=== PATIENT | male | born 1950 | race Caucasian/White ===

== ENCOUNTER → 2020-05-24 | Outpatient (CLI) | payer BC, SELFPAY ==
[2020-05-24 17:03] LABS: Absolute Lymphocyte Count 2.06 X10^3/uL (0.83-4.51); Basophil# 0.05 X10^3/uL; Basophil% 0.4 % (0-1); Eosinophil# 0.03 X10^3/uL; Eosinophils% 0.2 % (0-5); Hematocrit 43.6 % (40-54); Hemoglobin 14.6 g/dL (13.0-16.5); Lymphocyte # 2.06 X10^3/ul (4.0); Mean Corp Hgb Conc 33.5 g/dL (32-36); Mean Corpuscular Hgb 32.2 pg (27.0-32.0); Mean Corpuscular Volume 96.2 fL (80-94); Mean Platelet Vol. 9.8 fl (6.2-12.0); Monocyte# 0.72 X10^3/uL; Monocyte% 5.6 % (0-10); NRBC Flagged by Analyzer 0 % (0-5); Neutrophil # 9.95 X10^3/uL (2.7-7.7); Neutrophil % 77.2 % (47-70); Platelet Count 249 K/mm3 (150-450); RBC Distribution Width CV 12.4 % (11.6-14.6); RBC Distribution Width SD 43.9 fl (35.1-43.9); Red Blood Count 4.53 M/mm3 (4.6-6.2); White Blood Count 12.9 K/mm3 (4.4-11.0)
[2020-05-24 17:33] LABS: ALB/GLOB Ratio 0.7 RATIO (0.9-2.4); AST(SGOT) 5 U/L (15-37); Alanine Aminotransfer ALT/SGPT 17 U/L (16-61); Alkaline Phosphatase 114 U/L (45-117); Anion Gap 6 (5-15); BUN 22 mg/dL (7-18); BUN/Creat Ratio 21.6 RATIO (10-20); Calcium,Total 9.2 mg/dL (8.5-10.1); Chloride 104 mmol/L (98-107); Creatinine, Serum 1.02 mg/dL (0.70-1.30); EST Glomerular Filtration Rate 77 mL/min (>60); Est Glom Filt Rate - Afr Amer 93 mL/min (>60); Globulin 4.3 g/dL (2.2-4.2); Glucose 80 mg/dL (74-106); PSA,Total - Annual Screen 0.52 ng/mL (0.00-4.00); Potassium 3.6 mmol/L (3.5-5.1); Protein, Total 7.3 g/dL (6.4-8.2); Sodium Level 139 mmol/L (136-145); Thyroid Stim Hormone (TSH) 0.98 uIU/mL (0.358-3.74)
[2020-05-25 10:10] LABS: Hepatitis C Antibody Non-Reactive (Nonreactive); Vitamin D,25 Hydroxy 39.9 ng/mL
== END | disposition home or self-care (01) ==
LOC: POLAB3 14:49
PROVIDERS: Visit Provider Family Medicine Geriatric Medicine
DX: E55.9 Vitamin D deficiency, unspecified (principal); R53.83 Other fatigue; Z12.5 Encounter for screening for malignant neoplasm of prostate; Z13.89 Encounter for screening for other disorder
CPT/HCPCS: 36415; 80053; 82306; 84153; 84443; 85025; 86803; G0103

== ENCOUNTER → 2020-06-01 13:54 | Outpatient (CLI) | payer BC, SELFPAY ==
--- NOTE | 2020-06-01 13:57 | CT_ITS ---
ACR Level 3 findings have been noted. An addendum which confirms receipt of the report will follow. HISTORY: LUNG SCREENING, QUIT 3 WKS AGO, 50+ YR SMOKER X LESS THAN 1 PPD TECHNIQUE: Helically acquired images of the chest were obtained without IV contrast. Number of images including paperwork: [id number]. A radiation dose optimization technique was used for this scan, exam performed with let us lung cancer screening technique. CTDI 2.55 mGy. Total DLP 90.92 mGy*cm. COMPARISON: None FINDINGS: VASCULATURE: Vascular tortuosity. HEART/PERICARDIUM: Prominence of the left ventricle. Coronary calcification. MEDIASTINUM: Unremarkable. ADENOPATHY: No pathologic appearing adenopathy. THYROID: Unremarkable visualized portions. LUNG PARENCHYMA: No consolidation or mass. Moderate emphysema. 2 mm subpleural nodule in the right upper lobe on axial image 86. Bronchial filling defects with some micronodular/tree-in-bud opacities in the left lower lobe, evaluation limited due to motion artifact. PLEURAL SPACES: Unremarkable. UPPER ABDOMEN: Unremarkable. OSSEOUS AND SOFT TISSUE STRUCTURES: No acute skeletal findings. DEVICES: None. CT/Low Dose CT Lung Screening IMPRESSION: 1. No suspicious lung nodule detected. Lung-RADS 2S. Continued annual screening with low-dose chest CT recommended in 12 months. 2. Low density bronchial filling defects with some tree-in-bud/micronodular opacities in the left lower lobe concerning for infection. Individualized dose optimization techniques were used for this CT. at 2241 Reported and signed by: Evelyn Buenrostro MD Electronically Signed: Evelyn Buenrostro MD at 22:41 EDT Tel , Service support ,
== END ==
PROVIDERS: PCP Family Medicine Geriatric Medicine; Referring Provider Family Medicine Geriatric Medicine; Visit Provider Family Medicine Geriatric Medicine
DX: F17.210 Nicotine dependence, cigarettes, uncomplicated (principal)
CPT/HCPCS: G0297

== ENCOUNTER 2023-11-15 18:17 | Inpatient (IN) | payer MEDICARE, BC, SELFPAY ==
[2023-11-15 17:56] VITALS: BMI 27.7
--- NOTE | 2023-11-15 18:24 | HP.PCM.HOS_ITS ---
HPI - General General Date of Admission: 11/15/23 Date of Service: 11/15/23 Chief Complaint: Chest pain suspicion of acute coronary syndrome HPI Narrative REID DOMINGO, is a 73 M who presents from [facility] ED with concerns regarding chest pain with gradually rising troponin, elevated D-dimer levels and suspected pulmonary embolism. He presented to the ED today with concerns regarding chest pain and back pain for the last few hours and associated altered mental status. He was accompanied by his girlfriend who notes that his sensorium has been worsening over the last 1 to 2 weeks, increased sleepiness during the day and insomnia during the night. She is also concerned that his dementia is developing dementia and that is worsening. Been discussed with the ED physician, there were concerns regarding pulmonary embolism as the D-dimer was 2000 and age-related cutoff 720, CT scan done there showed no large pulm embolism in the main pulmonary arteries nondiagnostic evaluation of the smaller pulmonary arteries. His troponin was rising from 6 to 12-[address] head normal, chest x-ray normal. On lab evaluation his venous bicarbonate was 26 potassium 4.3 lactate 1.9, hemoglobin 17.2 WBC 13.6. At present is not concerned regarding any chest pain but is drowsy and confused PFSH Medical History COPD (chronic obstructive pulmonary disease) Smoker Medical History unable to obtain unable to obtain Home Medications NK 11/15/23 [History Last Taken Unknown] Allergy/AdvReac Type Severity Reaction Status Date / Time No Known Allergies Allergy Verified 11/15/23 18:03 Social History Smoking Status: Current every day smoker tobacco type: cigarettes ROS Review of Systems ROS Unobtainable: due to mental status and other Constitutional Constitutional: Reports anorexia and change in weight; Denies chills, fatigue, fever(s), malaise, night sweats, weakness or other Vital Signs Vital Signs Vital Signs: Weight Weight: 188 lb Body Mass Index (BMI) 27.7 Physical Exam Const Orientation / Consciousness: confused, disoriented and lethargic HEENT normocephalic Eyes PERRL Neck no lymphadenopathy Resp normal respiratory effort and no retractions Resp Narrative: Oxygen 88% on room air Cardio regular rate, regular rhythm and no JVD GI normal to inspection, nondistended, normoactive bowel sounds Extremity normal to inspection and full ROM Psych affect normal Results Medical Records Data Attestation: I reviewed the patient's medical records Lab / Micro Data Lab results narrative: Based on his labs from outpatient he has leukocytosis, hemoglobin is 15, platelet count 184, urine analysis was normal, 11/15/23 18:55 11/15/23 18:55 Assessment & Plan Assessment/Plan (1) Altered behavior: (2) NSTEMI (non-ST elevated myocardial infarction): PLAN: Plan 73-year-old male with history of smoking 3 packs of cigarettes per day, no prior history not on any medical therapy presents from [facility] ED with concerns regarding altered mentation and chest pain since today. His preliminary evaluation at the ED showed rising troponin levels, leukocytosis, elevated D-dimer levels but no other concerning findings. There are no features of COPD exacerbation at this time though he is desaturating on room air. Per the girlfriend, he is having signs of progressive dementia over the last few weeks. 1. Altered mentation: His CT head was normal no concerns regarding acute stroke, no focal neurological deficit. Given his leukocytosis concerned that this could be sepsis though urinalysis is normal, CT scan not suggestive of pneumonia. -Blood cultures -IV ceftriaxone -Urine analysis, repeat CBC BMP -COVID, nasal swab 2. Acute chest pain, rising troponin levels: Suspected NSTEMI -Cardiology opinion regarding the rising troponin levels: It was recommended to start him on heparin, aspirin and atorvastatin for now -Possible cath on Friday -Echocardiogram on Friday 3. Possible COPD: -Oxygen 2 L to maintain saturation 88 to 92% -Respiratory therapy consult -Bronchopulmonary hygiene 4. DVT prophylaxis: Will be started on therapeutic anticoagulation
--- NOTE | 2023-11-15 18:41 | ECHOD_ITS ---
Reason For Study: CHEST PAIN Procedure This was a 2D Doppler, Color Flow transthoracic echocardiogram. The study was technically difficult. Poor patient compliance. Exam performed portable in patient room. Left Ventricle Normal LV size. Apical false tendon noted. Left ventricular systolic function is normal. The estimated ejection fraction is 60 %. No evidence for diastolic dysfunction. No regional wall motion abnormalities noted. Right Ventricle Normal right ventricle. Normal systolic function. Atria Normal left atrium. Normal right atrium. Mitral Valve The mitral valve is structurally normal. No prolapse or stenosis seen. Tricuspid Valve Normal tricuspid valve. Trivial tricuspid valve insufficiency. Unable to estimate RV systolic pressure due to insufficient tricuspid regurgitant envelope. Aortic Valve Trisinus/trileaflet aortic valve. Pulmonic Valve The pulmonic valve is not well visualized. Great Vessels Normal aortic root. Pericardium/Pleural No pericardial effusion. MMode/2D Measurements & Calculations LVIDd: 3.7 cm IVSd: 0.95 cm LVOT diam: 2.2 cm LVIDs: 2.4 cm LVPWd: 0.87 cm LVOT area: 3.9 cm2 RVDd: 2.7 cm FS: 35.4 % Ao root diam: 3.6 cm LVAd ap4: 17.4 cm2 LVAd ap2: 20.2 cm2 LVLd ap4: 7.1 cm LVLd ap2: 7.5 cm EDV(MOD-sp4): 35.4 ml EDV(MOD-sp2): 44.9 ml EDV(sp4-el): 36.4 ml EDV(sp2-el): 46.0 ml LVAs ap4: 9.9 cm2 LVAs ap2: 11.2 cm2 LVLs ap4: 6.0 cm LVLs ap2: 6.0 cm ESV(MOD-sp4): 14.2 ml ESV(MOD-sp2): 17.7 ml ESV(sp4-el): 13.8 ml ESV(sp2-el): 17.8 ml EF(MOD-sp4): 60.0 % EF(MOD-sp2): 60.7 % EF(sp4-el): 62.1 % SV(MOD-sp4): 21.2 ml SV(MOD-sp2): 27.2 ml SV(sp4-el): 22.6 ml LA dimension(2D): 2.5 cm TAPSE: 1.3 cm RA A4 area: 10.8 cm2 Time Measurements MV dec time: 0.25 sec Doppler Measurements & Calculations MV E max faizan: 41.1 cm/sec Lat Peak E' Faizan: 7.2 cm/sec Med Peak E' Faizan: 6.9 cm/sec MV A max faizan: 49.3 cm/sec E/E' lat: 5.7 E/E' med: 5.9 MV E/A: 0.83 MV dec slope: 165.1 cm/sec2 Ao V2 max: 85.7 cm/sec LV V1 max: 65.9 cm/sec Ao max P.0 mmHg LV V1 max P.7 mmHg Ao V2 mean: 65.5 cm/sec Ao mean P.9 mmHg Ao V2 VTI: 14.6 cm SUNIL(V,D): 3.0 cm2 PA V2 max: 66.8 cm/sec ECHO/Echo Complete Interpretation Summary The estimated ejection fraction is 60 %. No evidence for diastolic dysfunction. Structually normal valves. There is no comparison study available. Ordering Physician: Barrie Oreilly Referring Physician: Thomas Fleming Chi Performed By: Tash Donato RDCS
--- NOTE | 2023-11-15 18:41 | EKG12_ITS ---
Test Reason : TACHY Blood Pressure : / mmHG Vent. Rate : 074 BPM Atrial Rate : 074 BPM P-R Int : 142 ms QRS Dur : 076 ms QT Int : 392 ms P-R-T Axes : 062 072 057 degrees QTc Int : 435 ms Sinus rhythm with Premature atrial complexes Abnormal ECG When compared with ECG of 16-NOV-2023 22:18, MANUAL COMPARISON REQUIRED, DATA IS UNCONFIRMED Confirmed by MIGUEL ROBISON, AUBRIE ([id number]), editor trade journal FLORENTINO PAGE ([id number]) on 11/19/2023 1:30:29 PM Referred By: Confirmed By:AUBRIE RIVERA MD
[2023-11-15 18:56] VITALS: BP 108/46; PULSE 102; RESP 18; TEMP 36.5; O2SAT 97
[2023-11-15 19:07] LABS: Absolute Lymphocyte Count 1.23 X10^3/uL (0.83-4.51); Absolute Neutrophil Count 13.7 X10^3/uL (2.0-7.7); Basophil# 0.04 X10^3/uL; Basophil% 0.3 % (0-1); Hematocrit 45.3 % (40-54); Hemoglobin 14.9 g/dL (13.0-16.5); Lymphocyte # 1.23 X10^3/ul (0.83-4.51); Lymphocyte % 7.8 % (19-41); Mean Corp Hgb Conc 32.9 g/dL (32-36); Mean Corpuscular Volume 94.2 fL (80-94); Mean Platelet Vol. 9.7 fl (6.2-12.0); Monocyte# 0.62 X10^3/uL; Monocyte% 3.9 % (0-10); NRBC Flagged by Analyzer 0 % (0-5); Neutrophil # 13.74 X10^3/uL (2.7-7.7); Neutrophil % 87.4 % (47-70); Platelet Count 151 K/mm3 (150-450); RBC Distribution Width CV 13.4 % (11.6-14.6); RBC Distribution Width SD 46.8 fl (35.1-43.9); Red Blood Count 4.81 M/mm3 (4.6-6.2); White Blood Count 15.7 K/mm3 (4.4-11.0)
[2023-11-15 19:48] LABS: ALB/GLOB Ratio 0.9 RATIO (0.9-2.4); AST(SGOT) 14 U/L (15-37); Alanine Aminotransfer ALT/SGPT 10 U/L (16-61); Albumin, Serum 3.1 g/dL (3.2-5.0); Alkaline Phosphatase 90 U/L (45-117); Anion Gap 5 (5-15); BUN 16 mg/dL (7-18); BUN/Creat Ratio 13.9 RATIO (10-20); Calcium,Total 8.6 mg/dL (8.5-10.1); Chloride 104 mmol/L (98-107); Creatinine, Serum 1.15 mg/dL (0.70-1.30); EST Glomerular Filtration Rate 66 mL/min (>60); Est Glom Filt Rate - Afr Amer 80 mL/min (>60); Estimated Creatinine Clearance 62.85 ml/min; Globulin 3.3 g/dL (2.2-4.2); Glucose 120 mg/dL (74-106); Magnesium 2.1 mg/dL (1.6-2.6); Potassium 4.8 mmol/L (3.5-5.1); Protein, Total 6.4 g/dL (6.4-8.2); Sodium Level 135 mmol/L (136-145); Troponin-I HS 123 pg/mL (3.0-78.0)
[2023-11-15 19:56] VITALS: O2SAT 97
[2023-11-15 20:11] LABS: Partial Thromboplast Time 39.1 Seconds (24.1-36.2)
[2023-11-15 20:30] LABS: Procalcitonin 0.46 ng/mL (0.00-0.09)
--- NOTE | 2023-11-15 20:36 | EKG12_ITS ---
Test Reason : Blood Pressure : / mmHG Vent. Rate : 080 BPM Atrial Rate : 080 BPM P-R Int : 150 ms QRS Dur : 080 ms QT Int : 366 ms P-R-T Axes : 078 075 046 degrees QTc Int : 422 ms Normal sinus rhythm Early repolarization Normal ECG No previous ECGs available Confirmed by MIGUEL ROBISON, AUBRIE ([id number]), movie editor FLORENTINO PAGE ([id number]) on 11/19/2023 1:38:34 PM Referred By: Confirmed By:AUBRIE RIVERA MD
[2023-11-15] MEDS: HEPARIN/D5w 25,000 UNITS 25,000 UNITS/250 ML IV.SOLN. 12 UNITS CONT INF (21:12)
[2023-11-15] MEDS: Heparin Injection (Vial) 5,000 UNIT/ML VIAL 6000 UNIT IV (21:13)
[2023-11-15] MEDS: Atorvastatin Calcium 40 MG Tablet PO (21:13)
[2023-11-15] MEDS: Aspirin 81 MG TAB.CHEW 324 MG PO (21:13)
[2023-11-15] MEDS: Haloperidol Lactate 5 MG/ML Vial 1 MG IV (21:14)
[2023-11-15 21:43] LABS: Troponin-I HS 131 pg/mL (3.0-78.0)
--- NOTE | 2023-11-15 23:00 | PCM.HOSP.N ---
Hospitalist Note Patient since presentation from OSH with agitation, unclear etiology. Family denies EtOH abuse. Resp panel pending, negative COVID. Outside imaging including CT imaging head/chest per hospitalist sign out unremarkable. Patient does have mild WBC elevation 15.7, labs aside mild trop elevation otherwise no marked. Haldol started given concern for self accidental injury while evaluating. Will attempt to obtain NH level. Family does endorse history of dementia and had noted concerns that is has been worsening.
[2023-11-15 23:17] LABS: Bacteria 0 SEEN /hpf (None Seen); Mucous, Urine 0 SEEN /hpf (<or=2+); Red Blood Cells-Urine 0 SEEN /hpf (0-5); Squamous Epithelial Cells - UA 0 SEEN /hpf (0-5); White Blood Cells 0 SEEN /hpf (0-5)
[2023-11-15 23:18] LABS: Color, Urine Yellow (Yellow); Glucose, Dipstick Normal (Normal); Ketone-Dipstick Negative (Negative); Leukocyte Esterase-Dipstick Negative /ul (Negative); Nitrite-Dipstick Negative (Negative); Occult Blood-Urine 10 /ul (Negative); Protein-Dipstick 15 mg/dl (Negative); Urine Bilirubin Dipstick Negative (Negative); Urine Clarity Clear (Clear); Urine Urobilinogen Normal (Normal)
[2023-11-15] MEDS: Haloperidol Lactate 5 MG/ML Vial IV (23:23)
[2023-11-15 23:53] LABS: Amphetamine Urine VISTA NEGATIVE (<1000 ng/mL); Barbiturate Urine VISTA NEGATIVE (< 200 ng/mL); Benzodiazepine Urine VISTA NEGATIVE (< 200 ng/mL); Cocaine Urine VISTA NEGATIVE (< 300 ng/mL); Ecstacy Urine VISTA NEGATIVE (< 500 ng/mL); Methadone Urine VISTA NEGATIVE (< 300 ng/mL); PCP Urine VISTA NEGATIVE (< 25 ng/mL); THC Urine VISTA NEGATIVE (< 50 ng/mL); Vista UDS pH Range 8
[2023-11-16] MEDS: QUEtiapine 25 MG Tablet PO (02:10)
[2023-11-16 02:15] LABS: BNP,B-Type NATRIURETIC PEPTIDE 277.4 pg/mL (0-100)
[2023-11-16 02:21] LABS: Troponin-I HS 96 pg/mL (3.0-78.0)
[2023-11-16 02:22] LABS: Partial Thromboplast Time > 200.0 Seconds (24.1-36.2)
[2023-11-16 02:31] LABS: Cholesterol 118 mg/dL (200); High Density Lipoprotein 55 mg/dL; Triglycerides 60 mg/dL; Very Low Density Lipoprotein 12 mg/dL (5-40)
[2023-11-16] MEDS: Haloperidol Lactate 5 MG/ML Vial 1 MG IV ×2 (03:13→12:24)
[2023-11-16 04:44] VITALS: BP 118/70; PULSE 76; RESP 18; TEMP 37.2; O2SAT 96
[2023-11-16 08:10] VITALS: O2SAT 96
[2023-11-16 09:55] LABS: Partial Thromboplast Time 66.7 Seconds (24.1-36.2)
[2023-11-16 12:18] VITALS: BP 124/76; PULSE 77; RESP 18; TEMP 36.3; O2SAT 96
--- NOTE | 2023-11-16 14:23 | PN.HOSP_ITS ---
Subjective Subjective No issues overnight, appears to be remaining at the baseline as described Objective Data Objective Data Vital Signs: Vital Signs Temp Pulse Resp BP Pulse Ox O2 Del Method O2 Flow Rate 97.4 F L 77 18 124/76 H 96 Room Air 2 11/16/23 12:18 11/16/23 12:18 11/16/23 12:18 11/16/23 12:18 11/16/23 12:18 11/16/23 12:18 11/16/23 09:34 Oxygen Flow Rate (L/min) 2 Oxygen Delivery Method Room Air Weight: 188 lb Body Mass Index (BMI) 27.7 Intake & Output: Intake and Output for Last 24 Hours 11/15/23 11/16/23 11/17/23 03:59 03:59 03:59 Intake Total 65 / 65 0 / 0 Output Total 200 / 200 700 / 700 Balance -135 / -135 -700 / -700 Lab / Micro Data 11/15/23 18:55 11/15/23 18:55 Labs: Laboratory Results - last 24 hr 11/15/23 18:55: WBC 15.7 H, RBC 4.81, Hgb 14.9, Hct 45.3, MCV 94.2 H, MCH 31.0, MCHC 32.9, RDW Std Deviation 46.8 H, RDW Coeff of Katerina 13.4, Plt Count 151, MPV 9.7, Immature Gran % (Auto) 0.600, Neut % (Auto) 87.4 H, Lymph % (Auto) 7.8 L, [place] % (Auto) 3.9, Eos % (Auto) 0.0, Baso % (Auto) 0.3, Absolute Neuts (auto) 13.7 H, Absolute Lymphs (auto) 1.23, Nucleated RBC % 0, APTT 39.1 H, Sodium 135 L, Potassium 4.8, Chloride 104, Carbon Dioxide 26.0, Anion Gap 5, BUN 16, Creatinine 1.15, Estim Creat Clear Calc 62.85, Est GFR (MDRD) Af Amer 80, Est GFR (MDRD) Non-Af 66, BUN/Creatinine Ratio 13.9, Glucose 120 H, Calcium 8.6, Magnesium 2.1, Total Bilirubin 0.90, AST 14 L, ALT 10 L, Alkaline Phosphatase 90, Troponin I High Sens 123 H*, Total Protein 6.4, Albumin 3.1 L, Globulin 3.3, Albumin/Globulin Ratio 0.9, Procalcitonin 0.46 H 11/15/23 20:59: Troponin I High Sens 131 H* 11/15/23 23:05: Urine Color Yellow, Urine Clarity Clear, Urine pH 8.0, Ur Specific [place] 1.010, Urine Protein 15 H, Urine Glucose (UA) Normal, Urine Ketones Negative, Urine Occult Blood 10 H, Urine Nitrite Negative, Urine Bilirubin Negative, Urine Urobilinogen Normal, Ur Leukocyte Esterase Negative, Urine RBC 0 SEEN, Urine WBC 0 SEEN, Ur Squamous Epith Cells 0 SEEN, Urine Bacte yadi 0 SEEN, Urine Mucus 0 SEEN, Urine Opiates Screen POSITIVE H, Urine Methadone Screen NEGATIVE, Ur Barbiturates Screen NEGATIVE, Ur Phencyclidine Scrn NEGATIVE, Ur Amphetamines Screen NEGATIVE, MDMA (Ecstasy) Screen NEGATIVE, U Benzodiazepines Scrn NEGATIVE, Urine Cocaine Screen NEGATIVE, U Cannabinoids Screen NEGATIVE, Ur Drug Screen Comment 11/16/23 01:45: APTT > 200.0 H*, Ammonia 13.0, Troponin I High Sens 96 H, B- Natriuretic Peptide 277.4 H, Triglycerides 60, Cholesterol 118, LDL Cholesterol 51, VLDL Cholesterol 12, HDL Cholesterol 55 11/16/23 08:49: APTT 66.7 H Micro: Microbiology 11/15/23 20:40 Mucosa - Nasopharyngeal Coronavirus COVID-19 PCR - Final 11/15/23 20:40 Mucosa - Nasopharyngeal Respiratory Panel (PCR) - Final Physical Exam Narrative General: Drowsy and disoriented, restless and was combative overnight HEENT: Atraumatic, PERRLA, EOMI, Normocephalic Oral: Moist Mucosa Neck: Supple, No JVD Lungs: Diminished, Normal air movement, No rhonchi, No wheeze, No rales Cardiovascular: Regular rate, Regular Rhythm, Normal S1, Normal S2, No murmurs Abdomen: Soft, Non Tender, Non-Distended, No Hepato-splenomegaly Extremities: No edema, Capillary Refill Less than 3 Seconds Skin: No rashes, No breakdown Musculoskeletal: No Tenderness to Palpation of Joints or Extremities Neurological: Does not follow commands, does move all extremities Psych/Mental Status: Flat Assessment & Plan Assessment/Plan (1) Altered behavior: (2) NSTEMI (non-ST elevated myocardial infarction): PLAN: Plan 1. Altered mental status in the setting of chronic dementia ? Currently still unclear as to the etiology of his worsening mental status ? There is no obvious infectious etiology respiratory panels were obtained at the outside hospital reportedly negative ? Chest x-ray is unremarkable ? UA here is normal ? Overnight physician started him on Haldol to help control behaviors of possible 2. Chest pain possible non-STEMI ? Unclear if he is having a non-STEMI or not as troponins are borderline ? Cardiology was consulted and they recommended a heparin drip with possible cat h and echo on Friday DVT: Heparin drip Charges/Coding Visit Charges Inpatient E&M: 77706 Subs Hosp L2
[2023-11-16 16:04] LABS: Partial Thromboplast Time 60.3 Seconds (24.1-36.2)
--- NOTE | 2023-11-16 16:25 | CON.PCM.CA_ITS ---
Assessment & Plan Assessment/Plan (1) Altered behavior: (2) NSTEMI (non-ST elevated myocardial infarction): PLAN: Plan 73-year-old patient Seen and evaluated at bedside along with the nursing staff And significant other at bedside. 73-year-old patient who was admitted through the ER transfer from [place] ED with concern regarding symptoms of chest pain and increasing troponin level. And elevated D-dimer level On review of the record there is concern that patient had history of dementia which was worsening. Evaluation by CT chest showed no evidence of pulm embolism. EKG showed normal sinus with early repolarization. No significant ST?T abnormalities noted. Patient has a history of smoking based on the record he smokes 3 packs/day. Cardiac care plan recommendations; Patient was not responsive he was very confused and has been on sedation with Haldol. The maximal troponin level where 96 with a B-natriuretic peptide of 277. The EKG showed normal sinus with signs of early repolarization. Urine drug screen was negative. From cardiac standpoint not a candidate for invasive evaluation at this point would recommend echocardiogram will review the echo as well will check a series of cardiac markers in the morning. Discontinue heparin restarted on prophylactic Lovenox and SCDs for DVT Will defer to the medical team for evaluation of altered mental status. Reagan Greenfield MD,[facility] HPI Consult Data Date of Consult: 11/16/23 HPI Narrative Reason for Consultation: Elevated troponins HPI Narrative: REID DOMINGO, is a 73 M who presents [facility] Medical History COPD (chronic obstructive pulmonary disease) Smoker Medical History unable to obtain Home Medications multivitamin (One Daily Essential tablet) 1 tab PO DAILY vitamin 11/15/23 [History Last Taken Unknown] Allergy/AdvReac Type Severity Reaction Status Date / Time No Known Allergies Allergy Verified 11/15/23 18:03 Social History Smoking Status: Current every day smoker tobacco type: cigarettes Physical Exam Cardio Cardio Narrative: Seen and evaluated at bedside along with the nursing staff Significant other at bedside Patient agitated Not responsive with altered mental status. Patient had no focal neurological deficit on neurological exam however he was not responsive with altered mental status. shelter monitor showed normal sinus rhythm Cardiac exam S1-S2 regular Chest exam clear to auscultation bilateral. Risk Stratification Risk Stratification Applicable: No Objective Data Vital Signs: Vital Signs Temp Pulse Resp BP Pulse Ox O2 Del Method O2 Flow Rate 97.4 F L 77 18 124/76 H 96 Room Air 2 11/16/23 12:18 11/16/23 12:18 11/16/23 12:18 11/16/23 12:18 11/16/23 12:18 11/16/23 14:24 11/16/23 09:34 Oxygen Flow Rate (L/min) 2 Oxygen Delivery Method Room Air Weight: 188 lb Body Mass Index (BMI) 27.7 Intake & Output: Intake and Output for Last 24 Hours 11/14/23 11/15/23 11/16/23 23:59 23:59 23:59 Intake Total 154.25 / 154.25 Output Total 1650 / 1650 Balance -1495.75 / -1495.75 Lab / Micro Data 11/15/23 18:55 11/15/23 18:55 Labs: Laboratory Results - last 24 hr 11/15/23 18:55: WBC 15.7 H, RBC 4.81, Hgb 14.9, Hct 45.3, MCV 94.2 H, MCH 31.0, MCHC 32.9, RDW Std Deviation 46.8 H, RDW Coeff of Katerina 13.4, Plt Count 151, MPV 9.7, Immature Gran % (Auto) 0.600, Neut % (Auto) 87.4 H, Lymph % (Auto) 7.8 L, [place] % (Auto) 3.9, Eos % (Auto) 0.0, Baso % (Auto) 0.3, Absolute Neuts (auto) 13.7 H, Absolute Lymphs (auto) 1.23, Nucleated RBC % 0, APTT 39.1 H, Sodium 135 L, Potassium 4.8, Chloride 104, Carbon Dioxide 26.0, Anion Gap 5, BUN 16, Creatinine 1.15, Estim Creat Clear Calc 62.85, Est GFR (MDRD) Af Amer 80, Est GFR (MDRD) Non-Af 66, BUN/Creatinine Ratio 13.9, Glucose 120 H, Calcium 8.6, Magnesium 2.1, Total Bilirubin 0.90, AST 14 L, ALT 10 L, Alkaline Phosphatase 90, Troponin I High Sens 123 H*, Total Protein 6.4, Albumin 3.1 L, Globulin 3.3, Albumin/Globulin Ratio 0.9, Procalcitonin 0.46 H 11/15/23 20:59: Troponin I High Sens 131 H* 11/15/23 23:05: Urine Color Yellow, Urine Clarity Clear, Urine pH 8.0, Ur Specific [place] 1.010, Urine Protein 15 H, Urine Glucose (UA) Normal, Urine Ketones Negative, Urine Occult Blood 10 H, Urine Nitrite Negative, Urine Bilirubin Negative, Urine Urobilinogen Normal, Ur Leukocyte Esterase Negative, Urine RBC 0 SEEN, Urine WBC 0 SEEN, Ur Squamous Epith Cells 0 SEEN, Urine Bacteria 0 SEEN, Urine Mucus 0 SEEN, Urine Opiates Screen POSITIVE H, Urine Methadone Screen NEGATIVE, Ur Barbiturates Screen NEGATIVE, Ur Phencyclidine Scrn NEGATIVE, Ur Amphetamines Screen NEGATIVE, MDMA (Ecstasy) Screen NEGATIVE, U Benzodiazepines Scrn NEGATIVE, Urine Cocaine Screen NEGATIVE, U Cannabinoids Screen NEGATIVE, Ur Drug Screen Comment 11/16/23 01:45: APTT > 200.0 H*, Ammonia 13.0, Troponin I High Sens 96 H, B- Natriuretic Peptide 277.4 H, Triglycerides 60, Cholesterol 118, LDL Cholesterol 51, VLDL Cholesterol 12, HDL Cholesterol 55 11/16/23 08:49: APTT 66.7 H 11/16/23 14:45: APTT 60.3 H Micro: Microbiology 11/15/23 20:40 Mucosa - Nasopharyngeal Coronavirus COVID-19 PCR - Final 11/15/23 20:40 Mucosa - Nasopharyngeal Respiratory Panel (PCR) - Final Cardiology Labs/Tests 11/15/23 18:55: WBC 15.7 H, RBC 4.81, Hgb 14.9, Hct 45.3, MCV 94.2 H, MCH 31.0, MCHC 32.9, Plt Count 151, MPV 9.7, Immature Gran % (Auto) 0.600, Neut % (Auto) 87.4 H, Lymph % (Auto) 7.8 L, [place] % (Auto) 3.9, Eos % (Auto) 0.0, Baso % (Auto) 0.3, Absolute Neuts (auto) 13.7 H, Nucleated RBC % 0, APTT 39.1 H, Sodium 135 L, Potassium 4.8, Chloride 104, Carbon Dioxide 26.0, Anion Gap 5, BUN 16, Creatinine 1.15, Est GFR (MDRD) Af Amer 80, Est GFR (MDRD) Non-Af 66, BUN/Creatinine Ratio 13.9, Glucose 120 H, Calcium 8.6, Magnesium 2.1, Total Bilirubin 0.90 11/15/23 23:05: Urine Color Yellow, Urine Clarity Clear, Urine pH 8.0, Ur Speci fic [place] 1.010, Urine Protein 15 H, Urine Glucose (UA) Normal, Urine Ketones Negative, Urine Occult Blood 10 H, Urine Nitrite Negative, Urine Bilirubin Negative, Urine Urobilinogen Normal, Ur Leukocyte Esterase Negative, Urine RBC 0 SEEN, Urine WBC 0 SEEN 11/16/23 01:45: APTT > 200.0 H*, B-Natriuretic Peptide 277.4 H, Triglycerides 60, Cholesterol 118, LDL Cholesterol 51, VLDL Cholesterol 12, HDL Cholesterol 55 11/16/23 08:49: APTT 66.7 H 11/16/23 14:45: APTT 60.3 H Rhythm: EKG: ECHO: Stress Test: Cardiac Cath: PCI: CT Surgery: Holter monitor: EPS: PPM: CXR: Chest CT Scan:
[2023-11-16 18:55] VITALS: BP 130/83; PULSE 86; RESP 18; TEMP 36.5; O2SAT 94
[2023-11-16 22:00] VITALS: BP 147/90; PULSE 100; RESP 16; TEMP 35.6; O2SAT 98
[2023-11-16] MEDS: Enoxaparin 40 MG/0.4 ML Syringe SC (22:09)
--- NOTE | 2023-11-16 22:11 | EKG12_ITS ---
Test Reason : TACHY Blood Pressure : / mmHG Vent. Rate : 102 BPM Atrial Rate : 102 BPM P-R Int : 136 ms QRS Dur : 076 ms QT Int : 352 ms P-R-T Axes : 067 078 056 degrees QTc Int : 458 ms Sinus tachycardia with Premature supraventricular complexes Abnormal ECG When compared with ECG of 16-NOV-2023 22:16, MANUAL COMPARISON REQUIRED, DATA IS UNCONFIRMED Confirmed by MIGUEL ROBISON, AUBRIE ([id number]), proposal editor FLORENTINO PAGE ([id number]) on 11/19/2023 1:30:46 PM Referred By: DR MONTEJO Confirmed By:AUBRIE RIVERA MD
--- NOTE | 2023-11-16 22:16 | EKG12_ITS ---
Test Reason : TACHY Blood Pressure : / mmHG Vent. Rate : 104 BPM Atrial Rate : 104 BPM P-R Int : 166 ms QRS Dur : 082 ms QT Int : 342 ms P-R-T Axes : 073 076 056 degrees QTc Int : 449 ms Sinus tachycardia with Premature atrial complexes Abnormal ECG When compared with ECG of 15-NOV-2023 20:36, MANUAL COMPARISON REQUIRED, DATA IS UNCONFIRMED Confirmed by MIGUEL ROBISON, AUBRIE ([id number]), digital editor FLORENTINO PAGE ([id number]) on 11/19/2023 1:38:49 PM Referred By: DR MONTEJO Confirmed By:AUBRIE RIVERA MD
[2023-11-17] VITALS (11 sets, daily range): BP systolic 104–126; BP diastolic 66–94; PULSE 76–155; RESP 16–18; TEMP 36.1–37.2; O2SAT 90–96
[2023-11-17 00:09] LABS: Partial Thromboplast Time 49.1 Seconds (24.1-36.2)
[2023-11-17] MEDS: HEPARIN/D5w 25,000 UNITS 25,000 UNITS/250 ML IV.SOLN. 7 UNITS CONT INF (01:59)
--- NOTE | 2023-11-17 06:31 | PCM.HOSP.N ---
Hospitalist Note Patient with still intermittent tachycardia, will suddenly jump up to 170-180s, unable to catch on EKG. Will add metoprolol but will defer alteration to Cardiology discretion.
[2023-11-17] MEDS: Metoprolol Tartrate 5 MG/5 ML Vial IV ×2 (06:47→11:04)
[2023-11-17] MEDS: Budesonide Respules 0.5 MG/2 ML AMPUL.NEB. INHALATION (07:25)
[2023-11-17 08:03] LABS: Absolute Lymphocyte Count 1.79 X10^3/uL (0.83-4.51); Absolute Neutrophil Count 7.4 X10^3/uL (2.0-7.7); Basophil# 0.04 X10^3/uL; Basophil% 0.4 % (0-1); Eosinophil# 0.08 X10^3/uL; Eosinophils% 0.8 % (0-5); Hematocrit 48.6 % (40-54); Hemoglobin 16.5 g/dL (13.0-16.5); Lymphocyte # 1.79 X10^3/ul (0.83-4.51); Lymphocyte % 18.4 % (19-41); Mean Corpuscular Hgb 31.1 pg (27.0-32.0); Mean Corpuscular Volume 91.7 fL (80-94); Monocyte# 0.37 X10^3/uL; Monocyte% 3.8 % (0-10); NRBC Flagged by Analyzer 0 % (0-5); Neutrophil # 7.38 X10^3/uL (2.7-7.7); Neutrophil % 76.1 % (47-70); Platelet Count 186 K/mm3 (150-450); RBC Distribution Width CV 13.1 % (11.6-14.6); RBC Distribution Width SD 44.6 fl (35.1-43.9); White Blood Count 9.7 K/mm3 (4.4-11.0)
[2023-11-17 08:25] LABS: Partial Thromboplast Time 54.2 Seconds (24.1-36.2)
[2023-11-17 08:26] LABS: Anion Gap 10 (5-15); BUN 19 mg/dL (7-18); BUN/Creat Ratio 17.4 RATIO (10-20); Calcium,Total 8.8 mg/dL (8.5-10.1); Chloride 105 mmol/L (98-107); Creatinine, Serum 1.09 mg/dL (0.70-1.30); EST Glomerular Filtration Rate 71 mL/min (>60); Est Glom Filt Rate - Afr Amer 85 mL/min (>60); Estimated Creatinine Clearance 66.31 ml/min; Glucose 103 mg/dL (74-106); Potassium 4.1 mmol/L (3.5-5.1); Sodium Level 136 mmol/L (136-145); Troponin-I HS 18 pg/mL (3.0-78.0)
--- NOTE | 2023-11-17 10:43 | PCM.PN.HOSP ---
Subjective Subjective Has tachycardia overnight as well as behavioral issues. Not a candidate for invasive cardiac evaluation, echo is pending Objective Data Objective Data Vital Signs: Vital Signs Temp Pulse Resp BP Pulse Ox O2 Del Method O2 Flow Rate 99 F 76 18 118/70 96 Nasal Cannula 2 11/17/23 07:52 11/17/23 07:52 11/17/23 07:52 11/17/23 07:52 11/17/23 07:52 11/17/23 07:52 11/17/23 07:52 Oxygen Flow Rate (L/min) 2 Oxygen Delivery Method Nasal Cannula Weight: 188 lb Body Mass Index (BMI) 27.7 Intake & Output: Intake and Output for Last 24 Hours 11/16/23 11/17/23 11/18/23 03:59 03:59 03:59 Intake Total 65 / 65 89.25 / 89.25 Output Total 200 / 200 2100 / 2100 200 / 200 Balance -135 / -135 -2010.75 / -2010.75 -200 / -200 Lab / Micro Data 11/17/23 07:51 11/17/23 07:51 Labs: Laboratory Results - last 24 hr 11/16/23 14:45: APTT 60.3 H 11/16/23 23:43: APTT 49.1 H 11/17/23 07:51: WBC 9.7, RBC 5.30, Hgb 16.5, Hct 48.6, MCV 91.7, MCH 31.1, MCHC 34.0, RDW Std Deviation 44.6 H, RDW Coeff of Katerina 13.1, Plt Count 186, MPV 10.0, Immature Gran % (Auto) 0.500, Neut % (Auto) 76.1 H, Lymph % (Auto) 18.4 L, [place] % (Auto) 3.8, Eos % (Auto) 0.8, Baso % (Auto) 0.4, Absolute Neuts (auto) 7.4, Absolute Lymphs (auto) 1.79, Nucleated RBC % 0, APTT 54.2 H, Sodium 136, Potassium 4.1, Chloride 105, Carbon Dioxide 21.0, Anion Gap 10, BUN 19 H, Creatinine 1.09, Estim Creat Clear Calc 66.31, Est GFR (MDRD) Af Amer 85, Est GFR (MDRD) Non-Af 71, BUN/Creatinine Ratio 17.4, Glucose 103, Calcium 8.8, Troponin I High Sens 18 Micro: Microbiology 11/15/23 20:40 Mucosa - Nasopharyngeal Coronavirus COVID-19 PCR - Final 11/15/23 20:40 Mucosa - Nasopharyngeal Respiratory Panel (PCR) - Final Physical Exam Narrative General: Confused and restless HEENT: Atraumatic, PERRLA, EOMI, Normocephalic Oral: Moist Mucosa Neck: Supple, No JVD Lungs: Diminished, Normal air movement, No rhonchi, No wheeze, No rales Cardiovascular: Tachycardic, Regular Rhythm, Normal S1, Normal S2, No murmurs Abdomen: Soft, Non Tender, Non-Distended, No Hepato-splenomegaly Extremities: No edema, Capillary Refill Less than 3 Seconds Skin: No rashes, No breakdown Musculoskeletal: No Tenderness to Palpation of Joints or Extremities Neurological: Does not follow commands, does move all extremities Psych/Mental Status: Flat Assessment & Plan Assessment/Plan (1) Altered behavior: (2) NSTEMI (non-ST elevated myocardial infarction): PLAN: Plan 1. Altered mental status in the setting of chronic dementia ? Currently still unclear as to the etiology of his worsening mental status ? There is no obvious infectious etiology respiratory panels were obtained at the outside hospital reportedly negative ? Chest x-ray is unremarkable ? UA here is normal ? Leukocytosis resolved on its own without any antibiotics ? Overnight physician started him on Haldol to help control behaviors of possible 2. Chest pain possible non-STEMI ? Unclear if he is having a non-STEMI or not as troponins are borderline on admission and currently normal today ? Continue with echo, not a candidate for invasive studies ? Given elevated heart rates, will place on IV metoprolol as he is n.p.o. for speech therapy evaluation DVT: Heparin drip Charges/Coding Visit Charges Inpatient E&M: 20375 Subs Hosp L2
[2023-11-17] MEDS: 0.9% Saline Lock 10 ML Syringe IV ×2 (11:04→18:59)
--- NOTE | 2023-11-17 12:16 | PN.CARD_ITS ---
<Statement entered by Reagan Greenfield MD - 11/17/23 13:37> Pt seen & evaluated w/NILSON. I personally interviewed & exam the pt. I was involved in all aspects of pt's orders, interpretation of results & treatment Subjective Subjective Pt having episodes of SVT. Objective Data Vital Signs: Vital Signs Temp Pulse Resp BP Pulse Ox O2 Del Method O2 Flow Rate 97.6 F L 96 18 126/94 H 96 Room Air 2 11/17/23 10:00 11/17/23 11:04 11/17/23 10:00 11/17/23 11:04 11/17/23 10:00 11/17/23 10:00 11/17/23 07:52 Oxygen Flow Rate (L/min) 2 Oxygen Delivery Method Room Air Weight: 188 lb Body Mass Index (BMI) 27.7 Intake & Output: Intake and Output for Last 24 Hours 11/15/23 11/16/23 11/17/23 23:59 23:59 23:59 Intake Total 154.25 / 154.25 Output Total 1999 / 2300 500 / 500 Balance -1845.75 / -2145.75 -500 / -500 Lab / Micro Data 11/17/23 07:51 11/17/23 07:51 Labs: Laboratory Results - last 24 hr 11/16/23 14:45: APTT 60.3 H 11/16/23 23:43: APTT 49.1 H 11/17/23 07:51: WBC 9.7, RBC 5.30, Hgb 16.5, Hct 48.6, MCV 91.7, MCH 31.1, MCHC 34.0, RDW Std Deviation 44.6 H, RDW Coeff of Katerina 13.1, Plt Count 186, MPV 10.0, Immature Gran % (Auto) 0.500, Neut % (Auto) 76.1 H, Lymph % (Auto) 18.4 L, [place] % (Auto) 3.8, Eos % (Auto) 0.8, Baso % (Auto) 0.4, Absolute Neuts (auto) 7.4, Absolute Lymphs (auto) 1.79, Nucleated RBC % 0, APTT 54.2 H, Sodium 136, Pota ssium 4.1, Chloride 105, Carbon Dioxide 21.0, Anion Gap 10, BUN 19 H, Creatinine 1.09, Estim Creat Clear Calc 66.31, Est GFR (MDRD) Af Amer 85, Est GFR (MDRD) Non-Af 71, BUN/Creatinine Ratio 17.4, Glucose 103, Calcium 8.8, Troponin I High Sens 18 Cardiology Labs/Tests 11/16/23 14:45: APTT 60.3 H 11/16/23 23:43: APTT 49.1 H 11/17/23 07:51: WBC 9.7, RBC 5.30, Hgb 16.5, Hct 48.6, MCV 91.7, MCH 31.1, MCHC 34.0, Plt Count 186, MPV 10.0, Immature Gran % (Auto) 0.500, Neut % (Auto) 76.1 H, Lymph % (Auto) 18.4 L, [place] % (Auto) 3.8, Eos % (Auto) 0.8, Baso % (Auto) 0.4, Absolute Neuts (auto) 7.4, Nucleated RBC % 0, APTT 54.2 H, Sodium 136, Potassium 4.1, Chloride 105, Carbon Dioxide 21.0, Anion Gap 10, BUN 19 H, Creatinine 1.09, Est GFR (MDRD) Af Amer 85, Est GFR (MDRD) Non-Af 71, BUN/Creatinine Ratio 17.4, Glucose 103, Calcium 8.8 Radiography Diagnostic Testing: Radiology Impression Echocardiogram 11/15/23 18:41 Interpretation Summary The estimated ejection fraction is 60 %. No evidence for diastolic dysfunction. Structually normal valves. There is no comparison study available. Ordering Physician: Barrie Oreilly Referring Physician: Thomas Fleming Chi Performed By: Tash Donato, DELONTE Physical Exam Narrative General: Confused and restless HEENT: Atraumatic, PERRLA, EOMI, Normocephalic Oral: Moist Mucosa Neck: Supple, No JVD Lungs: Diminished, Normal air movement, No rhonchi, No wheeze, No rales Cardiovascular: Tachycardic, Regular Rhythm, Normal S1, Normal S2, No murmurs Abdomen: Soft, Non Tender, Non-Distended, No Hepato-splenomegaly Extremities: No edema, Capillary Refill Less than 3 Seconds Skin: No rashes, No breakdown Musculoskeletal: No Tenderness to Palpation of Joints or Extremities Neurological: Does not follow commands, does move all extremities Psych/Mental Status: Flat Assessment & Plan Assessment/Plan (1) NSTEMI (non-ST elevated myocardial infarction): (2) SVT (supraventricular tachycardia): PLAN: Plan * Pt is having runs of SVT, Will start him on oral metoprolol. With his NSTEMI that is a type II would like aggressive medical management. Will continue with is ASA and atorvastatin. 73-year-old patient Seen and evaluated at bedside along with the nursing staff And significant other at bedside. 73-year-old patient who was admitted through the ER transfer from [place] ED with concern regarding symptoms of chest pain and increasing troponin level. And elevated D-dimer level On review of the record there is concern that patient had history of dementia which was worsening. Evaluation by CT chest showed no evidence of pulm embolism. EKG showed normal sinus with early repolarization. No significant ST?T abnormalities noted. Patient has a history of smoking based on the record he smokes 3 packs/day. Cardiac care plan recommendations; Patient was not responsive he was very confused and has been on sedation with Haldol. The maximal troponin level where 96 with a B-natriuretic peptide of 277. The EKG showed normal sinus with signs of early repolarization. Urine drug screen was negative. From cardiac standpoint not a candidate for invasive evaluation at this point would recommend echocardiogram will review the echo as well will check a series of cardiac markers in the morning. Discontinue heparin restarted on prophylactic Lovenox and SCDs for DVT Will defer to the medical team for evaluation of altered mental status. Reagan Greenfield MD,FACC,[facility]
[2023-11-17] MEDS: Enoxaparin 40 MG/0.4 ML Syringe SC (13:55)
--- NOTE | 2023-11-17 15:43 | CASEMGMT ---
Discharge Planning A list of?SNF providers including quality and resource use data and consistent with the patient's preferred geographic region, medical needs, and insurance network was created in CarePort Guide.? This list was provided to the SW. Jackelyn Sorto Discharge Planning Asst.
--- NOTE | 2023-11-17 15:45 | CASEMGMT ---
RN RAMONITA Assessment Face to Face with patient for initial transition planning/care coordination assessment. Pt is A&Ox1 at this time and is unable to answer this RN CM questions appropriately for assessment. Pt SO and daughter at bedside and agreeable to answering this RN RAMONITA questions. JUDY SHIPMAN introduced self and role at [facility]. Care providers, pharmacy, and demographics verified. Admitting dx: AMS PCP: Pt recently switched from Dr. Fleming to Dr. Regalado per the pt SO Specialists: Pt daughter states that the pt will be seeing a Neurologist soon in regards to dementia Preferred Pharmacy: [facility] Insurance: MCR A only, [place] Prescription Benefit: Yes LNOK: Jessica Ward (Daughter), Sydnie Liriano (Sister) Living Arrangements: Pt lives with his SO (Karen) in a single story home with a flat entrance. ADLs/IADLs: Pt SO assists the pt Transportation: Pt SO, pt sister DME: BP Cuff. Thermometer. GB for shower. Denies all other DME uses. HHC/SNF: Denies history Smoking History: Pt Daughter states the pt smokes 4 packs of cigarettes per day Plan: 6-click is 12. Pt may benefit from going to a SNF after DC from [facility]. Pt SO and and daughter are agreeable to viewing a local list of in-network SNF. SUPPORT DIRECTOR CM updated. CM/SW to follow for safe DC from [facility]. Sendy Kebede RN, CM
[2023-11-17] MEDS: Haloperidol Lactate 5 MG/ML Vial 1 MG IV (18:59)
--- NOTE | 2023-11-17 19:56 | CPS ---
pt would not leave aero mask on-tried to blow by aero tx pt kept pushing mask away-pt recieved about 2 min of aero tx
[2023-11-17] MEDS: Metoprolol Tartrate 25 MG Tablet PO (20:32)
[2023-11-17] MEDS: Atorvastatin Calcium 40 MG Tablet PO (20:32)
[2023-11-18] VITALS (7 sets, daily range): BP systolic 105–132; BP diastolic 65–90; PULSE 63–91; RESP 16–18; TEMP 36.2–36.3; O2SAT 90–96
[2023-11-18 05:48] LABS: Absolute Neutrophil Count 7.7 X10^3/uL (2.0-7.7); Basophil# 0.04 X10^3/uL; Basophil% 0.4 % (0-1); Eosinophil# 0.08 X10^3/uL; Eosinophils% 0.8 % (0-5); Hematocrit 48.2 % (40-54); Hemoglobin 16.4 g/dL (13.0-16.5); Lymphocyte % 17.9 % (19-41); Mean Corpuscular Hgb 31.2 pg (27.0-32.0); Mean Corpuscular Volume 91.6 fL (80-94); Monocyte# 0.39 X10^3/uL; Monocyte% 3.9 % (0-10); NRBC Flagged by Analyzer 0 % (0-5); Neutrophil # 7.69 X10^3/uL (2.7-7.7); Neutrophil % 76.7 % (47-70); Platelet Count 208 K/mm3 (150-450); RBC Distribution Width CV 13.1 % (11.6-14.6); RBC Distribution Width SD 43.7 fl (35.1-43.9); Red Blood Count 5.26 M/mm3 (4.6-6.2)
[2023-11-18 06:21] LABS: Anion Gap 9 (5-15); BUN 25 mg/dL (7-18); BUN/Creat Ratio 22.7 RATIO (10-20); Calcium,Total 9.1 mg/dL (8.5-10.1); Chloride 107 mmol/L (98-107); EST Glomerular Filtration Rate 70 mL/min (>60); Est Glom Filt Rate - Afr Amer 85 mL/min (>60); Estimated Creatinine Clearance 65.71 ml/min; Glucose 105 mg/dL (74-106); Sodium Level 137 mmol/L (136-145)
[2023-11-18] MEDS: Budesonide Respules 0.5 MG/2 ML AMPUL.NEB. INHALATION (08:09)
[2023-11-18] MEDS: Enoxaparin 40 MG/0.4 ML Syringe SC (08:57)
--- NOTE | 2023-11-18 09:34 | CASEMGMT ---
XU received a voice mail from patient's significant other Karen. XU called Karen back. Karen said she was told to talk with XU about spending the night with patient. XU explained XU is not able to give this type of permission, but XU will pass this along to the admission discharge rn. Karen also asked about sending patient to a jail. Patient does not have Healthcare Power of Epic Professional papers. Patient has a daughter Jessica. Karen said she and Jessica work together on decisions for patient. XU explained XU will place a list of retirement facilities in patient's room. XU asked that they pick 4-5 facilities and SW will take care of contacting facilities. Karen said she will be in later today. XU left SNF list printed by Jackelyn in patient's room. Riana VALDES
--- NOTE | 2023-11-18 14:49 | CASEMGMT ---
XU met with patient's significant other Karen per her request. Karen had the list of nursing homes in front of her. Karen said she and patient's daughter Jackelyn were thinking some place in [place] would be close for both of them. XU let Karen know about [facility]. She was in agreement with this. Karen said SW can call patient's daughter to confirm. XU called Jackelyn and confirmed [facility] would be okay. XU asked Jackelyn d/c estate planning director to send a referral to [facility]. Plan: SNF pending accepting facility. Riana Jeffers FREEZER WORKER LUCIO
--- NOTE | 2023-11-18 14:52 | CHAPLAIN ---
Type of Pastoral Visit _x__ Initial Visit ___ Follow-up Visit ___ On-call Visit ___ General Patient Visit ___ Spiritual Assessment ___ Family Conference ___ Bereavement ___ Rapid Response ___ Code Blue ___ Other (describe below) Pastoral Care Referral From ___ Patient _x__ Family ___ Nurse ___ Physician ___ Display Maker ___ Head Field Hockey Coach ___ Other (describe below) Sacrament/Intervention ___ Active listening ___ Anointing ___ Adventist ___ Bereavement ___ Communion ___ Julissa exploration ___ ___ Life review _x__ Prayer ___ Reconciliation ___ Sacrament of Sick _x__ Supportive presence ___ Wedding ___ Other (describe below) Pastoral Comments patient is quietly resting in bed; unknown if patient will be able to speak but he does give soft and one word answers if given a direct question; pt keeps his eyes closed and appears to be unkempt and unable to fully process questions; offer of prayer is given a sure; pt does not engage in conversation or resist the visit; offer of future support given as needed
--- NOTE | 2023-11-18 15:31 | CASEMGMT ---
Addendum entered by Jackelyn Sorto 11/18/23 15:49: [facility] declined referral. Jackelyn Sorto, Discharge Planning Asst. Original Note: Discharge Planning Referral sent to [facility] via [facility]Port. Jackelyn Sorto, Discharge Planning Asst.
--- NOTE | 2023-11-18 16:22 | PN.HOSP_ITS ---
Subjective Subjective More tired today than he was yesterday he still woke up and when awake tried to be interactive Objective Data Objective Data Vital Signs: Vital Signs Temp Pulse Resp BP Pulse Ox O2 Del Method O2 Flow Rate 97.4 F L 77 18 111/65 96 Room Air 2 11/18/23 15:09 11/18/23 15:09 11/18/23 15:09 11/18/23 15:09 11/18/23 15:09 11/18/23 15:09 11/17/23 16:30 Oxygen Flow Rate (L/min) 2 Oxygen Delivery Method Room Air Weight: 188 lb Body Mass Index (BMI) 27.7 Intake & Output: Intake and Output for Last 24 Hours 11/17/23 11/18/23 11/19/23 03:59 03:59 03:59 Intake Total 89.25 / 89.25 440.27 / 440.27 Output Total 2100 / 2100 950 / 950 Balance -2010.75 / -2010.75 -509.73 / -509.73 Lab / Micro Data 11/18/23 05:39 11/18/23 05:39 Labs: Laboratory Results - last 24 hr 11/18/23 05:39: WBC 10.0, RBC 5.26, Hgb 16.4, Hct 48.2, MCV 91.6, MCH 31.2, MCHC 34.0, RDW Std Deviation 43.7, RDW Coeff of Katerina 13.1, Plt Count 208, MPV 10.0, Immature Gran % (Auto) 0.300, Neut % (Auto) 76.7 H, Lymph % (Auto) 17.9 L, [place] % (Auto) 3.9, Eos % (Auto) 0.8, Baso % (Auto) 0.4, Absolute Neuts (auto) 7.7, Absolute Lymphs (auto) 1.80, Nucleated RBC % 0, Sodium 137, Potassium 4.0, Chloride 107, Carbon Dioxide 21.0, Anion Gap 9, BUN 25 H, Creatinine 1.10, Estim Creat Clear Calc 65.71, Est GFR (MDRD) Af Amer 85, Est GFR (MDRD) Non-Af 70, BUN/Creatinine Ratio 22.7 H, Glucose 105, Calcium 9.1 Micro: Microbiology 11/15/23 20:59 Blood Culture (Wb) - Anticubital Left Blood Culture - Preliminary No growth in 48 hours. 11/15/23 20:40 Mucosa - Nasopharyngeal Coronavirus COVID-19 PCR - Final 11/15/23 20:40 Mucosa - Nasopharyngeal Respiratory Panel (PCR) - Final Physical Exam Narrative General: Confused and restless HEENT: Atraumatic, PERRLA, EOMI, Normocephalic Oral: Moist Mucosa Neck: Supple, No JVD Lungs: Diminished, Normal air movement, No rhonchi, No wheeze, No rales Cardiovascular: Regular rate, Regular Rhythm, Normal S1, Normal S2, No murmurs Abdomen: Soft, Non Tender, Non-Distended, No Hepato-splenomegaly Extremities: No edema, Capillary Refill Less than 3 Seconds Skin: No rashes, No breakdown Musculoskeletal: No Tenderness to Palpation of Joints or Extremities Neurological: Does not follow commands, does move all extremities Psych/Mental Status: Flat Assessment & Plan Assessment/Plan (1) Altered behavior: (2) NSTEMI (non-ST elevated myocardial infarction): PLAN: Plan 1. Altered mental status in the setting of chronic dementia ? Currently still unclear as to the etiology of his worsening mental status ? There is no obvious infectious etiology respiratory panels were obtained at the outside hospital reportedly negative ? Chest x-ray is unremarkable ? UA here is normal ? Leukocytosis resolved on its own without any antibiotics ? Given his sedation may transition Haldol to risperidone 2. Chest pain possible non-STEMI ? Unclear if he is having a non-STEMI or not as troponins are borderline on admission and currently normal today ? Echo with an EF of 60 and no diastolic dysfunction, not a candidate for invasive studies ? Was transition to oral metoprolol however he is inconsistent in taking it he has IV metoprolol as needed available DVT: Lovenox Charges/Coding Visit Charges Inpatient E&M: 71485 Subs Hosp L2
[2023-11-18 17:06] LABS: Thyroid Stim Hormone (TSH) 2.43 uIU/mL (0.358-3.74)
[2023-11-18 17:17] LABS: Syphilis Antibodies Non-reactive; Vitamin B12 347 pg/mL (211-911)
[2023-11-18] MEDS: Atorvastatin Calcium 40 MG Tablet PO (19:46)
[2023-11-18] MEDS: Metoprolol Tartrate 25 MG Tablet PO (19:46)
[2023-11-18] MEDS: Haloperidol Lactate 5 MG/ML Vial 1 MG IV (19:50)
[2023-11-18] MEDS: 0.9% Saline Lock 10 ML Syringe IV (19:51)
[2023-11-19 03:09] VITALS: BP 110/77; PULSE 55; RESP 14; TEMP 36.6; O2SAT 94
[2023-11-19 07:36] LABS: Absolute Lymphocyte Count 1.86 X10^3/uL (0.83-4.51); Absolute Neutrophil Count 7.1 X10^3/uL (2.0-7.7); Basophil# 0.06 X10^3/uL; Basophil% 0.6 % (0-1); Eosinophil# 0.19 X10^3/uL; Hematocrit 49.9 % (40-54); Hemoglobin 16.9 g/dL (13.0-16.5); Lymphocyte # 1.86 X10^3/ul (0.83-4.51); Lymphocyte % 19.1 % (19-41); Mean Corp Hgb Conc 33.9 g/dL (32-36); Mean Corpuscular Hgb 31.1 pg (27.0-32.0); Mean Corpuscular Volume 91.9 fL (80-94); Monocyte# 0.46 X10^3/uL; Monocyte% 4.7 % (0-10); NRBC Flagged by Analyzer 0 % (0-5); Neutrophil # 7.11 X10^3/uL (2.7-7.7); Neutrophil % 73.2 % (47-70); Platelet Count 220 K/mm3 (150-450); RBC Distribution Width CV 13.1 % (11.6-14.6); RBC Distribution Width SD 44.3 fl (35.1-43.9); Red Blood Count 5.43 M/mm3 (4.6-6.2); White Blood Count 9.7 K/mm3 (4.4-11.0)
[2023-11-19 07:50] VITALS: PULSE 88; RESP 16; O2SAT 91
[2023-11-19] MEDS: Budesonide Respules 0.5 MG/2 ML AMPUL.NEB. INHALATION ×2 (07:50→19:44)
[2023-11-19 08:42] LABS: ALB/GLOB Ratio 0.8 RATIO (0.9-2.4); AST(SGOT) 15 U/L (15-37); Alanine Aminotransfer ALT/SGPT 12 U/L (16-61); Albumin, Serum 3.2 g/dL (3.2-5.0); Alkaline Phosphatase 92 U/L (45-117); Anion Gap 9 (5-15); BUN 24 mg/dL (7-18); BUN/Creat Ratio 22.6 RATIO (10-20); Calcium,Total 9.1 mg/dL (8.5-10.1); Chloride 108 mmol/L (98-107); Creatinine, Serum 1.06 mg/dL (0.70-1.30); EST Glomerular Filtration Rate 73 mL/min (>60); Est Glom Filt Rate - Afr Amer 88 mL/min (>60); Estimated Creatinine Clearance 68.19 ml/min; Glucose 101 mg/dL (74-106); Potassium 3.9 mmol/L (3.5-5.1); Protein, Total 7.2 g/dL (6.4-8.2); Sodium Level 138 mmol/L (136-145)
[2023-11-19 09:05] VITALS: BP 135/91; PULSE 87; RESP 18; TEMP 36.6; O2SAT 94
[2023-11-19 10:19] VITALS: BP 135/91; PULSE 87
[2023-11-19] MEDS: Metoprolol Tartrate 25 MG Tablet PO (10:19)
[2023-11-19] MEDS: Aspirin E.C. 81 MG Tablet PO (10:19)
[2023-11-19] MEDS: Enoxaparin 40 MG/0.4 ML Syringe SC (10:19)
--- NOTE | 2023-11-19 12:08 | PCM.PN.HOSP ---
Subjective Subjective Appears to be at baseline, TSH, B12, syphilis were all normal and nonreactive Objective Data Objective Data Vital Signs: Vital Signs Temp Pulse Resp BP Pulse Ox O2 Del Method O2 Flow Rate 97.8 F 87 18 135/91 H 94 Room Air 2 11/19/23 09:05 11/19/23 10:19 11/19/23 09:05 11/19/23 10:19 11/19/23 09:05 11/19/23 09:05 11/17/23 16:30 Oxygen Flow Rate (L/min) 2 Oxygen Delivery Method Room Air Weight: 188 lb Body Mass Index (BMI) 27.7 Intake & Output: Intake and Output for Last 24 Hours 11/18/23 11/19/23 11/20/23 03:59 03:59 03:59 Intake Total 440.27 / 440.27 320 / 320 240 / 240 Output Total 950 / 950 Balance -509.73 / -509.73 320 / 320 240 / 240 Lab / Micro Data 11/19/23 06:44 11/19/23 06:44 Labs: Laboratory Results - last 24 hr 11/18/23 05:39: Vitamin B12 347, TSH 2.43, Syphilis Total Ab Non-reactive 11/19/23 06:44: WBC 9.7, RBC 5.43, Hgb 16.9 H, Hct 49.9, MCV 91.9, MCH 31.1, MCHC 33.9, RDW Std Deviation 44.3 H, RDW Coeff of Katerina 13.1, Plt Count 220, MPV 10.0, Immature Gran % (Auto) 0.400, Neut % (Auto) 73.2 H, Lymph % (Auto) 19.1, [place] % (Auto) 4.7, Eos % (Auto) 2.0, Baso % (Auto) 0.6, Absolute Neuts (auto) 7.1, Absolute Lymphs (auto) 1.86, Nucleated RBC % 0, Sodium 138, Potassium 3.9, Chloride 108 H, Carbon Dioxide 21.0, Anion Gap 9, BUN 24 H, Creatinine 1.06, Estim Creat Clear Calc 68.19, Est GFR (MDRD) Af Amer 88, Est GFR (MDRD) Non-Af 73, BUN/Creatinine Ratio 22.6 H, Glucose 101, Calcium 9.1, Total Bilirubin 1.10 H, AST 15, ALT 12 L, Alkaline Phosphatase 92, Total Protein 7.2, Albumin 3.2, Globulin 4.0, Albumin/Globulin Ratio 0.8 L Micro: Microbiology 11/15/23 20:59 Blood Culture (Wb) - Anticubital Left Blood Culture - Preliminary No growth in 48 hours. 11/15/23 20:40 Mucosa - Nasopharyngeal Coronavirus COVID-19 PCR - Final 11/15/23 20:40 Mucosa - Nasopharyngeal Respiratory Panel (PCR) - Final Physical Exam Narrative General: Confused HEENT: Atraumatic, PERRLA, EOMI, Normocephalic Oral: Moist Mucosa Neck: Supple, No JVD Lungs: Diminished, Normal air movement, No rhonchi, No wheeze, No rales Cardiovascular: Regular rate, Regular Rhythm, Normal S1, Normal S2, No murmurs Abdomen: Soft, Non Tender, Non-Distended, No Hepato-splenomegaly Extremities: No edema, Capillary Refill Less than 3 Seconds Skin: No rashes, No breakdown Musculoskeletal: No Tenderness to Palpation of Joints or Extremities Neurological: Does not follow commands, does move all extremities Psych/Mental Status: Flat Assessment & Plan Assessment/Plan (1) Altered behavior: (2) NSTEMI (non-ST elevated myocardial infarction): PLAN: Plan 1. Altered mental status in the setting of chronic dementia ? Currently still unclear as to the etiology of his worsening mental status ? There is no obvious infectious etiology respiratory panels were obtained at the outside hospital reportedly negative ? Chest x-ray is unremarkable ? UA here is normal ? Leukocytosis resolved on its own without any antibiotics ? Will transition to risperidone with first dose now to help with any behaviors but also hopefully preventing any sedation ? TSH, B12 were normal and syphilis was nonreactive ? PT/OT as well as case management for disposition planning 2. Chest pain ? Chest pain is resolved and his troponin returned back to normal very quickly unlikely to have been a non-STEMI ? Echo with an EF of 60 and no diastolic dysfunction, not a candidate for invasive studies ? Appreciate cardiology's assistance, continue with p.o. metoprolol DVT: Lovenox Charges/Coding Visit Charges Inpatient E&M: 68086 Subs Hosp L2
--- NOTE | 2023-11-19 12:19 | CASEMGMT ---
XU spoke with patient's significant other Karen. SW let her know [facility] is not able to take patient. XU suggested facilities that have a Dementia Unit. XU went through the list and let Karen know which ones a Dementia unit. Karen was open to [place], [facility], [facility], and [facility] for Rehab. Karen did ask that SW start with [facility] and [facility] first. When XU spoke with patient's daughter Jessica she did tell XU she is open to wherever and is okay with Karen assisting with picking facilities. XU sent referrals to [facility] and [facility]. Await responses. Riana Jeffers MANAGER OF PURCHASING POT OPERATOR
[2023-11-19] MEDS: RisperiDONE 0.5 MG Tablet PO (13:37)
[2023-11-19 15:05] VITALS: BP 111/82; PULSE 86; RESP 18; TEMP 36.5; O2SAT 93
--- NOTE | 2023-11-19 15:34 | CASEMGMT ---
[facility] has declined patient. [facility] asked if they could come and do an onsite tomorrow. SW told them that would be fine and to reach out to the patient's significant other to coordinate the visit. Riana Jeffers SPRING COVERER LUCIO
[2023-11-19 19:45] VITALS: PULSE 92; RESP 18
--- NOTE | 2023-11-20 03:30 | NURSING ---
this nurse assumed care for this patient at 0330. patient denies needs at this time
--- NOTE | 2023-11-20 03:30 | NURSING ---
this nurse assumed care for this patient at 0330. Vitals and assessment were done by this nurse. Pt was incontinent of urine and was changed
[2023-11-20 03:58] VITALS: BP 153/65; PULSE 89; RESP 16; TEMP 36.6; O2SAT 93
[2023-11-20 07:28] VITALS: PULSE 89; RESP 20
[2023-11-20] MEDS: Budesonide Respules 0.5 MG/2 ML AMPUL.NEB. INHALATION ×2 (07:28→20:13)
[2023-11-20 09:00] VITALS: BP 133/71; PULSE 85; RESP 18; TEMP 36.4; O2SAT 92
[2023-11-20] MEDS: Enoxaparin 40 MG/0.4 ML Syringe SC (10:29)
--- NOTE | 2023-11-20 12:41 | CASEMGMT ---
[facility] asked when patient received Haldol last. SW let them know it was 3-26. Riana Jeffers SCALE EXPERT LUCIO
--- NOTE | 2023-11-20 12:52 | CASEMGMT ---
[facility] accepted patient. SW called patient's significant other and daughter notifying them of this information. Both were in agreement with [facility]. Plan: [facility] when medically ready. Riana VALDES
[2023-11-20 15:00] VITALS: BP 131/81; PULSE 82; RESP 18; TEMP 36.8; O2SAT 93
--- NOTE | 2023-11-20 16:19 | PCM.PN.HOSP ---
Subjective Subjective Remained confused, he is able to tolerate his p.o. medications periodically. Objective Data Objective Data Vital Signs: Vital Signs Temp Pulse Resp BP Pulse Ox O2 Del Method O2 Flow Rate 98.2 F 82 18 131/81 H 93 Room Air 2 11/20/23 15:00 11/20/23 15:00 11/20/23 15:00 11/20/23 15:00 11/20/23 15:00 11/20/23 15:00 11/17/23 16:30 Oxygen Flow Rate (L/min) 2 Oxygen Delivery Method Room Air Weight: 188 lb Body Mass Index (BMI) 27.7 Intake & Output: Intake and Output for Last 24 Hours 11/19/23 11/20/23 11/21/23 03:59 03:59 03:59 Intake Total 320 / 320 300 / 300 Balance 320 / 320 300 / 300 Lab / Micro Data 11/19/23 06:44 11/19/23 06:44 Micro: Microbiology 11/15/23 20:59 Blood Culture (Wb) - Anticubital Left Blood Culture - Preliminary No growth in 48 hours. 11/15/23 20:40 Mucosa - Nasopharyngeal Coronavirus COVID-19 PCR - Final 11/15/23 20:40 Mucosa - Nasopharyngeal Respiratory Panel (PCR) - Final Physical Exam Narrative General: Confused HEENT: Atraumatic, PERRLA, EOMI, Normocephalic Oral: Moist Mucosa Neck: Supple, No JVD Lungs: Diminished, Normal air movement, No rhonchi, No wheeze, No rales Cardiovascular: Regular rate, Regular Rhythm, Normal S1, Normal S2, No murmurs Abdomen: Soft, Non Tender, Non-Distended, No Hepato-splenomegaly Extremities: No edema, Capillary Refill Less than 3 Seconds Skin: No rashes, No breakdown Musculoskeletal: No Tenderness to Palpation of Joints or Extremities Neurological: Does not follow commands, does move all extremities Psych/Mental Status: Flat Assessment & Plan Assessment/Plan (1) Altered behavior: (2) NSTEMI (non-ST elevated myocardial infarction): PLAN: Plan 1. Altered mental status in the setting of chronic dementia ? Currently still unclear as to the etiology of his worsening mental status ? There is no obvious infectious etiology respiratory panels were obtained at the outside hospital reportedly negative ? Chest x-ray is unremarkable ? UA here is normal ? Leukocytosis resolved on its own without any antibiotics, blood cultures are negative ? Continue with risperidone ? TSH, B12 were normal and syphilis was nonreactive ? PT/OT as well as case management for disposition planning ? Attempted to get a hold of his daughter however the number we have does not connect ?Will likely need to proceed with an MRI tomorrow of his brain if that is completely normal that I am not sure as to what further workup can be done 2. Chest pain ? Chest pain is resolved and his troponin returned back to normal very quickly unlikely to have been a non-STEMI ? Echo with an EF of 60 and no diastolic dysfunction, not a candidate for invasive studies ? Appreciate cardiology's assistance, continue with p.o. metoprolol 3. Dysphagia ? He was made strict n.p.o. by speech as he had a significant choking episode ? Continue with further intervention DVT: Lovenox Charges/Coding Visit Charges Inpatient E&M: 36032 Subs Hosp L2
[2023-11-20 20:13] VITALS: PULSE 106; RESP 20
[2023-11-20 21:57] VITALS: BP 143/88; PULSE 93; RESP 18; TEMP 37.3; O2SAT 93
[2023-11-21 03:42] VITALS: BP 144/83; PULSE 107; RESP 18; TEMP 37.1; O2SAT 94
[2023-11-21 06:30] LABS: Absolute Lymphocyte Count 1.28 X10^3/uL (0.83-4.51); Absolute Neutrophil Count 10.1 X10^3/uL (2.0-7.7); Basophil# 0.06 X10^3/uL; Basophil% 0.5 % (0-1); Eosinophil# 0.04 X10^3/uL; Eosinophils% 0.3 % (0-5); Hematocrit 50.6 % (40-54); Hemoglobin 16.9 g/dL (13.0-16.5); Lymphocyte # 1.28 X10^3/ul (0.83-4.51); Lymphocyte % 10.6 % (19-41); Mean Corp Hgb Conc 33.4 g/dL (32-36); Mean Corpuscular Volume 92.8 fL (80-94); Mean Platelet Vol. 9.7 fl (6.2-12.0); Monocyte# 0.49 X10^3/uL; Monocyte% 4.1 % (0-10); NRBC Flagged by Analyzer 0 % (0-5); Neutrophil # 10.09 X10^3/uL (2.7-7.7); Platelet Count 228 K/mm3 (150-450); RBC Distribution Width CV 13.2 % (11.6-14.6); RBC Distribution Width SD 45.1 fl (35.1-43.9); Red Blood Count 5.45 M/mm3 (4.6-6.2)
[2023-11-21 07:01] LABS: Anion Gap 7 (5-15); BUN 28 mg/dL (7-18); BUN/Creat Ratio 26.2 RATIO (10-20); Calcium,Total 9.3 mg/dL (8.5-10.1); Chloride 110 mmol/L (98-107); Creatinine, Serum 1.07 mg/dL (0.70-1.30); EST Glomerular Filtration Rate 72 mL/min (>60); Est Glom Filt Rate - Afr Amer 87 mL/min (>60); Estimated Creatinine Clearance 67.55 ml/min; Glucose 123 mg/dL (74-106); Potassium 4.2 mmol/L (3.5-5.1); Sodium Level 139 mmol/L (136-145)
--- NOTE | 2023-11-21 08:05 | MRI_ITS ---
STUDY: MRI BRAIN WITH AND WITHOUT CONTRAST REASON FOR EXAM: Male, 73 years old. Acute delirium with dementia TECHNIQUE: Standardized multiplanar fat and water weighted pulse sequences were obtained. IV 15cc clariscan was administered for the contrast portion of the examination. COMPARISON: Head CT dated November 15, 2023 FINDINGS: There is mild cerebral atrophy with widening of the extra-axial spaces and ventricular dilatation. There are multiple white matter hyperintensities, distributed throughout the deep white matter tracts of the cerebral hemispheres, consistent with moderate chronic white matter ischemic changes. Normal T2* images of the brain without demonstrated susceptibility artifact. There is no demonstrated hemosiderin stain. There is no evidence for recent intracranial ischemia or other cause of cytotoxic edema on diffusion weighted imaging (DWI). Asymmetric mild to moderate parenchymal loss with gliosis in the right frontal and parietal lobes is consistent with sequela from previous infarction. No hydrocephalus or midline shift is present. There are no visualized abnormal enhancing lesions of the brain parenchyma. There is no abnormal thickening or enhancement meninges or dura or skull. Normal bilateral basal ganglia. Normal thalami. There is no extra-axial fluid accumulation. Normal flow voids within the major intracranial circulation suggesting patency by spin echo criteria. Normal venous enhancement. There is no enhancing intra-axial or extra-axial abnormality. Normal sella turcica, pituitary gland, infundibular stalk, optic chiasm and hypothalamus. Normal tectal plate and pineal gland. Normal midbrain, anaya and medulla. Normal cerebellum. Normal basal cisterns. Normal bilateral temporal bones. Normal bilateral internal auditory canals. No demonstrated orbital abnormality, within the constraints of a routine brain study. Normal visualized paranasal sinuses. Normal calvarium and skull base. Normal visualized soft tissue structures. Normal visualized upper cervical spine. MRI/Brain W/WO Contrast IMPRESSION: 1. Involutional changes of the brain, as described above. 2. Asymmetric mild to moderate parenchymal loss with gliosis in the right frontal and parietal lobes is consistent with sequela from previous infarction. 3. There are no visualized abnormal enhancing lesions of the brain parenchyma. There is no abnormal thickening or enhancement meninges or dura or skull. Electronically Signed: Tanner Mccain MD at 12:30 EDT ,
[2023-11-21 08:38] VITALS: BP 132/88; PULSE 80; RESP 16; TEMP 36.6; O2SAT 92
[2023-11-21 08:48] VITALS: PULSE 80
[2023-11-21] MEDS: Metoprolol Tartrate 25 MG Tablet PO (08:48)
[2023-11-21] MEDS: Aspirin E.C. 81 MG Tablet PO (08:48)
[2023-11-21] MEDS: RisperiDONE 0.5 MG Tablet PO (08:48)
[2023-11-21] MEDS: Enoxaparin 40 MG/0.4 ML Syringe SC (11:30)
--- NOTE | 2023-11-21 11:53 | CASEMGMT ---
XU was informed patient's brother Jean Valdivia called in and would like to get information on patient. XU was also told that the individual stating she is patient's daughter is adopted. XU called Jessica the individual listed as patient's daughter. Jessica confirmed that she is not patient's biological daughter. Patient and her mom were good friends. Patient did not have any kids so he took her in as his daughter. XU explained that patient's brother and sister are the legal decision makers for patient. Jessica verbalized understanding. Jessica said she and patient's siblings are on good terms. SW thanked Jessica for the information. XU called patient's brother Jean. Introduced self and role at [facility]. Jean confirmed that he and Sydnie are patient's blood siblings. There is another sibling in [facility] [place] that is not involved. XU explained discharge plan and Jean was in agreement with this plan. Jaen is also okay with patient's significant other and Jessica getting information. XU called patient's sister and left her a voice mail requesting a return call. XU spoke with patient's significant other Karen in patient's room per her request. Karen was upset and asked what was going on. XU explained that since Jessica is not legally patient's daughter patient's decision makers are his siblings. XU told Karen MCNAIR spoke with Jean and he is fine with discharge plan and he is fine with Jessica and Karen getting information. Karen thanked XU for talking with her. Plan: d/c to [facility] under skilled level of care. Riana VALDES
--- NOTE | 2023-11-21 13:26 | NURSING ---
female at bedside staets she is is like a daughter to him. states she has pt Jessica on the phone via speaker. both updated. Jessica pt sister reqeusting that pt be shaved and bathed well so he doesn't look like a mountain man.
[2023-11-21 14:01] VITALS: BP 106/85; PULSE 72; RESP 18; TEMP 35.8; O2SAT 92
--- NOTE | 2023-11-21 16:31 | CASEMGMT ---
XU spoke with Jessica and patient's sister Sydnie (she was on the phone). They asked about doing Healthcare Power of Supervisor [place] [employer] papers with patient. XU explained that patient has to be alert and oriented completely before these documents can be done. XU went over discharge plan with Sydnie and at first she wanted him some place in [place] where she and their brother live, then she said she was fine with him going to [facility]. XU did tell her if they are unhappy with his care at [facility] they can request he be moved to another facility. XU asked about Karen being able to visit. Sydnie said she absolutely does not want Karen to visit. Patient's brother is okay with Karen visiting, but patient's sister is not. The decision has to be the majority of the decision makers. XU called Jean back again and asked about Karen visiting and what his sister's thoughts about it are at this time. Jean said he has a hard time keeping Karen from visiting as he knows she is important to patient. XU called Sydnie and let her know that because Jean is okay with Karen visiting XU cannot keep her from visiting. Sydnie said she will call him and she understands SW has to do what is legal. XU then was informed patient's brother Jean called in and said he is not okay with Karen visiting or getting information. XU spoke with Karen and let her know this information. Riana VALDES
[2023-11-21] MEDS: NYSTATIN 500,000 UNIT/5 ML UDC 500000 UNIT PO (17:50)
--- NOTE | 2023-11-21 18:00 | PN.HOSP_ITS ---
Subjective Subjective Still confused and etiology remains elusive. Remains a strict n.p.o. Objective Data Objective Data Vital Signs: Vital Signs Temp Pulse Resp BP Pulse Ox O2 Del Method O2 Flow Rate 96.4 F L 72 18 106/85 H 92 Room Air 2 11/21/23 14:01 11/21/23 14:01 11/21/23 14:01 11/21/23 14:01 11/21/23 14:01 11/21/23 15:30 11/17/23 16:30 Oxygen Flow Rate (L/min) 2 Oxygen Delivery Method Room Air Weight: 188 lb Body Mass Index (BMI) 27.7 Intake & Output: Intake and Output for Last 24 Hours 11/20/23 11/21/23 11/22/23 03:59 03:59 03:59 Intake Total 300 / 300 Output Total 500 / 500 150 / 150 Balance 300 / 300 -500 / -500 -150 / -150 Lab / Micro Data 11/21/23 06:20 11/21/23 06:20 Labs: Laboratory Results - last 24 hr 11/21/23 06:20: WBC 12.0 H, RBC 5.45, Hgb 16.9 H, Hct 50.6, MCV 92.8, MCH 31.0, MCHC 33.4, RDW Std Deviation 45.1 H, RDW Coeff of Katerina 13.2, Plt Count 228, MPV 9.7, Immature Gran % (Auto) 0.500, Neut % (Auto) 84.0 H, Lymph % (Auto) 10.6 L, Whitley % (Auto) 4.1, Eos % (Auto) 0.3, Baso % (Auto) 0.5, Absolute Neuts (auto) 10.1 H, Absolute Lymphs (auto) 1.28, Nucleated RBC % 0, Sodium 139, Potassium 4.2, Chloride 110 H, Carbon Dioxide 22.0, Anion Gap 7, BUN 28 H, Creatinine 1.07, Estim Creat Clear Calc 67.55, Est GFR (MDRD) Af Amer 87, Est GFR (MDRD) Non-Af 72, BUN/Creatinine Ratio 26.2 H, Glucose 123 H, Calcium 9.3 Micro: Microbiology 11/15/23 20:59 Blood Culture (Wb) - Anticubital Left Blood Culture - Final No growth in 5 days. 11/15/23 20:40 Mucosa - Nasopharyngeal Coronavirus COVID-19 PCR - Final 11/15/23 20:40 Mucosa - Nasopharyngeal Respiratory Panel (PCR) - Final Radiography Diagnostic Testing: Radiology Impression Brain MRI 11/21/23 08:05 IMPRESSION: 1. Involutional changes of the brain, as described above. 2. Asymmetric mild to moderate parenchymal loss with gliosis in the right frontal and parietal lobes is consistent with sequela from previous infarction. 3. There are no visualized abnormal enhancing lesions of the brain parenchyma. There is no abnormal thickening or enhancement meninges or dura or skull. Electronically Signed: Tanner Mccain MD at 12:30 EDT , Physical Exam Narrative General: Confused HEENT: Atraumatic, PERRLA, EOMI, Normocephalic Oral: Moist Mucosa, thrush Neck: Supple, No JVD Lungs: Diminished, Normal air movement, No rhonchi, No wheeze, No rales Cardiovascular: Regular rate, Regular Rhythm, Normal S1, Normal S2, No murmurs Abdomen: Soft, Non Tender, Non-Distended, No Hepato-splenomegaly Extremities: No edema, Capillary Refill Less than 3 Seconds Skin: No rashes, No breakdown Musculoskeletal: No Tenderness to Palpation of Joints or Extremities Neurological: Does not follow commands, does move all extremities Psych/Mental Status: Flat Assessment & Plan Assessment/Plan (1) Altered behavior: (2) NSTEMI (non-ST elevated myocardial infarction): PLAN: Plan 1. Altered mental status in the setting of chronic dementia ? Currently still unclear as to the etiology of his worsening mental status ? There is no obvious infectious etiology respiratory panels were obtained at the outside hospital reportedly negative ? Chest x-ray is unremarkable ? UA here is normal ? Blood cultures have been negative and his white count had been normal however today it did rise to 12,000, will repeat in the morning if continues to rise will start on empiric antibiotics and reculture ? Continue with risperidone ? TSH, B12 were normal and syphilis was nonreactive ? PT/OT as well as case management for disposition planning ? Apparently their family dynamics as the daughter we have listed is not biologically his so we will attempt to discuss the situation with his siblings who we now have phone number for ? MRI today with and without contrast was unremarkable, it does show signs of a previous stroke in his frontal and parietal lobes. ? Given normal MRI may need to consult neurology versus advance care planning discussions with family. 2. Chest pain ? Chest pain is resolved and his troponin returned back to normal very quickly unlikely to have been a non-STEMI ? Echo with an EF of 60 and no diastolic dysfunction, not a candidate for invasive studies ? Appreciate cardiology's assistance, continue with p.o. metoprolol 3. Dysphagia ? He was made strict n.p.o. by speech as he had a significant choking episode ? Continue with further intervention ? Will discussed with the family prior to proceeding with feeding tube either NG versus PEG tube DVT: Krystle Charges/Coding Visit Charges Inpatient E&M: 50542 Subs Hosp L2
[2023-11-21 19:10] VITALS: PULSE 90; RESP 18
[2023-11-21] MEDS: Budesonide Respules 0.5 MG/2 ML AMPUL.NEB. INHALATION (19:10)
[2023-11-21 21:47] VITALS: BP 125/72; PULSE 89; RESP 18; TEMP 36.8; O2SAT 92
[2023-11-22] VITALS (7 sets, daily range): BP systolic 111–132; BP diastolic 80–86; PULSE 73–94; RESP 16–19; TEMP 36.3–36.7; O2SAT 92–94
[2023-11-22] MEDS: Budesonide Respules 0.5 MG/2 ML AMPUL.NEB. INHALATION (07:30)
[2023-11-22] MEDS: RisperiDONE 0.5 MG Tablet PO (08:33)
[2023-11-22] MEDS: NYSTATIN 500,000 UNIT/5 ML UDC 500000 UNIT PO ×4 (08:33→22:23)
[2023-11-22] MEDS: Metoprolol Tartrate 25 MG Tablet PO (08:33)
[2023-11-22] MEDS: Aspirin E.C. 81 MG Tablet PO (08:33)
[2023-11-22] MEDS: Enoxaparin 40 MG/0.4 ML Syringe SC (08:52)
[2023-11-22 10:33] LABS: Absolute Lymphocyte Count 1.43 X10^3/uL (0.83-4.51); Absolute Neutrophil Count 6.3 X10^3/uL (2.0-7.7); Basophil# 0.03 X10^3/uL; Basophil% 0.4 % (0-1); Eosinophil# 0.07 X10^3/uL; Eosinophils% 0.8 % (0-5); Hematocrit 51.8 % (40-54); Hemoglobin 17.6 g/dL (13.0-16.5); Lymphocyte # 1.43 X10^3/ul (0.83-4.51); Lymphocyte % 17.3 % (19-41); Mean Corpuscular Hgb 31.8 pg (27.0-32.0); Mean Corpuscular Volume 93.7 fL (80-94); Mean Platelet Vol. 9.5 fl (6.2-12.0); Monocyte# 0.35 X10^3/uL; Monocyte% 4.2 % (0-10); NRBC Flagged by Analyzer 0 % (0-5); Neutrophil # 6.33 X10^3/uL (2.7-7.7); Neutrophil % 76.8 % (47-70); Platelet Count 250 K/mm3 (150-450); RBC Distribution Width CV 13.3 % (11.6-14.6); RBC Distribution Width SD 46.4 fl (35.1-43.9); Red Blood Count 5.53 M/mm3 (4.6-6.2); White Blood Count 8.3 K/mm3 (4.4-11.0)
--- NOTE | 2023-11-22 15:32 | PN.HOSP_ITS ---
Subjective Subjective Awake but not really responsive today which is more of a decline from yesterday Objective Data Objective Data Vital Signs: Vital Signs Temp Pulse Resp BP Pulse Ox O2 Del Method O2 Flow Rate 98.1 F 85 16 119/80 94 Room Air 2 11/22/23 14:30 11/22/23 14:30 11/22/23 14:30 11/22/23 14:30 11/22/23 14:30 11/22/23 14:30 11/17/23 16:30 Oxygen Flow Rate (L/min) 2 Oxygen Delivery Method Room Air Weight: 188 lb Body Mass Index (BMI) 27.7 Intake & Output: Intake and Output for Last 24 Hours 11/21/23 11/22/23 11/23/23 03:59 03:59 03:59 Intake Total 0 / 0 Output Total 500 / 500 1000 / 1000 50 / 50 Balance -500 / -500 -1000 / -1000 -50 / -50 Lab / Micro Data 11/22/23 10:23 11/21/23 06:20 Labs: Laboratory Results - last 24 hr 11/22/23 10:23: WBC 8.3, RBC 5.53, Hgb 17.6 H, Hct 51.8, MCV 93.7, MCH 31.8, MCHC 34.0, RDW Std Deviation 46.4 H, RDW Coeff of Katerina 13.3, Plt Count 250, MPV 9.5, Immature Gran % (Auto) 0.500, Neut % (Auto) 76.8 H, Lymph % (Auto) 17.3 L, Jackson % (Auto) 4.2, Eos % (Auto) 0.8, Baso % (Auto) 0.4, Absolute Neuts (auto) 6.3, Absolute Lymphs (auto) 1.43, Nucleated RBC % 0 Micro: Microbiology 11/15/23 20:59 Blood Culture (Wb) - Anticubital Left Blood Culture - Final No growth in 5 days. 11/15/23 20:40 Mucosa - Nasopharyngeal Coronavirus COVID-19 PCR - Final 11/15/23 20:40 Mucosa - Nasopharyngeal Respiratory Panel (PCR) - Final Physical Exam Narrative General: Confused HEENT: Atraumatic, PERRLA, EOMI, Normocephalic Oral: Moist Mucosa, thrush Neck: Supple, No JVD Lungs: Diminished, Normal air movement, No rhonchi, No wheeze, No rales Cardiovascular: Regular rate, Regular Rhythm, Normal S1, Normal S2, No murmurs Abdomen: Soft, Non Tender, Non-Distended, No Hepato-splenomegaly Extremities: No edema, Capillary Refill Less than 3 Seconds Skin: No rashes, No breakdown Musculoskeletal: No Tenderness to Palpation of Joints or Extremities Neurological: Does not follow commands, does move all extremities Psych/Mental Status: Flat Assessment & Plan Assessment/Plan (1) Altered behavior: (2) NSTEMI (non-ST elevated myocardial infarction): PLAN: Plan 1. Altered mental status in the setting of chronic dementia now with worsening dysphagia ? Currently still unclear as to the etiology of his worsening mental status ? There is no obvious infectious etiology respiratory panels were obtained at the outside hospital reportedly negative ? Will repeat chest x-ray today given issues with risks of aspiration ? UA here is normal ? Repeat CBC this morning showed a decrease in his white count however given his lung sounds we will proceed with Unasyn ? Continue with risperidone ? TSH, B12 were normal and syphilis was nonreactive ? PT/OT as well as case management for disposition planning ? Apparently their family dynamics as the daughter we have listed is not biologically his so we will attempt to discuss the situation with his siblings who we now have phone number for ? MRI demonstrated gliosis on his right frontal and parietal lobes consistent with a previous stroke ? Extensive conversation with his sister and will attempt to feed him again tomorrow to see if part of his dysfunction is due to pain and and issues from thrush now that he has been treated for 48 hours if there is no improvement then we will proceed with an NG tube for tube feeds though I did discuss with her that given his confusion if he pulls this out or has difficulty and allowing us to place it then we will need to place a PICC line for TPN. Given the risks with his confusion I do not think that a PEG tube is an option at this time 2. Chest pain ? Chest pain is resolved and his troponin returned back to normal very quickly unlikely to have been a non-STEMI ? Echo with an EF of 60 and no diastolic dysfunction, not a candidate for invasive studies ? Appreciate cardiology's assistance, continue with p.o. metoprolol DVT: Lovenox Charges/Coding Visit Charges Inpatient E&M: 64869 Subs Hosp L2
--- NOTE | 2023-11-22 15:53 | RAD_ITS ---
INDICATION: Possible aspiration EXAMINATION/TECHNIQUE: X-RAY - XR Chest 1 View COMPARISON: November 15, 2023 FINDINGS: LINES/DEVICES: None. LUNGS: No consolidation, edema or effusion. No pneumothorax. MEDIASTINUM AND CARDIOVASCULAR STRUCTURES: Cardiac silhouette not enlarged. Central airways and mediastinal contour are unremarkable. BONES AND SOFT TISSUES: Degenerative vertebral changes. RAD/Chest 1 View (Portable) IMPRESSION: No radiographic evidence of acute cardiopulmonary disease. Electronically Signed: Chacorta Nina DO at 16:58 EDT ,
[2023-11-22] MEDS: Ampicillin/Sulbactam 3 GM in 0.9% Normal Saline (100mL MB+) 100 ML IV ×2 (16:24→22:19)
[2023-11-22] MEDS: 0.9% Saline Lock 10 ML Syringe IV (16:25)
[2023-11-23] VITALS (8 sets, daily range): BP systolic 114–146; BP diastolic 68–99; PULSE 73–100; RESP 14–18; TEMP 36.5–36.7; O2SAT 90–95
[2023-11-23] MEDS: Ampicillin/Sulbactam 3 GM in 0.9% Normal Saline (100mL MB+) 100 ML IV ×3 (06:25→21:05)
[2023-11-23 06:26] LABS: Absolute Lymphocyte Count 1.85 X10^3/uL (0.83-4.51); Absolute Neutrophil Count 5.6 X10^3/uL (2.0-7.7); Basophil# 0.07 X10^3/uL; Basophil% 0.9 % (0-1); Eosinophils% 1.2 % (0-5); Hematocrit 52.1 % (40-54); Hemoglobin 17.1 g/dL (13.0-16.5); Lymphocyte # 1.85 X10^3/ul (0.83-4.51); Lymphocyte % 23.1 % (19-41); Mean Corp Hgb Conc 32.8 g/dL (32-36); Mean Corpuscular Hgb 30.8 pg (27.0-32.0); Mean Corpuscular Volume 93.7 fL (80-94); Mean Platelet Vol. 9.8 fl (6.2-12.0); Monocyte# 0.39 X10^3/uL; Monocyte% 4.9 % (0-10); NRBC Flagged by Analyzer 0 % (0-5); Neutrophil # 5.57 X10^3/uL (2.7-7.7); Neutrophil % 69.4 % (47-70); Platelet Count 272 K/mm3 (150-450); RBC Distribution Width CV 13.2 % (11.6-14.6); Red Blood Count 5.56 M/mm3 (4.6-6.2)
[2023-11-23] MEDS: Menthol/Lanolin/Calamine/Znox 113 GM Tube 1 APPLIC TOPICAL ×3 (06:28→21:06)
[2023-11-23 06:53] LABS: Anion Gap 8 (5-15); BUN 36 mg/dL (7-18); BUN/Creat Ratio 32.7 RATIO (10-20); Calcium,Total 9.5 mg/dL (8.5-10.1); Chloride 114 mmol/L (98-107); EST Glomerular Filtration Rate 70 mL/min (>60); Est Glom Filt Rate - Afr Amer 85 mL/min (>60); Estimated Creatinine Clearance 65.71 ml/min; Glucose 111 mg/dL (74-106); Potassium 3.8 mmol/L (3.5-5.1); Sodium Level 145 mmol/L (136-145)
[2023-11-23] MEDS: Budesonide Respules 0.5 MG/2 ML AMPUL.NEB. INHALATION ×2 (07:45→21:24)
[2023-11-23] MEDS: Enoxaparin 40 MG/0.4 ML Syringe SC (09:42)
[2023-11-23] MEDS: NYSTATIN 500,000 UNIT/5 ML UDC 500000 UNIT PO ×4 (09:43→21:06)
[2023-11-23] MEDS: Aspirin E.C. 81 MG Tablet PO (12:29)
[2023-11-23] MEDS: Metoprolol Tartrate 25 MG Tablet PO ×2 (12:29→21:05)
--- NOTE | 2023-11-23 12:43 | PN.HOSP_ITS ---
Subjective Subjective More alert today than he was yesterday, still confused and disoriented. Speech was able to pass him for pur?es though he does not do well with thin liquids Objective Data Objective Data Vital Signs: Vital Signs Temp Pulse Resp BP Pulse Ox O2 Del Method O2 Flow Rate 98.0 F 91 16 133/75 H 93 Room Air 2 11/23/23 09:45 11/23/23 12:29 11/23/23 09:45 11/23/23 12:29 11/23/23 09:45 11/23/23 09:45 11/17/23 16:30 Oxygen Flow Rate (L/min) 2 Oxygen Delivery Method Room Air Weight: 188 lb Body Mass Index (BMI) 27.7 Intake & Output: Intake and Output for Last 24 Hours 11/22/23 11/23/23 11/24/23 03:59 03:59 03:59 Intake Total 0 / 0 224 / 224 112 / 112 Output Total 1000 / 1000 350 / 350 Balance -1000 / -1000 -126 / -126 112 / 112 Lab / Micro Data 11/23/23 06:04 11/23/23 06:04 Labs: Laboratory Results - last 24 hr 11/23/23 06:04: WBC 8.0, RBC 5.56, Hgb 17.1 H, Hct 52.1, MCV 93.7, MCH 30.8, MCHC 32.8, RDW Std Deviation 46.0 H, RDW Coeff of Katerina 13.2, Plt Count 272, MPV 9.8, Immature Gran % (Auto) 0.500, Neut % (Auto) 69.4, Lymph % (Auto) 23.1, Harnett % (Auto) 4.9, Eos % (Auto) 1.2, Baso % (Auto) 0.9, Absolute Neuts (auto) 5.6, Absolute Lymphs (auto) 1.85, Nucleated RBC % 0, Sodium 145, Potassium 3.8, Chloride 114 H, Carbon Dioxide 23.0, Anion Gap 8, BUN 36 H, Creatinine 1.10, Estim Creat Clear Calc 65.71, Est GFR (MDRD) Af Amer 85, Est GFR (MDRD) Non-Af 70, BUN/Creatinine Ratio 32.7 H, Glucose 111 H, Calcium 9.5 Micro: Microbiology 11/15/23 20:59 Blood Culture (Wb) - Anticubital Left Blood Culture - Final No growth in 5 days. 11/15/23 20:40 Mucosa - Nasopharyngeal Coronavirus COVID-19 PCR - Final 11/15/23 20:40 Mucosa - Nasopharyngeal Respiratory Panel (PCR) - Final Radiography Diagnostic Testing: Radiology Impression Chest X-Ray 11/22/23 15:53 IMPRESSION: No radiographic evidence of acute cardiopulmonary disease. Electronically Signed: Chacorta Nina DO at 16:58 EDT Reading Location ID and State: [facility] / [place] Tel [phone], Service support , Physical Exam Narrative General: Confused HEENT: Atraumatic, PERRLA, EOMI, Normocephalic Oral: Moist Mucosa, thrush Neck: Supple, No JVD Lungs: Diminished, Normal air movement, No rhonchi, No wheeze, No rales Cardiovascular: Regular rate, Regular Rhythm, Normal S1, Normal S2, No murmurs Abdomen: Soft, Non Tender, Non-Distended, No Hepato-splenomegaly Extremities: No edema, Capillary Refill Less than 3 Seconds Skin: No rashes, No breakdown Musculoskeletal: No Tenderness to Palpation of Joints or Extremities Neurological: Does not follow commands, does move all extremities Psych/Mental Status: Flat Assessment & Plan Assessment/Plan (1) Altered behavior: (2) NSTEMI (non-ST elevated myocardial infarction): PLAN: Plan 1. Altered mental status in the setting of chronic dementia now with worsening dysphagia and possible aspiration pneumonia ? Currently still unclear as to the etiology of his worsening mental status ? There is no obvious infectious etiology respiratory panels were obtained at the outside hospital reportedly negative ? Will repeat chest x-ray today given issues with risks of aspiration ? UA here is normal ? Repeat CBC this morning showed a decrease in his white count however given his lung sounds we will proceed with Unasyn ? Continue with risperidone ? TSH, B12 were normal and syphilis was nonreactive ? PT/OT as well as case management for disposition planning ? Apparently their family dynamics as the daughter we have listed is not biologically his so we will attempt to discuss the situation with his siblings who we now have phone number for ? MRI demonstrated gliosis on his right frontal and parietal lobes consistent with a previous stroke ? Given the improvement with the nystatin and the Unasyn on his mental status and the fact that he is now able to take pur?es again, will hold off on feeding tube placement and transfer. Will update the sister as to his changes 2. Chest pain ? Chest pain is resolved and his troponin returned back to normal very quickly unlikely to have been a non-STEMI ? Echo with an EF of 60 and no diastolic dysfunction, not a candidate for invasive studies ? Appreciate cardiology's assistance, continue with p.o. metoprolol DVT: Leslyx Charges/Coding Visit Charges Inpatient E&M: 70464 Subs Hosp L2
[2023-11-23] MEDS: Dextrose 5%/0.9% NaCl 1,000 ML 75 ML IV (18:22)
[2023-11-23] MEDS: RisperiDONE 0.5 MG Tablet PO (21:06)
[2023-11-23] MEDS: Atorvastatin Calcium 40 MG Tablet PO (21:06)
[2023-11-24] VITALS (8 sets, daily range): BP systolic 126–143; BP diastolic 70–96; PULSE 71–80; RESP 16–18; TEMP 36.4–36.8; O2SAT 92–95
[2023-11-24] MEDS: Ampicillin/Sulbactam 3 GM in 0.9% Normal Saline (100mL MB+) 100 ML IV ×3 (05:45→21:18)
[2023-11-24 07:09] LABS: Absolute Lymphocyte Count 2.23 X10^3/uL (0.83-4.51); Basophil# 0.06 X10^3/uL; Basophil% 0.8 % (0-1); Eosinophil# 0.13 X10^3/uL; Eosinophils% 1.7 % (0-5); Hematocrit 53.9 % (40-54); Hemoglobin 17.1 g/dL (13.0-16.5); Lymphocyte # 2.23 X10^3/ul (0.83-4.51); Lymphocyte % 28.6 % (19-41); Mean Corp Hgb Conc 31.7 g/dL (32-36); Mean Corpuscular Hgb 30.8 pg (27.0-32.0); Mean Corpuscular Volume 96.9 fL (80-94); Mean Platelet Vol. 9.8 fl (6.2-12.0); Monocyte# 0.34 X10^3/uL; Monocyte% 4.4 % (0-10); NRBC Flagged by Analyzer 0 % (0-5); Neutrophil # 4.99 X10^3/uL (2.7-7.7); Neutrophil % 63.7 % (47-70); Platelet Count 263 K/mm3 (150-450); RBC Distribution Width CV 13.2 % (11.6-14.6); RBC Distribution Width SD 47.6 fl (35.1-43.9); Red Blood Count 5.56 M/mm3 (4.6-6.2); White Blood Count 7.8 K/mm3 (4.4-11.0)
[2023-11-24 07:40] LABS: Anion Gap 3 (5-15); BUN 32 mg/dL (7-18); BUN/Creat Ratio 24.2 RATIO (10-20); Calcium,Total 9.9 mg/dL (8.5-10.1); Chloride 119 mmol/L (98-107); Creatinine, Serum 1.32 mg/dL (0.70-1.30); EST Glomerular Filtration Rate 57 mL/min (>60); Est Glom Filt Rate - Afr Amer 68 mL/min (>60); Estimated Creatinine Clearance 54.76 ml/min; Glucose 118 mg/dL (74-106); Potassium 4.8 mmol/L (3.5-5.1); Sodium Level 150 mmol/L (136-145)
[2023-11-24] MEDS: Budesonide Respules 0.5 MG/2 ML AMPUL.NEB. INHALATION ×2 (07:41→19:44)
[2023-11-24] MEDS: Menthol/Lanolin/Calamine/Znox 113 GM Tube 1 APPLIC TOPICAL ×2 (08:35→21:19)
[2023-11-24] MEDS: NYSTATIN 500,000 UNIT/5 ML UDC 500000 UNIT PO ×3 (08:36→21:19)
[2023-11-24] MEDS: Aspirin E.C. 81 MG Tablet PO (08:36)
[2023-11-24] MEDS: Enoxaparin 40 MG/0.4 ML Syringe SC (08:36)
[2023-11-24] MEDS: RisperiDONE 0.5 MG Tablet PO (08:38)
[2023-11-24] MEDS: Metoprolol Tartrate 25 MG Tablet PO (08:44)
--- NOTE | 2023-11-24 10:24 | ST.MBS ---
Modified Barium Swallow Patient Information Study Date: 11/24/23 Study Time: 09:30 Direct Billable Minutes: 150 Total Minutes procedure & reportin Diagnosis: I21.4 - Non-ST elevation (NSTEMI) myocardial infarction Referring Physician: Ken Colorado Reason for Referral: Objectively assess swallow function, assess risk for aspiration, and determine recommendations for least restrictive diet textures and compensatory strategies to improve safety of swallow. Medical History: Ad Valdivia is a 73yo M who presents from [place] ED on 11/15/23 w/ concerns regarding chest pain with gradually rising troponin, elevated D-dimer levels, suspected pulmonary embolism and altered mental status. Pt. admitted to PCU for management of chest pain ? possible non-stemi and altered mental status. Limited PMHx in [facility] EMR, however dx of COPD and dementia. Speech therapy consulted d/t swallowing concerns from nursing. Pt. has been NPO w/ significant s/sx of aspiration of PO intake. Unable to complete instrumental swallow study d/t poor alertness and cooperation. Current Diet Ordered: NPO Dentition: Edentulous (Pt. has upper/lower dentures, however did not have them for the study.) Mental Status: Impaired Respiratory Status: Oxygenating on Room Air Penetration-Aspiration Scale Penetration-Aspiration Scale: OBJECTIVE ASSESSMENT OF SWALLOW FUNCTION (QUANTITATIVE ? PER TRIAL): PENETRATION / ASPIRATION SCALE (CARBAJAL): 1 = does not enter airway 2 = enters airway/above vocal folds/ejected 3 = enters airway/above vocal folds/not ejected 4 = enters airway/contacts vocal folds/ejected 5 = enters airway/contacts vocal folds/not ejected 6 = enters airway/below vocal folds/ejected 7 = enters airway/below vocal folds/not ejected despite effort 8 = enters airway/below vocal folds/no effort VIDEOFLOROSCOPIC SCALE SCORE (CARBAJAL): Grade I = aspiration of material that has penetrated into the laryngeal vestibule, intact cough reflex Grade II = aspiration < 10 % of the bolus, intact cough reflex Grade III = aspiration of < 10 % of the bolus, reduced cough reflex or aspiration of > 10 % of the bolus, intact cough reflex Grade IV = aspiration of > 10 % of the bolus, reduced cough reflex Penetration-Aspiration Scale Score Thin Liquid via teaspoon: Result: 4= enters airway/contacts vocal folds/ejected Comment: post prandial penetration of pharyngeal residues. cannot rule out aspiration. Thin Liquid via small single sip: cup: Result: 4= enters airway/contacts vocal folds/ejected Comment: post prandial penetration and aspiration (PAS=7) of pharyngeal residues. Bernie Thick Liquid via small single sip: cup: Result: 5= enters airways/contacts vocal folds/not ejected Comment: cannot rule out aspiration. Pudding: Result: 1= does not enter airway Comment: limited pharyngeal clearance of pudding trial, silent aspiration of liquid wash (PAS=8). Oral Phase Labial Seal: Interlabial escape, no progression to anterior lip Tongue Control During Bolus Hold: Posterior escape of greater than half of bolus Bolus Transport/Lingual Motion: Minimal to no tongue motion Oral Residue: Majority of bolus remaining Pharyngeal Phase Initiation of Pharyngeal Swallow: No visible initiation at any location (w/ pudding trial) Soft Palate Elevation: No bolus between soft palate and pharyngeal wall Laryngeal Elevation: Partial superior movement thyroid cart/partial apprx aryt-epig petiole Anterior Hyoid Excursion: Partial anterior movement Epiglottic Movement: Complete inversion Laryngeal Vestibule Closure at Height of Swallow: Incomplete; narrow column of air/contrast in laryngeal vestibule Pharyngeal Stripping Wave: Present - diminished Pharyngoesophageal Segment Opening: Minimal distension and minimal duration; marked obstruction of flow Tongue Base Retraction: No visible posterior motion of tongue base Pharyngeal Residue: Majority of contrast within or on pharyngeal structures Diagnosis/Impression Diagnosis: severe oropharyngeal dysphagia, R13.12 Impression: Pt. presents w/ severe oropharyngeal dysphagia. - premature spillage to the vallecula and pyriforms of >1/2 of the bolus observed w/ thin via tsp., thin via cup and NTL. Penetration observed before the swallow d/t poor bolus control and suboptimal bolus location upon swallow onset. - penetration to the vocal cords observed during the swallow d/t poor laryngeal elevation and decreased anterior hyoid excursion. - significant pharyngeal residues in the vallecula and pyriforms - worsening w/ thicker viscosities. 1x pt. was able to follow command for additional dry swallow which minimally decreased the residue. Post prandial aspiration of pharyngeal residues observed during the study. - no swallow initiation w/ pudding trial, lingual pumping observed. D/t severe-profound cognitive impairment, pt. unable to follow commands for volitional swallow as the pudding via tsp trial was sitting on the back of the tongue base, vallecula and even resting on the upper portion of posterior pharyngeal wall. Noted decreased sensation as pt. was talking during this trial. Liquid wash did not decrease the residue, silent aspiration of liquid wash observed. Pt. required suction to remove the barium pudding trial by RT following study. Recommendations Diet: NPO Comment: Recommending alternative means of primary nutrition and hydration. Would strong discourage initiation of PO diet without repeat MBSS given significant of oropharyngeal deficits identified during the study. Recommend Repeat Modified Barium Swallow: TBD Need for Skilled Speech Therapy Services: Yes Recommended Referrals: GI Consult and Dietitian Consult Education Completed: 1. Described result of evaluation., 4. Family/caregivers understand evaluation & agree w/ goals & tx plan. and 8. Family/caregivers require further education on strategies & risks. Status Active ST Patient: Active Contact Information [facility] Speech Therapy:: Romelia Najera M.A. CCC-FOOD SAFETY OFFICER Speech-Language Pathologist [facility] [address] [place] [address] [phone]
[2023-11-24] MEDS: Dextrose 5%-Water (1000mL Bag) 1,000 ML 100 ML IV ×2 (10:37→21:17)
--- NOTE | 2023-11-24 12:05 | PN_ITS ---
Subjective Subjective Patient seen and examined. He was lying in bed. Patient is confused and is unable to do review of systems as he just gives random answers to questions. He is hemodynamically stable. He did have the swallow study today which he failed. Objective Data Objective Data Vital Signs: Vital Signs Temp Pulse Resp BP Pulse Ox O2 Del Method O2 Flow Rate 98.2 F 71 16 128/86 H 95 Room Air 2 11/24/23 09:00 11/24/23 09:00 11/24/23 09:00 11/24/23 09:00 11/24/23 09:00 11/24/23 09:00 11/23/23 21:05 Oxygen Flow Rate (L/min) 2 Oxygen Delivery Method Room Air Weight: 188 lb Body Mass Index (BMI) 27.7 Intake & Output: Intake and Output for Last 24 Hours 11/22/23 11/23/23 11/24/23 23:59 23:59 23:59 Intake Total 224 / 224 761 / 761 1112.0 / 1112.0 Output Total 50 / 350 1200 / 1200 200 / 200 Balance 174 / -126 -439 / -439 912.0 / 912.0 Lab / Micro Data 11/24/23 06:50 11/24/23 06:50 Labs: Laboratory Results - last 24 hr 11/24/23 06:50: WBC 7.8, RBC 5.56, Hgb 17.1 H, Hct 53.9, MCV 96.9 H, MCH 30.8, MCHC 31.7 L, RDW Std Deviation 47.6 H, RDW Coeff of Katerina 13.2, Plt Count 263, MPV 9.8, Immature Gran % (Auto) 0.800, Neut % (Auto) 63.7, Lymph % (Auto) 28.6, [place] % (Auto) 4.4, Eos % (Auto) 1.7, Baso % (Auto) 0.8, Absolute Neuts (auto) 5.0, Absolute Lymphs (auto) 2.23, Nucleated RBC % 0, Sodium 150 H, Potassium 4.8, Chloride 119 H, Carbon Dioxide 28.0, Anion Gap 3 L, BUN 32 H, Creatinine 1.32 H, Estim Creat Clear Calc 54.76, Est GFR (MDRD) Af Amer 68, Est GFR (MDRD) Non-Af 57 L, BUN/Creatinine Ratio 24.2 H, Glucose 118 H, Calcium 9.9 Micro: Microbiology 11/15/23 20:59 Blood Culture (Wb) - Anticubital Left Blood Culture - Final No growth in 5 days. 11/15/23 20:40 Mucosa - Nasopharyngeal Coronavirus COVID-19 PCR - Final 11/15/23 20:40 Mucosa - Nasopharyngeal Respiratory Panel (PCR) - Final Physical Exam Const alert and no apparent distress Orientation / Consciousness: confused HEENT normocephalic, head/scalp atraumatic, moist oral mucous membranes and oropharynx normal Eyes PERRL and EOMs intact bilaterally Neck no lymphadenopathy and supple Lymph Lymphatic: no lymphadenopathy noted and no lymphedema noted Resp normal respiratory effort, normal air movement and clear to auscultation bilaterally Cardio regular rate, regular rhythm, S1 normal heart sound, S2 normal heart sound and no murmurs GI normal to inspection, nondistended, normoactive bowel sounds, soft to palpation, non-tender and non-distended Extremity normal capillary refill, no clubbing, cyanosis or edema and no calf tenderness General Extremity: no tenderness to palpation of joints or extremities Skin General Skin Exam: no breakdown Neuro CN's II-XII intact bilaterally and no focal motor deficits Neuro Narrative: moves all extremities Motor Exam: general weakness Psych Psych Narrative: confused Assessment & Plan Assessment/Plan (1) Altered behavior: (2) Encephalopathy: PLAN: Plan #Acute encephalopathy * Patient still remains confused. He apparently has underlying dementia. He now has worsening confusion and is also dysphagia. * Workup for encephalopathy has been negative. TSH and B12 were within normal limits and syphilis test was nonreactive. MRI of the brain showed evidence of old stroke but shows no acute intracranial pathology. Urinalysis also showed no evidence of UTI. * Will consult neurology to get their input about patient's persistent encephalopathy. * Was started on IV Unasyn empirically because WBC had trended upwards. * #Dysphagia * Patient has remained encephalopathic and has had difficulty swallowing. * he had a swallow test today which showed evidence of aspiration * Speech therapy recommended and alternate means of nutrition. Will consult general surgery about a PEG tube insertion. * Will speak to family about PEG tube insertion. * #Chest pain: resolved. Cardiology on board. Appreciate rec's. 2D echo showed EF of 60% with no diastolic dysfunction. On metoprolol DVT prophylaxis: lovenox Charges/Coding Visit Charges Inpatient E&M: 41518 Subs Hosp L2
--- NOTE | 2023-11-24 18:29 | CON.PCM.GI_ITS ---
HPI Consult Data Date of Consult: 11/24/23 HPI Narrative Reason for Consultation: Dysphagia and aspiration pneumonia along with failed swallowing study HPI Narrative: REID DOMINGO, is a 73 M who presented from [place] ED with concerns regarding chest pain with gradually rising troponin, elevated D-dimer levels and suspected pulmonary embolism. He presented to the ED today with concerns regarding chest pain and back pain for the last few hours and associated altered mental status. He was accompanied by his girlfriend who notes that his sensorium has been worsening over the last 1 to 2 weeks, increased sleepiness during the day and insomnia during the night. She is also concerned that his dementia is developing dementia and that is worsening. Been discussed with the ED physician, there were concerns regarding pulmonary embolism as the D-dimer was 2000 and age-related cutoff 720, CT scan done there showed no large pulm embolism in the main pulmonary arteries nondiagnostic evaluation of the smaller pulmonary arteries. His troponin was rising from 6 to 12-[address] head normal, chest x-ray normal. On lab evaluation his venous bicarbonate was 26 potassium 4.3 lactate 1.9, hemoglobin 17.2 WBC 13.6. He was seen by cardiology, neurology and pulmonary retirement plan specialist. He resumed was diagnosed with non-ST segment elevation [place] but his echo was normal so that diagnosis was in question. I was called to see him due to a failed swallow study today for PEG tube placement. PFSH Medical History COPD (chronic obstructive pulmonary disease) Smoker Medical History unable to obtain Home Medications multivitamin (One Daily Essential tablet) 1 tab PO DAILY vitamin 11/15/23 [History Last Taken Unknown] Allergy/AdvReac Type Severity Reaction Status Date / Time No Known Allergies Allergy Verified 11/15/23 18:03 Social History Smoking Status: Current every day smoker tobacco type: cigarettes ROS Review of Systems ROS Unobtainable: due to mental status and other Constitutional Constitutional: Reports anorexia and change in weight; Denies chills, fatigue, fever(s), malaise, night sweats, weakness or other Physical Exam Const alert and no apparent distress Orientation / Consciousness: confused, disoriented and lethargic HEENT normocephalic, head/scalp atraumatic, moist oral mucous membranes and oropharynx normal Eyes PERRL and EOMs intact bilaterally Neck no lymphadenopathy and supple Lymph Lymphatic: no lymphadenopathy noted and no lymphedema noted Resp normal respiratory effort, normal air movement, no retractions and clear to auscultation bilaterally Resp Narrative: Oxygen 88% on room air Cardio regular rate, regular rhythm, S1 normal heart sound, S2 normal heart sound, no murmurs and no JVD GI normal to inspection, nondistended, normoactive bowel sounds, soft to palpation, non-tender and non-distended Extremity normal to inspection, full ROM, normal capillary refill, no clubbing, cyanosis or edema and no calf tenderness General Extremity: no tenderness to palpation of joints or extremities Skin General Skin Exam: no breakdown Neuro CN's II-XII intact bilaterally and no focal motor deficits Neuro Narrative: moves all extremities Motor Exam: general weakness Psych affect normal Psych Narrative: confused Lab / Micro Data 11/25/23 05:44 11/25/23 05:44 Labs: Laboratory Results - last 24 hr 11/25/23 05:44: WBC 8.3, RBC 5.14, Hgb 16.0, Hct 48.8, MCV 94.9 H, MCH 31.1, MCHC 32.8, RDW Std Deviation 46.2 H, RDW Coeff of Katerina 13.0, Plt Count 259, MPV 9.6, Immature Gran % (Auto) 0.600, Neut % (Auto) 60.8, Lymph % (Auto) 31.8, [place] % (Auto) 3.9, Eos % (Auto) 2.3, Baso % (Auto) 0.6, Absolute Neuts (auto) 5.0, Absolute Lymphs (auto) 2.63, Nucleated RBC % 0, Sodium 145, Potassium 3.3 L, Chloride 112 H, Carbon Dioxide 29.0, Anion Gap 4 L, BUN 24 H, Creatinine 1.13, Estim Creat Clear Calc 63.96, Est GFR (MDRD) Af Amer 82, Est GFR (MDRD) Non-Af 68, BUN/Creatinine Ratio 21.2 H, Glucose 123 H, Calcium 9.0 Assessment & Plan Assessment/Plan (1) Altered behavior: (2) NSTEMI (non-ST elevated myocardial infarction): PLAN: Plan 1. Altered mental status in the setting of chronic dementia now with worsening dysphagia and possible aspiration pneumonia ? Currently still unclear as to the etiology of his worsening mental status ? There is no obvious infectious etiology respiratory panels were obtained at the outside hospital reportedly negative 2. Chest pain ? Chest pain is resolved and his troponin returned back to normal very quickly unlikely to have been a non-STEMI ? Echo with an EF of 60 and no diastolic dysfunction ? Appreciate cardiology's assistance, continue with p.o. metoprolol 3. Failed swallow study -Patient will undergo PEG tube placement. Patient patient brother were explained alternatives, risk and benefits including outstanding bleeding, infection, sepsis, perforation, need for return to . Have an ASA of 3. Charges/Coding Visit Charges Inpatient E&M: 21798 Init Hosp L3
[2023-11-24] MEDS: Albuterol 2.5 MG/3 ML VIAL.NEB. INHALATION (19:44)
[2023-11-25] VITALS (15 sets, daily range): BP systolic 120–162; BP diastolic 68–97; PULSE 60–82; RESP 16–20; TEMP 36.3–37.3; O2SAT 93–97
[2023-11-25 05:57] LABS: Absolute Lymphocyte Count 2.63 X10^3/uL (0.83-4.51); Basophil# 0.05 X10^3/uL; Basophil% 0.6 % (0-1); Eosinophil# 0.19 X10^3/uL; Eosinophils% 2.3 % (0-5); Hematocrit 48.8 % (40-54); Lymphocyte # 2.63 X10^3/ul (0.83-4.51); Lymphocyte % 31.8 % (19-41); Mean Corp Hgb Conc 32.8 g/dL (32-36); Mean Corpuscular Hgb 31.1 pg (27.0-32.0); Mean Corpuscular Volume 94.9 fL (80-94); Mean Platelet Vol. 9.6 fl (6.2-12.0); Monocyte# 0.32 X10^3/uL; Monocyte% 3.9 % (0-10); NRBC Flagged by Analyzer 0 % (0-5); Neutrophil # 5.02 X10^3/uL (2.7-7.7); Neutrophil % 60.8 % (47-70); Platelet Count 259 K/mm3 (150-450); RBC Distribution Width SD 46.2 fl (35.1-43.9); Red Blood Count 5.14 M/mm3 (4.6-6.2); White Blood Count 8.3 K/mm3 (4.4-11.0)
[2023-11-25 06:15] LABS: Anion Gap 4 (5-15); BUN 24 mg/dL (7-18); BUN/Creat Ratio 21.2 RATIO (10-20); Chloride 112 mmol/L (98-107); Creatinine, Serum 1.13 mg/dL (0.70-1.30); EST Glomerular Filtration Rate 68 mL/min (>60); Est Glom Filt Rate - Afr Amer 82 mL/min (>60); Estimated Creatinine Clearance 63.96 ml/min; Glucose 123 mg/dL (74-106); Potassium 3.3 mmol/L (3.5-5.1); Sodium Level 145 mmol/L (136-145)
[2023-11-25] MEDS: Ampicillin/Sulbactam 3 GM in 0.9% Normal Saline (100mL MB+) 100 ML IV ×3 (06:21→22:34)
[2023-11-25] MEDS: Budesonide Respules 0.5 MG/2 ML AMPUL.NEB. INHALATION ×2 (07:50→21:05)
[2023-11-25] MEDS: Menthol/Lanolin/Calamine/Znox 113 GM Tube 1 APPLIC TOPICAL ×2 (08:43→22:33)
[2023-11-25] MEDS: Potassium Chloride 10mEq/100mL 10 MEQ/100 ML IV.SOLN. 100 MEQ IV BOLUS ×3 (10:16→13:03)
[2023-11-25] MEDS: 0.9% Normal Saline (1000mL) 1,000 ML 50 ML IV (10:25)
--- NOTE | 2023-11-25 11:10 | CASEMGMT ---
Karen Tavera([phone]) left a message on XU Mayers's phone, asking about pt. Karen's mother also called, message left inquiring why Karen cannot come to visit when pt has lived with Karen for 7 years. Karen then called into the nurse's station also to inquire if she can come to visit, told the assistant community director she can come visit. XU called pt's sister Sydnie Liriano to inquire about Karen visiting. Sydnie states no, she cannot come visit. Sydnie explains that Karen has prevented pt from seeing she and pt's brother Jean. (XU did get clarification, they do have one other brother however he is in a mcfp and cannot really participate at this time in decisions for pt. Pt has no biological children or officially adopted children. He helped raise Jessica but she is not adopted.) Sydnie states pt has been living w/pt for 3.5 years, and she is certain of this time frame as pt lived w/Sydnie prior to this. She states Karen has not been caring for pt and has not been taking him to the doctor. Jean was to take pt to the doctor and Karen canceled the appointment. Sydnie states that Karen has pt's ID and wallet and won't give it back. She states Karen has called she and her family names as well. She states also since Karen has stopped visiting pt has been much less agitated. Sydnie states does not want Karen visiting at [facility] either. XU explained will call Karen and explain to her that pt's decision makers are not agreeing to her visiting. XU called Karen back. XU explained that at present pt's brother and sister are the decision makers at this time and they are not agreeable to Karen visiting. Karen states that she doesn't understand, there have never been issues before. She also said that Jean texted her mother and said if pt is asking for her she can come visit. XU explained pt is confused and it is not his decision at present. XU explained should pt become fully alert and oriented and his own decisionmaker, and says he wants her to visit, then she can visit. At this time however pt is not alert and oriented and cannot make his own decisions. XU updated RN, and dry pan charger of this information. JASON Xie
--- NOTE | 2023-11-25 11:51 | PCM.PROGNOTE ---
Subjective Subjective Patient seen and examined. He had no other complaints today. He was alert and more communicative. Patient failed a swallow test yesterday. Will likely need a PEG tube to start nutrition via tube feeding Objective Data Objective Data Vital Signs: Vital Signs Temp Pulse Resp BP Pulse Ox O2 Del Method O2 Flow Rate 98.2 F 65 18 135/90 H 94 Room Air 2 11/25/23 08:46 11/25/23 10:37 11/25/23 08:46 11/25/23 08:46 11/25/23 08:46 11/25/23 08:49 11/23/23 21:05 Oxygen Flow Rate (L/min) 2 Oxygen Delivery Method Room Air Weight: 188 lb Body Mass Index (BMI) 27.7 Intake & Output: Intake and Output for Last 24 Hours 11/23/23 11/24/23 11/25/23 23:59 23:59 23:59 Intake Total 761 / 761 2336.0 / 2336.0 1212 / 1212 Output Total 1200 / 1200 750 / 750 200 / 200 Balance -439 / -439 1586.0 / 1586.0 1012 / 1012 Lab / Micro Data 11/25/23 05:44 11/25/23 05:44 Labs: Laboratory Results - last 24 hr 11/25/23 05:44: WBC 8.3, RBC 5.14, Hgb 16.0, Hct 48.8, MCV 94.9 H, MCH 31.1, MCHC 32.8, RDW Std Deviation 46.2 H, RDW Coeff of Katerina 13.0, Plt Count 259, MPV 9.6, Immature Gran % (Auto) 0.600, Neut % (Auto) 60.8, Lymph % (Auto) 31.8, [place] % (Auto) 3.9, Eos % (Auto) 2.3, Baso % (Auto) 0.6, Absolute Neuts (auto) 5.0, Absolute Lymphs (auto) 2.63, Nucleated RBC % 0, Sodium 145, Potassium 3.3 L, Chloride 112 H, Carbon Dioxide 29.0, Anion Gap 4 L, BUN 24 H, Creatinine 1.13, Estim Creat Clear Calc 63.96, Est GFR (MDRD) Af Amer 82, Est GFR (MDRD) Non-Af 68, BUN/Creatinine Ratio 21.2 H, Glucose 123 H, Calcium 9.0 Micro: Microbiology 11/15/23 20:59 Blood Culture (Wb) - Anticubital Left Blood Culture - Final No growth in 5 days. 11/15/23 20:40 Mucosa - Nasopharyngeal Coronavirus COVID-19 PCR - Final 11/15/23 20:40 Mucosa - Nasopharyngeal Respiratory Panel (PCR) - Final Physical Exam Const alert and no apparent distress Orientation / Consciousness: confused, disoriented and lethargic HEENT normocephalic, head/scalp atraumatic, moist oral mucous membranes and oropharynx normal Eyes PERRL and EOMs intact bilaterally Neck no lymphadenopathy and supple Lymph Lymphatic: no lymphadenopathy noted and no lymphedema noted Resp normal respiratory effort, normal air movement, no retractions and clear to auscultation bilaterally Resp Narrative: Oxygen 88% on room air Cardio regular rate, regular rhythm, S1 normal heart sound, S2 normal heart sound, no murmurs and no JVD GI normal to inspection, nondistended, normoactive bowel sounds, soft to palpation, non-tender and non-distended Extremity normal to inspection, full ROM, normal capillary refill, no clubbing, cyanosis or edema and no calf tenderness General Extremity: no tenderness to palpation of joints or extremities Skin General Skin Exam: no breakdown Neuro CN's II-XII intact bilaterally and no focal motor deficits Neuro Narrative: moves all extremities Motor Exam: general weakness Psych affect normal Psych Narrative: confused Assessment & Plan Assessment/Plan (1) Altered behavior: (2) Encephalopathy: PLAN: Plan #Acute encephalopathy Patient still remains confused. He apparently has underlying dementia. He now has worsening confusion and is also dysphagia. Workup for encephalopathy has been negative. TSH and B12 were within normal limits and syphilis test was nonreactive. MRI of the brain showed evidence of old stroke but shows no acute intracranial pathology. Urinalysis also showed no evidence of UTI. neurology consulted to get their input about patient's persistent encephalopathy. Was started on IV Unasyn empirically because WBC had trended upwards. #Dysphagia Patient has remained encephalopathic and has had difficulty swallowing. he had a swallow test today which showed evidence of aspiration Speech therapy recommended and alternate means of nutrition. Spoke to patient's brother Jean Valdivia about PEG tube insertion and he is in agreement with this. Gastroenterology consulted for PEG tube insertion. #Chest pain: resolved. Cardiology on board. Appreciate rec's. 2D echo showed EF of 60% with no diastolic dysfunction. On metoprolol DVT prophylaxis: lovenox Disposition: Will benefit from placement. Charges/Coding Visit Charges Inpatient E&M: 01070 Subs Hosp L2
--- NOTE | 2023-11-25 13:01 | CASEMGMT ---
Social Work SW spoke w/pt's sister, pt does not have LW/POA. Should pt become alert and oriented, family would like the documents completed. JASON Xie
--- NOTE | 2023-11-25 13:11 | CASEMGMT ---
Social Work Karen Tavera's sister, Martha Tavera, called inquiring why Karen cannot visit. XU explained to Martha that SW cannot discuss this w/her, however she can speak to her sister as SW spoke w/her earlier. Martha states that there is not a restraining order, and she is going to call the [employer] about it. She states she does not understand how pt's siblings who have not been around for four years can be making these decisions for pt. XU explained to Martha that when there is not a POA in place, if decisions need made and a pt cannot make the decisions, then the pt's next available blood relatives make decisions for the pt. SW offered support to Martha in the difficult situation but that this is the situation at present. JASON Xie
--- NOTE | 2023-11-25 14:07 | CON.PCM.NE_ITS ---
Assessment and Plan: Neuro Assessment/Plan REID DOMINGO Jr. is a 73 M with a past medical history of smoking, being evaluated by Teleneurology for encephalopathy. Initially presented with altered sensorium and chest pain found to have NSTEMI. Toxic metabolic work up negative,no source of infection however concern for aspiration pneumonia,also c/o dysphagia ,new onset?. On exam appears somnolent,doesn't follow commands, language unable to check,appears to have left upper extremity weakness, move both legs spontaneously, also c/o waxing and waning mentation (able to answer nurse appropriately earlier during the day) concerning for hospital acquired delirium. 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 Overall picture is concerning for delirium in the setting of low cognitive reserve, worsening for baseline dementia, low concern for seizures. Unclear reason for dysphagia.Awaiting official swallow evaluation. Plan: Routine EEG Repeat MRI brain in 4-6 weeks Neuropsyc assessment to be done as an outpatient f/o in cognitive clinic in 4 -6 weeks Please complete stroke works if not done that include CT angio , ECHO ,HBA1C , LDL Start aspirin 81 mg and stain if LDL greater than 70. Unclear reason for dysphagia.Awaiting official swallow evaluation. Transfer to [facility] for the following reasons: none I personally attended this patient and spent a total time of 50 minutes evaluating this patient including clinical assessment, review of chart, medical history imaging, and determining appropriate treatment and workup. [place]iddle [place] [facility] [place] HPI Consult Data Date of Consult: 11/25/23 HPI Narrative HPI Narrative: REID DOMINGO, is a 73 M who presents with encephalopathy. He is been in hospital for long time.Initially presented with altered sensorium and chest pain,found to have NSTEMI ,resolved. Continue to be altered .Also with difficulty swallowing food. Infectious work up has been negative so far however there is concern for aspiration peumonia . Toxic metabolic work up normal.MRI brain with old right fronto parietal stroke and global volume loss. PFSH Medical History COPD (chronic obstructive pulmonary disease) Smoker Medical History unable to obtain Home Medications multivitamin (One Daily Essential tablet) 1 tab PO DAILY vitamin 11/15/23 [History Last Taken Unknown] Allergy/AdvReac Type Severity Reaction Status Date / Time No Known Allergies Allergy Verified 11/15/23 18:03 Social History Smoking Status: Current every day smoker tobacco type: cigarettes Vital Signs Vital Signs Vital Signs: 11/24/23 15:00 11/24/23 15:43 11/24/23 19:45 Temperature 98.3 F Temperature Source Oral Pulse Rate 78 80 Pulse Strength Respiratory Rate 18 18 Respiratory Effort Normal Non-Labored Respiratory Depth Normal Respiratory Pattern Normal Blood Pressure 134/81 H Blood Pressure Mean 98 Blood Pressure Source Monitor Blood Pressure Position Semi-Fowlers Blood Pressure Location Right Arm Pulse Ox 92 Oxygen Delivery Method Room Air Room Air 11/24/23 19:45 11/24/23 21:10 11/24/23 21:21 Temperature 97.6 F L Temperature Source Temporal Pulse Rate 72 Pulse Strength Normal (2+) Respiratory Rate 16 Respiratory Effort Respiratory Depth Respiratory Pattern Blood Pressure 126/70 H Blood Pressure Mean 88 Blood Pressure Source Monitor Blood Pressure Position Left Lateral Blood Pressure Location Right Arm Pulse Ox 93 93 Oxygen Delivery Method Room Air Room Air 11/24/23 21:00 11/25/23 03:15 11/25/23 03:00 Temperature 98 F Temperature Source Oral Pulse Rate 60 Pulse Strength Respiratory Rate 16 Respiratory Effort Normal Non-Labored Normal Non-Labored Respiratory Depth Normal Normal Respiratory Pattern Normal Normal Blood Pressure 120/68 Blood Pressure Mean 85 Blood Pressure Source Monitor Blood Pressure Position Semi-Fowlers Blood Pressure Location Right Arm Pulse Ox 94 Oxygen Delivery Method Room Air Room Air Room Air 11/25/23 08:46 11/25/23 08:49 11/25/23 07:50 Temperature 98.2 F Temperature Source Oral Pulse Rate 65 79 Pulse Strength Respiratory Rate 18 20 H Respiratory Effort Normal Respiratory Depth Respiratory Pattern Normal Blood Pressure 135/90 H Blood Pressure Mean 105 Blood Pressure Source Monitor Blood Pressure Position Semi-Fowlers Blood Pressure Location Left Arm Pulse Ox 94 Oxygen Delivery Method Room Air Room Air 11/25/23 07:50 11/25/23 10:37 Temperature Temperature Source Pulse Rate 65 Pulse Strength Respiratory Rate Respiratory Effort Respiratory Depth Respiratory Pattern Blood Pressure Blood Pressure Mean Blood Pressure Source Blood Pressure Position Blood Pressure Location Pulse Ox 94 Oxygen Delivery Method Room Air Weight Weight: 85.275 kg Body Mass Index (BMI) 27.7 EEG Results Procedure Details EEG Procedure Details: REID Taylor CHAYO Holguin is a 73 year old M with a past medical history of , who presents for evaluation of Electroencephalogram on DATE at TIME Physical Exam Neuro Neuro Narrative: -? General: Laying comfortably in bed; in no acute distress. -? HENT: Normal oropharynx and mucosa. Normal external appearance of ears and nose. Exophthalmos. -? Neck: Supple, no pain or tenderness -? CV:? No peripheral edema. -? Pulmonary:? Normal respiratory effort. -? Ext: No cyanosis, edema, or deformity -? Skin: No rash. Normal palpation of skin.? -? Musculoskeletal: full range of motion; no joint tenderness. Normal digits and nails by inspection. No clubbing. -? NEURO: -? Mental Status: The patient was somnolent,did not followed commands however was able to answer questions to the nurse earlier in the day -? Language:unable to access. -? Cranial Nerves: PERRL mm/brisk. EOMI, visual boyd full, no facial asymmetry, facial sensation intact, hearing intact, tongue midline, no evidence of atrophy or fibrillations. As performed by the nurse -? Motor: normal bulk, tone, left upper extremity weakness,appears to moving both legs symmetrically and spontaneously, however not on command l -? Tone: is normal and bulk is normal -? Sensation- Intact to light touch bilaterally -? Coordination: unable to access -? Gait- unable to be performed Lab / Micro Data 11/25/23 05:44 11/25/23 05:44 Labs: Laboratory Results - last 24 hr 11/25/23 05:44: WBC 8.3, RBC 5.14, Hgb 16.0, Hct 48.8, MCV 94.9 H, MCH 31.1, MCHC 32.8, RDW Std Deviation 46.2 H, RDW Coeff of Katerina 13.0, Plt Count 259, MPV 9.6, Immature Gran % (Auto) 0.600, Neut % (Auto) 60.8, Lymph % (Auto) 31.8, [place] % (Auto) 3.9, Eos % (Auto) 2.3, Baso % (Auto) 0.6, Absolute Neuts (auto) 5.0, Absolute Lymphs (auto) 2.63, Nucleated RBC % 0, Sodium 145, Potassium 3.3 L, Chloride 112 H, Carbon Dioxide 29.0, Anion Gap 4 L, BUN 24 H, Creatinine 1.13, Estim Creat Clear Calc 63.96, Est GFR (MDRD) Af Amer 82, Est GFR (MDRD) Non-Af 68, BUN/Creatinine Ratio 21.2 H, Glucose 123 H, Calcium 9.0 Active Medications Active Medications Active Medications: Current Medications Generic Name Dose Route Start Last Admin Trade Name Freq PRN Reason Stop Dose Admin Acetaminophen 650 mg 11/15/23 19:56 Acetaminophen 325 Mg Tablet PO Q4H PRN PRN Fever, pain 1-06/03 Albuterol Sulfate 2.5 mg 11/15/23 19:56 11/24/23 19:44 Albuterol 2.5 Mg/3 Ml Vial.Neb. INHALATION 2.5 mg Q2H PRN PRN Administration Dyspnea, wheezing Aspirin 81 mg 11/16/23 08:00 11/25/23 07:27 Aspirin E.C. 81 Mg Tablet PO Not Given BREAKFAST [facility] Atorvastatin Calcium 40 mg 11/15/23 22:00 11/24/23 21:20 Atorvastatin Calcium 40 Mg Tablet PO Not Given QHS KATHRIN Budesonide 0.5 mg 11/15/23 20:00 11/25/23 07:50 Budesonide Respules 0.5 Mg/2 Ml Ampul.Neb. INHALATION 0.5 mg BID.RT KATHRIN Administration Calamine/Phenol 1 applic 11/22/23 23:55 11/25/23 08:43 Menthol/Lanolin/Calamine/Znox 113 Gm Tube TOPICAL 1 applic BID KATHRIN Administration Protocol Enoxaparin Sodium 40 mg 11/17/23 14:00 11/25/23 11:37 Enoxaparin 40 Mg/0.4 Ml Syringe SC Not Given DAILY [facility] Heparin Sodium (Porcine) 0 unit 11/16/23 23:50 Heparin Injection (Vial) 5,000 Unit/Ml Vial IV UD PRN dose adjustment Protocol Hydralazine HCl 10 mg 11/15/23 19:56 Hydralazine 20 Mg/Ml Vial IV Q4H PRN PRN SBP > 160 Protocol Sodium Chloride 250 mls @ 15 mls/hr 11/15/23 18:04 IV .[id number] PRN Additional IVPB Infusion Sodium Chloride 250 mls @ 15 mls/hr 11/15/23 18:04 IV .[id number] PRN Saline Flush Ampicillin Sodium/Sulbactam 112 mls @ 150 mls/hr 11/22/23 16:00 11/25/23 07:30 Sodium 3 gm/ Sodium Chloride IV Infused Q8 KATHRIN Infusion Sodium Chloride 1,000 mls @ 50 mls/hr 11/25/23 10:25 11/25/23 10:25 IV 50 mls/hr .Q20H KATHRIN Administration Metoprolol Tartrate 25 mg 11/17/23 06:30 11/25/23 10:37 Metoprolol Tartrate 25 Mg Tablet PO Not Given BID [facility] Protocol Metoprolol Tartrate 5 mg 11/17/23 12:29 Metoprolol Tartrate 5 Mg/5 Ml Vial IV Q4H PRN PRN HR greater than 100 Protocol Nicotine 21 mg 11/15/23 20:45 11/25/23 12:02 Nicotine 21 Mg Patch TD 21 mg DAILY KATHRIN Administration Nitroglycerin 0.4 mg 11/15/23 18:41 Nitroglycerin (Inpatient Use) 0.4 Mg Tab.Subl SL Q5M PRN CHEST PAIN Nystatin 500,000 unit 11/21/23 18:00 11/25/23 13:04 Nystatin 500,000 Unit/5 Ml Udc PO Not Given 4X/DAY KATHRIN Risperidone 0.5 mg 11/19/23 13:00 11/25/23 07:27 Risperidone 0.5 Mg Tablet PO Not Given BID KATHRIN Protocol Sodium Chloride 10 - 40 ml 11/15/23 18:04 11/22/23 16:25 0.9% Saline Lock 10 Ml Syringe IV 10 ml UD PRN Administration SALINE FLUSH
[2023-11-25] MEDS: Dextrose 5%-Lactated Ringers 1,000 ML 75 ML IV (16:24)
--- NOTE | 2023-11-25 19:05 | OP.EGD_ITS ---
Patient Name: Ad Valdivia Procedure Date: 11/25/2023 6:23 PM Date of : 1950 Age: 73 Procedure: Upper GI endoscopy Indications: Dysphagia, Failure to respond to medical treatment Providers: Alec Grigsby DO Medicines: Monitored Anesthesia Care Patient Profile: This is a 73 year old male. Refer to note in patient chart for documentation of history and physical. Patient has symptoms of dysphagia with both liquids and solids. Complications: No immediate complications. Procedure: Pre-Anesthesia Assessment: - Prior to the procedure, a History and Physical was performed, and patient medications and allergies were reviewed. The risks and benefits of the procedure and the sedation options and risks were discussed with the patient. All questions were answered and informed consent was obtained. Patient identification and proposed procedure were verified by the physician in the pre-procedure area. Mental Status Examination: alert and oriented. Airway Examination: normal oropharyngeal airway and neck mobility. Respiratory Examination: clear to auscultation. CV Examination: normal. Prophylactic Antibiotics: The patient does not require prophylactic antibiotics. Prior Anticoagulants: The patient has taken no anticoagulant or antiplatelet agents. After reviewing the risks and benefits, the patient was deemed in satisfactory condition to undergo the procedure. The anesthesia plan was to use monitored anesthesia care (MAC). Immediately prior to administration of medications, the patient was re-assessed for adequacy to receive sedatives. The heart rate, respiratory rate, oxygen saturations, blood pressure, adequacy of pulmonary ventilation, and response to care were monitored throughout the procedure. The physical status of the patient was re-assessed after the procedure. After obtaining informed consent, the endoscope was passed under direct vision. Throughout the procedure, the patient's blood pressure, pulse, and oxygen saturations were monitored continuously. The gastroscope was introduced through the mouth, and advanced to the second part of duodenum. The upper GI endoscopy was accomplished without difficulty. The patient tolerated the procedure well. Scope In: 6:42:55 PM Scope Out: 6:58:20 PM Total Procedure Duration Time 0 hours 15 minutes 25 seconds Findings: No endoscopic abnormality was evident in the esophagus to explain the patient's complaint of dysphagia. No gross lesions were noted in the stomach. The patient was placed in the supine position for PEG placement. The stomach was insufflated to appose gastric and abdominal umanzor. A site was located in the cardia with transillumination for placement. The abdominal wall was marked and prepped in a sterile manner. The area was anesthetized with 1 mL of 0.5% lidocaine. The trocar needle was introduced through the abdominal wall and into the stomach under direct endoscopic view. A snare was introduced through the endoscope and opened in the gastric lumen. The guide wire was passed through the trocar and into the open snare. The snare was closed around the guide wire. The endoscope and snare were removed, pulling the wire out through the mouth. A skin incision was made at the site of needle insertion. The endoscopically removable 20 Fr Bard gastrostomy tube was lubricated. The G-tube was tied to the guide wire and pulled through the mouth and into the stomach. The trocar needle was removed, and the gastrostomy tube was pulled out from the stomach through the skin. The external bumper was attached to the gastrostomy tube, and the tube was cut to remove the guide wire. The final position of the gastrostomy tube was confirmed by relook endoscopy, and skin marking noted to be 4 cm at the external bumper. The final tension and compression of the abdominal wall by the PEG tube and external bumper were checked and revealed that the bumper was moderately tight and mildly deforming the skin. The feeding tube was capped, and the tube site cleaned and dressed. The duodenal bulb was normal. Impression: - No endoscopic esophageal abnormality to explain patient's dysphagia. - No gross lesions in the stomach. - Normal duodenal bulb. - An endoscopically removable PEG placement was successfully completed. - No specimens collected. Recommendation: - Return patient to [facility] for ongoing care. - Resume previous diet. - Continue present medications. Procedure Code(s): --- Professional --- 71963, Esophagogastroduodenoscopy, flexible, transoral; with directed placement of percutaneous gastrostomy tube CPT copyright 2021 [employer]. All rights reserved. The codes documented in this report are preliminary and upon process control programmer review may be revised to meet current compliance requirements. Alec Grigsby DO 11/25/2023 7:04:46 PM This report has been signed electronically. Number of Addenda: 0 Note Initiated On: 11/25/2023 6:23 PM
--- NOTE | 2023-11-25 19:05 | OP.CCLET_ITS ---
11/25/2023 Terrell Regalado [address] [place] [address] Re : Upper GI endoscopy procedure for Ad Valdivia Dear Dr. Regalado This procedure was performed on Saturday, November 25, 2023. My impressions and recommendations are as follows: Impressions : - No endoscopic esophageal abnormality to explain patient's dysphagia. - No gross lesions in the stomach. - Normal duodenal bulb. - An endoscopically removable PEG placement was successfully completed. - No specimens collected. Recommendations : - Return patient to [facility] for ongoing care. - Resume previous diet. - Continue present medications. My findings are described in the full procedure note, which is enclosed. If I can be of further assistance, please feel free to contact me at . Sincerely, Alec Grigsby, 11/25/2023 7:04:46 PM This report has been signed electronically.
[2023-11-25] MEDS: RisperiDONE 0.5 MG Tablet PO (22:28)
[2023-11-25] MEDS: Atorvastatin Calcium 40 MG Tablet PO (22:28)
[2023-11-25] MEDS: Metoprolol Tartrate 25 MG Tablet PO (22:28)
[2023-11-25] MEDS: 0.9% Saline Lock 10 ML Syringe IV (22:33)
[2023-11-26 03:54] VITALS: BP 134/91; PULSE 67; RESP 18; TEMP 36.6; O2SAT 93
[2023-11-26] MEDS: Dextrose 5%-Lactated Ringers 1,000 ML 75 ML IV ×2 (04:44→18:46)
[2023-11-26] MEDS: Ampicillin/Sulbactam 3 GM in 0.9% Normal Saline (100mL MB+) 100 ML IV (05:03)
[2023-11-26 05:43] LABS: Absolute Neutrophil Count 13.9 X10^3/uL (2.0-7.7); Basophil# 0.07 X10^3/uL; Basophil% 0.4 % (0-1); Eosinophil# 0.06 X10^3/uL; Eosinophils% 0.4 % (0-5); Hematocrit 49.3 % (40-54); Hemoglobin 16.6 g/dL (13.0-16.5); Mean Corp Hgb Conc 33.7 g/dL (32-36); Mean Corpuscular Hgb 30.9 pg (27.0-32.0); Mean Corpuscular Volume 91.8 fL (80-94); Mean Platelet Vol. 9.9 fl (6.2-12.0); Monocyte# 0.37 X10^3/uL; Monocyte% 2.3 % (0-10); NRBC Flagged by Analyzer 0 % (0-5); Neutrophil # 13.94 X10^3/uL (2.7-7.7); Neutrophil % 85.3 % (47-70); Platelet Count 229 K/mm3 (150-450); RBC Distribution Width CV 12.7 % (11.6-14.6); Red Blood Count 5.37 M/mm3 (4.6-6.2); White Blood Count 16.3 K/mm3 (4.4-11.0)
[2023-11-26 06:23] LABS: Anion Gap 5 (5-15); BUN 16 mg/dL (7-18); BUN/Creat Ratio 17.8 RATIO (10-20); Calcium,Total 8.7 mg/dL (8.5-10.1); Chloride 112 mmol/L (98-107); EST Glomerular Filtration Rate 88 mL/min (>60); Est Glom Filt Rate - Afr Amer 106 mL/min (>60); Estimated Creatinine Clearance 80.31 ml/min; Glucose 116 mg/dL (74-106); Potassium 3.7 mmol/L (3.5-5.1); Sodium Level 142 mmol/L (136-145)
[2023-11-26 10:00] VITALS: BP 118/90; PULSE 67; RESP 16; TEMP 36.2; O2SAT 94
[2023-11-26 10:08] VITALS: PULSE 72
[2023-11-26] MEDS: Menthol/Lanolin/Calamine/Znox 113 GM Tube 1 APPLIC TOPICAL ×2 (10:08→20:54)
[2023-11-26] MEDS: Aspirin E.C. 81 MG Tablet PO (10:08)
[2023-11-26] MEDS: Metoprolol Tartrate 25 MG Tablet PO ×2 (10:08→20:53)
[2023-11-26] MEDS: Enoxaparin 40 MG/0.4 ML Syringe SC (10:09)
[2023-11-26] MEDS: NYSTATIN 500,000 UNIT/5 ML UDC 500000 UNIT PO ×4 (10:10→20:50)
[2023-11-26] MEDS: RisperiDONE 0.5 MG Tablet PO ×2 (10:10→20:52)
--- NOTE | 2023-11-26 10:36 | PN_ITS ---
Subjective Subjective Patient seen and examined. He remains confused. Unable to do review of systems. He had a PEG tube inserted yesterday. neurology also reviewed patient yesterday. He has otherwise remained hemodynamically stable. Objective Data Objective Data Vital Signs: Vital Signs Temp Pulse Resp BP Pulse Ox O2 Del Method O2 Flow Rate 97.2 F L 72 16 118/90 H 94 Room Air 2 11/26/23 10:00 11/26/23 10:08 11/26/23 10:00 11/26/23 10:00 11/26/23 10:00 11/26/23 10:00 11/23/23 21:05 Oxygen Flow Rate (L/min) 2 Oxygen Delivery Method Room Air Weight: 188 lb Body Mass Index (BMI) 27.7 Intake & Output: Intake and Output for Last 24 Hours 11/24/23 11/25/23 11/26/23 23:59 23:59 23:59 Intake Total 2336.0 / 2336.0 2064.75 / 2064.75 522.00 / 522.00 Output Total 750 / 750 900 / 900 325 / 325 Balance 1586.0 / 1586.0 1164.75 / 1164.75 197.00 / 197.00 Lab / Micro Data 11/26/23 05:30 11/26/23 05:30 Labs: Laboratory Results - last 24 hr 11/26/23 05:30: WBC 16.3 H, RBC 5.37, Hgb 16.6 H, Hct 49.3, MCV 91.8, MCH 30.9, MCHC 33.7, RDW Std Deviation 43.0, RDW Coeff of Katerina 12.7, Plt Count 229, MPV 9.9, Immature Gran % (Auto) 0.600, Neut % (Auto) 85.3 H, Lymph % (Auto) 11.0 L, [place] % (Auto) 2.3, Eos % (Auto) 0.4, Baso % (Auto) 0.4, Absolute Neuts (auto) 13.9 H, Absolute Lymphs (auto) 1.80, Nucleated RBC % 0, Sodium 142, Potassium 3.7, Chloride 112 H, Carbon Dioxide 25.0, Anion Gap 5, BUN 16, Creatinine 0.90, Estim Creat Clear Calc 80.31, Est GFR (MDRD) Af Amer 106, Est GFR (MDRD) Non-Af 88, BUN/Creatinine Ratio 17.8, Glucose 116 H, Calcium 8.7 Micro: Microbiology 11/15/23 20:59 Blood Culture (Wb) - Anticubital Left Blood Culture - Final No growth in 5 days. 11/15/23 20:40 Mucosa - Nasopharyngeal Coronavirus COVID-19 PCR - Final 11/15/23 20:40 Mucosa - Nasopharyngeal Respiratory Panel (PCR) - Final Physical Exam Const alert and no apparent distress Orientation / Consciousness: confused and disoriented HEENT normocephalic, head/scalp atraumatic, moist oral mucous membranes and oropharynx normal Eyes PERRL and EOMs intact bilaterally Neck no lymphadenopathy and supple Lymph Lymphatic: no lymphadenopathy noted and no lymphedema noted Resp normal respiratory effort, normal air movement, no retractions and clear to auscultation bilaterally Resp Narrative: Oxygen 88% on room air Cardio regular rate, regular rhythm, S1 normal heart sound, S2 normal heart sound, no murmurs and no JVD GI normal to inspection, nondistended, normoactive bowel sounds, soft to palpation, non-tender and non-distended GI Narrative: PEG tube in place, with inact dressing over PEG tube insertion site. Extremity normal to inspection, full ROM, normal capillary refill, no clubbing, cyanosis or edema and no calf tenderness General Extremity: no tenderness to palpation of joints or extremities Skin General Skin Exam: no breakdown Neuro CN's II-XII intact bilaterally and no focal motor deficits Neuro Narrative: moves all extremities Motor Exam: general weakness Psych Psych Narrative: confused Assessment & Plan Assessment/Plan (1) Altered behavior: (2) Encephalopathy: PLAN: Plan #Acute encephalopathy * Patient still remains confused. He apparently has underlying dementia. He now has worsening confusion and is also dysphagia. * Workup for encephalopathy has been negative. TSH and B12 were within normal limits and syphilis test was nonreactive. MRI of the brain showed evidence of old stroke but shows no acute intracranial pathology. Urinalysis also showed no evidence of UTI. * neurology reviewed him and felt his clinical presentation was concerning for delirium in the setting of low cognitive reserve worsening for baseline dementia with low concern for seizures. * will dc IV unasyn as there is no evidence of any infection * . * #Dysphagia * Patient has remained encephalopathic and has had difficulty swallowing. * he had a swallow test today which showed evidence of aspiration * Speech therapy recommended and alternate means of nutrition. * Spoke to patient's brother Jean Valdivia about PEG tube insertion and he is in agreement with this. Gastroenterology consulted for PEG tube insertion. * PICC line inserted yesterday. Nutrition consulted to commence tube feeds. * #Chest pain: resolved. Cardiology on board. Appreciate rec's. 2D echo showed EF of 60% with no diastolic dysfunction. On metoprolol DVT prophylaxis: lovenox Disposition: awaiting placement. Charges/Coding Visit Charges Inpatient E&M: 51010 Subs Hosp L2
--- NOTE | 2023-11-26 11:34 | NEURO.PNOTE ---
Assessment and Plan: Neuro Assessment/Plan REID DOMINGO Jr. is a 73 M with a past medical history of smoking, being evaluated by Teleneurology for encephalopathy. Initially presented with altered sensorium and chest pain found to have NSTEMI. Toxic metabolic work up negative,no source of infection however concern for aspiration pneumonia,also c/o dysphagia ,new onset?. On exam appears somnolent,doesn't follow commands, language unable to check,appears to have left upper extremity weakness, move both legs spontaneously, also c/o waxing and waning mentation (able to answer nurse appropriately earlier during the day) concerning for hospital acquired delirium. 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 Overall picture is concerning for delirium in the setting of low cognitive reserve, worsening for baseline dementia, low concern for seizures. Plan: awaiting routine EEG Repeat MRI brain in 4-6 weeks Neuropsyc assessment to be done as an outpatient f/p in neurology clinic in 4 weeks Please complete stroke works if not done that include CT angio , ECHO ,HBA1C , LDL Start aspirin 81 mg and stain if LDL greater than 70. I personally attended this patient and spent a total time of 30 minutes evaluating this patient including clinical assessment, review of chart, medical history imaging, and determining appropriate treatment and workup. Re Riddle MD [facility] Teleneurology Department Subject: Neurology Subjective REID DOMINGO Jr. is a 73 year old M, who we are seeing in consultation today for advice on the management of encephalopathy and related patient care. EEG Results Procedure Details EEG Procedure Details: pending Objective Data Objective Data Vital Signs: Vital Signs Temp Pulse Resp BP Pulse Ox O2 Del Method O2 Flow Rate 97.2 F L 72 16 118/90 H 94 Room Air 2 11/26/23 10:00 11/26/23 10:08 11/26/23 10:00 11/26/23 10:11/26/23 10:11/26/23 10:11/23/23 21:05 Oxygen Flow Rate (L/min) 2 Oxygen Delivery Method Room Air Weight: 85.275 kg Body Mass Index (BMI) 27.7 Intake & Output: Intake and Output for Last 24 Hours 11/24/23 11/25/23 11/26/23 23:59 23:59 23:59 Intake Total 2336.0 / 2336.0 2064.75 / 2064.75 522.00 / 522.00 Output Total 750 / 750 900 / 900 325 / 325 Balance 1586.0 / 1586.0 1164.75 / 1164.75 197.00 / 197.00 Lab / Micro Data 11/26/23 05:30 11/26/23 05:30 Labs: Laboratory Results - last 24 hr 11/26/23 05:30: WBC 16.3 H, RBC 5.37, Hgb 16.6 H, Hct 49.3, MCV 91.8, MCH 30.9, MCHC 33.7, RDW Std Deviation 43.0, RDW Coeff of Katerina 12.7, Plt Count 229, MPV 9.9, Immature Gran % (Auto) 0.600, Neut % (Auto) 85.3 H, Lymph % (Auto) 11.0 L, Holmes % (Auto) 2.3, Eos % (Auto) 0.4, Baso % (Auto) 0.4, Absolute Neuts (auto) 13.9 H, Absolute Lymphs (auto) 1.80, Nucleated RBC % 0, Sodium 142, Potassium 3.7, Chloride 112 H, Carbon Dioxide 25.0, Anion Gap 5, BUN 16, Creatinine 0.90, Estim Creat Clear Calc 80.31, Est GFR (MDRD) Af Amer 106, Est GFR (MDRD) Non-Af 88, BUN/Creatinine Ratio 17.8, Glucose 116 H, Calcium 8.7 Micro: Microbiology 11/15/23 20:59 Blood Culture (Wb) - Anticubital Left Blood Culture - Final No growth in 5 days. 11/15/23 20:40 Mucosa - Nasopharyngeal Coronavirus COVID-19 PCR - Final 11/15/23 20:40 Mucosa - Nasopharyngeal Respiratory Panel (PCR) - Final Physical Exam Neuro Neuro Narrative: -? General: Laying comfortably in bed; in no acute distress. -? HENT: Normal oropharynx and mucosa. Normal external appearance of ears and nose. Exophthalmos. -? Neck: Supple, no pain or tenderness -? CV:? No peripheral edema. -? Pulmonary:? Normal respiratory effort. -? Ext: No cyanosis, edema, or deformity -? Skin: No rash. Normal palpation of skin.? -? Musculoskeletal: full range of motion; no joint tenderness. Normal digits and nails by inspection. No clubbing. -? NEURO: -? Mental Status: Somnolent,unable to follow commands.. -? Language: didn't say a single word -? Cranial Nerves: PERRL 3mm/brisk. EOMI, visual byod full, no facial asymmetry, facial sensation intact, hearing intact, tongue midline, no evidence of atrophy or fibrillations. As performed by the nurse. -? Motor: normal bulk, tone, left upper extremity weakness R L R L -? Tone: is normal and bulk is normal -? Sensation- Intact to light touch bilaterally -? Coordination:unable to be perform -? Gait- deferred
[2023-11-26] MEDS: Jevity 1.5 1,000 ML 20 ML GT (13:52)
[2023-11-26 16:00] VITALS: BP 130/88; PULSE 70; RESP 16; TEMP 36.7; O2SAT 94
--- NOTE | 2023-11-26 17:00 | EX.PCM.PN.GI ---
Subjective Subjective Patient underwent EGD with PEG tube placement yesterday. He has been tolerating tube feedings today without any problems. There is no dark stools and his hemoglobin seems to be normal. Objective Data Objective Data Vital Signs: Vital Signs Temp Pulse Resp BP Pulse Ox O2 Del Method O2 Flow Rate 97.2 F L 72 16 118/90 H 94 Room Air 2 11/26/23 10:00 11/26/23 10:08 11/26/23 10:00 11/26/23 10:00 11/26/23 10:00 11/26/23 10:00 11/23/23 21:05 Oxygen Flow Rate (L/min) 2 Oxygen Delivery Method Room Air Weight: 188 lb Body Mass Index (BMI) 27.7 Intake & Output: Intake and Output for Last 24 Hours 11/24/23 11/25/23 11/26/23 23:59 23:59 23:59 Intake Total 2336.0 / 2336.0 2064.75 / 2064.75 522.00 / 522.00 Output Total 750 / 750 900 / 900 475 / 475 Balance 1586.0 / 1586.0 1164.75 / 1164.75 47.00 / 47.00 Lab / Micro Data 11/26/23 05:30 11/26/23 05:30 Labs: Laboratory Results - last 24 hr 11/26/23 05:30: WBC 16.3 H, RBC 5.37, Hgb 16.6 H, Hct 49.3, MCV 91.8, MCH 30.9, MCHC 33.7, RDW Std Deviation 43.0, RDW Coeff of Katerina 12.7, Plt Count 229, MPV 9.9, Immature Gran % (Auto) 0.600, Neut % (Auto) 85.3 H, Lymph % (Auto) 11.0 L, Ellsworth % (Auto) 2.3, Eos % (Auto) 0.4, Baso % (Auto) 0.4, Absolute Neuts (auto) 13.9 H, Absolute Lymphs (auto) 1.80, Nucleated RBC % 0, Sodium 142, Potassium 3.7, Chloride 112 H, Carbon Dioxide 25.0, Anion Gap 5, BUN 16, Creatinine 0.90, Estim Creat Clear Calc 80.31, Est GFR (MDRD) Af Amer 106, Est GFR (MDRD) Non-Af 88, BUN/Creatinine Ratio 17.8, Glucose 116 H, Calcium 8.7 Micro: Microbiology 11/15/23 20:59 Blood Culture (Wb) - Anticubital Left Blood Culture - Final No growth in 5 days. 11/15/23 20:40 Mucosa - Nasopharyngeal Coronavirus COVID-19 PCR - Final 11/15/23 20:40 Mucosa - Nasopharyngeal Respiratory Panel (PCR) - Final Physical Exam Const alert and no apparent distress Orientation / Consciousness: confused and disoriented HEENT normocephalic, head/scalp atraumatic, moist oral mucous membranes and oropharynx normal Eyes PERRL and EOMs intact bilaterally Neck no lymphadenopathy and supple Lymph Lymphatic: no lymphadenopathy noted and no lymphedema noted Resp normal respiratory effort, normal air movement, no retractions and clear to auscultation bilaterally Resp Narrative: Oxygen 88% on room air Cardio regular rate, regular rhythm, S1 normal heart sound, S2 normal heart sound, no murmurs and no JVD GI normal to inspection, nondistended, normoactive bowel sounds, soft to palpation, non-tender and non-distended GI Narrative: PEG tube in place, with inact dressing over PEG tube insertion site. Extremity normal to inspection, full ROM, normal capillary refill, no clubbing, cyanosis or edema and no calf tenderness General Extremity: no tenderness to palpation of joints or extremities Skin General Skin Exam: no breakdown Neuro CN's II-XII intact bilaterally and no focal motor deficits Neuro Narrative: moves all extremities Motor Exam: general weakness Psych Psych Narrative: confused Assessment & Plan Assessment/Plan (1) Altered behavior: (2) NSTEMI (non-ST elevated myocardial infarction): PLAN: Plan 1. Altered mental status in the setting of chronic dementia now with worsening dysphagia and possible aspiration pneumonia ? Currently still unclear as to the etiology of his worsening mental status ? There is no obvious infectious etiology respiratory panels were obtained at the outside hospital reportedly negative ? Will repeat chest x-ray today given issues with risks of aspiration ? UA here is normal ? Repeat CBC this morning showed a decrease in his white count however given his lung sounds we will proceed with Unasyn ? Continue with risperidone ? TSH, B12 were normal and syphilis was nonreactive ? PT/OT as well as case management for disposition planning ? Apparently their family dynamics as the daughter we have listed is not biologically his so we will attempt to discuss the situation with his siblings who we now have phone number for ? MRI demonstrated gliosis on his right frontal and parietal lobes consistent with a previous stroke ? Patient is doing well with PEG tube without any problems. Recommend to titrate up to goal as per nutrition. 2. Chest pain ? Chest pain is resolved and his troponin returned back to normal very quickly unlikely to have been a non-STEMI ? Echo with an EF of 60 and no diastolic dysfunction, not a candidate for invasive studies ? Appreciate cardiology's assistance, continue with p.o. metoprolol DVT: Lovenox Charges/Coding Visit Charges Inpatient E&M: 45526 Subs Hosp L3
[2023-11-26 20:00] VITALS: BP 137/77; PULSE 75; RESP 18; TEMP 36.1; O2SAT 94; BMI 27.8
--- NOTE | 2023-11-26 20:36 | CASEMGMT ---
Social Work Sent clinical updates via care port to [facility] including updated outpatient tube insertion and current pig tube feeding formula of Jevity 1.5. Plan: shelter facility, [facility]. -JASON Price, PLASTICATOR *This note was generated with [employer] dictation software. It may contain incorrect words, spelling, and punctuation that were not noted in review of the chart prior to signing*
[2023-11-26 20:53] VITALS: BP 137/77; PULSE 75
[2023-11-26] MEDS: Acetaminophen 325 MG Tablet 650 MG PO (20:53)
[2023-11-26] MEDS: Atorvastatin Calcium 40 MG Tablet PO (20:53)
[2023-11-26 23:54] VITALS: BMI 27.8
[2023-11-27 03:45] VITALS: PULSE 61; RESP 20; O2SAT 96
[2023-11-27 03:56] VITALS: BP 121/72; PULSE 61; RESP 20; TEMP 36.3; O2SAT 96
[2023-11-27] MEDS: Acetaminophen 325 MG Tablet 650 MG PO (04:08)
[2023-11-27 04:50] VITALS: BMI 25.1
[2023-11-27] MEDS: Dextrose 5%-Lactated Ringers 1,000 ML 75 ML IV (06:57)
[2023-11-27 08:09] LABS: Absolute Lymphocyte Count 1.92 X10^3/uL (0.83-4.51); Absolute Neutrophil Count 9.1 X10^3/uL (2.0-7.7); Basophil# 0.05 X10^3/uL; Basophil% 0.4 % (0-1); Eosinophil# 0.17 X10^3/uL; Eosinophils% 1.5 % (0-5); Hematocrit 44.1 % (40-54); Lymphocyte # 1.92 X10^3/ul (0.83-4.51); Lymphocyte % 16.4 % (19-41); Mean Corpuscular Hgb 31.4 pg (27.0-32.0); Mean Corpuscular Volume 92.3 fL (80-94); Mean Platelet Vol. 10.1 fl (6.2-12.0); Monocyte# 0.32 X10^3/uL; Monocyte% 2.7 % (0-10); NRBC Flagged by Analyzer 0 % (0-5); Neutrophil # 9.14 X10^3/uL (2.7-7.7); Neutrophil % 78.3 % (47-70); Platelet Count 193 K/mm3 (150-450); RBC Distribution Width CV 12.8 % (11.6-14.6); RBC Distribution Width SD 43.6 fl (35.1-43.9); Red Blood Count 4.78 M/mm3 (4.6-6.2); White Blood Count 11.7 K/mm3 (4.4-11.0)
[2023-11-27 08:32] LABS: Anion Gap 4 (5-15); BUN 16 mg/dL (7-18); BUN/Creat Ratio 17.3 RATIO (10-20); Calcium,Total 8.6 mg/dL (8.5-10.1); Chloride 109 mmol/L (98-107); Creatinine, Serum 0.92 mg/dL (0.70-1.30); EST Glomerular Filtration Rate 86 mL/min (>60); Est Glom Filt Rate - Afr Amer 103 mL/min (>60); Estimated Creatinine Clearance 72.58 ml/min; Glucose 141 mg/dL (74-106); Potassium 3.5 mmol/L (3.5-5.1); Sodium Level 140 mmol/L (136-145)
[2023-11-27 09:41] VITALS: BP 133/78; PULSE 75; RESP 18; TEMP 36.7; O2SAT 100
[2023-11-27 09:44] VITALS: BP 133/78; PULSE 75
[2023-11-27] MEDS: Aspirin E.C. 81 MG Tablet PO (09:44)
[2023-11-27] MEDS: Metoprolol Tartrate 25 MG Tablet PO (09:44)
[2023-11-27] MEDS: Enoxaparin 40 MG/0.4 ML Syringe SC (09:45)
[2023-11-27] MEDS: Menthol/Lanolin/Calamine/Znox 113 GM Tube 1 APPLIC TOPICAL (09:45)
[2023-11-27] MEDS: NYSTATIN 500,000 UNIT/5 ML UDC 500000 UNIT PO (09:46)
[2023-11-27] MEDS: RisperiDONE 0.5 MG Tablet PO (09:46)
--- NOTE | 2023-11-27 11:48 | TREXTCAR_ITS ---
Diet Diet Order/Speech Therapy: 11/26/23 00:01 Diet: Nothing Per Oral Is pt able to select menu?: No Routine Orders/Code Status Enema Type: Fleetz Enema Frequency: Daily PRN Suppository Type: Dulcolax 10mg Suppository Frequency: Daily PRN O2 Frequency: PRN Keep PO Greater than or Equal to (%): 90 Wound(s) LT ABD: Wound Type: Surgical Incision Therapies Weight Bearing: Weight bearing as tolerated Physical Therapy: Eval and Treat Occupational Therapy: Eval and Treat Speech Therapy: Eval and Treat Problem/Diagnosis (1) Altered behavior: Status: Acute Code(s): R46.89 - Other symptoms and signs involving appearance and behavior (2) NSTEMI (non-ST elevated myocardial infarction): Status: Acute Code(s): I21.4 - Non-ST elevation (NSTEMI) myocardial infarction Plan #Acute encephalopathy * Patient still remains confused. He apparently has underlying dementia. He now has worsening confusion and is also dysphagia. * Workup for encephalopathy has been negative. TSH and B12 were within normal limits and syphilis test was nonreactive. MRI of the brain showed evidence of old stroke but shows no acute intracranial pathology. Urinalysis also showed no evidence of UTI. * neurology reviewed him and felt his clinical presentation was concerning for delirium in the setting of low cognitive reserve worsening for baseline dementia with low concern for seizures. * will dc IV unasyn as there is no evidence of any infection * . * #Dysphagia * Patient has remained encephalopathic and has had difficulty swallowing. * he had a swallow test today which showed evidence of aspiration * Speech therapy recommended and alternate means of nutrition. * Spoke to patient's brother Jean Valdivia about PEG tube insertion and he is in agreement with this. Gastroenterology consulted for PEG tube insertion. * PICC line inserted yesterday. Nutrition consulted to commence tube feeds. * #Chest pain: resolved. Cardiology on board. Appreciate rec's. 2D echo showed EF of 60% with no diastolic dysfunction. On metoprolol DVT prophylaxis: lovenox Disposition: awaiting placement. Allergies/Procedures Done in Hospital Allergies No Known Allergies Allergy (Verified 11/15/23 18:03) Procedures: 2-D Echocardiogram Type of Care/Length of Stay Estimated LOS: Convalescent Care Less Than 30 days Type of Care Needed: Skilled Rehab Potential: Fair Prognosis: Fair Additional Orders/Day of Discharge Day of Discharge: 11/27/23 Dietary and Speech Recommendations Dietitian Recommendations/Changes: NPO per MANAGER PATHOLOGY; Via PEG- Jevity 1.5 at goal rate of 60mL/hour w/ 150mL H2O flush every 4 hours to provide 2160 calories, ~92 g protein, and 1994mL total fluid/day. Will start at 20mL/hour and increase by 15mL/hour every 6-8 hours as tolerated until goal rate is achieved. Discharge Plan Admission Admit Date/Time: 11/15/23 18:17 Primary Reason for Your Visit: acute encephalopathy, dementia, dysphagia Attending Provider: Evelin Chavarria Primary Care Provider: Terrell Regalado Consulting Providers: Reagan Greenfield; Ken Colorado; Bharath Fan; Ofelia Cash; Nelly Daniels; Jess Johnson; Diann Vasquez; Amrit Garnett; Candis Juan; Surinder Alfaro; Alden Carmona; Kylah Su; Antoine Lemon; Re Riddle; Lex Horn; Angel Mcdaniel; Delvis Mcnulty; Anna Johnson; Earnest Farley; Mariah Costello; Omar Armenta Instructions Additional Instructions / Restrictions: To be on Jevity Tube feeds at 60cc/hr via PEG tube Discharge Orders/Prescriptions Prescriptions: New atorvastatin 40 mg Tablet 40 mg feeding tube QHS Qty: 30 2RF aspirin 81 mg Tablet,Delayed Release (Dr/Ec) 81 mg feeding tube BREAKFAST Qty: 30 2RF metoprolol tartrate 25 mg Tablet 25 mg feeding tube BID Qty: 60 2RF Continued multivitamin [One Daily Essential] Tablet 1 tab PO DAILY Referrals / Follow Up: Thomas Fleming Chi, MD [Med Staff - Active Staff] - Within 2 Weeks Disposition Disposition (needs filled in before D/C Order can be placed): Shelter Facility
--- NOTE | 2023-11-27 11:50 | DS.PCM_ITS ---
Providers Date of Admission: 11/15/23 Date of Discharge: 11/27/23 Primary Care Physician: Dr. Terrell Regalado MD Consultations 11/15/23 18:41 Consult: Cardiology Stat Consulting Provider: Reagan Greenfield Reason for Consult: Chest Pain EMERGENT Consult: Yes MD Notified: Yes Date Notified: 11/15/23 Time Notified: 18:41 Method of Notification: Verbal Method of Consult:: Telemedicine 11/24/23 12:04 Consult: Tele-Neurology Routine Consulting Provider: [facility] Reason for Consult: acute encephalopathy EMERGENT Consult: No Notified: Yes Date Notified: 11/24/23 Time Notified: 12:41 Method of Notification: Answering Service Nursing Unit Staff Notify [facility] of Tele-Neurology Consult: Yes 11/24/23 17:10 Consult: Gastroenterology Routine Consulting Provider: Vannessa Nicholson Reason for Consult: PEG tube insertion due to dysphagia EMERGENT Consult: No Notified: Yes Date Notified: 11/24/23 Time Notified: 17:11 Method of Notification: Text Reason For Visit: ALTERED MENTAL STATUS Diagnosis Discharge Diagnosis (1) Altered behavior: Status: Acute Code(s): R46.89 - Other symptoms and signs involving appearance and behavior (2) NSTEMI (non-ST elevated myocardial infarction): Status: Acute Code(s): I21.4 - Non-ST elevation (NSTEMI) myocardial infarction Plan #Acute encephalopathy * Patient still remains confused. He apparently has underlying dementia. He now has worsening confusion and is also dysphagia. * Workup for encephalopathy has been negative. TSH and B12 were within normal limits and syphilis test was nonreactive. MRI of the brain showed evidence of old stroke but shows no acute intracranial pathology. Urinalysis also showed no evidence of UTI. * neurology reviewed him and felt his clinical presentation was concerning for delirium in the setting of low cognitive reserve worsening for baseline dementia with low concern for seizures. * will dc IV unasyn as there is no evidence of any infection * . * #Dysphagia * Patient has remained encephalopathic and has had difficulty swallowing. * he had a swallow test today which showed evidence of aspiration * Speech therapy recommended and alternate means of nutrition. * Spoke to patient's brother Jean Valdivia about PEG tube insertion and he is in agreement with this. Gastroenterology consulted for PEG tube insertion. * PICC line inserted yesterday. Nutrition consulted to commence tube feeds. * #Chest pain: resolved. Cardiology on board. Appreciate rec's. 2D echo showed EF of 60% with no diastolic dysfunction. On metoprolol DVT prophylaxis: lovenox Disposition: awaiting placement. Medications at Discharge Home Medications multivitamin (One Daily Essential tablet) 1 tab PO DAILY vitamin 11/15/23 aspirin 81 mg tablet,delayed release 81 mg feeding tube BREAKFAST #30 tabs 11/27/23 atorvastatin 40 mg tablet 40 mg feeding tube QHS #30 tabs 11/27/23
--- NOTE | 2023-11-27 11:50 | PCM.DC.SUM ---
Providers Date of Admission: 11/15/23 Date of Discharge: 11/27/23 Primary Care Physician: Dr. Terrell Regalado MD Consultations 11/15/23 18:41 Consult: Cardiology Stat Consulting Provider: Reagan Greenfield Reason for Consult: Chest Pain EMERGENT Consult: Yes Notified: Yes Date Notified: 11/15/23 Time Notified: 18:41 Method of Notification: Verbal Method of Consult:: Telemedicine 11/24/23 12:04 Consult: Tele-Neurology Routine Consulting Provider: [facility] Reason for Consult: acute encephalopathy EMERGENT Consult: No Notified: Yes Date Notified: 11/24/23 Time Notified: 12:41 Method of Notification: [facility] Service Nursing Unit Staff Notify [facility] of Tele-Neurology Consult: Yes 11/24/23 17:10 Consult: Gastroenterology Routine Consulting Provider: Vannessa Gastroenterroel Reason for Consult: PEG tube insertion due to dysphagia EMERGENT Consult: No Notified: Yes Date Notified: 11/24/23 Time Notified: 17:11 Method of Notification: Text Reason For Visit: ALTERED MENTAL STATUS Diagnosis Discharge Diagnosis (1) Altered behavior: Status: Acute Code(s): R46.89 - Other symptoms and signs involving appearance and behavior (2) NSTEMI (non-ST elevated myocardial infarction): Status: Acute Code(s): I21.4 - Non-ST elevation (NSTEMI) myocardial infarction Plan #Acute encephalopathy Patient still remains confused. He apparently has underlying dementia. He now has worsening confusion and is also dysphagia. Workup for encephalopathy has been negative. TSH and B12 were within normal limits and syphilis test was nonreactive. MRI of the brain showed evidence of old stroke but shows no acute intracranial pathology. Urinalysis also showed no evidence of UTI. neurology reviewed him and felt his clinical presentation was concerning for delirium in the setting of low cognitive reserve worsening for baseline dementia with low concern for seizures. will dc IV unasyn as there is no evidence of any infection . #Dysphagia Patient has remained encephalopathic and has had difficulty swallowing. he had a swallow test today which showed evidence of aspiration Speech therapy recommended and alternate means of nutrition. Spoke to patient's brother Jean Valdivia about PEG tube insertion and he is in agreement with this. Gastroenterology consulted for PEG tube insertion. PICC line inserted yesterday. Nutrition consulted to commence tube feeds. #Chest pain: resolved. Cardiology on board. Appreciate rec's. 2D echo showed EF of 60% with no diastolic dysfunction. On metoprolol DVT prophylaxis: lovenox Disposition: awaiting placement. Medications at Discharge Home Medications multivitamin (One Daily Essential tablet) 1 tab PO DAILY vitamin 11/15/23 aspirin 81 mg tablet,delayed release 81 mg feeding tube BREAKFAST #30 tabs 11/27/23 atorvastatin 40 mg tablet 40 mg feeding tube QHS #30 tabs 11/27/23 metoprolol tartrate 25 mg tablet 25 mg feeding tube BID #60 tabs 11/27/23 Hospital Course Operations None Procedures Peg tube placement Summary of Care Provided Minutes Spent on Discharge: 55 Hospital Course: Patient is a 73-year-old male with a past medical history as outlined was admitted through the ED on 10/26/2023 with a complaint of chest pain. He was transferred from an outside hospital ED where he had presented with a complaint of chest pain and back pain which have been going on for several hours. He was also noted to have altered mental status. His girlfriend said his sensorium had been worsening for about 1 to 2 weeks prior to admission with increased sleepiness during the day and insomnia at night. Patient had dementia and she was concerned that dementia was worsening. He had CT of the chest done in the outside hospital ED which was negative for any evidence of PE. His initial troponin was negative but subsequently trended upwards. Labs were otherwise largely unremarkable apart from lactic acid of 1.9 and WBC of 13.6. He was admitted and managed for acute metabolic encephalopathy with unclear etiology. His white cell count was slightly elevated as mentioned at 13.6. CT of the brain showed no acute intracranial pathology. He was started on IV ceftriaxone and urinalysis as well as blood cultures were obtained. Respiratory panel and COVID as well as flu test was negative. His troponins trended upwards and there was concern for non-STEMI. Cardiology was therefore consulted and he was placed on heparin, aspirin and atorvastatin. Urinalysis showed no evidence of UTI. White cell count trended downwards and antibiotics were discontinued as there was no clear source of infection. 2D echo which showed EF of 60% and no diastolic dysfunction. He was placed on metoprolol. Cardiology reviewed him and did not think that he required any cardiac catheter or any intervention. Patient was noted to have dysphagia and so speech therapy was consulted. He had swallow study which showed severe oropharyngeal dysphagia. The dysphagia did not improve despite speech therapy. Hospital course was again complicated by social dynamics as patient's family namely his brother and sister did not want his significant other or adopted daughter to be involved in his care as they did not think he had been cared for properly when he was with them. Decisions were subsequently made by his brother and his sister. Family decided to opt for PEG tube in light of severe oropharyngeal dysphagia. Gastroenterology was therefore consulted and patient had PEG tube inserted or 11/25/2023. Nutrition was subsequently consulted and he was started on tube feeds with Jevity. Patient was deemed to need skilled care and so was discharged to long term facility on 11/27/2023. He is to follow-up with his primary care doctor and to continue on tube feeds. Patient seen and examined prior to discharge. He had no active complaints and had an uneventful night. He still remained confused. Neurology had been consulted and reviewed patient and felt that his symptoms were likely due to the worsening dementia with associated hospital-acquired delirium. His ammonia level was not elevated and vitamin B12 as well as TSH were all normal. Labs and vitals reviewed. Home medication reviewed and reconciled. He was given a prescription for p.o. 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 Physical Exam Const alert, oriented x3, no apparent distress and average body habitus General Appearance: cooperative, comfortable and well kempt Orientation / Consciousness: confused, disoriented and lethargic HEENT normocephalic, head/scalp atraumatic, hearing grossly normal bilaterally, moist oral mucous membranes and oropharynx normal Eyes PERRL and EOMs intact bilaterally Neck no lymphadenopathy and supple Lymph Lymphatic: no lymphadenopathy noted and no lymphedema noted Resp normal respiratory effort, normal air movement, no retractions, no use of accessory muscles and clear to auscultation bilaterally Resp Narrative: Oxygen 88% on room air Cardio regular rate, regular rhythm, S1 normal heart sound, S2 normal heart sound, no murmurs and no JVD GI normal to inspection, nondistended, normoactive bowel sounds, soft to palpation, non-tender and non-distended GI Narrative: PEG tube in place, with inact dressing over PEG tube insertion site. On tube feeds Extremity normal to inspection, full ROM, normal capillary refill, no clubbing, cyanosis or edema and no calf tenderness General Extremity: no tenderness to palpation of joints or extremities Skin no rashes or lesions noted General Skin Exam: no breakdown Neuro CN's II-XII intact bilaterally and no focal motor deficits Neuro Narrative: moves all extremities Motor Exam: general weakness Psych affect normal Psych Narrative: confused Weight / BMI Weight Weight: 170 lb 3.15 oz Body Mass Index (BMI) 25.1 ABG / Lab / Microbiology Data 11/27/23 07:19 11/27/23 07:19 Laboratory: Laboratory Results - last 24 hr 11/27/23 07:19: WBC 11.7 H, RBC 4.78, Hgb 15.0, Hct 44.1, MCV 92.3, MCH 31.4, MCHC 34.0, RDW Std Deviation 43.6, RDW Coeff of Katerina 12.8, Plt Count 193, MPV 10.1, Immature Gran % (Auto) 0.700, Neut % (Auto) 78.3 H, Lymph % (Auto) 16.4 L, [place] % (Auto) 2.7, Eos % (Auto) 1.5, Baso % (Auto) 0.4, Absolute Neuts (auto) 9.1 H, Absolute Lymphs (auto) 1.92, Nucleated RBC % 0, Sodium 140, Potassium 3.5, Chloride 109 H, Carbon Dioxide 27.0, Anion Gap 4 L, BUN 16, Creatinine 0.92, Estim Creat Clear Calc 72.58, Est GFR (MDRD) Af Amer 103, Est GFR (MDRD) Non-Af 86, BUN/Creatinine Ratio 17.3, Glucose 141 H, Calcium 8.6 Microbiology: Microbiology 11/15/23 20:59 Blood Culture (Wb) - Anticubital Left Blood Culture - Final No growth in 5 days. 11/15/23 20:40 Mucosa - Nasopharyngeal Coronavirus COVID-19 PCR - Final 11/15/23 20:40 Mucosa - Nasopharyngeal Respiratory Panel (PCR) - Final D/C Instructions Discharge Diet: - (tube feeds) Discharge Activity: Return to Normal Activity Meaningful Use Info Meaningful Use Diagnoses (Choose all that apply): None applicable Discharge Plan Admission Admit Date/Time: 11/15/23 18:17 Primary Reason for Your Visit: acute encephalopathy, dementia, dysphagia Attending Provider: Evelin Chavarria Primary Care Provider: Terrell Regalado Consulting Providers: Reagan Greenfield; Ken Colorado; Bharath Fan; Ofelia Cash; Nelly Daniels; Jess Johnson; Diann Vasquez; Amrit Garnett; Candis Juan; Surinder Alfaro; Alden Carmona; Kylah Su; Antoine Lemon; Re Riddle; Lex Horn; Angel Mcdaniel; Delvis Mcnulty; Anna Johnson; Earnest Farley; Mariah Costello; Omar Armenta Instructions Additional Instructions / Restrictions: To be on Jevity Tube feeds at 60cc/hr via PEG tube Discharge Orders/Prescriptions Prescriptions: New atorvastatin 40 mg Tablet 40 mg feeding tube QHS Qty: 30 2RF aspirin 81 mg Tablet,Delayed Release (Dr/Ec) 81 mg feeding tube BREAKFAST Qty: 30 2RF metoprolol tartrate 25 mg Tablet 25 mg feeding tube BID Qty: 60 2RF Continued multivitamin [One Daily Essential] Tablet 1 tab PO DAILY Referrals / Follow Up: Thomas Fleming Chi, MD [Med Staff - Active Staff] - Within 2 Weeks Disposition Disposition (needs filled in before D/C Order can be placed): Shelter Facility Charges/Coding Visit Charges Inpatient E&M: 24942 Disch Hosp >30min
[2023-11-27] MEDS: Jevity 1.5 1,000 ML 60 ML GT (12:41)
[2023-11-27 14:36] VITALS: BP 131/78; PULSE 64; RESP 16; TEMP 36.5; O2SAT 93
--- NOTE | 2023-11-27 15:04 | NURSING ---
report called to skilled nursing
--- NOTE | 2023-11-28 09:36 | CASEMGMT ---
Social Work Pt's significant other Karen called to ask where pt is. SW explained is not able to give her this information, as she is not next of kin. Karen states that she can come visit, she consulted a pharmaceutical sales representative and was told that she can come visit. SW did let her know pt is no longer here. SW suggested to Karen to follow up w/pt's brother and sister in regard to where pt went for rehab. Karen states she is not going to call them, she is going to [facility]. She states she lives w/pt and pt will go back to live w/her. She states family hasn't seen her in years, only wants pt's money. SW attempted to educate Karen know that pt does not have POA, so the next of kin makes decisions for pt regardless of where pt lives and with whom. Karen continued to speak over SW throughout the conversation. SW explained pt does not have POA papers, therefore his siblings would be his decision makers. SW did apologize for the difficult situation and attempted to offer support to Karen. Karen continued to state she is going to [facility], and she is going to take care of it today. JASON Xie
== END 2023-11-27 15:12 | disposition skilled nursing facility (03) | DRG 884 ==
LOC: MS3 18:23 → PCU 19:21
PROVIDERS: Family Medicine; Internal Medicine Gastroenterology; Internal Medicine Interventional Cardiology; Admitting Provider Internal Medicine; PCP Family Medicine; Visit Provider Student in an Organized Health Care Education/Training Program
PROC: 0DJ08ZZ Inspection of Upper Intestinal Tract, Via Natural or Artificial Opening Endoscopic (ICD-10-PCS; CPT 43235; principal; 2023-11-25 18:30)
DX: F03.90 Unspecified dementia, unspecified severity, without behavioral disturbance, psychotic disturbance, mood disturbance, and anxiety (principal); G93.41 Metabolic encephalopathy; F05 Delirium due to known physiological condition; I47.10 Supraventricular tachycardia, unspecified; J44.9 Chronic obstructive pulmonary disease, unspecified; F17.210 Nicotine dependence, cigarettes, uncomplicated; R13.12 Dysphagia, oropharyngeal phase; Z79.82 Long term (current) use of aspirin; R07.9 Chest pain, unspecified; Z86.73 Personal history of transient ischemic attack (TIA), and cerebral infarction without residual deficits
CPT/HCPCS: 36415; 70553; 71045; 74230; 80048; 80053; 80061; 80307; 81001; 82140; 82607; 83735; 83880; 84145; 84443; 84484; 85025; 85730; 86780; 87040; 87633; 87635; 92526; 92610; 92611; 93005; 93306; 94640; 97110; 97162; 97166; 97530; 97535; 97802; 99252; 99406; A9575; J7030; J7040; J7120; A4216; G0463; J0295

== ENCOUNTER 2023-12-11 09:28 | Emergency (ER) | payer BC, SELFPAY ==
[2023-12-11 09:30] VITALS: BP 108/68; PULSE 66; PULSE 74; RESP 15; RESP 16; TEMP 36.8; O2SAT 100; O2SAT 98; BMI 25.2
[2023-12-11 10:29] VITALS: BP 106/64; PULSE 78; RESP 16; TEMP 36.4; O2SAT 99
--- NOTE | 2023-12-11 10:41 | EX.ED.DYSGE1 ---
HPI History of Present Illness Chief Complaint: Other, Pain/Inj Informant: patient, EMS and SNF Narrative Narrative: 73-year-old male presenting to the emergency room with PEG tube dislodgment. Patient reportedly underwent PEG tube placement on [address] Grigsby. Reportedly became dislodged this morning. Nicholson catheter was placed in its place. Patient currently denying any symptoms. It has been reported that he has a PEG tube due to a failed dysphagia screen and is still utilizing the tube. [facility] Medical History Altered behavior COPD (chronic obstructive pulmonary disease) Encephalopathy NSTEMI (non-ST elevated myocardial infarction) Smoker SVT (supraventricular tachycardia) Home Medications multivitamin (One Daily Essential tablet) 1 tab PO DAILY vitamin 11/15/23 [History Last Taken Unknown] aspirin 81 mg tablet,delayed release 81 mg feeding tube BREAKFAST #30 tabs 11/27/23 [Rx Last Taken Unknown] atorvastatin 40 mg tablet 40 mg feeding tube QHS #30 tabs 11/27/23 [Rx Last Taken Unknown] metoprolol tartrate 25 mg tablet 25 mg feeding tube BID #60 tabs 11/27/23 [Rx Last Taken Unknown] Allergy/AdvReac Type Severity Reaction Status Date / Time No Known Allergies Allergy Verified 12/11/23 09:33 Social History Smoking Status: Current every day smoker tobacco type: cigarettes ROS ROS ED Review of Systems ROS Unobtainable: due to mental status Constitutional Constitutional ED: Denies chills, fever(s) or weight loss Eyes Eyes: Denies change in vision or diplopia ENT ENT ED: Denies ear pain, rhinorrhea or sore throat Cardiovascular Cardiovascular: Denies chest pain, orthopnea, palpitations or racing heartbeat Respiratory/Chest Respiratory/Chest: Denies cough, dyspnea or orthopnea Gastrointestinal Gastrointestinal: Denies abdominal pain, diarrhea, nausea or vomiting Genitourinary Genitourinary ED: Denies dysuria, hematuria or urinary frequency Musculoskeletal Musculoskeletal: Denies arthralgias or myalgias Integumentary Denies abscess or rash Neurologic Neurologic: Denies headache(s) or weakness Psychiatric Psychiatric: Denies anxiety, depression, suicidal ideation or suicidal thoughts Endocrine Endocrinology: Denies polydipsia, polyphagia or polyuria Allergic/Immunologic Allergic/Immunologic ED: Denies mouth swelling, tongue swelling or urticaria EXAM Physical Exam Const Vital Signs: 12/11/23 09:30 12/11/23 09:30 12/11/23 09:34 Temperature 98.3 F 98.3 F Temperature Source Temporal Temporal Pulse Rate 74 66 Respiratory Rate 16 15 Respiratory Effort Normal Non-Labored Respiratory Pattern Normal Blood Pressure 108/68 108/68 Blood Pressure Mean 81 81 Pulse Ox 100 98 Oxygen Delivery Method Room Air Room Air Positive well nourished and well developed General Appearance ED: well developed HEENT Reports normocephalic, head/scalp atraumatic and moist mucous membranes Eyes PERRL and EOMs intact bilaterally Neck no lymphadenopathy, supple and no JVD Resp normal respiratory effort and clear to auscultation bilaterally Cardio regular rate, regular rhythm and no murmurs GI normal to inspection, nondistended, normoactive bowel sounds and non-tender GI Narrative: There is a Nicholson catheter entering a PEG tube stoma in the epigastrium. There is a mild amount of dried blood around it. The stoma is not swollen. Area does not appear erythematous or tender. Auscultation: normoactive bowel sounds Palpation: soft Back/Spine no CVA tenderness and normal ROM Extremity normal to inspection General Extremety ED: Negative for edema General Extremity: Negative for edema Neuro CN's II-XII intact bilaterally Sensorium / Orientation: alert Motor Exam: strength 5/5 throughout Skin no rashes or lesions noted and no wounds MDM MDM MDM Narrative Medical decision making narrative: I first spoke with Dr. Grigsby and made him aware that the PEG tube has become dislodged. He is comfortable with us trying to replace it. A 20 Czech PEG tube was obtained from endoscopy. The Nicholson catheter was removed. A 20 Czech PEG tube was placed through the stoma without any difficulty. Balloon inflated to 5 cc of air drain sponge applied and then a postop covering and Allen wrap applied. A KUB with Gastrografin was obtained. My independent interpretation of this is adequate placement of the PEG tube with no extravasation of the Gastrografin into the abdomen. History & Record Review Discussion w/independent historian: EMS personnel and Patient Additional record(s) reviewed:: Prior inpatient record Discharge Plan Triage Chief Complaint: Other, Pain/Inj ED Provider: Abdirahman Howell Dx/Rx/DC Orders Prescriptions: No Action multivitamin [One Daily Essential] Tablet 1 tab PO DAILY atorvastatin 40 mg Tablet 40 mg feeding tube QHS Qty: 30 2RF aspirin 81 mg Tablet,Delayed Release (Dr/Ec) 81 mg feeding tube BREAKFAST Qty: 30 2RF metoprolol tartrate 25 mg Tablet 25 mg feeding tube BID Qty: 60 2RF Primary Care Provider: Terrell Regalado Referrals: Terrell Regalado MD [Primary Care Provider] -
--- NOTE | 2023-12-11 10:45 | RAD_ITS ---
STUDY: X-RAY - ABDOMEN/PELVIS REASON FOR EXAM: Male, 73 years old. PEG Placement -- with gastrograffin TECHNIQUE: 60 cc of Gastrografin was injected into the PEG tube. The PEG tube is in the distal portion of the body of the stomach. COMPARISON: None. FINDINGS: The PEG tube is in the distal portion of the body of the stomach. RAD/Abdomen Single View IMPRESSION: The PEG tube is in the distal portion of the body of the stomach. Electronically Signed: Israel Erickson MD at 10:59 EDT ,
--- NOTE | 2023-12-11 11:19 | ED.RN ---
JOE CALLED, ETA 45 MIN (1200)
== END 2023-12-11 11:53 | disposition home or self-care (01) ==
PROVIDERS: Emergency Provider Emergency Medicine; PCP Family Medicine; Visit Provider Emergency Medicine
DX: K94.29 Other complications of gastrostomy (principal); J44.9 Chronic obstructive pulmonary disease, unspecified; F17.210 Nicotine dependence, cigarettes, uncomplicated; I25.2 Old myocardial infarction
CPT/HCPCS: 43762; 74018; 99282

== ENCOUNTER 2024-04-04 17:24 | Emergency (ER) | payer MEDICARE, MEDICAID, SELFPAY ==
[2024-04-04] VITALS (8 sets, daily range): BP systolic 108–160; BP diastolic 53–97; PULSE 57–92; RESP 13–20; TEMP 36.2–36.7; O2SAT 93–97; BMI 24.3
--- NOTE | 2024-04-04 17:34 | EX.ED.DYSGE1 ---
HPI History of Present Illness Chief Complaint: Other, Pain/Inj Detail of Chief Complaint: PEG tube accidentally pulled out Informant: EMS and SNF Onset/Context/Timing Onset: Hours Context: Sudden Onset Timing: Continuous Quality: 20 Barbadian MICHELLE tube excellently pulled out Location: Left upper quadrant Worsened by: Not applicable Relieved by: Not applicable Associated Symptoms Associated Symptoms: Unable to determine because of profound dementia Narrative Narrative: Patient is a 74-year-old male. He has significant dementia. He has no idea what his name is, age, month location etc. Patient was brought in by squad because his MICHELLE tube was excellently pulled out. The time this happened is unknown Prior similar symptoms: No Recent Illness/Hospitalization: No PFSH [facility] Medical History Encephalopathy SVT (supraventricular tachycardia) NSTEMI (non-ST elevated myocardial infarction) Altered behavior Smoker COPD (chronic obstructive pulmonary disease) Home Medications ?Medication ?Instructions ?Recorded ?Last Taken ?Type multivitamin (One Daily Essential 1 tab PO DAILY vitamin 11/15/23 Unknown History tablet) aspirin 81 mg tablet,delayed 81 mg feeding tube BREAKFAST #30 11/27/23 Unknown Rx release tabs atorvastatin 40 mg tablet 40 mg feeding tube QHS #30 tabs 11/27/23 Unknown Rx metoprolol tartrate 25 mg tablet 25 mg feeding tube BID #60 tabs 11/27/23 Unknown Rx Allergy/AdvReac Type Severity Reaction Status Date / Time No Known Allergies Allergy Verified 12/11/23 09:33 Social History Smoking Status: Current every day smoker tobacco type: cigarettes ROS ROS ED Review of Systems ROS Unobtainable: due to mental status EXAM Physical Exam Const Vital Signs: 04/04/24 17:25 04/04/24 17:37 04/04/24 18:18 Temperature 97.2 F L Temperature Source Temporal Pulse Rate 92 57 L Pulse Rate [1 (Initial Baseline)] Pulse Rate [2] Respiratory Rate 16 20 H Respiratory Rate [1 (Initial Baseline)] Respiratory Rate [2] Respiratory Effort Normal Non-Labored Blood Pressure 109/84 H 110/53 L Blood Pressure [1 (Initial Baseline)] Blood Pressure [2] Blood Pressure Mean 92 Pulse Ox 96 96 Oxygen Delivery Method Room Air Room Air Oxygen Delivery Method [1 (Initial Baseline)] Oxygen Delivery Method [2] 04/04/24 18:18 04/04/24 18:50 04/04/24 18:57 Temperature Temperature Source Pulse Rate Pulse Rate [1 (Initial Baseline)] 59 L Pulse Rate [2] 64 Respiratory Rate Respiratory Rate [1 (Initial Baseline)] 20 H Respiratory Rate [2] 13 Respiratory Effort Blood Pressure Blood Pressure [1 (Initial Baseline)] 110/53 L Blood Pressure [2] 124/74 H Blood Pressure Mean Pulse Ox Oxygen Delivery Method Room Air Room Air Oxygen Delivery Method [1 (Initial Baseline)] Room Air Oxygen Delivery Method [2] Room Air 04/04/24 19:00 Temperature Temperature Source Pulse Rate Pulse Rate [1 (Initial Baseline)] Pulse Rate [2] Respiratory Rate Respiratory Rate [1 (Initial Baseline)] Respiratory Rate [2] Respiratory Effort Blood Pressure Blood Pressure [1 (Initial Baseline)] Blood Pressure [2] Blood Pressure Mean Pulse Ox Oxygen Delivery Method Room Air Oxygen Delivery Method [1 (Initial Baseline)] Oxygen Delivery Method [2] Positive well nourished and well developed General Appearance ED: well developed and NAD HEENT Reports moist mucous membranes HEENT Narrative: Head is atraumatic, cephalic Eyes PERRL and EOMs intact bilaterally General Eye ED: Negative for pale conjunctiva or scleral icterus Neck no lymphadenopathy, supple and no JVD Resp normal respiratory effort and clear to auscultation bilaterally Cardio regular rate, regular rhythm, S1 normal heart sound, S2 normal heart sound and no murmurs Neuro No oriented x3 and CN's II-XII intact bilaterally Sensorium / Orientation: alert Psych Psych Narrative: Dementia. Patient agitated if he does not get his way Skin no rashes or lesions noted, no wounds and skin turgor normal MDM MDM MDM Narrative Medical decision making narrative: 20 Barbadian MICHELLE tube was placed by me. There was slight resistance with insertion. Will obtain gastric graph and KUB to confirm position. Radiography Chest X-Ray - ED: 1 View (KUB with with Gastrografin reveals extravasation into the soft tissue. There is not appear to be contrast in the abdomen. There is her contrast in the stomach. Will have nurse get urethral sounds to dilate him. Plan is to sedate while I do this to prevent any harm to the patient) and Read by ED Physician (KUB with Gastrografin obtained after second attempt after urethral sound dilatation. Tube is in proper position.) Treatment and Re-Evaluation :: Since patient resisted and does not understand when the MICHELLE tube was placed will sedate with ketamine 2 mg/kg. Will have nurse assist for me to perform dilatation with urethral sounds. Will attempt again to place the MICHELLE tube. We will again assess placement with instillation of Gastrografin. Comments:: Since patient is not able to perform consent. And concerned that the opening was closing consent was implied. Patient received 3 mg/kg of ketamine IM. This was administered by me. Using urethral sounds the fistula was dilated. First sound placed was 10 Barbadian. Dilated to 24 Barbadian. First attempt after dilating to 22 Barbadian was unsuccessful. There was more resistance than there should have been. The opening was redilated up to 24 Barbadian as previously noted. The tube was easily placed. The balloon was easily inflated. KUB with Gastrografin was performed which revealed the tube to be in proper position with no extravasation. Procedures Procedural Sedation 1 (Initial Baseline): Consent Signed: No (Patient is demented profoundly. Because of concern that the hole was closi) Any Problems With Anesthesia: No Sedation medication: Ketamine Dose: 212 (Milligrams, 3 mg/kg) Route: IM Total Moderate Sedation Units: 10 (Minutes) Maliampati Score: Class II ASA Classification: II Discharge Plan Triage Chief Complaint: Other, Pain/Inj ED Provider: Roberto Hargrove Dx/Rx/DC Orders Clinical Impression: Migration of percutaneous endoscopic gastrostomy (PEG) tube, S/P percutaneous endoscopic gastrostomy (PEG) tube placement, Dementia Instructions: ED Feeding Tube Replacement Prescriptions: No Action multivitamin [One Daily Essential] Tablet 1 tab PO DAILY atorvastatin 40 mg Tablet 40 mg feeding tube QHS Qty: 30 2RF aspirin 81 mg Tablet,Delayed Release (Dr/Ec) 81 mg feeding tube BREAKFAST Qty: 30 2RF metoprolol tartrate 25 mg Tablet 25 mg feeding tube BID Qty: 60 2RF Primary Care Provider: Terrell Regalado Referrals: Terrell Regalado MD [Primary Care Provider] - Print Language: Nepali Disposition Disposition: Home, Self Care
--- NOTE | 2024-04-04 17:55 | RAD_ITS ---
INDICATION: Inject Gastrografin to assess PEG tube placement COMPARISON: Abdominal radiographs 12/11/2023. FINDINGS: Single frontal views of the abdomen. Lower pelvis excluded from [id number]. Percutaneous gastrostomy tip overlies left upper quadrant after retrograde instillation of contrast within the gastric lumen, outlining gastric rugae. No obvious leak on this single image. No obvious free air. No definite suspicious calcifications. No mass appreciated. RAD/Abdomen Single View (Portable) IMPRESSION: Percutaneous gastrostomy tip overlies left upper quadrant after retrograde instillation of contrast within the gastric lumen, outlining gastric rugae. No obvious leak on this single image. Electronically Signed: Felipe Steward MD at 21:24 EDT ,
[2024-04-04] MEDS: Ketamine HCl 500 MG/5 ML Vial 212 MG IM (18:42)
--- NOTE | 2024-04-04 19:05 | RAD_ITS ---
IR Gastrostomy or Duodenostomy Tube Contrast Injection evaluation INDICATION: Verify G-tube position. COMPARISON: abdominal radiograph from earlier today TECHNIQUE: Water-soluble contrast was instilled via the indwelling G-tube and 1 post injection image was obtained. FINDINGS: The instilled contrast opacifies the stomach and to a lesser degree the duodenum, with the balloon tip of the catheter within the stomach. No obvious extraluminal contrast, however, evaluation is limited with only two images. RAD/Abdomen Single View (Portable) IMPRESSION: Satisfactory G-tube positioning with no sign of leakage. Electronically Signed: Robbie Johnston MD at 19:59 EDT ,
--- NOTE | 2024-04-04 19:11 | NURSING ---
pt still remains nonverbal but moaning and looking around at things now. able to follow min commands still. xray for placement completed.
--- NOTE | 2024-04-04 19:41 | NURSING ---
[facility] called. Notified of plan of care. Anika RN verbalized understanding. Transport planned for 2300 tonight. Girlfriend called and notified of plan of care and dc back to [facility].
--- NOTE | 2024-04-04 22:17 | NURSING ---
Pt got out bed. Inc. of urine. Pt cleaned and changed. Assisted to get back in bed. Pt cont to be restless, trying to get up. Attempt to reorient, this RN staying at pt bedside to keep safe.
[2024-04-05 01:00] VITALS: BP 120/56; PULSE 63; RESP 16; O2SAT 91
== END 2024-04-05 01:25 | disposition home or self-care (01) ==
PROVIDERS: Emergency Provider Emergency Medicine; PCP Family Medicine; Visit Provider Emergency Medicine
DX: K94.23 Gastrostomy malfunction (principal); F03.90 Unspecified dementia, unspecified severity, without behavioral disturbance, psychotic disturbance, mood disturbance, and anxiety; J44.9 Chronic obstructive pulmonary disease, unspecified; F17.210 Nicotine dependence, cigarettes, uncomplicated
CPT/HCPCS: 43762; 74018; 99285

== ENCOUNTER → 2024-06-28 | Outpatient (REF) | payer MEDICARE, BC, MEDICAID, SELFPAY ==
[2024-06-28 09:43] LABS: Absolute Lymphocyte Count 2.26 X10^3/uL (0.83-4.51); Absolute Neutrophil Count 2.4 X10^3/uL (2.0-7.7); Basophil# 0.04 X10^3/uL; Basophil% 0.8 % (0-1); Eosinophil# 0.12 X10^3/uL; Eosinophils% 2.4 % (0-5); Hematocrit 41.3 % (40-54); Hemoglobin 13.9 g/dL (13.0-16.5); Lymphocyte # 2.26 X10^3/ul (0.83-4.51); Lymphocyte % 44.8 % (19-41); Mean Corp Hgb Conc 33.7 g/dL (32-36); Mean Corpuscular Volume 92.2 fL (80-94); Mean Platelet Vol. 10.7 fl (6.2-12.0); Monocyte# 0.26 X10^3/uL; Monocyte% 5.1 % (0-10); NRBC Flagged by Analyzer 0 % (0-5); Neutrophil # 2.36 X10^3/uL (2.7-7.7); Neutrophil % 46.7 % (47-70); Platelet Count 127 K/mm3 (150-450); RBC Distribution Width CV 14.6 % (11.6-14.6); RBC Distribution Width SD 49.2 fl (35.1-43.9); Red Blood Count 4.48 M/mm3 (4.6-6.2); White Blood Count 5.1 K/mm3 (4.4-11.0)
[2024-06-28 10:14] LABS: Anion Gap 5 (5-15); BUN 17 mg/dL (7-18); BUN/Creat Ratio 18.8 RATIO (10-20); Calcium,Total 8.8 mg/dL (8.5-10.1); Chloride 107 mmol/L (98-107); EST Glomerular Filtration Rate 87 mL/min (>60); Est Glom Filt Rate - Afr Amer 106 mL/min (>60); Glucose 75 mg/dL (74-106); Potassium 3.9 mmol/L (3.5-5.1); Sodium Level 140 mmol/L (136-145)
== END ==
LOC: OLS.SW 05:45
PROVIDERS: PCP Family Medicine; Referring Provider Internal Medicine; Visit Provider Internal Medicine
DX: E78.5 Hyperlipidemia, unspecified (principal)
CPT/HCPCS: 36415; 80048; 85025

== ENCOUNTER → 2024-08-11 | Outpatient (REF) | payer MEDICARE, BC, MEDICAID, SELFPAY ==
[2024-08-03 09:32] LABS: Cholesterol 82 mg/dL (200); High Density Lipoprotein 43 mg/dL; Triglycerides 46 mg/dL; Very Low Density Lipoprotein 9 mg/dL (5-40)
== END ==
LOC: OLS.SW 09:01
PROVIDERS: PCP Family Medicine; Visit Provider Internal Medicine
DX: E78.5 Hyperlipidemia, unspecified (principal)
CPT/HCPCS: 36415; 80061

== ENCOUNTER → 2024-09-13 05:00 | Outpatient (REF) | payer MEDICARE, BC, MEDICAID, SELFPAY ==
[2024-09-13 10:58] LABS: Absolute Lymphocyte Count 1.81 X10^3/uL (0.83-4.51); Absolute Neutrophil Count 3.4 X10^3/uL (2.0-7.7); Basophil# 0.05 X10^3/uL; Basophil% 0.9 % (0-1); Eosinophil# 0.19 X10^3/uL; Eosinophils% 3.4 % (0-5); Hematocrit 41.3 % (40-54); Hemoglobin 13.9 g/dL (13.0-16.5); Lymphocyte # 1.81 X10^3/ul (0.83-4.51); Lymphocyte % 32.1 % (19-41); Mean Corp Hgb Conc 33.7 g/dL (32-36); Mean Corpuscular Hgb 32.3 pg (27.0-32.0); Mean Platelet Vol. 10.9 fl (6.2-12.0); Monocyte# 0.21 X10^3/uL; Monocyte% 3.7 % (0-10); NRBC Flagged by Analyzer 0 % (0-5); Neutrophil # 3.35 X10^3/uL (2.7-7.7); Neutrophil % 59.5 % (47-70); Platelet Count 123 K/mm3 (150-450); RBC Distribution Width CV 13.9 % (11.6-14.6); RBC Distribution Width SD 49.1 fl (35.1-43.9); White Blood Count 5.6 K/mm3 (4.4-11.0)
[2024-09-13 11:00] LABS: Anion Gap 4 (5-15); BUN 22 mg/dL (7-18); Calcium,Total 9.1 mg/dL (8.5-10.1); Chloride 105 mmol/L (98-107); Creatinine, Serum 1.05 mg/dL (0.70-1.30); EST Glomerular Filtration Rate 74 mL/min (>60); Est Glom Filt Rate - Afr Amer 89 mL/min (>60); Glucose 152 mg/dL (74-106); Potassium 4.3 mmol/L (3.5-5.1); Sodium Level 138 mmol/L (136-145)
== END ==
LOC: OLS.SW 05:00
PROVIDERS: PCP Family Medicine; Visit Provider Internal Medicine
DX: J44.9 Chronic obstructive pulmonary disease, unspecified (principal); I10 Essential (primary) hypertension; E78.5 Hyperlipidemia, unspecified
CPT/HCPCS: 36415; 80048; 85025

== ENCOUNTER → 2024-09-15 | Outpatient (REF) | payer MEDICARE, BC, MEDICAID, SELFPAY ==
[2024-09-15 08:24] LABS: Vitamin B12 599 pg/mL (211-911)
== END ==
LOC: OLS.SW 05:00
PROVIDERS: PCP Family Medicine; Visit Provider Internal Medicine
DX: F03.90 Unspecified dementia, unspecified severity, without behavioral disturbance, psychotic disturbance, mood disturbance, and anxiety (principal); I10 Essential (primary) hypertension; E78.5 Hyperlipidemia, unspecified
CPT/HCPCS: 36415; 82607; 82746; 83655

== ENCOUNTER → 2024-10-13 05:00 | Outpatient (REF) | payer MEDICARE, BC, MEDICAID, SELFPAY ==
[2024-10-13 07:52] LABS: Absolute Neutrophil Count 4.9 X10^3/uL (2.0-7.7); Basophil# 0.02 X10^3/uL; Basophil% 0.3 % (0-1); Eosinophil# 0.02 X10^3/uL; Eosinophils% 0.3 % (0-5); Hematocrit 41.2 % (40-54); Hemoglobin 14.1 g/dL (13.0-16.5); Lymphocyte % 10.4 % (19-41); Mean Corp Hgb Conc 34.2 g/dL (32-36); Mean Corpuscular Hgb 32.3 pg (27.0-32.0); Mean Corpuscular Volume 94.3 fL (80-94); Mean Platelet Vol. 10.1 fl (6.2-12.0); Monocyte# 0.18 X10^3/uL; Monocyte% 3.1 % (0-10); NRBC Flagged by Analyzer 0 % (0-5); Neutrophil % 85.2 % (47-70); POSITIVE DIFFERENTIAL YES; Platelet Count 123 K/mm3 (150-450); RBC Distribution Width CV 13.9 % (11.6-14.6); RBC Distribution Width SD 48.1 fl (35.1-43.9); Red Blood Count 4.37 M/mm3 (4.6-6.2); White Blood Count 5.8 K/mm3 (4.4-11.0)
[2024-10-13 08:25] LABS: Anion Gap 10 (5-15); BUN 19 mg/dL (7-18); Calcium,Total 8.7 mg/dL (8.5-10.1); Chloride 105 mmol/L (98-107); EST Glomerular Filtration Rate 78 mL/min (>60); Est Glom Filt Rate - Afr Amer 94 mL/min (>60); Glucose 104 mg/dL (74-106); Potassium 3.9 mmol/L (3.5-5.1); Sodium Level 135 mmol/L (136-145)
== END ==
LOC: OLS.SW 05:00
PROVIDERS: PCP Family Medicine; Visit Provider Internal Medicine
DX: R19.7 Diarrhea, unspecified (principal); R50.9 Fever, unspecified
CPT/HCPCS: 36415; 80048; 85025

== ENCOUNTER → 2025-03-03 | Outpatient (REF) | payer MEDICARE, BC, MEDICAID, SELFPAY ==
[2025-03-03 09:56] LABS: Cholesterol 87 mg/dL (<=200); Low Density Lipoprotein Calc. 34 mg/dL; Triglycerides 78 mg/dL; Very Low Density Lipoprotein 16 mg/dL (5-40); cholesterol:hdl ratio screen 2.32
== END ==
LOC: OLS.SW 05:00
PROVIDERS: PCP Family Medicine; Visit Provider Internal Medicine
DX: E78.5 Hyperlipidemia, unspecified (principal)
CPT/HCPCS: 36415; 80061

== ENCOUNTER → 2025-05-10 | Outpatient (REF) | payer MEDICARE, BC, MEDICAID, SELFPAY ==
[2025-05-10 08:13] LABS: Hematocrit 39.7 % (40-54); Hemoglobin 13.7 g/dL (13.0-16.5); Mean Corp Hgb Conc 34.5 g/dL (32-36); Mean Corpuscular Volume 91.9 fL (80-94); Mean Platelet Vol. 9.4 fl (6.2-12.0); Platelet Count 170 K/mm3 (150-450); RBC Distribution Width CV 14.0 % (11.6-14.6); RBC Distribution Width SD 47.6 fl (35.1-43.9); Red Blood Count 4.32 M/mm3 (4.6-6.2); White Blood Count 5.0 K/mm3 (4.4-11.0)
[2025-05-10 08:28] LABS: Anion Gap 10 (5-15); BUN 18 mg/dL (4-19); BUN/Creat Ratio 16.8 RATIO (10-20); Calcium,Total 8.5 mg/dL (7.6-11.0); Carbon Dioxide 23.8 mmol/L (21.0-32.0); Chloride 104 mmol/L (98-108); Glucose 96 mg/dL (70-99); Potassium 4.5 mmol/L (3.3-5.1)
== END ==
LOC: OLS.SW 04:00
PROVIDERS: PCP Family Medicine; Referring Provider Internal Medicine; Visit Provider Internal Medicine
DX: J44.9 Chronic obstructive pulmonary disease, unspecified (principal); F03.90 Unspecified dementia, unspecified severity, without behavioral disturbance, psychotic disturbance, mood disturbance, and anxiety; I10 Essential (primary) hypertension; E78.5 Hyperlipidemia, unspecified
CPT/HCPCS: 36415; 80048; 85027

== ENCOUNTER → 2025-05-12 | Outpatient (REF) | payer MEDICARE, BC, MEDICAID, SELFPAY | LOC: OLS.SW 04:00 | PROVIDERS: PCP Family Medicine; Referring Provider Internal Medicine; Visit Provider Internal Medicine | DX: G93.40 Encephalopathy, unspecified (principal); F03.90 Unspecified dementia, unspecified severity, without behavioral disturbance, psychotic disturbance, mood disturbance, and anxiety; Z79.899 Other long term (current) drug therapy | CPT/HCPCS: 36415; 84403 ==

== ENCOUNTER → 2025-07-19 04:00 | Outpatient (REF) | payer MEDICARE, BC, MEDICAID, SELFPAY ==
--- OUTSIDE RECORDS SUMMARY | 2025-07-19 04:15 | XMS RPT_ITS | CCD ---
Author Organization [facility] Care Team Providers Care Inlayer Silver Name Role Phone Rafa Regalado MD Primary Care Provider STU IYER Attending Unavailable RAFA REGALADO Primary Care Unavailable Dr. Thomas Fleming Chi Primary Care Provider Dr. Barrie Oreilly Admit Provider Unavailable Dr. Barrie Oreilly Attending Provider Unavailab Dr. Barrie Chan Other Provider Unavailable Dr. Wally Hook Attending Provider Dr. Wally Hook Referring Provider Dr. Ken Colorado Attending Provider Dr. Ken Colorado Other Provider Dr. Reagan Greenfield Attending Provider Dr. Reagan Greenfield Other Provider Dr. Rafa Regalado Primary Care Provider [phone] Dr. Evelin Chavarria Attending Provider Dr. Evelin Chavarria Other Provider MD Bharath Fan Other Provider Unavailable Dr. Ofelia Cash Other Provider MD Nelly Daniels Other Provider Unavailable Dr. Jess Johnson Other Provider Dr. Diann Vasquez Other Provider Dr. Amrit Garnett Other Provider Dr. Candis Juan Other Provider Dr. Surinder Alfaro Other Provider Dr. Alden Carmona Other Provider MD Kylah Su Other Provider Dr. Antoine Lemon Other Provider [phone] Re Riddle Other Provider Dr. Lex Horn Other Provider [phone] Angel Mcdaniel Other Provider Dr. Delvis Mcnulty Other Provider [phone] Anna Johnson Other Provider Dr. Earnest Farley Other Provider [phone] Mariah Costello Other Provider Unavailable MD Kathi Yousef Other Provider Unavailable Friend, Dr. Michael Attending Provider [phone] Dr. Evelin Chavarria Referring Provider Rafa Regalado MD Primary Care Provider Dr. Rafa Regalado MD Primary Care Provider Dr. Corine Li MD Attending Provider Unavaila [facility] Dr. Rafa Regalado MD Referring Provider Nghia GARCIA-CAdrienne Attending Provider [phone] Duncan MANAGEMENT REP.DATA INTEGRITY SPECIALIST, Edu Unavailable [phone] Sabine, Rafa Primary Care Unavailable Gudla OLS, Corine Attending Unavailable [place]brock, Rafa Primary Care Unavailable Gudla OLS, Corine Attending Unavailable Gudla OLS, Corine Attending Unavailable [place], Rafa Primary Care Unavailable [place], Rafa Primary Care Unavailable Gudla OLS, Corine Attending Unavailable [place], Rafa Primary Care Unavailable Gudla OLS, Corine Attending Unavailable [place], Rafa Primary Care Unavailable Gudla OLS, Corine Attending Unavailable Gudla OLS, Corine Attending Unavailable Gudla OLS, Corine Referring Unavailable [place], Rafa Primary Care Unavailable Gudla OLS, Corine Referring Unavailable Gudla OLS, Corine Attending Unavailable [place], Rafa Primary Care Unavailable Corine Moon Referring Unavailable Rafa Regalado Primary Care Unavailable Corine Moon Attending Unavailable Rafa Regalado Primary Care Unavailable Rafa Regalado Referring Unavailable Adrienne Agrawal Attending Unavailable Rafa Regalado Primary Care Unavailable Rafa Regalado Referring Unavailable Adrienne Agrawal Attending Unavailable Medications Current Medications Medication Drug Class(es) Dates Sig (Normalized) Sig (Original) [id number] 200 actuat albuterol 0.09 mg/actuat metered dose inhaler (20 sources) beta2-Adrenergic Agonist Start: 11-27-2021 End: 09-12-2023 take 2 puff(s) by inhalation every four hours as needed for wheezing albuterol HFA (PROVENTIL HFA, VENTOLIN HFA) 90 mcg/actuation inhaler Indications: COPD with chronic bronchitis (HCC) , Cough Inhale 2 Puffs as instructed every 4 hours as needed for wheezing/shortnes s of breath. 1 Each 3 09/12/2022 Active Comment on above: Inhale 2 Puffs as in structed every 4 hours as needed for wheezing/shortness of breath. ascorbic acid 100 mg oral tablet (20 sources) Vitamin C take 1 tablet by mouth once daily Ascorbic Acid (VITAMIN C) 100 mg tablet Take 100 mg by mouth once daily. Active Comment on above: Take 100 mg by mouth once daily. aspirin 81 mg delayed release oral tablet (4 sources) Platelet Aggregation Inhibitor, Nonsteroidal Anti-inflammatory Drug Start: 11-27-2023 Aspirin 81 mg Tablet,Delayed Release (Dr/Ec) Active 81 mg feeding tube WITH BREAKFAST November 27, 2023 12:00am Start: 11-27-2023 Aspirin Active 81 MG feeding tube WITH BREAKFAST November 27, 2023 12:00am Start: 09-28-2018 End: 09-07-2020 take 1 tablet by mouth once daily aspirin 81 mg chewable tablet Take 1 tablet by mouth once daily. 09/28/2018 09/07/2020 Discontinued atorvastatin 40 mg oral tablet (3 sources) HMG-CoA Reductase Inhibitor Start: 11-27-2023 Atorvastatin 40 mg Tablet Active 40 mg feeding tube AT BEDTIME November 27, 2023 12:00am Start: 11-27-2023 Atorvastatin A ctive 40 MG feeding tube AT BEDTIME November 27, 2023 12:00am benzonatate 100 mg oral capsule (17 sources) Non-narcotic Antitussive Start: 06-17-2022 take 1-2 capsules by mouth three times daily as needed benzonatate (TESSALON PERLES) 100 mg capsule Indications: Acute cough Take 1-2 capsules by mouth three times daily as needed. 30 capsule 06/17/2022 Active Comment on above: Take 1-2 capsules by mouth three times daily as needed. cholecalciferol, vitamin D3, (VITAMIN D3 ORAL) (20 sources) take 1-2 tablets by mouth once daily cholecalciferol, vitamin D3, (VITAMIN D3 ORAL) Take 1,000 Int'l Units by mouth once daily. 1-2 tablets daily Active take 1-2 tablets by mouth once d aily cholecalciferol, vitamin D3, (VITAMIN D3 ORAL) Take 1,000 Int'l Units by mouth once daily. 1-2 tablets daily 0 Active Comment on above: Take 1,000 Int'l Uni ts by mouth once daily. 1-2 tablets daily doxycycline hyclate 100 mg oral tablet (2 sources) Tetracycline-clas s Drug Start: 06-17-2022 End: 06-24-2022 take 1 tablet by mouth twice daily doxycycline (VIBRA-TABS) 100 mg tablet Indications: Acute cough Take 1 tablet by mouth twice daily for 7 days. 14 tablet 0 06/17/2022 06/24/2022 Active Start: 04-10-2022 End: 04-15-2022 take 1 tablet by mouth twice daily doxycycline monohydrate 100 mg tablet Take 1 tablet by mouth twice daily for 5 days. 10 tablet 0 04/10/2022 04/15/2022 Active Comment on above: Take 1 tablet by evelyn th twice daily for 5 days. Take 1 tablet by evelyn th twice daily for 7 days. fexofenadine hydrochloride 60 mg oral tablet (20 sources) Histamine-1 Receptor Antagonist Start: 2 take 1 tablet by mouth once daily fexofenadine (CARLY ALLERGY) 60 mg tablet Take 1 tablet by mouth once daily. 10 tablet 10/04/2021 Active Comment on above: Take 1 tablet by evelyn th once daily. fluticasone / salmeterol (4 sources) Corticosteroid, beta2-Adrenergic Agonist Start: 3 take 1 puff(s) by mouth twice daily fluticasone-salmeter ol (ADVAIR DISKUS) 100-50 mcg/dose inhaler Indications: Chronic obstructive pulmonary disease, unspecified COPD type (HCC) Inhale 1 Puff as instructed twice daily. Rinse mouth out after use with water. 60 Each 5 09/16/2022 Active Start: 09-16-2022 End: 10-16-2022 take 1 puff(s) by mouth twice daily fluticasone-salmeterol (ADVAIR DISKUS) 100-50 mcg/dose inhaler Indications: Chronic obstructive pulmonary disease, unspecified COPD type (HCC) Inhale 1 Puff as instructed twice daily. Rinse mouth out after use with water. 60 Each 5 09/16/2022 10/16/2022 Active Comment on above: Inhale 1 Puff as ins tructed twice daily. Rinse mouth out after use with water. 12 hr guaiFENesin 600 mg extended release oral tablet (4 sources) Start: 3 End: 3 take 2 tablets by mouth twice daily guaiFENesin (MUCINEX) 600 mg 12 hr tablet Indications: Chronic obstructive pulmonary disease, unspecified COPD type (HCC) Take 2 tablets by mouth twice daily. 120 tablet 5 09/16/2022 10/16/2022 Active Start: 06-27-2022 End: 07-11-2022 take 2 tablets by mouth twice daily guaiFENesin (MUCINEX) 600 mg 12 hr tablet Indications: Post-nasal drip Take 2 tablets by mouth twice daily for 14 days. 56 tablet 3 06/27/2022 07/11/2022 Active Comment on above: Take 2 tablets by mo ut twice daily for 14 days. Take 2 tablets by mo ut twice daily. Inhalational Spacing Device (1 source) Start: 11-27-2021 End: 11-27-2021 Inhalational Spacing Device Indications: COPD with chronic bronchitis (HCC) , Cough 1 Device one time only for 1 dose. 1 Each 0 11/27/2021 11/27/2021 Active Comment on above: 1 Device one time on ly for 1 dose. 3 ml insulin lispro 100 unt/ml pen injector (1 source) Insulin Analog Start: 04-04-2024 Insulin Lispro (Humalog Kwikpen Insulin) 100 unit/mL insulin pen Active 2 - 7 U SC TWICE A DAY April 04, 2024 12:00am metoprolol tartrate 25 mg oral tablet (3 sources) beta-Adrenergic Shiraz Start: 11-27-2023 Metoprolol Tartrate 25 mg Tablet Active 25 mg feeding tube TWICE A DAY 60 November 27, 2023 12:00am Multivitamin (One Daily Essential) tablet (3 sources) Start: 11-15-2023 Multivitamin (One Daily Essential) tablet Active 1 {tbl} PO DAILY November 15, 2023 12:00am Start: 11-15-2023 [facility] Multivitamin (One Daily Essential) tablet Active 1 TABLET PO DAILY November 15, 2023 12:00am 24 hr nicotine 0.583 mg/hr transdermal system (8 sources) Cholinergic Nicotinic Agonist Start: 09-16-2022 End: 10-16-2022 apply 1 dose transdermal route every twenty-four hours nicotine (NICODERM) 14 mg/24 hr Indications: Smoking Apply 1 Patch as directed every 24 hours. No smoking with patch. 30 Patch 3 09/16/2022 Active Start: 09-16-2022 Nicotine Polac rilex 2 mg lozenge Indications: Smoking Place 1 Lozenge between cheek and gum as needed. 108 Lozenge 3 09/16/2022 Active Comment on above: Apply 1 Patch as dir ected every 24 hours. No smoking with patch. Place 1 Lozenge betw een cheek and gum as needed. OMEGA 5-QQY-DGJ-FISH OIL ORAL (20 sources) take 1 capsule by mouth once daily OMEGA 3-XOU-TXU-FISH OIL ORAL Take 1 capsule by mouth once daily. Active take 1 capsule by mouth once angie ly OMEGA 7-YXS-TOP-FISH OIL ORAL Take 1 capsule by mouth once daily. 0 Active Comment on above: Take 1 capsule by mo [facility] once daily. predniSONE 20 mg oral tablet (4 sources) Start: 06-17-2022 End: 06-22-2022 take 2 tablets by mouth once daily predniSONE (DELTASONE) 20 mg tablet Indications: Acute cough Take 2 tablets by mouth once daily for 5 days. 10 tablet 0 06/17/2022 06/22/2022 Active Start: 12-24-2021 End: 01-05-2022 predniSONE (DELTASONE) 10 mg tablet Indications: COPD with chronic bronchitis (HCC) , Cough Take 4 tabs daily x 3 days, then 3 tabs x 3 days, 2 tabs x 3 days, then 1 tab x3 days with food. 30 tablet 0 12/24/2021 01/05/2022 Active Start: 11-27-2021 End: 12-09-2021 predniSONE (DELTASONE) 10 mg tablet Indications: COPD with chronic bronchitis (HCC) , Cough Take 4 tabs daily x 3 days, then 3 tabs x 3 days, 2 tabs x 3 days, then 1 tab x3 days with food. 30 tablet 0 11/27/2021 12/09/2021 Active Start: 09-07-2020 End: 11-27-2021 take 2 tablets by mouth once daily predniSONE (DELTASONE) 20 mg tablet Indications: Wheezing , Acute sinusitis, recurrence not specified, unspecified location Take 2 tablets by mouth once daily. 10 tablet 0 09/07/2020 11/27/2021 Discontinued Comment on above: Take 4 tabs daily x 3 days, then 3 tabs x 3 days, 2 tabs x 3 days, then 1 tab x3 days with food. Take 2 tablets by mo ut once daily. Take 2 tablets by mo uth once daily for 5 days. triamcinolone acetonide 0.25 mg/ml topical cream (20 sources) Corticosteroid Start: 09-28-19 triamcinolone (KENALOG) 0.025 % cream Indications: Psoriasis Apply 1 application to affected area twice daily. 80 g 2 09/28/2018 Active Comment on above: Apply 1 application to affected area twice daily. vitamin B complex-folic acid 2,000 mcg cap (20 sources) take 1 capsule by mouth once daily vitamin B complex-folic acid 2,000 mcg cap Take 1 capsule by mouth once daily. Active take 1 capsule by mouth once angie ly vitamin B complex-folic acid 2,000 mcg cap Take 1 capsule by mouth once daily. 0 Active Comment on above: Take 1 capsule by mo uth once daily. Completed/Discontinued Medications Medication Drug Class(es) Dates Sig (Normalized) Sig (Original) Budesonide / formoterol (16 sources) Corticosteroid, beta2-Adrenergic Agonist Start: 10-16-2021 End: 09-16-2022 take 2 puff(s) by inhalation twice daily budesonide-formoter ol (SYMBICORT) 80-4.5 mcg/actuation inhaler Inhale 2 Puffs as instructed twice daily. 1 Inhaler 2 10/16/2021 09/16/2022 Discontinued (Cost of medication) Start: 10-16-2021 take 2 puff(s) by in halation twice daily budesonide-formoterol (SYMBICORT) 80-4.5 mcg/actuation inhaler Inhale 2 Puffs as instructed twice daily. 1 Inhaler 2 10/16/2021 Active Comment on above: Inhale 2 Puffs as in structed twice daily. fluticasone propionate 0.05 mg/actuat metered dose nasal spray (4 sources) Corticosteroid Start: 2 End: 2 take 2 spray(s) by mouth once daily fluticasone (FLONASE) 50 mcg/actuation nasal spray Indications: Post-nasal drip Use 2 Sprays in each nostril once daily. Rinse mouth after use. 1 Each 5 06/27/2022 07/27/2022 Comment on above: Use 2 Sprays in each nostril once daily. Rinse mouth after use. Problems Active Problems Problem Classification Problem Date Documented Da te Episodic/Chronic Acute myocardial infarction (4 sources) Myocardial infarction; Translations: [Non-ST elevation (NSTEMI) myocardial infarction] 11-15-2023 Chronic Aortic; peripheral; and visceral artery aneurysms (20 sources) Abdominal aortic aneurysm without rupture; Translations: [Abdominal aortic aneurysm, without rupture] Onset: Chronic Attention-deficit, conduct, and disruptive behavior disorders (3 sources) Altered behavior; Translations: [Other symptoms and signs involving appearance and behavior] 11-15-2023 Episodic Attention-deficit, conduct, and disruptive behavior disorders (1 source) Other symptoms and signs involving appearance and behavior; Translations: [Unspecified disturbance of conduct] 11-27-2023 Episodic Cardiac dysrhythmias (4 sources) Supraventricular tachycardia; Translations: [Supraventricular tachycardia] 11-17-2023 Chronic Chronic obstructive pulmonary disease and bronchiectasis (9 sources) Emphysematous bronchitis; Translations: [Chronic obstructive pulmonary disease, unspecified] Onset: Chronic Complications of surgical procedures or medical care (3 sources) Malfunction of gastrostomy tube; Translations: [Gastrostomy malfunction] 12-11-2023 Episodic Delirium, dementia, and amnestic and other cognitive disorders (2 sources) Dementia; Translations: [Unspecified dementia without behavioral disturbance] Onset: 5 04-13-2024 Chronic Diabetes mellitus with complications (1 source) Type 2 diabetes mellitus with diabetic nephropathy; Translations: [Type 2 diabetes mellitus with diabetic nephropathy] Onset: 5 Chronic Disorders of lipid metabolism (2 sources) Hyperlipidemia, unspecified; Translations: [Hyperlipidemia, unspecified] Onset: 5 Chronic Diverticulosis and diverticulitis (1 source) Diverticulosis of intestine, part unspecified, without perforation or abscess without bleeding; Translations: [Diverticulosis of intestine, part unspecified, without perforation or abscess without bleeding] Onset: 5 Chronic Essential hypertension (2 sources) Essential (primary) hypertension; Translations: [Essential (primary) hypertension] Onset: 5 Chronic Other aftercare (1 source) Other assisted (current) drug therapy; Translations: [Other rat exterminator (current) drug therapy] Onset: 5 Episodic Other gastrointestinal disorders (2 sources) Patient encounter status; Translations: [Encounter for attention to gastrostomy] 12-11-2023 Chronic Other gastrointestinal disorders (1 source) History of placement of gastrostomy tube; Translations: [Gastrostomy status] 04-04-2024 Chronic Other inflammatory condition of skin (20 sources) Psoriasis; Translations: [Psoriasis, unspecified] Onset: 9 09-28-2018 Chronic Other lower respiratory disease (4 sources) Cough; Translations: [Cough] Episodic Other lower respiratory disease (5 sources) Chronic cough; Translations: [Chronic cough] Episodic Other lower respiratory disease (1 source) Chest pain on breathing; Translations: [Chest pain on breathing] Onset: 4 Episodic Other nervous system disorders (5 sources) Disorder of brain; Translations: [Encephalopathy, unspecified] 11-24-2023 Chronic Other nervous system disorders (2 sources) Encephalopathy, unspecified; Translations: [Encephalopathy, unspecified] Onset: 5 11-27-2023 Chronic Other screening for suspected conditions (not mental disorders or infectious disease) (1 source) Patient encounter status; Translations: [Encounter for screening for malignant neoplasm of colon] 01-21-2025 Episodic Other skin disorders (1 source) Onychogryposis; Translations: [Onychogryphosis] Episodic Other upper respiratory infections (1 source) Posterior rhinorrhea; Translations: [Postnasal drip] Episodic Pneumonia (except that caused by tuberculosis or sexually transmitted disease) (1 source) Bacterial pneumonia; Translations: [Unspecified bacterial pneumonia] 07-28-2020 Episodic Residual codes; unclassified (1 source) Disorientation, unspecified; Translations: [Confusion] Onset: 4 Episodic Substance-related disorders (6 sources) Tobacco user; Translations: [Nicotine dependence, unspecified, uncomplicated] Chronic Past or Other Problems Problem Classification Problem Date Documented Da te Episodic/Chronic Fever of unknown origin (1 source) Fever, unspecified; Translations: [Fever, unspecified] Onset: 10-22-2024 Episodic Other connective tissue disease (1 source) Muscle weakness (generalized); Translations: [Muscle weakness (generalized)] Onset: 09-24-2024 Episodic Other gastrointestinal disorders (1 source) Diarrhea, unspecified; Translations: [Diarrhea, unspecified] Onset: 10-22-2024 Episodic Other nervous system disorders (1 source) Unspecified lack of coordination; Translations: [Unspecified lack of coordination] Onset: 09-24-2024 Episodic Results Test Name Value Interpretation Reference Range Facility [id number] 05-12-2025 Testosterone [Mass/Vol] 346.00 ng/dL Normal 300-720 [facility] [place] Comment on above: Order Comment: 413.2 Performed By: #### L 509.3001 #### [facility] [place] [facility] [address] [place], [place], [id number] Basic Metabolic Profile (BMP )on 05-10-2025 BUN/CRE 16.8 RATIO Normal 10-20 [facility] [place] Comment on above: Order Comment: 413-1 Performed By: #### L 3100.6450, L506.0250, L503.0105 #### [facility] [place] [facility] [address] [place], [address] Calcium [Mass/Vol] 8.5 mg/dL Normal 7.6-11.0 [facility] Comment on above: Order Comment: 413-1 Performed By: #### L 3100.6450, L506.0250, L503.0105 #### [facility] [place] [facility] [address] [place], [address] Chloride [Moles/Vol] 104 mmol/L Normal 98-108 [facility] Comment on above: Order Comment: 413-1 Performed By: #### L 3100.6450, L506.0250, L503.0105 #### [facility] [place] [facility] [address] [place], [address] CO2 [Moles/Vol] 23.8 mmol/L Normal 21.0-32.0 [facility] [place] Comment on above: Order Comment: 413-1 Performed By: #### L 3100.6450, L506.0250, L503.0105 #### [facility] [place] [facility] [address] [place], [address] Creatinine [Mass/Vol] 1.07 mg/dL Normal 0.70-1.[address] [facility] Comment on above: Order Comment: 413-1 Performed By: #### L 3100.6450, L506.0250, L503.0105 #### [facility] [place] [facility] [address] [place], [address] GAP 10 Normal 5-15 [facility] [place] Comment on above: Order Comment: 413-1 Performed By: #### L 3100.6450, L506.0250, L503.0105 #### [facility] [place] [facility] [address] [place], [address] GFR/1.73 sq M.predicted among non-blacks MDRD (S/P/Bld) [Vol rate/Area] 73 mL/min/{1.73_m2} Normal >60 [facility] [place] Comment on above: Order Comment: 413-1 Result Comment: mL/m in/1.73m2 CKD-EPI Creatinine Equation (2020) Performed By: #### L 3100.6450, L506.0250, L503.0105 #### [facility] [place] [facility] [address] [place], [address] Glucose [Mass/Vol] 96 mg/dL Normal 70-99 [facility] Comment on above: Order Comment: 413-1 Performed By: #### L 3100.6450, L506.0250, L503.0105 #### [facility] [place] [facility] [address] [place], [address] Potassium [Moles/Vol] 4.5 mmol/L Normal 3.3-5.[address] [facility] Comment on above: Order Comment: 413-1 Performed By: #### L 3100.6450, L506.0250, L503.0105 #### [facility] [place] [facility] [address] [place], [address] Sodium [Moles/Vol] 138 mmol/L Normal 133-145 [facility] Comment on above: Order Comment: 413-1 Performed By: #### L 3100.6450, L506.0250, L503.0105 #### [facility] [place] [facility] [address] [place], [address] Urea nitrogen [Mass/Vol] 18 mg/dL Normal 4-19 [facility] [place] Comment on above: Order Comment: 413-1 Performed By: #### L 3100.6450, L506.0250, L503.0105 #### [facility] [place] [facility] [address] [place], [address] CBC-Complete Blood Cnt No Di ffon 05-10-2025 Erythrocyte distribution width (RBC) [Ratio] 14.0 % Normal 11.6-14.6 [facility] [place] Comment on above: Order Comment: 413-1 Performed By: #### L 3100.6450, L506.0250, L503.0105 #### [facility] [place] [facility] [address] [place], [address] Hematocrit (Bld) [Volume fraction] 39.7 % Low 40-54 [facility] [place] Comment on above: Order Comment: 413-1 Performed By: #### L 3100.6450, L506.0250, L503.0105 #### [facility] [place] [facility] [address] [place], [address] Hemoglobin (Bld) [Mass/Vol] 13.7 g/dL Normal 13.0-16.5 [facility] [place] Comment on above: Order Comment: 413-1 Performed By: #### L 3100.6450, L506.0250, L503.0105 #### [facility] [place] [facility] [address] [place], [address] MCH (RBC) [Entitic mass] 31.7 pg Normal 27.0-32.0 [facility] [place] Comment on above: Order Comment: 413-1 Performed By: #### L 3100.6450, L506.0250, L503.0105 #### [facility] [place] [facility] [address] [place], [address] MCHC (RBC) [Mass/Vol] 34.5 g/dL Normal 32-[address] [facility] Comment on above: Order Comment: 413-1 Performed By: #### L 3100.6450, L506.0250, L503.0105 #### [facility] [address] [place], [address] MCV (RBC) [Entitic vol] 91.9 fL Normal 80-94 [facility] Comment on above: Order Comment: 413-1 Performed By: #### L 3100.6450, L506.0250, L503.0105 #### [facility] [place] [facility] [address] [place], [address] Platelet mean volume (Bld) [Entitic vol] 9.4 fL Normal 6.2-12.0 [facility] [place] Comment on above: Order Comment: 413-1 Performed By: #### L 3100.6450, L506.0250, L503.0105 #### [facility] [place] [facility] [address] [place], [address] Platelets (Bld) [#/Vol] 170 10*3/uL Normal 150-450 [facility] [place] Comment on above: Order Comment: 413-1 Performed By: #### L 3100.6450, L506.0250, L503.0105 #### [facility] [address] [place], [address] RBC (Bld) [#/Vol] 4.32 10*6/uL Low 4.6-6.2 [facility] Comment on above: Order Comment: 413-1 Performed By: #### L 3100.6450, L506.0250, L503.0105 #### [facility] [address] [place], [address] RDW SD 47.6 fl High 35.1-43.9 [facility] Comment on above: Order Comment: 413-1 Performed By: #### L 3100.6450, L506.0250, L503.0105 #### [facility] [address] [place], [address] WBC (Bld) [#/Vol] 5.0 10*3/uL Normal 4.4-11.0 [facility] Comment on above: Order Comment: 413-1 Performed By: #### L 3100.6450, L506.0250, L503.0105 #### [facility] [address] [place], [address] Lipid Profileon 03-03-2025 CHOL:HDL 2.32 Normal [facility] Comment on above: Order Comment: 413-1 Performed By: #### L 3100.6450, L506.0250, L503.0105 #### [facility] [address] [place], [address] Cholesterol [Mass/Vol] 87 mg/dL Normal <=200 [facility] Comment on above: Order Comment: 413-1 Result Comment: Chol esterol level, Desirable <200 mg/dL Borderline high cholesterol 200-239 mg/dL High cholesterol >=240 mg/dL Recommendations of the NCEP Adult Treatment Panel for the following risk-cutoff thresholds for the [place] population. Performed By: #### L 3100.6450, L506.0250, L503.0105 #### [facility] [address] [place], [address] Cholesterol in HDL [Mass/Vol] 38 mg/dL Low [facility] Comment on above: Order Comment: 413- Result Comment: [place]loane onal Cholesterol Education Program (NCEP) guidelines: <40 mg/dL: Low HDL-cholesterol (major risk factor for CHD) >= 60 mg/dL: High HDL-cholesterol (negative risk factor for CHD) HDL-cholesterol is affected by a number of factors, e.g. smoking, exercise, hormones, sex and age. Performed By: #### L 3100.6450, L506.0250, L503.0105 #### [facility] [address] [place], [address] Cholesterol in LDL [Mass/Vol] 34 mg/dL Normal [facility] Comment on above: Order Comment: 4131 Result Comment: Bord uxcoca=222-606 mg/dL Higher Yntp=366 mg/dL or greater Performed By: #### L 3100.6450, L506.0250, L503.0105 #### [facility] [address] [place], [address] Cholesterol in VLDL [Mass/Vol] 16 mg/dL Normal 5-40 [facility] Comment on above: Order Comment: 413-1 Performed By: #### L 3100.6450, L506.0250, L503.0105 #### [facility] [address] [place], [address] Triglyceride [Mass/Vol] 78 mg/dL Normal [facility] Comment on above: Order Comment: 413-1 Result Comment: The drugs N-Acetylcysteine and Metamizole may falsely depress this assay. Normal range: <150 mg/dL Borderline High: 150-199 mg/dL High: 200-499 mg/dL Very High: >500 mg/dL Performed By: #### L 3100.6450, L506.0250, L503.0105 #### [facility] [address] [place], [address] Lipid Profileon 03-01-2025 CHOL Normal <=200 [facility] Comment on above: Order Comment: 413.1 Result Comment: CURTIS ENT REFUSED Performed By: #### L 500.4100 #### [facility] [address] [place], [address] CHOL:HDL Normal [facility] Comment on above: Order Comment: 413.1 Result Comment: CURTIS ENT REFUSED Performed By: #### L 500.4100 #### [facility] [address] [place], [address] CLDL Normal [facility] Comment on above: Order Comment: 413.1 Result Comment: CURTIS ENT REFUSED Performed By: #### L 500.4100 #### [facility] [address] [place], [address] HDL Normal [facility] Comment on above: Order Comment: 413.1 Result Comment: CURTIS ENT REFUSED Performed By: #### L 500.4100 #### [facility] [address] [place], [address] TRIG Normal [facility] Comment on above: Order Comment: 413.1 Result Comment: CURTIS ENT REFUSED Performed By: #### L 500.4100 #### [facility] [address] [place], [address] VLDL Normal 5-40 [facility] Comment on above: Order Comment: 413.1 Result Comment: CURTIS ENT REFUSED Performed By: #### L 500.4100 #### [facility] [address] [place], [place], [address] Gastroenterology Visit Repor ton 02-01-2025 Gastroenterology Visit Report [facility]astroenterology [address] [place] [address] OFFICE VISIT Date of Service: 02/01/25 MR#: [id number] Acct: [id number] Name: REID VALDIVIA Jr. Rep #: [id number] : 1950 Provider: ROGER campoverde Age/Sex: 74/M Location: [facility] Status: Signed Intake Vital Signs 04/04/24 17:25 Height 5 ft 9 in Intake Visit Reasons: CONSULT PRIOR TO SCHEDULING PEG TUBE REMOVAL Allergies No Known Allergies Allergy (Verified 02/01/25 13:34) Medications ???Medication ???Instructions ???Recorded ???Confirmed ???Type multivitamin (One Daily Essential 1 tab PO DAILY vitamin 11/15/23 0 02/01/25 History tablet) aspirin 81 mg tablet,delayed 81 mg feeding tube BREAKFAST #30 0 11/27/23 02/01/25 Rx release tabs atorvastatin 40 mg tablet 40 mg feeding tube QHS #30 tabs 02/01/25 Rx metoprolol tartrate 25 mg tablet 25 mg feeding tube BID #60 tabs 02/01/25 Rx insulin lispro 100 unit/mL 2 - 7 unit subcut BID 04/04/2406/18 History subcutaneous pen (Humalog KwikPen (U-100) Insulin) Have you fallen in the past year?: No Nurse's Note: Patient is here for a consult prior to getting PEG tube removed. PFSH Medical History Encephalopathy SVT (supraventricular tachycardia) NSTEMI (non-ST elevated myocardial infarction) Altered behavior Smoker COPD (chronic obstructive pulmonary disease) Social History Smoking Status: Light Smoker (<10/day) HPI HPI Details: REID VALDIVIA, is a 74 M who presents to the office today for FU. 11.24.23 Established with [facility] during hospitalization at [facility] regarding altered mental status in the setting of chronic dementia now with worsening dysphagia and possible aspiration pneumonia. Failed swallow study. Reported failure to thrive, refusal to eat. 11.25.23 EGD - No endoscopic esophageal abnormality to explain patient's dysphagia. - No gross lesions in the stomach. - Normal duodenal bulb. - An endoscopically removable PEG placement was successfully completed. - No specimens collected. 02.01.25 OV He presents with his guardian, his brother, for exam and evaluation to have PEG tube removed. History reviewed. Several documented episodes of accidental PEG dislodgement/removal. He has been taking all medicines and meals PO, has had measurable weight gain to the satisfaction of his brother. His brother is asking for the PEG to be removed at this time. Pt, with cognitively limited decision-making capabilities, is in agreement and wants the tube removed so that he can work on his dance moves." PEG stoma site with circumferential erythema and dried serous drainage, without foul odor, non-tender to palpation. PEG tube moves freely without obvious adhesions. He denies difficulty chewing and swallowing at this time. He denies cough, throat clearing, heartburn, reflux, nausea, emesis, abdominal pain, bloating, constipation, diarrhea, hematochezia, and melena. He states that he has daily complete BMs, but sometimes takes medicines to help him poop." ROS Const Constitutional: Positive for weight change; No chills, fatigue, fever(s) or decreased energy Eyes Eyes: No change in vision ENT ENT: No abnormal hearing or difficulty swallowing Resp Respiratory: No cough Cardio Cardiology: Positive for leg pain with exertion; No chest pain at rest or chest pain with exertion Gastro GI: No abdominal pain, belching, bloating, change in bowel habits, change in stool character, coffee ground emesis, constipation, cramping, diarrhea, heartburn, difficulty swallowing, feeling full early, excessive flatus, incontinent of stools, Vomiting blood/hematemesis, Blood in stool, loose stools, Black,tarry stools, nausea/dyspepsia, pain with swallowing, vomiting or other Musc Musculoskeletal: Positive for leg pain with exertion Skin Skin: No yellowing of the eye or itchy eyes Neuro Neurology: Positive for confusion and memory loss; No abnormal hearing Psych Psychiatric: Positive for confusion, Positive for difficulty concentrating, Positive for memory loss, Positive for Compulsive Behavior, Positive for inattentiveness and Positive for other (combative) Endo Endocrine: Positive for weight change; No cold intolerance, fatigue or heat intolerance Aller/Imm Allergy/Immunologic: No food intolerance or itchy eyes Emmanuel/Lymp Hematologic/Lymphatic: Positive for easy bruising; No easy bleeding Exam Const General: cooperative, healthy appearing, comfortable and no acute distress Nutritional Appearance: overweight Orientation: alert, oriented to person and oriented to place (knows he's at a doctor's office) Limitations: altered mental status and behavioral limitations HENMT He (more content not included)... Normal [facility] Absolute lymphocyte countOrd ered By: Corine Li on 10-13-2024 Lymphocytes Auto (Unsp spec) [#/Vol] 0.60 10*3/uL Low 0.83-4.51 [facility] Absolute neutrophil countOrd ered By: Corine Li on 10-13-2024 Neutrophils (Bld) [#/Vol] 4.9 10*3/uL 2.0-7.7 [facility] Automated lymphocyte count a s percentage of total leukocytesOrdered By: Corine Li on 10-13-2024 Lymphocytes/100 WBC Auto (Unsp spec) 10.4 % Low 19-41 [facility] Basic Metabolic Profile (BMP )on 10-13-2024 BUN/CRE 19.0 RATIO Normal 10-20 [facility] Comment on above: Order Comment: 413-1 Performed By: #### L 100.0100, L500.2500 #### [facility] [address] [place], [address] CA,Total 8.7 mg/dL Normal 8.5-10.1 [facility] Comment on above: Order Comment: 413-1 Performed By: #### L 100.0100, L500.2500 #### [facility] [address] [place], [address] Chloride [Moles/Vol] 105 mmol/L Normal 98-107 [facility] Comment on above: Order Comment: 413-1 Performed By: #### L 100.0100, L500.2500 #### [facility] [address] [place], [address] CO2 [Moles/Vol] 20.0 mmol/L Low 21.0-32.0 [facility] Comment on above: Order Comment: 413-1 Performed By: #### L 100.0100, L500.2500 #### [facility] [address] [place], [address] Creatinine [Mass/Vol] 1.00 mg/dL Normal 0.70-1.[address] [facility] Comment on above: Order Comment: 413-1 Result Comment: The validity of the calculated GFR GFRAA in patients over 70 years has not been determined. Clinical correlation is essential. Performed By: #### L 100.0100, L500.2500 #### [facility] [address] [place], [address] EST GFR - AA 94 mL/min Normal >60 [facility] Comment on above: Order Comment: 413-1 Result Comment: Afri can [place] GFR Calc Performed By: #### L 100.0100, L500.2500 #### [facility] [address] [place], [address] GAP 10 Normal 5-15 [facility] Comment on above: Order Comment: 413-1 Performed By: #### L 100.0100, L500.2500 #### [facility] [address] [place], [address] GFR/1.73 sq M.predicted among non-blacks MDRD (S/P/Bld) [Vol rate/Area] 78 mL/min/{1.73_m2} Normal >60 [facility] Comment on above: Order Comment: 413-1 Result Comment: Non- GFR Calc Performed By: #### L 100.0100, L500.2500 #### [facility] [address] [place], [address] Glucose [Mass/Vol] 104 mg/dL Normal 74-106 [facility] Comment on above: Order Comment: 413-1 Result Comment: Fast ing Glucose result from 100 to 125 mg/dL suggests IMPAIRED HOMEOSTASIS per A.D.A. criteria. Performed By: #### L 100.0100, L500.2500 #### [facility] [address] [place], [address] Potassium [Moles/Vol] 3.9 mmol/L Normal 3.5-5.[address] [facility] Comment on above: Order Comment: 413-1 Performed By: #### L 100.0100, L500.2500 #### [facility] [address] [place], [address] Sodium [Moles/Vol] 135 mmol/L Low 136-145 [facility] Comment on above: Order Comment: 413-1 Performed By: #### L 100.0100, L500.2500 #### [facility] [address] [place], [address] Urea nitrogen [Mass/Vol] 19 mg/dL High 7-18 [facility] Comment on above: Order Comment: 413-1 Performed By: #### L 100.0100, L500.2500 #### [facility] [address] [place], [address] Basophil percentageOrdered B y: Corine Li on 10-13-2024 Basophils/100 WBC (Bld) 0.3 % 0-1 [facility] Blood urea nitrogen (BUN)/cr eatinine ratioOrdered By: Corine Li on 10-13-2024 Urea nitrogen/Creatinine [Mass ratio] 19.0 mg/mg 10-20 [facility] CBC W/Diff, Automatedon 09-25 Absolute Lymph 0.60 X10 3/uL Low 0.83-4.51 [facility] Comment on above: Order Comment: 413-1 Performed By: #### L 100.0100, L500.2500 #### [facility] [address] [place], [address] Absolute Neut 4.9 X10 3/uL Normal 2.0-7.7 [facility] Comment on above: Order Comment: 413-1 Performed By: #### L 100.0100, L500.2500 #### [facility] [address] [place], [address] Basophils/100 WBC (Bld) 0.3 % Normal 0-1 [facility] Comment on above: Order Comment: 413-1 Performed By: #### L 100.0100, L500.2500 #### [facility] [address] [place], [address] Eosinophils/100 WBC (Bld) 0.3 % Normal 0-5 [facility] Comment on above: Order Comment: 413-1 Performed By: #### L 100.0100, L500.2500 #### [facility] [address] [place], [address] Erythrocyte distribution width (RBC) [Ratio] 13.9 % Normal 11.6-14.6 [facility] Comment on above: Order Comment: 413-1 Performed By: #### L 100.0100, L500.2500 #### [facility] [address] [place], [address] Hematocrit (Bld) [Volume fraction] 41.2 % Normal 40-54 [facility] Comment on above: Order Comment: 413-1 Performed By: #### L 100.0100, L500.2500 #### [facility] [address] [place], [address] Hemoglobin (Bld) [Mass/Vol] 14.1 g/dL Normal 13.0-16.5 [facility] Comment on above: Order Comment: 413-1 Performed By: #### L 100.0100, L500.2500 #### [facility] [address] [place], [address] IG% 0.700 Normal 0.0-0.9 [facility] Comment on above: Order Comment: 413-1 Result Comment: IG% - Immature Granulocytes (promyelocytes, myelocytes and metamyelocytes) > 1% indicates that a LEFT SHIFT is Present. Performed By: #### L 100.0100, L500.2500 #### [facility] [address] [place], [address] Lymphocytes/100 WBC (Bld) 10.4 % Low 19-41 [facility] Comment on above: Order Comment: 413-1 Performed By: #### L 100.0100, L500.2500 #### [facility] [address] [place], [address] MCH (RBC) [Entitic mass] 32.3 pg High 27.0-32.0 [facility] Comment on above: Order Comment: 413-1 Performed By: #### L 100.0100, L500.2500 #### [facility] [address] [place], [address] MCHC (RBC) [Mass/Vol] 34.2 g/dL Normal 32-[address] [facility] Comment on above: Order Comment: 413-1 Performed By: #### L 100.0100, L500.2500 #### [facility] [address] [place], [address] MCV (RBC) [Entitic vol] 94.3 fL High 80-94 [facility] Comment on above: Order Comment: 413-1 Performed By: #### L 100.0100, L500.2500 #### [facility] [address] [place], [address] Monocytes/100 WBC (Bld) 3.1 % Normal 0-10 [facility] Comment on above: Order Comment: 413-1 Performed By: #### L 100.0100, L500.2500 #### [facility] [address] [place], [address] Neutrophils/100 WBC (Bld) 85.2 % High 47-70 [facility] Comment on above: Order Comment: 413-1 Performed By: #### L 100.0100, L500.2500 #### [facility] [address] [place], [address] Nucleated RBC (Bld) [#/Vol] 0 10*3/uL Normal 0-5 [facility] Comment on above: Order Comment: 413-1 Performed By: #### L 100.0100, L500.2500 #### [facility] [address] [place], [address] Platelet mean volume (Bld) [Entitic vol] 10.1 fL Normal 6.2-12.0 [facility] Comment on above: Order Comment: 413-1 Performed By: #### L 100.0100, L500.2500 #### [facility] [address] [place], [address] Platelets (Bld) [#/Vol] 123 10*3/uL Low 150-450 [facility] Comment on above: Order Comment: 413-1 Performed By: #### L 100.0100, L500.2500 #### [facility] [address] [place], [address] RBC (Bld) [#/Vol] 4.37 10*6/uL Low 4.6-6.2 [facility] Comment on above: Order Comment: 413-1 Performed By: #### L 100.0100, L500.2500 #### [facility] [address] [place], [address] RDW SD 48.1 fl High 35.1-43.9 [facility] Comment on above: Order Comment: 413-1 Performed By: #### L 100.0100, L500.2500 #### [facility] [address] [place], [place], [address] WBC (Bld) [#/Vol] 5.8 10*3/uL Normal 4.4-11.0 [facility] Comment on above: Order Comment: 413-1 Performed By: #### L 100.0100, L500.2500 #### [facility] [address] [place], [place], [address] Carbon dioxide measurementOr dered By: Corine Li on 10-13-2024 CO2 [Moles/Vol] 20.0 mmol/L Low 21.0-32.0 [facility] Chloride measurementOrdered By: Corine Li on 10-13-2024 Chloride [Moles/Vol] 105 mmol/L 98-107 [facility] Eosinophil percentageOrdered By: Corine Li on 10-13-2024 Eosinophils/100 WBC (Bld) 0.3 % 0-5 [facility] Erythrocyte distribution wid th ratioOrdered By: Corine Li on 10-13-2024 Erythrocyte distribution width (RBC) [Ratio] 13.9 % 11.6-14.6 [facility] Erythrocyte distribution wid th standard deviationOrdered By: Corine Li on 10-13-2024 Erythrocyte distribution width (RBC) [Ratio] 48.1 fl High 35.1-43.9 [facility] Glomerular filtration rate ( GFR) estimationOrdered By: Corine Li on 10-13-2024 GFR/1.73 sq M.predicted among non-blacks MDRD (S/P/Bld) [Vol rate/Area] 78 mL/min/{1.73_m2} >60 [facility] Comment on above: Non- GFR Calc Glucose measurementOrdered B y: Corine Li on 10-13-2024 Glucose [Mass/Vol] 104 mg/dL 74-106 [facility] Comment on above: Fasting Glucose resu lt from 100 to 125 mg/dL suggests IMPAIRED HOMEOSTASIS per A.D.A. criteria. Hematocrit Auto (Bld) [Volum e fraction]Ordered By: Corine Li on 10-13-2024 Hematocrit (Bld) [Volume fraction] 41.2 % 40-54 [facility] Hemoglobin measurementOrdere d By: Corine Li on 10-13-2024 Hemoglobin (Bld) [Mass/Vol] 14.1 g/dL 13.0-16.5 [facility] Immature granulocytes/100 WB C Auto (Bld)Ordered By: Corine Li on 10-13-2024 Immature granulocytes/100 WBC (Bld) 0.700 % 0.0-0.9 [facility] Comment on above: IG% - Immature Granu locytes (promyelocytes, myelocytes and metamyelocytes) > 1% indicates that a LEFT SHIFT is Present. MCV (mean corpuscular volume ) determinationOrdered By: Corine Li on 10-13-2024 MCV (RBC) [Entitic vol] 94.3 fL High 80-94 [facility] Mean corpuscular hemoglobin (MCH) determinationOrdered By: Corine Li on 10-13-2024 MCH (RBC) [Entitic mass] 32.3 pg High 27.0-32.0 [facility] Mean corpuscular hemoglobin concentration (MCHC) determinationOrdered By: Corine Li on 10-13-2024 MCHC (RBC) [Mass/Vol] 34.2 g/dL 32-[address] [facility] [facility] Mean platelet volume determi nationOrdered By: Corine Li on 10-13-2024 Platelet mean volume (Bld) [Entitic vol] 10.1 fL 6.2-12.0 [facility] [place] Monocyte percentageOrdered B y: Corine Li on 10-13-2024 Monocytes/100 WBC (Bld) 3.1 % 0-10 [facility] Neutrophil percentageOrdered By: Corine Li on 10-13-2024 Neutrophils/100 WBC (Bld) 85.2 % High 47-70 [facility] [place] Nucleated red blood cell per centageOrdered By: Corine Li on 10-13-2024 Nucleated RBC/100 WBC (Bld) [Ratio] 0 % 0-5 [facility] [place] Platelet countOrdered By: Sulaiman Li on 10-13-2024 Platelets (Bld) [#/Vol] 123 10*3/uL Low 150-450 [facility] [place] Potassium measurementOrdered By: Corine Li on 10-13-2024 Potassium [Moles/Vol] 3.9 mmol/L 3.5-5.[address] [facility] RBC Auto (Bld) [#/Vol]Ordere d By: Corine Li on 10-13-2024 RBC (Bld) [#/Vol] 4.37 10*6/uL Low 4.6-6.2 [facility] Serum anion gap measurementO rdered By: Corine Li on 10-13-2024 Anion gap [Moles/Vol] 10 mmol/L 5-[address] [facility] Serum or plasma calcium paul urement (mass/volume)Ordered By: Corine Li on 10-13-2024 Calcium [Mass/Vol] 8.7 mg/dL 8.5-10.1 [facility] Serum or plasma creatinine m easurement (mass/volume)Ordered By: Corine Li on 10-13-2024 Creatinine [Mass/Vol] 1.00 mg/dL 0.70-1.[address] [facility] Comment on above: The validity of the calculated GFR & GFRAA in patients over 70 years has not been determined. Clinical correlation is essential. Serum or plasma urea nitroge n measurement (mass/volume)Ordered By: Corine Li on 10-13-2024 Urea nitrogen [Mass/Vol] 19 mg/dL High 7-18 [facility] [place] Sodium levelOrdered By: Charles Li on 10-13-2024 Sodium [Moles/Vol] 135 mmol/L Low 136-145 [facility] White blood cell (WBC) count Ordered By: Corine Li on 10-13-2024 WBC (Bld) [#/Vol] 5.8 10*3/uL 4.4-11.0 [facility] Lead, Blood Adult 16+yrson 0 09-16-2024 LEAD,BLD ADULT 1.0 ug/dL Normal 0.0-3.4 [facility] [place] Comment on above: Order Comment: Test( s) [id number], Blood (Adult) was developed and its performance characteristics determined by [employer]. It has not been cleared or approved by the Food and Drug Administration. Result Comment: Test ing performed by Inductively coupled plasma/Mass Spectrometry. Analysis by inductively coupled plasma/mass spectrometry (ICP/MS) Environmental Exposure: WHO Recommendation <5.0 Occupational Exposure: OSHA Lead Std 40.0 V[facility] 30.0 Detection Limit = 1.0 Performed at: [address] [id number] Machine Operator: David Waters PhD, Phone: [phone] Performed By: #### L 3100.6450, L506.0250, L503.0105 #### [facility] [place] Laboratory [address] [place], [address] Folates, (Folic Acid)on 08-26 FOLATES 27.20 ng/mL Normal 3.1-55.4 [facility] [place] Comment on above: Order Comment: 413-1 N Result Comment: Slig ht Hemolysis, Result may be falsely increased. Performed By: #### L 3100.6450, L506.0250, L503.0105 #### [facility] [place] Laboratory [address] [place], [address] Vitamin B12on 09-15-2024 Cobalamin (Vitamin B12) [Mass/Vol] 599 pg/mL Normal 211-911 [facility] [place] Comment on above: Order Comment: 413-1 Performed By: #### L 3100.6450, L506.0250, L503.0105 #### [facility] [place] Laboratory [address] [place], [address] Basic Metabolic Profile (BMP )on 09-13-2024 BUN/CRE 21.0 RATIO High 06-13 [facility] [place] Comment on above: Order Comment: 413-1 Performed By: #### L 3100.6450, L506.0250, L503.0105 #### [facility] [place] Laboratory [address] [place], [address] CA,Total 9.1 mg/dL Normal 8.5-10.1 [facility] [place] Comment on above: Order Comment: 413-1 Performed By: #### L 3100.6450, L506.0250, L503.0105 #### [facility] [place] Laboratory [address] [place], [address] Chloride [Moles/Vol] 105 mmol/L Normal 98-107 [facility] Comment on above: Order Comment: 413-1 Performed By: #### L 3100.6450, L506.0250, L503.0105 #### [facility] [place] Laboratory [address] [place], [address] CO2 [Moles/Vol] 28.0 mmol/L Normal 21.0-32.0 [facility] [place] Comment on above: Order Comment: 413-1 Performed By: #### L 3100.6450, L506.0250, L503.0105 #### [facility] [place] Laboratory [address] [place], [address] Creatinine [Mass/Vol] 1.05 mg/dL Normal 0.70-1.[address] [facility] Comment on above: Order Comment: 413-1 Result Comment: The validity of the calculated GFR GFRAA in patients over 70 years has not been determined. Clinical correlation is essential. Performed By: #### L 3100.6450, L506.0250, L503.0105 #### [facility] [place] Laboratory [address] [place], [address] EST GFR - AA 89 mL/min Normal >60 [facility] [place] Comment on above: Order Comment: 413-1 Result Comment: Afri can [place] GFR Calc Performed By: #### L 3100.6450, L506.0250, L503.0105 #### [facility] [place] Laboratory [address] [place], [address] GAP 4 Low 5-15 [facility] [place] Comment on above: Order Comment: 413-1 Performed By: #### L 3100.6450, L506.0250, L503.0105 #### [facility] [place] Laboratory [address] [place], [address] GFR/1.73 sq M.predicted among non-blacks MDRD (S/P/Bld) [Vol rate/Area] 74 mL/min/{1.73_m2} Normal >60 [facility] [place] Comment on above: Order Comment: 413- Result Comment: Non- GFR Calc Performed By: #### L 3100.6450, L506.0250, L503.0105 #### [facility] [place] Laboratory [address] [place], [address] Glucose [Mass/Vol] 152 mg/dL High 74-106 [facility] Comment on above: Order Comment: 413- Result Comment: Fast ing Glucose result greater than or equal to 126 mg/dL suggests DIABETES MELLITUS per A.D.A. criteria. Performed By: #### L 3100.6450, L506.0250, L503.0105 #### [facility] [place] Laboratory [address] [place], [address] Potassium [Moles/Vol] 4.3 mmol/L Normal 3.5-5.[address] [facility] Comment on above: Order Comment: 413-1 Performed By: #### L 3100.6450, L506.0250, L503.0105 #### [facility] [place] Laboratory [address] [place], [address] Sodium [Moles/Vol] 138 mmol/L Normal 136-145 [facility] Comment on above: Order Comment: 413-1 Performed By: #### L 3100.6450, L506.0250, L503.0105 #### [facility] [place] Laboratory [address] [place], [address] Urea nitrogen [Mass/Vol] 22 mg/dL High 7-18 [facility] [place] Comment on above: Order Comment: 413-1 Performed By: #### L 3100.6450, L506.0250, L503.0105 #### [facility] [place] Laboratory [address] [place], [address] CBC W/Diff, Automatedon 01-2 0-2025 Absolute Lymph 1.81 X10 3/uL Normal 0.83-4.51 [facility] [place] Comment on above: Order Comment: 413-1 Performed By: #### L 3100.6450, L506.0250, L503.0105 #### [facility] [place] Laboratory [address] [place], [address] Absolute Neut 3.4 X10 3/uL Normal 2.0-7.7 [facility] [place] Comment on above: Order Comment: 413-1 Performed By: #### L 3100.6450, L506.0250, L503.0105 #### [facility] [place] Laboratory [address] [place], [address] Basophils/100 WBC (Bld) 0.9 % Normal 0-1 [facility] Comment on above: Order Comment: 413-1 Performed By: #### L 3100.6450, L506.0250, L503.0105 #### [facility] [place] Laboratory [address] [place], [address] Eosinophils/100 WBC (Bld) 3.4 % Normal 0-5 [facility] [place] Comment on above: Order Comment: 413-1 Performed By: #### L 3100.6450, L506.0250, L503.0105 #### [facility] [place] Laboratory [address] [place], [address] Erythrocyte distribution width (RBC) [Ratio] 13.9 % Normal 11.6-14.6 [facility] [place] Comment on above: Order Comment: 413-1 Performed By: #### L 3100.6450, L506.0250, L503.0105 #### [facility] [place] Laboratory [address] [place], [address] Hematocrit (Bld) [Volume fraction] 41.3 % Normal 40-54 [facility] [place] Comment on above: Order Comment: 413-1 Performed By: #### L 3100.6450, L506.0250, L503.0105 #### [facility] [place] Laboratory [address] [place], [address] Hemoglobin (Bld) [Mass/Vol] 13.9 g/dL Normal 13.0-16.5 [facility] [place] Comment on above: Order Comment: 413-1 Performed By: #### L 3100.6450, L506.0250, L503.0105 #### [facility] [place] Laboratory [address] [place], [address] IG% 0.400 Normal 0.0-0.9 [facility] [place] Comment on above: Order Comment: 413-1 Result Comment: IG% - Immature Granulocytes (promyelocytes, myelocytes and metamyelocytes) > 1% indicates that a LEFT SHIFT is Present. Performed By: #### L 3100.6450, L506.0250, L503.0105 #### [facility] [place] Laboratory [address] [place], [address] Lymphocytes/100 WBC (Bld) 32.1 % Normal 19-41 [facility] [place] Comment on above: Order Comment: 413-1 Performed By: #### L 3100.6450, L506.0250, L503.0105 #### [facility] [place] Laboratory [address] [place], [address] MCH (RBC) [Entitic mass] 32.3 pg High 27.0-32.0 [facility] [place] Comment on above: Order Comment: 413-1 Performed By: #### L 3100.6450, L506.0250, L503.0105 #### [facility] [place] Laboratory [address] [place], [address] MCHC (RBC) [Mass/Vol] 33.7 g/dL Normal 32-[address] [facility] Comment on above: Order Comment: 413-1 Performed By: #### L 3100.6450, L506.0250, L503.0105 #### [facility] [place] Laboratory [address] [place], [address] MCV (RBC) [Entitic vol] 96.0 fL High 80-94 [facility] Comment on above: Order Comment: 413-1 Performed By: #### L 3100.6450, L506.0250, L503.0105 #### [facility] [place] Laboratory [address] [place], [address] Monocytes/100 WBC (Bld) 3.7 % Normal 0-10 [facility] Comment on above: Order Comment: 413-1 Performed By: #### L 3100.6450, L506.0250, L503.0105 #### [facility] [place] Laboratory [address] [place], [address] Neutrophils/100 WBC (Bld) 59.5 % Normal 47-70 [facility] [place] Comment on above: Order Comment: 413-1 Performed By: #### L 3100.6450, L506.0250, L503.0105 #### [facility] [place] Laboratory [address] [place], [address] Nucleated RBC (Bld) [#/Vol] 0 10*3/uL Normal 0-5 [facility] [place] Comment on above: Order Comment: 413-1 Performed By: #### L 3100.6450, L506.0250, L503.0105 #### [facility] [place] Laboratory [address] [place], [address] Platelet mean volume (Bld) [Entitic vol] 10.9 fL Normal 6.2-12.0 [facility] [place] Comment on above: Order Comment: 413-1 Performed By: #### L 3100.6450, L506.0250, L503.0105 #### [facility] [place] Laboratory [address] [place], [address] Platelets (Bld) [#/Vol] 123 10*3/uL Low 150-450 [facility] [place] Comment on above: Order Comment: 413-1 Performed By: #### L 3100.6450, L506.0250, L503.0105 #### [facility] [place] Laboratory [address] [place], [address] RBC (Bld) [#/Vol] 4.30 10*6/uL Low 4.6-6.2 [facility] Comment on above: Order Comment: 413-1 Performed By: #### L 3100.6450, L506.0250, L503.0105 #### [facility] [place] Laboratory [address] [place], [address] RDW SD 49.1 fl High 35.1-43.9 [facility] [place] Comment on above: Order Comment: 413-1 Performed By: #### L 3100.6450, L506.0250, L503.0105 #### [facility] [place] Laboratory [address] [place], [address] WBC (Bld) [#/Vol] 5.6 10*3/uL Normal 4.4-11.0 [facility] Comment on above: Order Comment: 413-1 Performed By: #### L 3100.6450, L506.0250, L503.0105 #### [facility] [place] Laboratory [address] [place], [address] Lipid Profileon 08-03-2024 Cholesterol [Mass/Vol] 82 mg/dL Normal 200 [facility] Comment on above: Order Comment: 413-1 Result Comment: <200 mg/dL Desirable 200-240 mg/dL Borderline >240 mg/dL High Risk Performed By: #### L 3100.6450, L506.0250, L503.0105 #### [facility] [place] Laboratory [address] [place], [address] Cholesterol in HDL [Mass/Vol] 43 mg/dL Normal [facility] [place] Comment on above: Order Comment: 413-1 Result Comment: The drugs N-Acetylcysteine and Metamizole may falsely depress this assay. Reference Range HDL <40 mg/dL Low HDL Cholesterol HDL >or= 60 mg/dL High HDL Cholesterol Performed By: #### L 3100.6450, L506.0250, L503.0105 #### [facility] [place] Laboratory [address] [place], [address] Cholesterol in LDL [Mass/Vol] 30 mg/dL Normal 0-130 [facility] [place] Comment on above: Order Comment: 413-1 Performed By: #### L 3100.6450, L506.0250, L503.0105 #### [facility] [place] Laboratory [address] [place], [address] Cholesterol in VLDL [Mass/Vol] 9 mg/dL Normal 5-40 [facility] [place] Comment on above: Order Comment: 413-1 Performed By: #### L 3100.6450, L506.0250, L503.0105 #### [facility] [place] Laboratory [address] [place], [address] Triglyceride [Mass/Vol] 46 mg/dL Normal [facility] Comment on above: Order Comment: 413-1 Result Comment: The drugs N-Acetylcysteine and Metamizole may falsely depress this assay. Serum Triglycerides Reference Interval Normal <150 mg/dL Borderline high 150 - 199 mg/dL High 200 - 499 mg/dL Very High > or = 500 mg/dL Performed By: #### L 3100.6450, L506.0250, L503.0105 #### [facility] [place] Laboratory [address] [place], [address] HDL Normal [facility] [place] Comment on above: Result Comment: ALRE OLIVIA ORDERED The drugs N-Acetylcysteine and Metamizole may falsely depress this assay. Performed By: #### L 3100.6450, L506.0250, L503.0105 #### [facility] [place] Laboratory [address] [place], [address] TRIG Normal [facility] [place] Comment on above: Result Comment: ALRE OLIVIA ORDERED The drugs N-Acetylcysteine and Metamizole may falsely depress this assay. Performed By: #### L 3100.6450, L506.0250, L503.0105 #### [facility] [place] Laboratory [address] [place], [address] CHOL Normal 200 [facility] [place] Comment on above: Result Comment: ALRE OLIVIA ORDERED Performed By: #### L 3100.6450, L506.0250, L503.0105 #### [facility] [place] Laboratory [address] [place], [address] LDL Normal 0-130 [facility] [place] Comment on above: Result Comment: ALRE OLIVIA ORDERED Performed By: #### L 3100.6450, L506.0250, L503.0105 #### [facility] [place] Laboratory [address] [place], [address] VLDL Normal 5-40 [facility] [place] Comment on above: Result Comment: ALRE OLIVIA ORDERED Performed By: #### L 3100.6450, L506.0250, L503.0105 #### [facility] [place] Laboratory [address] [place], [address] Lipid Profileon 08-02-2024 CHOL Normal 200 [facility] [place] Comment on above: Order Comment: 413.1 Result Comment: [facility] [employer] REFUSED LAB WORK, TRY AGAIN TOMORROW PER NURSE FELIPE @0640 Performed By: #### L 500.4100 #### [facility] [place] Laboratory [address] [place], [address] HDL Normal [facility] [place] Comment on above: Order Comment: 413.1 Result Comment: CURTIS [employer] REFUSED LAB WORK, TRY AGAIN TOMORROW PER NURSE FELIPE @0640 Performed By: #### L 500.4100 #### [facility] [place] Laboratory [address] [place], [address] LDL Normal 0-130 [facility] [place] Comment on above: Order Comment: 413.1 Result Comment: CURTIS E[employer] REFUSED LAB WORK, TRY AGAIN TOMORROW PER NURSE FELIPE @0640 Performed By: #### L 500.4100 #### [facility] [place] Laboratory [address] [place], [address] TRIG Normal [facility] [place] Comment on above: Order Comment: 413.1 Result Comment: CURTIS E[employer] REFUSED LAB WORK, TRY AGAIN TOMORROW PER NURSE FELIPE @0640 Performed By: #### L 500.4100 #### [facility] [place] Laboratory [address] [place], [address] VLDL Normal 5-40 [facility] [place] Comment on above: Order Comment: 413.1 Result Comment: CURTIS E[employer] REFUSED LAB WORK, TRY AGAIN TOMORROW PER NURSE FELIPE @0640 Performed By: #### L 500.4100 #### [facility] [place] Laboratory [address] [place], [address] Basic Metabolic Profile (BMP )on 06-28-2024 BUN/CRE 18.8 RATIO Normal 10-20 [facility] [place] Comment on above: Performed By: #### L 3100.6450, L506.0250, L503.0105 #### [facility] [place] Laboratory [address] [place], [address] CA,Total 8.8 mg/dL Normal 8.5-10.1 [facility] [place] Comment on above: Performed By: #### L 3100.6450, L506.0250, L503.0105 #### [facility] [place] Laboratory [address] [place], [address] Chloride [Moles/Vol] 107 mmol/L Normal 98-107 [facility] Comment on above: Performed By: #### L 3100.6450, L506.0250, L503.0105 #### [facility] [place] Laboratory [address] [place], [address] CO2 [Moles/Vol] 27.0 mmol/L Normal 21.0-32.0 [facility] [place] Comment on above: Performed By: #### L 3100.6450, L506.0250, L503.0105 #### [facility] [place] Laboratory [address] [place], [address] Creatinine [Mass/Vol] 0.90 mg/dL Normal 0.70-1.[address] [facility] Comment on above: Result Comment: The validity of the calculated GFR GFRAA in patients over 70 years has not been determined. Clinical correlation is essential. Performed By: #### L 3100.6450, L506.0250, L503.0105 #### [facility] [place] [facility] [address] [place], [address] EST GFR - AA 106 mL/min Normal >60 [facility] [place] Comment on above: Result Comment: Afri can [place] GFR Calc Performed By: #### L 3100.6450, L506.0250, L503.0105 #### [facility] [place] Laboratory [address] [place], [address] GAP 5 Normal 5-15 [facility] [place] Comment on above: Performed By: #### L 3100.6450, L506.0250, L503.0105 #### [facility] [place] Laboratory [address] [place], [address] GFR/1.73 sq M.predicted among non-blacks MDRD (S/P/Bld) [Vol rate/Area] 87 mL/min/{1.73_m2} Normal >60 [facility] [place] Comment on above: Result Comment: Non- GFR Calc Performed By: #### L 3100.6450, L506.0250, L503.0105 #### [facility] [place] [facility] [address] [place], [address] Glucose [Mass/Vol] 75 mg/dL Normal 74-106 [facility] Comment on above: Performed By: #### L 3100.6450, L506.0250, L503.0105 #### [facility] [place] [facility] [address] [place], [address] Potassium [Moles/Vol] 3.9 mmol/L Normal 3.5-5.[address] [facility] Comment on above: Performed By: #### L 3100.6450, L506.0250, L503.0105 #### [facility] [place] [facility] [address] [place], [address] Sodium [Moles/Vol] 140 mmol/L Normal 136-145 [facility] Comment on above: Performed By: #### L 3100.6450, L506.0250, L503.0105 #### [facility] [place] [facility] [address] [place], [address] Urea nitrogen [Mass/Vol] 17 mg/dL Normal 7-18 [facility] [place] Comment on above: Performed By: #### L 3100.6450, L506.0250, L503.0105 #### [facility] [place] [facility] [address] [place], [address] CBC W/Diff, Automatedon 11-0 4-2023 Absolute Lymph 2.26 X10 3/uL Normal 0.83-4.51 [facility] [place] Comment on above: Performed By: #### L 100.0100, L500.2500 #### [facility] [facility] [place] [facility] [address] [place], [address] Absolute Neut 2.4 X10 3/uL Normal 2.0-7.7 [facility] [place] Comment on above: Performed By: #### L 100.0100, L500.2500 #### [facility] [place] [facility] [address] [place], [address] Basophils/100 WBC (Bld) 0.8 % Normal 0-1 [facility] Comment on above: Performed By: #### L 100.0100, L500.2500 #### [facility] [place] [facility] [address] [place], [address] Eosinophils/100 WBC (Bld) 2.4 % Normal 0-5 [facility] [place] Comment on above: Performed By: #### L 100.0100, L500.2500 #### [facility] [place] [facility] [address] [place], [address] Erythrocyte distribution width (RBC) [Ratio] 14.6 % Normal 11.6-14.6 [facility] [place] Comment on above: Performed By: #### L 100.0100, L500.2500 #### [facility] [place] [facility] [address] [place], [address] Hematocrit (Bld) [Volume fraction] 41.3 % Normal 40-54 [facility] [place] Comment on above: Performed By: #### L 100.0100, L500.2500 #### [facility] [place] [facility] [address] [place], [address] Hemoglobin (Bld) [Mass/Vol] 13.9 g/dL Normal 13.0-16.5 [facility] [place] Comment on above: Performed By: #### L 100.0100, L500.2500 #### [facility] [place] [facility] [address] [place], [address] IG% 0.200 Normal 0.0-0.9 [facility] [place] Comment on above: Result Comment: IG% - Immature Granulocytes (promyelocytes, myelocytes and metamyelocytes) > 1% indicates that a LEFT SHIFT is Present. Performed By: #### L 100.0100, L500.2500 #### [facility] [place] [facility] [address] [place], [address] Lymphocytes/100 WBC (Bld) 44.8 % High 19-41 [facility] [place] Comment on above: Performed By: #### L 100.0100, L500.2500 #### [facility] [place] [facility] [address] [place], [address] MCH (RBC) [Entitic mass] 31.0 pg Normal 27.0-32.0 [facility] [place] Comment on above: Performed By: #### L 100.0100, L500.2500 #### [facility] [place] [facility] [address] [place], [address] MCHC (RBC) [Mass/Vol] 33.7 g/dL Normal 32-[address] [facility] Comment on above: Performed By: #### L 100.0100, L500.2500 #### [facility] [place] [facility] [address] [place], [address] MCV (RBC) [Entitic vol] 92.2 fL Normal 80-94 [facility] Comment on above: Performed By: #### L 100.0100, L500.2500 #### [facility] [place] [facility] [address] [place], [address] Monocytes/100 WBC (Bld) 5.1 % Normal 0-10 [facility] Comment on above: Performed By: #### L 100.0100, L500.2500 #### [facility] [place] [facility] [address] [place], [address] Neutrophils/100 WBC (Bld) 46.7 % Low 47-70 [facility] [place] Comment on above: Performed By: #### L 100.0100, L500.2500 #### [facility] [place] [facility] [address] [place], [address] Nucleated RBC (Bld) [#/Vol] 0 10*3/uL Normal 0-5 [facility] [place] Comment on above: Performed By: #### L 100.0100, L500.2500 #### [facility] [place] [facility] [address] [place], [address] Platelet mean volume (Bld) [Entitic vol] 10.7 fL Normal 6.2-12.0 [facility] [place] Comment on above: Performed By: #### L 100.0100, L500.2500 #### [facility] [place] [facility] [address] [place], [address] Platelets (Bld) [#/Vol] 127 10*3/uL Low 150-450 [facility] [place] Comment on above: Performed By: #### L 100.0100, L500.2500 #### [facility] [place] [facility] [address] [place], [address] RBC (Bld) [#/Vol] 4.48 10*6/uL Low 4.6-6.2 [facility] Comment on above: Performed By: #### L 100.0100, L500.2500 #### [facility] [place] [facility] [address] [place], [address] RDW SD 49.2 fl High 35.1-43.9 [facility] [place] Comment on above: Performed By: #### L 100.0100, L500.2500 #### [facility] [place] [facility] [address] [place], [address] WBC (Bld) [#/Vol] 5.1 10*3/uL Normal 4.4-11.0 [facility] Comment on above: Performed By: #### L 100.0100, L500.2500 #### [facility] [place] [facility] [address] [place], [address] [facility]20[facility]) [facility] REID VALDIVIA JR ([id number]) 1950 [facility] Date Time Provider Department 02/19/24 RAFA REGALADO [facility] During your visit today, we recorded the following information about you: Pantera Daniels, RN 02/19/2024 11:14 AM Signed seferino Jones, phoned to let pcp know, patient has been in [facility], [address], after having a stroke, for the last 2.5 mths. Reports patient is starting to walk now. Reports patient has dementia now also- forgets things sometimes. Reports patient has a feeding tube, and just started eating some regular food, as they want to wean him of the feeding tube. Karen has no idea when patient will be discharged. Rafa Regalado MD 02/19/2024 3:25 PM Signed Noted Rafa Regalado MD Allergies As of Date: 02/19/2024 (No Known Allergies) Date Reviewed: 11/15/2023 Reviewed by: Enma Yo RN - Fully Assessed Reason for Visit: Patient Update [1234] Prescriptions as of 02/19/2024 - nicotine (NICODERM) 14 mg/24 hr Apply 1 Patch as directed every 24 hours. No smoking with patch. - Nicotine Polacrilex [address] 1 Lozenge between cheek and gum as needed. - fluticasone-salmeterol (ADVAIR DISKUS) 100-50 mcg/dose inhaler Inhale 1 Puff as instructed twice daily. Rinse mouth out after use with water. - albuterol HFA (PROVENTIL HFA, VENTOLIN HFA) 90 mcg/actuation inhaler Inhale 2 Puffs as instructed every 4 hours as needed for wheezing/shortness of breath. - benzonatate (TESSALON PERLES) 100 mg capsule Take 1-2 capsules by mouth three times daily as needed. - fexofenadine (CARLY ALLERGY) 60 mg tablet Take 1 tablet by mouth once daily. - Ascorbic Acid (VITAMIN C) 100 mg tablet Take 100 mg by mouth once daily. - OMEGA 5-MJS-SLF-FISH OIL ORAL Take 1 capsule by mouth once daily. - cholecalciferol, vitamin D3, (VITAMIN D3 ORAL) Take 1,000 Int'l Units by mouth once daily. 1-2 tablets daily - vitamin B complex-folic acid 2,000 mcg cap Take 1 capsule by mouth once daily. - triamcinolone (KENALOG) 0.025 % cream Apply 1 application to affected area twice daily. Meds Comments as of 10/16/2021: Uses Flonase before bed. Mucinex OTC Problem List As Of Date 02/19/2024 Noted Resolved Psoriasis [L40.9] 09/28/2018 Abdominal aortic aneurysm (AAA) without rupture*09/28/2018 Encounter Status:Closed by RAFA REGALADO on 02/19/24 Normal [facility] Basophil percentageOrdered B y: Corine Li on 12-08-2023 Chloride [Moles/Vol] 103 mmol/L 98-107 [facility] Glucose [Mass/Vol] 115 mg/dL 74-106 [facility] Comment on above: Fasting Glucose resu lt from 100 to 125 mg/dL suggests IMPAIRED HOMEOSTASIS per A.D.A. criteria. Potassium [Moles/Vol] 4.1 mmol/L 3.5-5.[address] [facility] Sodium [Moles/Vol] 137 mmol/L 136-145 [facility] Laboratory - Chemistry and C hemistry - challengeOrdered By: Corine Li on 12-08-2023 CO2 [Moles/Vol] 29.0 mmol/L 21.0-32.0 [facility] [place] Urea nitrogen/Creatinine [Mass ratio] 24.9 mg/mg 10-20 [facility] [place] No Panel InformationOrdered By: Corine Li on 12-08-2023 Estimated GFR (MDRD) Amer 104 mL/min >60 [facility] [place] Comment on above: GFR Calc Estimated GFR (MDRD) Non-Af Amer 86 mL/min >60 [facility] [place] Comment on above: Non- GFR Calc Serum or plasma calcium paul urement (mass/volume)Ordered By: Corine Li on 12-08-2023 Calcium [Mass/Vol] 8.8 mg/dL 8.5-10.1 [facility] Serum or plasma creatinine m easurement (mass/volume)Ordered By: Corine Li on 12-08-2023 Creatinine [Mass/Vol] 0.92 mg/dL 0.70-1.[address] [facility] Comment on above: The validity of the calculated GFR & GFRAA in patients over 70 years has not been determined. Clinical correlation is essential. Serum or plasma urea nitroge n measurement (mass/volume)Ordered By: Corine Li on 12-08-2023 Urea nitrogen [Mass/Vol] 23 mg/dL 7-18 [facility] [place] Thin prep Papanicolaou smear with manual screeningOrdered By: Corine Li on 12-08-2023 Thin prep Papanicolaou smear with manual screening 5 5-15 [facility] [place] Whole blood hemoglobin A1c/t otal hemoglobin ratio (mass fraction)Ordered By: Corine Li on 12-08-2023 HbA1c (Bld) [Mass fraction] 5.6 % 3.8-5.6 [facility] [place] Comment on above: Normal < 5.7 % Predi abetic 5.7 - 6.4 % Diabetic >or= 6.5 % Please note range changes. Absolute lymphocyte countOrd ered By: Evelin Chavarria on 11-27-2023 Lymphocytes Auto (Unsp spec) [#/Vol] 1.92 10*3/uL 0.83-4.51 [facility] [place] Automated lymphocyte count a s percentage of total leukocytesOrdered By: Evelin Chavarria on 11-27-2023 Lymphocytes/100 WBC Auto (Unsp spec) 16.4 % 19-41 [facility] [place] Basophil percentageOrdered B y: Evelin Chavarria on 11-27-2023 Basophils/100 WBC (Bld) 0.4 % 0-1 [facility] Chloride [Moles/Vol] 109 mmol/L 98-107 [facility] Eosinophils/100 WBC (Bld) 1.5 % 0-5 [facility] [place] Glucose [Mass/Vol] 141 mg/dL 74-106 [facility] Comment on above: Fasting Glucose resu lt greater than or equal to 126 mg/dL suggests DIABETES MELLITUS per A.D.A. criteria. Hemoglobin (Bld) [Mass/Vol] 15.0 g/dL 13.0-16.5 [facility] [place] Monocytes/100 WBC (Bld) 2.7 % 0-10 [facility] Neutrophils (Bld) [#/Vol] 9.1 10*3/uL 2.0-7.7 [facility] [place] Neutrophils/100 WBC (Bld) 78.3 % 47-70 [facility] [place] Potassium [Moles/Vol] 3.5 mmol/L 3.5-5.[address] [facility] Sodium [Moles/Vol] 140 mmol/L 136-145 [facility] WBC (Bld) [#/Vol] 11.7 10*3/uL 4.4-11.0 [facility] Determination of erythrocyte mean corpuscular volume (MCV)Ordered By: Evelin Chavarria on 11-27-2023 MCV (RBC) [Entitic vol] 92.3 fL 80-94 [facility] Erythrocyte distribution wid th ratioOrdered By: Evelin Chavarria on 11-27-2023 Erythrocyte distribution width (RBC) [Ratio] 12.8 % 11.6-14.6 [facility] [place] Erythrocyte distribution wid th standard deviationOrdered By: Evelinalma Chavarria on 11-27-2023 Erythrocyte distribution width (RBC) [Entitic vol] 43.6 fL 35.1-43.9 [facility] [place] Hematocrit Auto (Bld) [Volum e fraction]Ordered By: Evelin Chavarria on 11-27-2023 Hematocrit (Bld) [Volume fraction] 44.1 % 40-54 [facility] [place] Immature granulocytes/100 WB C Auto (Bld)Ordered By: Evelinalma Chavarria on 11-27-2023 Immature granulocytes/100 WBC (Bld) 0.700 % 0.0-0.9 [facility] [place] Comment on above: IG% - Immature Granu locytes (promyelocytes, myelocytes and metamyelocytes) > 1% indicates that a LEFT SHIFT is Present. Laboratory - Chemistry and C hemistry - challengeOrdered By: Evelin Chavarria on 11-27-2023 CO2 [Moles/Vol] 27.0 mmol/L 21.0-32.0 [facility] [place] Urea nitrogen/Creatinine [Mass ratio] 17.3 mg/mg 10-20 [facility] [place] [facility] - Hematology and Cell countsOrdered By: Evelin Chavarria on 11-27-2023 MCH (RBC) [Entitic mass] 31.4 pg 27.0-32.0 [facility] [place] MCHC (RBC) [Mass/Vol] 34.0 g/dL 32-[address] [facility] Nucleated RBC/100 WBC (Bld) [Ratio] 0 % 0-5 [facility] [place] Platelet mean volume (Bld) [Entitic vol] 10.1 fL 6.2-12.0 [facility] [place] Platelets (Bld) [#/Vol] 193 10*3/uL 150-450 [facility] [place] No Panel InformationOrdered By: Evelin Chavarria on 11-27-2023 Estimated Creatinine Clearance Calc 72.58 ml/min [facility] [place] Estimated GFR (MDRD) Amer 103 mL/min >60 [facility] [place] Comment on above: GFR Calc Estimated GFR (MDRD) Non-Af Amer 86 mL/min >60 [facility] [place] Comment on above: Non- GFR Calc RBC Auto (Bld) [#/Vol]Ordere d By: Evelin Chavarria on 11-27-2023 RBC (Bld) [#/Vol] 4.78 10*6/uL 4.6-6.2 [facility] Serum or plasma calcium paul urement (mass/volume)Ordered By: Evelin Chavarria on 11-27-2023 Calcium [Mass/Vol] 8.6 mg/dL 8.5-10.1 [facility] Serum or plasma creatinine m easurement (mass/volume)Ordered By: Evelin Chavarria on 11-27-2023 Creatinine [Mass/Vol] 0.92 mg/dL 0.70-1.[address] [facility] Comment on above: The validity of the calculated GFR & GFRAA in patients over 70 years has not been determined. Clinical correlation is essential. Serum or plasma urea nitroge n measurement (mass/volume)Ordered By: Evelin Chavarria on 11-27-2023 Urea nitrogen [Mass/Vol] 16 mg/dL 7-18 [facility] [place] Thin prep Papanicolaou smear with manual screeningOrdered By: Evelin Chavarria on 11-27-2023 Thin prep Papanicolaou smear with manual screening 4 5-15 [facility] [place] Basophil percentageOrdered B y: Ken [place] on 11-19-2023 Bilirubin [Mass/Vol] 1.10 mg/dL 0.20-1.00 [facility] Comment on above: For patients on eltr ombopag therapy, use of Dimension [place] TBIL is not recommended. Protein [Mass/Vol] 7.2 g/dL 6.4-8.2 [facility] Laboratory - Chemistry and C hemistry - challengeOrdered By: Ken [place] on 11-19-2023 Albumin/Globulin [Mass ratio] 0.8 {ratio} 0.9-2.4 [facility] [place] ALP [Catalytic activity/Vol] 92 U/L 45-117 [facility] [place] ALT [Catalytic activity/Vol] 12 U/L 16-61 [facility] [place] Globulin (S) [Mass/Vol] 4.0 g/dL 2.2-4.2 [facility] Thin prep Papanicolaou smear with manual screeningOrdered By: Ken Colorado on 11-19-2023 Thin prep Papanicolaou smear with manual screening 3.2 g/dL 3.2-5.0 [facility] [place] Thin prep Papanicolaou smear with manual screening 15 U/L 15-37 [facility] [place] Laboratory - Chemistry and C hemistry - challengeOrdered By: Ken [place] on 11-18-2023 Cobalamin (Vitamin B12) [Mass/Vol] 347 pg/mL 211-911 [facility] [place] Serum Treponema species anti body detectionOrdered By: Ken [place] on 11-18-2023 Treponema sp Ab Ql (S) Non-Reactive [facility] [place] Serum or plasma thyroid stim ulating hormone (TSH) measurement (units/volume)Ordered By: Ken [place] on 11-18-2023 TSH Qn 2.43 uIU/mL 0.358-3.74 [facility] [place] Activated partial thrombopla stin time (aPTT) in platelet poor plasma by coagulation aOrdered By: Reagan Greenfield on 11-17-2023 aPTT Coag (PPP) [Time] 54.2 s 24.1-36.2 [facility] No Panel InformationOrdered By: Reagan Greenfield on 11-17-2023 Troponin I High Sensitivity 18 pg/mL 3.0-78.0 [facility] [place] Comment on above: Please Note: New Serina t Units and Gender Specific Reference Ranges. For more information see Policy Stat Procedure [place] High Sensitivity Troponin (TNIH) and attachments. Basophil percentageOrdered B y: Kristal White on 11-16-2023 Ammonia (P) [Moles/Vol] 13.0 umol/L 11-32 [facility] [place] Cholesterol [Mass/Vol] 118 mg/dL <200 [facility] Comment on above: <200 mg/dL Desirable 200-240 mg/dL Borderline >240 mg/dL High Risk Triglyceride [Mass/Vol] 60 mg/dL <199 [facility] Comment on above: The drugs N-Acetylcy steine and Metamizole may falsely depress this assay.Serum Triglycerides Reference Interval Normal <150 mg/dL Borderline high 150 - 199 mg/dL High 200 - 499 mg/dL Very High > or = 500 mg/dL Laboratory - Chemistry and C hemistry - challengeOrdered By: Kristal Hayward on 11-16-2023 Cholesterol in HDL [Mass/Vol] 55 mg/dL >40 [facility] [place] Comment on above: The drugs N-Acetylcy steine and Metamizole may falsely depress this assay. Reference Range HDL <40 mg/dL Low HDL Cholesterol HDL >or= 60 mg/dL High HDL Cholesterol Cholesterol in LDL [Mass/Vol] 51 mg/dL 0-130 [facility] [place] Laboratory - Chemistry and C hemistry - challengeOrdered By: Barrie Oreilly on 11-16-2023 Natriuretic peptide B (Bld) [Mass/Vol] 277.4 pg/mL 0-100 [facility] [place] No Panel InformationOrdered By: Kristal Hayward on 11-16-2023 VLDL Cholesterol 12 mg/dL 5-40 [facility] [place] ALLIED HEALTHon 11-15-2023 ALLIED [facility] HNO ID: [id number] Author: ENEDELIA LUDWIG Tech Service: Radiology Author Type: Technologist Type: Allied Health Filed: 11/15/2023 14:13 Note Text: Radiology Service Progress Note PATIENT NAME: Reid Valdivia DATE OF SERVICE: November 15, 2023 TIME: 2:12 PM PATIENT IDENTITY VERIFICATION COMPLETED USING TWO (2) IDENTIFIERS: Name and Date of confirmed by patient verbally. FALL SCREENING: Has the patient had 2 falls in the last year or 1 fall with injury or currently using an Ambulatory Assistive Device (Walker, Cane, Wheelchair, Crutches, etc.)? Emergency Room Patient: Screened in ED PATIENT GENDER DATA: Male PATIENT RELEVANT IMPLANT DATA REVIEWED: Yes PATIENT PRESENTS WITH AN IMPLANTABLE OR ATTACHED SIGN MAKER: No RADIOLOGY DEPARTMENT: CT; Exam(s) Completed: Brain PERIPHERAL IV DATA: Not applicable SIGNED BY: Sofi Rosas November 15, 2023 2:12 PM [facility] ALL[facility] HEALTH HNO ID: [id number] Author: ENEDELIA LUDWIG Tech Service: Radiology Author Type: Technologist Type: Allied Health Filed: 11/15/2023 12:13 Note Text: Radiology Service Progress Note DATE OF SERVICE: November 15, 2023 TIME: 12:12 PM PATIENT IDENTITY VERIFICATION COMPLETED USING TWO (2) STANDARD IDENTIFIERS: Name and Date of confirmed by patient verbally. FALL SCREENING: Has the patient had 2 falls in the last year or 1 fall with injury or currently using an Ambulatory Assistive Device (Walker, Cane, Wheelchair, Crutches, etc.)? Emergency Room Patient: Screened in ED PATIENT GENDER DATA: Male PATIENT RELEVANT IMPLANT DATA REVIEWED: Yes PATIENT PRESENTS WITH AN IMPLANTABLE OR ATTACHED SIGN MAKER: No ALLERGIES: Reviewed and unchanged CONTRAST ALLERGY: NO. EXAM: CT -CONTRAST INDUCED NEPHROPATHY RISK FACTORS: Patient age > 60 years CREATININE: Creatinine Date Value Ref Range Status 11/15/2023 1.06 0.73 - 1.22 mg/dL Final 10/02/2018 1.03 0.73 - 1.22 mg/dL Final Estimated Glomerular Filtration Rate Date Value Ref Range Status 11/15/2023 75 >=60 mL/min/1.73m? Final Comment: Estimated Glomerular Filtration Rate (eGFR) is calculated using the 2020 CKD-EPI creatinine equation. This equation utilizes serum creatinine, sex, and age as parameters. The creatinine assay has traceable calibration to isotope dilution-mass spectrometry. Refer to KDIGO guidelines for clinical interpretation. In patients with unstable renal function, e.g. those with acute kidney injury, the eGFR may not accurately reflect actual GFR. eGFR- Date Value Ref Range Status 10/02/2018 >60 Final P.O.C.T. RESULTS: POC done: Yes, See Lab Tab November 15, 2023 TREATMENT: N/A PERIPHERAL IV DATA: Inpatient - refer to LDA documentation RADIOLOGY DEPARTMENT: CT; Exam(s) Completed: CTA Chest SIGNATURE: Sofi Rosas PATIENT NAME: Reid Valdivia DATE: November 15, 2023 TIME: 12:12 PM [facility] Basophil percentageOrdered B y: Floraramyakael Denilson on 11-15-2023 Basophil percentage 0 SEEN /hpf 0-5 [facility] Bilirubin Test strip Ql (U)O rdered By: Stewartkael Denilson on 11-15-2023 Bilirubin Ql (U) Negative Negative [facility] [place] CBC W Auto Differential pane l (Bld)on 11-15-2023 Basophils (Bld) [#/Vol] 0.03 10*3/uL Normal <0.11 [facility] Comment on above: Order Comment: Speci men Type: BLOOD SPECIMEN Ordering Facility: [facility] Address: [address] [place] [address] Performed By: #### 5 7021-8 #### [facility] CLIA [id number] [address] [place] Basophils/100 WBC (Bld) 0.2 % Normal [place] Comment on above: Order Comment: Speci men Type: BLOOD SPECIMEN Ordering Facility: [facility] Address: [address] [place] [address] Performed By: #### 5 7021-8 #### [facility] CLIA [id number] [address] [place] [id number] [facility] [place] Differential cell count method Nom (Bld) Auto Normal [facility] Comment on above: Order Comment: Speci men Type: BLOOD SPECIMEN Ordering Facility: [facility] Address: [address] [place] [address] Performed By: #### 5 7021-8 #### [facility] CLIA [id number] [address] [place] [address] [place] Eosinophils (Bld) [#/Vol] 0.07 10*3/uL Normal <0.46 [facility] Comment on above: Order Comment: Speci men Type: BLOOD SPECIMEN Ordering Facility: [facility] Address: [address] [place] [address] Performed By: #### 5 7021-8 #### [facility] CLIA [id number] [address] [place] [id number] [place] Eosinophils/100 WBC (Bld) 0.5 % Normal [facility] [facility] Comment on above: Order Comment: Speci men Type: BLOOD SPECIMEN Ordering Facility: [facility] Address: [address] [place] [address] Performed By: #### 5 7021-8 #### [facility] CLIA [id number] [address] [place] [address] [place] Erythrocyte distribution width (RBC) [Ratio] 13.4 % Normal 11.5-15.0 [facility] Comment on above: Order Comment: Speci men Type: BLOOD SPECIMEN Ordering Facility: [facility] Address: [address] [place] [address] Performed By: #### 5 7021-8 #### [facility] CLIA [id number] [address] [place] [address] [place] Hematocrit (Bld) [Volume fraction] 48.0 % Normal 39.0-51.0 [facility] Comment on above: Order Comment: Speci men Type: BLOOD SPECIMEN Ordering Facility: [facility] Address: [address] [place] [address] Performed By: #### 5 7021-8 #### [facility] CLIA [id number] [address] [place] [address] [place] Hemoglobin (Bld) [Mass/Vol] 15.9 g/dL Normal 13.0-17.0 [facility] Comment on above: Order Comment: Speci men Type: BLOOD SPECIMEN Ordering Facility: [facility] Address: [address] [place] [address] Performed By: #### 5 7021-8 #### [facility] CLIA [id number] [address] [place] [id number] [facility] [place] Immature granulocytes (Bld) [#/Vol] 0.03 10*3/uL Normal <0.10 [facility] Comment on above: Order Comment: Speci men Type: BLOOD SPECIMEN Ordering Facility: [facility] Address: [address] [place] [address] Performed By: #### 5 7021-8 #### [facility] CLIA [id number] [address] [place] [address] [place] Immature granulocytes/100 WBC (Bld) 0.2 % Normal [facility] Comment on above: Order Comment: Speci men Type: BLOOD SPECIMEN Ordering Facility: [facility] Address: [address] [place] [address] Performed By: #### 5 7021-8 #### [facility] CLIA [id number] [address] [place] [address] [place] Lymphocytes (Bld) [#/Vol] 1.78 10*3/uL Normal 1.00-4.00 [facility] Comment on above: Order Comment: Speci men Type: BLOOD SPECIMEN Ordering Facility: [facility] Address: [address] [place] [address] Performed By: #### 5 7021-8 #### [facility] CLIA [id number] [address] Lymphocytes/100 WBC (Bld) 13.0 % Normal [facility] Comment on above: Order Comment: Speci men Type: BLOOD SPECIMEN Ordering Facility: [facility] Address: [address] [place] [address] Performed By: #### 5 7021-8 #### [facility] CLIA [id number] [address] [place] [address] [place] MCH (RBC) [Entitic mass] 31.9 pg Normal 26.0-34.0 [facility] Comment on above: Order Comment: Speci men Type: BLOOD SPECIMEN Ordering Facility: [facility] Address: [address] [place] [address] Performed By: #### 5 7021-8 #### [facility] CLIA [id number] [address] [place] [address] [place] MCHC (RBC) [Mass/Vol] 33.1 g/dL Normal 30.5-36.0 [facility] Comment on above: Order Comment: Speci men Type: BLOOD SPECIMEN Ordering Facility: [facility] Address: [address] [place] [address] Performed By: #### 5 7021-8 #### [facility] CLIA [id number] [address] [place] [address] [place] MCV (RBC) [Entitic vol] 96.4 fL Normal 80.0-100.0 [facility] [place] Comment on above: Order Comment: Speci men Type: BLOOD SPECIMEN Ordering Facility: [facility] Address: [address] [place] [address] Performed By: #### 5 7021-8 #### [facility] CLIA [id number] [address] [place] [address] [place] Monocytes (Bld) [#/Vol] 0.64 10*3/uL Normal <0.87 [facility] Comment on above: Order Comment: Speci men Type: BLOOD SPECIMEN Ordering Facility: [facility] Address: [address] [place] [address] Performed By: #### 5 7021-8 #### [facility] CLIA [id number] [address] [place] [address] [place] Monocytes/100 WBC (Bld) 4.7 % Normal [place] Comment on above: Order Comment: Speci men Type: BLOOD SPECIMEN Ordering Facility: [facility] Address: [address] [place] [address] Performed By: #### 5 7021-8 #### [facility] CLIA [id number] [address] [place] [address] [place] Neutrophils (Bld) [#/Vol] 11.10 10*3/uL High 1.45-7.50 [facility] Comment on above: Order Comment: Speci men Type: BLOOD SPECIMEN Ordering Facility: [facility] Address: [address] [place] [address] Performed By: #### 5 7021-8 #### [facility] CLIA [id number] [address] [place] [address] [place] Neutrophils/100 WBC (Bld) 81.4 % Normal [facility] Comment on above: Order Comment: Speci men Type: BLOOD SPECIMEN Ordering Facility: [facility] Address: [address] [place] [address] Performed By: #### 5 7021-8 #### [facility] CLIA [id number] [address] [place] [address] [place] Nucleated RBC (Bld) [#/Vol] Normal [facility] Comment on above: Order Comment: Speci men Type: BLOOD SPECIMEN Ordering Facility: [facility] Address: [address] [place] [address] Performed By: #### 5 7021-8 #### [facility] CLIA [id number] [address] [place] [address] [place] Nucleated RBC/100 WBC (Bld) [Ratio] Normal [facility] Comment on above: Order Comment: Speci men Type: BLOOD SPECIMEN Ordering Facility: [facility] Address: [address] [place] [address] Performed By: #### 5 7021-8 #### [facility] CLIA [id number] [address] [place] [address] [place] Platelet mean volume (Bld) [Entitic vol] 10.1 fL Normal 9.0-12.7 [facility] Comment on above: Order Comment: Speci men Type: BLOOD SPECIMEN Ordering Facility: [facility] Address: [address] [place] [address] Performed By: #### 5 7021-8 #### [facility] CLIA [id number] [address] [place] [address] [place] Platelets (Bld) [#/Vol] 184 10*3/uL Normal 150-400 [facility] Comment on above: Order Comment: Speci men Type: BLOOD SPECIMEN Ordering Facility: [facility] Address: [address] [place] [address] Performed By: #### 5 7021-8 #### [facility] CLIA [id number] [address] [place] [address] [place] RBC (Bld) [#/Vol] 4.98 10*6/uL Normal 4.20-6.00 [facility] Comment on above: Order Comment: Speci men Type: BLOOD SPECIMEN Ordering Facility: [facility] Address: [address] [place] [address] Performed By: #### 5 7021-8 #### [facility] CLIA [id number] [address] [place] [phone] [facility] WBC (Bld) [#/Vol] 13.65 10*3/uL High 3.70-11.00 [facility] Comment on above: Order Comment: Speci men Type: BLOOD SPECIMEN Ordering Facility: [facility] Address: [address] [place] [address] Performed By: #### 5 7021-8 #### [facility] CLIA [id number] [address] [place], [place] [id number] [facility] CT BRAIN WO IVCONon 11-15-[address] BRAIN WO IVCON * * *Final Report* * * DATE OF EXAM: Nov 15 2023 2:11PM [facility] 0504 - CT BRAIN WO IVCON / PROCEDURE REASON: Mental status change, unknown cause * * * * Physician Interpretation * * * * CT BRAIN WO IVCON Indication: Mental status change, unknown cause/ / Male/73 years TECHNIQUE: Routine CT of the brain without IV contrast. CT Dose-Length Product (DLP): 1589.00 mGy*cm CT Dose Reduction Employed: Automated exposure control(AEC) and iterative recon CT BRAIN: Acute ischemic change: None. Hemorrhage: No evidence of acute intracranial hemorrhage. Mass Effect / Mass Lesion: No significant mass effect. There is no evidence of an intracranial mass or extraaxial fluid collection. Chronic ischemic change: Periventricular hypodensity consistent with small vessel disease. Parenchyma: Sulci cisterns and ventricular system reveals some atrophic changes consistent with age-related changes Ventricles: Ventricular dilatation consistent with atrophic changes Other: The visualized calvarium, skull base, orbits and extracranial soft tissues are normal. Calcified atheromatous changes of the internal carotids. IMPRESSION: Exam limited by patient motion Age related atrophic changes No acute intracranial paper machine back tender: PSCSendy Transcribe Date/Time: Nov 15 2023 2:12P Dictated by : TAWNYA CORNELIUS MD This examination was interpreted and the report reviewed and electronically signed by: TAWNYA CORNELIUS MD on Nov 15 2023 2:27PM EST [id number] Normal [facility] CT CHEST W IVCON PEon 2023 CT CHEST W IVCON PE * * *Final Report* * * DATE OF EXAM: Nov 15 2023 12:11PM [facility] 0540 - CT CHEST W IVCON PE / PROCEDURE REASON: Pulmonary embolism (PE) suspected, high prob * * * * Physician Interpretation * * * * EXAMINATION: CHEST CT WITH CONTRAST (PULMONARY EMBOLISM PROTOCOL) CLINICAL HISTORY: Pulmonary embolism suspected high probability shortness of breath and confusion Technique: Spiral CT acquisition of the chest from the thoracic inlet to the upper abdomen following IV contrast. Axial 1 and 3 mm thick slices plus coronal and sagittal reformatted images. MQ: CTCP_5 Contrast: 100 mL Omnipaque [address] Radiation dose: Integrated Dose-length product (DLP) for this visit = 543.88 mGy*cm CT Dose Reduction Employed: Automated exposure control(AEC) and iterative recon Comparison: chest radiograph same day RESULT: Limitations: Limited due to streak artifact from the arms being down at the sides and respiratory motion artifact. Evaluation for thromboembolic disease: - Right heart chambers: No thromboembolic disease. - Main pulmonary arteries: No thromboembolic disease. - Lobar pulmonary arteries: Nondiagnostic. - Segmental pulmonary arteries: Nondiagnostic. - Subsegmental pulmonary arteries: Nondiagnostic. - Additional pulmonary artery findings: The main pulmonary artery is normal in caliber. Lines, tubes, and devices: None. Lung parenchyma and airways: No consolidation. Dependent atelectasis. Very limited evaluation of the lung boyd due to motion. Pleural space: No pleural effusion. No pneumothorax. Lower neck, lymph nodes, and mediastinum: The imaged thyroid gland is normal. No lymphadenopathy in the supraclavicular, axillary, mediastinal, or hilar regions. Heart, pericardium, and thoracic vessels: The thoracic aorta is normal in caliber. Heart size within normal limits. Bones and soft tissues: No acute osseous findings. Degenerative changes. Upper abdomen: No abnormality in the imaged upper abdomen. Pier Runner (topogram) images: No additional findings. IMPRESSION: No large pulmonary embolus in the main pulmonary arteries. Nondiagnostic evaluation of the smaller pulmonary arteries. [employer]: WILLY Transcribe Date/Time: Nov 15 2023 12:30P Dictated by : NICK ROY MD This examination was interpreted and the report reviewed and electronically signed by: NICK ROY MD on Nov 15 2023 12:36PM EST [id number] Normal [facility] Comp Metab 2000 Pnl SerPlon 11-15-2023 Potassium [Moles/Vol] 4.3 mmol/L Normal 3.5-5.0 [facility] Comment on above: Order Comment: Speci men Type: BLOOD SPECIMEN Ordering Facility: [facility] Address: [address] [place] [address] Performed By: #### 2 4323-8 #### [facility] CLIA [id number] [address] [place], [place] [address] [place] [address] Order Comment: Speci men Type: VENOUS BLOOD SPECIMEN Ordering Facility: [facility] Address: [address] [place] [address] Performed By: #### 2 4344-4 #### [facility] CLIA [id number] [address] [place] [address] [facility] Comprehensive metabolic 2000 panelon 11-15-2023 Albumin [Mass/Vol] 4.1 g/dL Normal 3.9-4.9 [facility] Comment on above: Order Comment: Speci men Type: BLOOD SPECIMEN Ordering Facility: [facility] Address: [address] [place] [address] Performed By: #### 2 4323-8 #### [facility] CLIA [id number] [address] [place] [phone] [facility] [place] ALP [Catalytic activity/Vol] 115 U/L High 38-113 [facility] Comment on above: Order Comment: Speci men Type: BLOOD SPECIMEN Ordering Facility: [facility] Address: [address] [place] [address] Performed By: #### 2 4323-8 #### [facility] CLIA [id number] [address] [place] [address] [place] ALT With P-5'-P [Catalytic activity/Vol] 7 U/L Low 10-54 [facility] Comment on above: Order Comment: Speci men Type: BLOOD SPECIMEN Ordering Facility: [facility] Address: [address] [place] [address] Performed By: #### 2 4323-8 #### [facility] CLIA [id number] [address] [place] [address] [place] Anion gap [Moles/Vol] 15 mmol/L Normal 9-18 [facility] Comment on above: Order Comment: Speci men Type: BLOOD SPECIMEN Ordering Facility: [facility] Address: [address] [place] [address] Performed By: #### 2 4323-8 #### [facility] CLIA [id number] [address] [place] [address] [place] AST With P-5'-P [Catalytic activity/Vol] 10 U/L Low 14-40 [facility] Comment on above: Order Comment: Speci men Type: BLOOD SPECIMEN Ordering Facility: [facility] Address: [address] [place] [address] Performed By: #### 2 4323-8 #### [facility] CLIA [id number] [address] [place] [address] [place] Bilirubin [Mass/Vol] 0.6 mg/dL Normal 0.2-1.3 [facility] Comment on above: Order Comment: Speci men Type: BLOOD SPECIMEN Ordering Facility: [facility] Address: [address] [place] [address] Performed By: #### 2 4323-8 #### [facility] CLIA [id number] [address] [place] [address] [place] Calcium [Mass/Vol] 9.2 mg/dL Normal 8.5-10.2 [facility] Comment on above: Order Comment: Speci men Type: BLOOD SPECIMEN Ordering Facility: [facility] Address: [address] [place] [address] Performed By: #### 2 4323-8 #### [facility] CLIA [id number] [address] [place] [address] [place] Chloride [Moles/Vol] 99 mmol/L Normal 97-105 [facility] Comment on above: Order Comment: Speci men Type: BLOOD SPECIMEN Ordering Facility: [facility] Address: [address] [place] [address] Performed By: #### 2 4323-8 #### [facility] CLIA [id number] [address] [place] [address] [place] CO2 [Moles/Vol] 22 mmol/L Normal 22-30 [facility] Comment on above: Order Comment: Speci men Type: BLOOD SPECIMEN Ordering Facility: [facility] Address: [address] [place] [address] Performed By: #### 2 4323-8 #### [facility] CLIA [id number] [address] [place] [address] [place] Creatinine [Mass/Vol] 1.06 mg/dL Normal 0.73-1.22 [facility] Comment on above: Order Comment: Speci men Type: BLOOD SPECIMEN Ordering Facility: [facility] Address: [address] [place] [address] Performed By: #### 2 4323-8 #### [facility] CLIA [id number] [address] [place] [address] [place] Creatinine and Glomerular filtration rate.predicted panel (S/P/Bld) 75 mL/min/1.73m??? Normal >=60 [facility] Comment on above: Order Comment: Speci men Type: BLOOD SPECIMEN Ordering Facility: [facility] Address: [address] [place] [address] Result Comment: Maryann mated Glomerular Filtration Rate (eGFR) is calculated using the 2020 CKD-EPI creatinine equation. This equation utilizes serum creatinine, sex, and age as parameters. The creatinine assay has traceable calibration to isotope dilution-mass spectrometry. Refer to KDIGO guidelines for clinical interpretation. In patients with unstable renal function, e.g. those with acute kidney injury, the eGFR may not accurately reflect actual GFR. Performed By: #### 2 4323-8 #### [facility] CLIA [id number] [address] [place] [address] [place] Glucose [Mass/Vol] 145 mg/dL High 74-99 [facility] Comment on above: Order Comment: Adrian sullivan Type: BLOOD SPECIMEN Ordering Facility: [facility] Address: [address] [place], [place] [id number] Result Comment: The [place] Diabetes Association (ADA) provides guidance for cutoff values for fasting glucose and random glucose. The ADA defines fasting as no caloric intake for at least 8 hours. Fasting plasma glucose results between 100 to 125 mg/dL indicate increased risk for diabetes (prediabetes). Fasting plasma glucose results greater than or equal to 126 mg/dL meet the criteria for diagnosis of diabetes. In the absence of unequivocal hyperglycemia, results should be confirmed by repeat testing. In a patient with classic symptoms of hyperglycemia or hyperglycemic crisis, random plasma glucose results greater than or equal to 200 mg/dL meet the criteria for diagnosis of diabetes. Reference: Standards of Medical Care in Diabetes 2016, [place] Diabetes Association. Diabetes Care. 2016.39(Suppl 1). Performed By: #### 2 4323-8 #### [facility] CLIA [id number] [address] [place] [address] [place] Protein [Mass/Vol] 7.2 g/dL Normal 6.3-8.0 [facility] Comment on above: Order Comment: Adrian sullivan Type: BLOOD SPECIMEN Ordering Facility: [facility] Address: [address] [place] [address] Performed By: #### 2 4323-8 #### [facility] CLIA [id number] [address] [place] [address] [place] Sodium [Moles/Vol] 136 mmol/L Normal 136-144 [facility] Comment on above: Order Comment: Speci men Type: BLOOD SPECIMEN Ordering Facility: [facility] Address: [address] [place] [address] Performed By: #### 2 4323-8 #### [facility] CLIA [id number] [address] [place] [phone] [facility] Urea nitrogen [Mass/Vol] 19 mg/dL Normal 9-24 [facility] Comment on above: Order Comment: Speci men Type: BLOOD SPECIMEN Ordering Facility: [facility] Address: [address] [place] [address] Performed By: #### 2 4323-8 #### [facility] CLIA [id number] [address] [place] [phone] [facility] [place] D dimer FEU PPP-mCncon 11-14 Fibrin D-dimer FEU (PPP) [Mass/Vol] 2000 ng/mL FEU High <500 [facility] Comment on above: Order Comment: Speci men Type: BLOOD SPECIMEN Ordering Facility: [facility] Address: [address] [place] [address] Performed By: #### 4 8065-7 #### [facility] CLIA [id number] [address] [place], [place] [id number] [facility] [place] ECG COMPLETEon 11-15-2023 ECG COMPLETE Ventricular Rate : 9 3 BPM Atrial Rate : 93 BPM P-R Interval : 146 ms QRS Duration : 78 ms Q-T Interval : 360 ms QTC Calculation(Bazett) : 447 ms Calculated P [place] : 68 degrees Calculated R [place] : 78 degrees Calculated T [place] : 61 degrees NORMAL SINUS RHYTHM ANTERIOR INFARCT (CITED ON OR BEFORE 15-Nov-2023) INFERIOR INJURY PATTERN REPEAT ECG SUGGESTED , CORRELATE WITH HISTORY, TROPONINS FOR INFERIOR STEMI WHEN COMPARED WITH ECG OF 15-Nov-2023 10:30, NO SIGNIFICANT CHANGE WAS FOUND Confirmed by MD DAVID, ELIZABETH ([id number]) on 11/16/2023 11:38:17 PM NAME : REID VALDIVIA PID : [id number] : 1950 Gender : Male Race : ORD : [id number] Procedure Date : Nov 15 2023 13:05:41 Edit Date : Nov 16 2023 23:38:19 Diagnosis: NORMAL SINUS RHYTHM ANTERIOR INFARCT (CITED ON OR BEFORE 15-Nov-2023) INFERIOR INJURY PATTERN REPEAT ECG SUGGESTED , CORRELATE WITH HISTORY, TROPONINS FOR INFERIOR STEMI WHEN COMPARED WITH ECG OF 15-Nov-2023 10:30, NO SIGNIFICANT CHANGE WAS FOUND Confirmed by MD HERNANDEZ VINAYAK ([id number]) on 11/16/2023 11:38:17 PM Test Reason : Chest Pain Location : 150 : [facility] Overread By : MD HERNANDEZ VINAYAK Edited By : MD HERNANDEZ VINAYAK Referred By : , Acquired by : JOSE MANUEL POST [facility] ED NOTEon 11-15-2023 ED NOTE HNO ID: [id number] Author: ENMA YO RN Service: Emergency Medicine Author Type: Registered Nurse Type: ED Notes Filed: 11/15/2023 16:55 Note Text: Report attempted no answer [facility] ED NOTE HNO ID: [id number] Author: ENMA YO RN Service: Emergency Medicine Author Type: Registered Nurse Type: ED Notes Filed: 11/15/2023 16:43 Note Text: Report attempted Normal [facility] ED NOTE HNO ID: [id number] Author: ISRAEL MENCHACA RN Service: Emergency Medicine Author Type: Registered Nurse Type: ED Notes Filed: 11/15/2023 16:04 Note Text: [facility] ETA: 45mins [facility] ED NOTE HNO ID: [id number] Author: ISRAEL MENCHACA RN Service: Emergency Medicine Author Type: Registered Nurse Type: ED Notes Filed: 11/15/2023 16:01 Note Text: Pt accepted to [facility] bed 312 Nurse to Nurse Report [phone] [facility] ED NOTE HNO ID: [id number] Author: UMU ROTH RN Service: Emergency Medicine Author Type: Registered Nurse Type: ED Notes Filed: 11/15/2023 14:38 Note Text: Call into [place] per family request for admit [facility] ED NOTE HNO ID: [id number] Author: ENMA YO RN Service: Emergency Medicine Author Type: Registered Nurse Type: ED Notes Filed: 11/15/2023 12:47 Note Text: Urinal used in bed [facility] ED NOTE HNO ID: [id number] Author: ENMA YO RN Service: Emergency Medicine Author Type: Registered Nurse Type: ED Notes Filed: 11/15/2023 12:23 Note Text: Pt still confused and needing to be redirected to stay in bed. [facility] ED NOTE HNO ID: [id number] Author: ENMA YO, JUDY Service: Emergency Medicine Author Type: Registered Nurse Type: ED Notes Filed: 11/15/2023 12:51 Note Text: Pt returned incontinent from ct. Pt cleaned up. Pants removed. Family memebr states he wont let her take pants off at home. States its been weeks for these pants on. Feet/socks flaky. Toe nail unkept. Toe nails 1-3 inch long. [facility] ED NOTE HNO ID: [id number] Author: ENMA YO RN Service: Emergency Medicine Author Type: Registered Nurse Type: ED Notes Filed: 11/15/2023 12:24 Note Text: Pt up to bathroom again with no production [facility] ED NOTE HNO ID: [id number] Author: ENMA YO RN Service: Emergency Medicine Author Type: Registered Nurse Type: ED Notes Filed: 11/15/2023 12:24 Note Text: Urinal used in bed [facility] ED NOTE HNO ID: [id number] Author: ENMA YO RN Service: Emergency Medicine Author Type: Registered Nurse Type: ED Notes Filed: 11/15/2023 10:55 Note Text: Back to bed. [facility] ED NOTE HNO ID: [id number] Author: ENMA YO RN Service: Emergency Medicine Author Type: Registered Nurse Type: ED Notes Filed: 11/15/2023 10:55 Note Text: Pt up to bsc with no production [facility] ED NOTE HNO ID: [id number] Author: ENMA YO RN Service: Emergency Medicine Author Type: Registered Nurse Type: ED Notes Filed: 11/15/2023 10:40 Note Text: Pt slightly less restless but attempting to crawl out of bed. States everywhere pain. Normal [facility] ED NOTE HNO ID: [id number] Author: ENMA YO RN Service: Emergency Medicine Author Type: Registered Nurse Type: ED Notes Filed: 11/15/2023 10:26 Note Text: Pt very restless. Problems taking EKG. Xr etc. Normal [facility] ED NOTE HNO ID: [id number] Author: ENMA YO RN Service: Emergency Medicine Author Type: Registered Nurse Type: ED Notes Filed: 11/15/2023 11:00 Note Text: Pt c/o CP and abd pain that started this am. Pt disheveled/dirty/self care deficit noted. Pt family also concerned as he is showing signs of progressive dementia which he has appt for. PWD. Normal [facility] ED PROV NOTEon 11-15-2023 ED PROV NOTE HNO ID: [id number] Author: STU IYER MD Service: Emergency Medicine Author Type: Physician Type: ED Provider Notes Filed: 11/15/2023 16:52 Note Text: ED Provider Note Patient Name: Reid Valdivia : 1950 SERVICE DATE: 11/15/23 History Patient presents with: Chest Pain Confusion Patient presents to the emergency department with chest pain. He was brought in by his girlfriend who notes that he developed chest pain this morning. She also notes increasing confusion but notes he has been having increased confusion over the last several weeks and has appoint with PCP next week. On arrival patient notes chest pain to be pleuritic and sharp. Is made worse with inspiration. He denies any fevers, chills, cough, diaphoresis, shortness of breath, abdominal pain, peripheral edema, nausea, vomiting, diarrhea, blood in stools. Patient notes the pain does radiate to his back. PAST MEDICAL HISTORY Diagnosis Date - Smoker - Snoring PAST SURGICAL HISTORY Procedure Laterality Date - COLONOSCOPY FLX DX W/COLLJ SPEC WHEN PFRMD 12/28/2018 Colonoscopy - HERNIA REPAIR W/MESH 1995 - NECK SURGERY HX 2000 herniated disc - ORTHOPEDICS SURGERY HX FAMILY HISTORY Problem Relation Age of Onset - Heart disease Mother - Hyperlipidemia Mother - Colon Cancer Father - Heart disease Sister - Heart disease Brother - Colon Cancer Maternal Uncle Social History Tobacco Use - Smoking status: Some Days Packs/day: 0.50 Years: 40.00 Additional pack years: 0.00 Total pack years: 20.00 Types: Cigarettes - Smokeless tobacco: Never - Tobacco comments: every now and then smoking Vaping Use - Vaping Use: Never used Substance and Sexual Activity - Alcohol use: No - Drug use: No - Sexual activity: Yes Partners: Female ALLERGIES No Known Allergies Review of Systems Constitutional: Negative for chills and fever. HENT: Negative for rhinorrhea and sore throat. Eyes: Negative for pain and redness. Respiratory: Negative for cough and shortness of breath. Cardiovascular: Positive for chest pain. Negative for leg swelling. Gastrointestinal: Negative for abdominal pain, nausea and vomiting. Genitourinary: Negative for dysuria and frequency. Musculoskeletal: Negative for back pain and neck pain. Skin: Negative for rash and wound. Neurological: Negative for syncope, weakness and numbness. Psychiatric/Behavioral: Positive for confusion. Physical Exam Vitals [11/15/23 1004] BP Pulse Temp Temp src Resp SpO2 Weight Height (!) 147/114 77 36.8 ?C (98.3 ?F) Temporal 16 (!) 94 % 89.8 kg (198 lb) -- Physical Exam Vitals and nursing note reviewed. Constitutional: Appearance: He is well-developed. HENT: Head: Normocephalic and atraumatic. Eyes: Extraocular Movements: Extraocular movements intact. Pupils: Pupils are equal, round, and reactive to light. Cardiovascular: Rate and Rhythm: Normal rate and regular rhythm. Heart sounds: Normal heart sounds. No murmur heard. Pulmonary: Effort: Pulmonary effort is normal. Breath sounds: Normal breath sounds. Chest: Chest wall: No tenderness. Abdominal: General: Bowel sounds are normal. Palpations: Abdomen is soft. There is no mass. Musculoskeletal: General: Normal range of motion. Cervical back: Normal range of motion and neck supple. Right lower leg: No tenderness. No edema. Left lower leg: No tenderness. No edema. Skin: General: Skin is warm and dry. Neurological: General: No focal deficit present. Mental Status: He is alert. He is disoriented. Psychiatric: Mood and Affect: Mood normal. Behavior: Behavior normal. Diagnostic Testing ED Labs Ordered and Reviewed COMP METABOLIC PANEL - Abnormal; Notable for the following components: Result Value Ref Range Alkaline Phosphatase 115 (*) 38 - 113 U/L AST 10 (*) 14 - 40 U/L ALT 7 (*) 10 - 54 U/L Glucose 145 (*) 74 - 99 mg/dL All other components within normal limits D-DIMER - Abnormal; Notable for the following components: D Dimer 2,000 (*) <500 ng/mL FEU All other components within normal limits Narrative: 500 ng/mL FEU is the D Dimer cutoff to exclude DVT (deep vein thrombosis) and PE (pulmonary embolism) in patients with a low pre test probability. Supplemental Comment: In patients over 50 years with a low pre test probability for DVT and/or PE, an age adjusted D dimer cutoff can be calculated as [age x 10] ng/mL FEU. For example, a patient of 88 years would have an age adjusted D dimer cutoff of 880 ng/mL FEU. For patients with a suspected DVT, a D dimer level below 500 ng/mL FEU has a negative predictive value of >98.9%, a sensitivity of >96.9% and a specificity of >35.7%. For patients with a suspected PE, a D dimer level below 500 ng/mL FEU has a negative predictive value of >98.5%, and a sensitivity of >96.5% and a specificity of >38.8%. Reference: Romie M, et al. LORE 2014 311:[id number] and Van (more content not included)... Normal [facility] EKGon 11-15-2023 Electrocardiogram Ventricular Rate : 9 5 BPM Atrial Rate : 95 BPM P-R Interval : 152 ms QRS Duration : 78 ms Q-T Interval : 348 ms QTC Calculation(Bazett) : 437 ms Calculated P [place] : 74 degrees Calculated R [place] : 70 degrees Calculated T [place] : 52 degrees NORMAL SINUS RHYTHM ANTERIOR INFARCT , AGE UNDETERMINED ABNORMAL ECG NO PREVIOUS ECGS AVAILABLE Confirmed by MD HERNANDEZ VINAYAK ([id number]) on 11/16/2023 11:37:18 PM NAME : REID VALDIVIA JR PID : [id number] : 1950 Gender : Male Race : ORD : Procedure Date : Nov 15 2023 10:30:43 Edit Date : Nov 16 2023 23:37:19 Diagnosis: NORMAL SINUS RHYTHM ANTERIOR INFARCT , AGE UNDETERMINED ABNORMAL ECG NO PREVIOUS ECGS AVAILABLE Confirmed by MD HERNANDEZ VINAYAK ([id number]) on 11/16/2023 11:37:18 PM Test Reason : Location : 191 : [facility] ED Overread By : MD HERNANDEZ VINAYAK Edited By : MD HERNANDEZ VINAYAK Referred By : , Acquired by : JOSE MANUEL POST Normal [facility] Fibrin D-dimer FEU (PPP) [Ma ss/Vol]on 11-15-2023 D DIMER AGE-RELATED CUTOFF 720 ng/mL FEU Normal [facility] Comment on above: Order Comment: Speci men Type: BLOOD SPECIMEN Ordering Facility: [facility] Address: [address] [place] [address] Performed By: #### 4 8065-7 #### [facility] CLIA [id number] [address] [place] [address] [place] Gas and Carbon monoxide pane l (BldV)on 11-15-2023 BASE DEFICIT, VENOUS >-1 Normal -2-0 [facility] Comment on above: Order Comment: Speci men Type: VENOUS BLOOD SPECIMEN Ordering Facility: [facility] Address: [address] [place] [address] Performed By: #### 2 4344-4 #### [facility] CLIA [id number] [address] [place] [address] [place] Body temperature 98.6 [degF] Normal [facility] Comment on above: Order Comment: Speci men Type: VENOUS BLOOD SPECIMEN Ordering Facility: [facility] Address: [address] [place] [address] Performed By: #### 2 4344-4 #### [facility] CLIA [id number] [address] [place] [id number] [place] Calcium.ionized (Bld) [Mass/Vol] 1.13 mmol/L Normal 1.08-1.30 [facility] Comment on above: Order Comment: Speci men Type: VENOUS BLOOD SPECIMEN Ordering Facility: [facility] Address: [address] [place] [address] Performed By: #### 2 4344-4 #### [facility] CLIA [id number] [address] [place] [address] [facility] [place] Calcium.ionized adjusted to pH 7.4 (BldA) [Moles/Vol] 1.10 mmol/L Normal 1.08-1.30 [facility] Comment on above: Order Comment: Speci men Type: VENOUS BLOOD SPECIMEN Ordering Facility: [facility] Address: [address] [place] [address] Performed By: #### 2 4344-4 #### [facility] CLIA [id number] [address] [place] [address] [place] Carboxyhemoglobin (BldV) [Mass fraction] 3.9 % High 0.0-2.0 [facility] Comment on above: Order Comment: Speci men Type: VENOUS BLOOD SPECIMEN Ordering Facility: [facility] Address: [address] [place] [address] Result Comment: Carb oxyhemoglobin Reference Range for Smokers: 2.0-8.0% Performed By: #### 2 4344-4 #### [facility] CLIA [id number] [address] [place] [address] [place] Chloride [Moles/Vol] 103 mmol/L Normal 97-105 [facility] Comment on above: Order Comment: Speci men Type: VENOUS BLOOD SPECIMEN Ordering Facility: [facility] Address: [address] [place] [address] Performed By: #### 2 4344-4 #### [facility] CLIA [id number] [address] [place] [address] [facility] [place] CO2 (BldV) [Partial pressure] 47 mm[Hg] Normal 42-55 [facility] Comment on above: Order Comment: Speci men Type: VENOUS BLOOD SPECIMEN Ordering Facility: [facility] Address: [address] [place] [address] Performed By: #### 2 4344-4 #### [facility] CLIA [id number] [address] [place] [address] [place] Glucose [Mass/Vol] 137 mg/dL High 60-105 [facility] Comment on above: Order Comment: Speci men Type: VENOUS BLOOD SPECIMEN Ordering Facility: [facility] Address: [address] [place] [address] Performed By: #### 2 4344-4 #### [facility] CLIA [id number] [address] [place] [address] [place] HCO3 (Bld) [Moles/Vol] 26 mmol/L Normal 24-28 [facility] Comment on above: Order Comment: Speci men Type: VENOUS BLOOD SPECIMEN Ordering Facility: [facility] Address: [address] [place] [address] Performed By: #### 2 4344-4 #### [facility] CLIA [id number] [address] [place] [address] [place] Hematocrit (Bld) [Volume fraction] 52.7 % High 39.0-51.0 [facility] Comment on above: Order Comment: Speci men Type: VENOUS BLOOD SPECIMEN Ordering Facility: [facility] Address: [address] [place] [address] Performed By: #### 2 4344-4 #### [facility] CLIA [id number] [address] [place] [address] [place] Hemoglobin (Bld) [Mass/Vol] 17.2 g/dL High 13.0-17.0 [facility] Comment on above: Order Comment: Speci men Type: VENOUS BLOOD SPECIMEN Ordering Facility: [facility] Address: [address] [place] [address] Performed By: #### 2 4344-4 #### [facility] CLIA [id number] [address] [place] [address] [place] Lactate [Moles/Vol] 1.9 mmol/L Normal 0.5-2.2 [facility] Comment on above: Order Comment: Speci men Type: VENOUS BLOOD SPECIMEN Ordering Facility: [facility] Address: [address] [place], [place] [address] Performed By: #### 2 4344-4 #### [facility] CLIA [id number] [address] [place] [address] [place] Methemoglobin (Bld) [Mass fraction] % Normal 0.0-1.5 [facility] Comment on above: Order Comment: Speci men Type: VENOUS BLOOD SPECIMEN Ordering Facility: [facility] Address: [address] [place] [address] Performed By: #### 2 4344-4 #### [facility] CLIA [id number] [address] [place] [address] [place] Oxygen (BldV) [Partial pressure] 38 mm[Hg] Normal 35-45 [facility] Comment on above: Order Comment: Speci men Type: VENOUS BLOOD SPECIMEN Ordering Facility: [facility] Address: [address] [place] [address] Performed By: #### 2 4344-4 #### [facility] CLIA [id number] [address] [place] [address] [place] Oxygen saturation in Venous blood 73 % Normal 60-85 [facility] Comment on above: Order Comment: Speci men Type: VENOUS BLOOD SPECIMEN Ordering Facility: [facility] Address: [address] [place] [address] Performed By: #### 2 4344-4 #### [facility] CLIA [id number] [address] [place] [address] [place] Oxyhemoglobin (BldV) [Mass fraction] 70 % Normal 60-85 [facility] Comment on above: Order Comment: Speci men Type: VENOUS BLOOD SPECIMEN Ordering Facility: [facility] Address: [address] [place] [address] Performed By: #### 2 4344-4 #### [facility] CLIA [id number] [address] [facility] [place] [address] [place] pH (BldV) 7.35 [pH] Normal 7.32-7.42 [facility] Comment on above: Order Comment: Speci men Type: VENOUS BLOOD SPECIMEN Ordering Facility: [facility] Address: [address] [place] [place] [address] Performed By: #### 2 4344-4 #### [facility] CLIA [id number] [address] [place] [address] [place] Sodium [Moles/Vol] 137 mmol/L Normal 136-144 [facility] Comment on above: Order Comment: Adrian sullivan Type: VENOUS BLOOD SPECIMEN Ordering Facility: [facility] Address: [address] [place] [address] Performed By: #### 2 4344-4 #### [facility] CLIA [id number] [address] [place] [address] [place] HIGH SENSITIVITY TROPONIN T (INITIAL)on 11-15-2023 Troponin T.cardiac High sensitivity method [Mass/Vol] 9 ng/L Normal <12 [facility] Comment on above: Order Comment: Adrian laurie Type: BLOOD SPECIMEN Ordering Facility: [facility] Address: [address] [place] [address] Result Comment: When assessing risk for acute coronary syndromes: In patients undergoing blood draw greater than or equal to 2 hours from symptom onset, with history of very low to moderate risk and non-ischemic ECG, an initial hs-Troponin T less than 12 ng/L AND a 1 hour delta hs-Troponin T less than 3 ng/L should be considered very low risk for 30 day MACE. Performed By: #### L [id number] #### [facility] CLIA [id number] [address] [place] [address] [place] HIGH SENSITIVITY TROPONIN T (SECOND)on 11-15-2023 Troponin T.cardiac High sensitivity method [Mass/Vol] 12 ng/L High <12 [facility] Comment on above: Order Comment: Adrian laurie Type: BLOOD SPECIMEN Ordering Facility: [facility] Address: [address] [place] [address] Result Comment: When assessing risk for acute coronary syndromes: In patients undergoing blood draw greater than or equal to 2 hours from symptom onset, with history of very low to moderate risk and non-ischemic ECG, an initial hs-Troponin T less than 12 ng/L AND a 1 hour delta hs-Troponin T less than 3 ng/L should be considered very low risk for 30 day MACE. Performed By: #### L [id number] #### [facility] CLIA [id number] [address] [place] [address] [place] HIGH SENSITIVITY TROPONIN T (THIRD) 3 HRS AFTER INITIALon 11-15-2023 Troponin T.cardiac High sensitivity method [Mass/Vol] 19 ng/L High <12 [facility] Comment on above: Order Comment: Speci men Type: BLOOD SPECIMEN Ordering Facility: [facility] Address: [address] [place] [address] Result Comment: When assessing risk for acute coronary syndromes: In patients undergoing blood draw greater than or equal to 2 hours from symptom onset, with history of very low to moderate risk and non-ischemic ECG, an initial hs-Troponin T less than 12 ng/L AND a 1 hour delta hs-Troponin T less than 3 ng/L should be considered very low risk for 30 day MACE. Performed By: #### L [id number] #### [facility] CLIA [id number] [address] [place] [address] [place] Ketones Test strip Ql (U)Ord ered By: Barrie Oreilly on 11-15-2023 Ketones Ql (U) Negative Negative [facility] Laboratory - Chemistry and C hemistry - challengeOrdered By: Barrie Oreilly on 11-15-2023 Magnesium [Mass/Vol] 2.1 mg/dL 1.6-2.6 [facility] Laboratory - Drug toxicology Ordered By: Kristal Hayward on 11-15-2023 Amphetamines Ql (U) Negative <1000 ng/mL [facility] Benzodiazepines Ql (U) Negative < 200 ng/mL [facility] Cannabinoids Screen Ql (U) Negative < 50 ng/mL [facility] Cocaine Ql (U) Negative < 300 ng/mL [facility] Opiates Ql (U) Positive < 300 ng/mL [facility] Laboratory - Microbiology an d Antimicrobial susceptibilityOrdered By: Barrie Oreilly on 11-15-2023 Bacteria identified Cx Nom (Bld) No growth in 5 days. [facility] SARS-CoV-2 (COVID-19) RNA PAUL+probe Ql (Unsp spec) [facility] Mucus LM Ql (Urine sed)Order ed By: Barrie Oreilly on 11-15-2023 Mucus Ql (Urine sed) 0 SEEN /hpf [facility] Nitrite Test strip Ql (U)Ord ered By: Barrie Oreilly on 11-15-2023 Nitrite Ql (U) Negative Negative [facility] No Panel InformationOrdered By: Kristal Hayward on 11-15-2023 MDMA (Ecstasy) Screen Negative < 500 ng/mL [facility] Urine Barbiturates Screen Negative < 200 ng/mL [facility] Urine Drug Screen Comment [facility] Comment on above: CONFIRMATORY TESTING FOR ALL POSITIVE URINE DRUG SCREENRESULTS WILL ONLY BE SENT OUT UPON PHYSICIAN ORDER. VISTA Urine Drug Screen methods provide only preliminaryanalytical test results. A more specific alternate chemicalmethod must be used in order to obtain a confirmedanalytical result. Gas chromatography/mass spectrometery(GC/MS) is the preferred confirmatory method. Clinicalconsideration and professional judgement should be appliedto any drug of abuse test result, particularly whenpreliminary positive results are used. URINE TCA TESTING MUST BE ORDERED SEPARATELY. USE TESTMNEMONIC: [facility] Urine Methadone Screen Negative < 300 ng/mL [facility] No Panel InformationOrdered By: Barrie Oreilly on 11-15-2023 Urine RBC 0 SEEN /hpf 0-5 [facility] Protein Test strip Ql (U)Ord ered By: Barrie Oreilly on 11-15-2023 Protein Ql (U) 15 mg/dl Negative [facility] Respiratory pathogens detect ion panel by molecular detection methodOrdered By: Barrie Oreilly on 11-15-2023 Respiratory pathogens DNA and RNA panel PAUL+probe (Resp) [facility] Serum procalcitonin measurem entOrdered By: Kristal Hayward on 11-15-2023 Procalcitonin [Mass/Vol] 0.46 ng/mL 0.00-0.09 [facility] Comment on above: A procalcitonin (PCT ) level above 2.0 ng/mL on the first day of ICU admission is associated with a high risk for progression to severe sepsis and/or septic shock. A PCT level below 0.5 ng/mL on the first day of ICU admission is associated with a low risk for progression to severe and/or septic shock. Note: Concentrations <0.5 ng/mL do not exclude an infection on account of localized infections (without systemic signs) which can be associated with such low concentrations, or a systemic infection in its initial stages (<6 hours). Furthermore, increased procalcitonin can occur without infection. PCT concentrations between 0.5 and 2.0 ng/mL should be interpreted taking into account the patient's history. It is recommended to retest PCT within 6-24 hours if any concentrations <2 ng/mL are obtained. Squamous epithelial cells de tection in urine sediment by light microscopyOrdered By: Barrie Oreilly on 11-15-2023 Epithelial cells.squamous LM Ql (Urine sed) 0 SEEN /hpf 0-5 [facility] Urinalysis complete panel (U )on 11-15-2023 Bacteria LM.HPF (Urine sed) [#/Area] Rare Abnormal None Seen [facility] Comment on above: Order Comment: Speci men Type: URINE SPECIMEN Ordering Facility: [facility] Address: [address] [place] [address] Performed By: #### 2 4356-8 #### [facility] CLIA [id number] [address] OF [facility] Bilirubin Ql (U) Negative Normal Negative [facility] Comment on above: Order Comment: Speci men Type: URINE SPECIMEN Ordering Facility: [facility] Address: [address] [place] [address] Performed By: #### 2 4356-8 #### [facility] CLIA [id number] [address] [place] [address] [facility] [place] Clarity (Unsp spec) Clear Normal Clear [facility] Comment on above: Order Comment: Speci men Type: URINE SPECIMEN Ordering Facility: [facility] Address: [address] [place] [address] Performed By: #### 2 4356-8 #### [facility] CLIA [id number] [address] [place] [address] [facility] Color (U) Yellow Normal Yellow [facility] Comment on above: Order Comment: Speci men Type: URINE SPECIMEN Ordering Facility: [facility] Address: [address] [place] [address] Performed By: #### 2 4356-8 #### [facility] CLIA [id number] [address] [facility] [place] [address] [place] Glucose Test strip (U) [Mass/Vol] Negative Normal Negative [facility] Comment on above: Order Comment: Speci men Type: URINE SPECIMEN Ordering Facility: [facility] Address: [address] [place] [address] Performed By: #### 2 4356-8 #### [facility] CLIA [id number] [address] [place] [address] [place] Hemoglobin Ql (U) Negative Normal Negative [facility] Comment on above: Order Comment: Speci men Type: URINE SPECIMEN Ordering Facility: [facility] Address: [address] [place] [address] Performed By: #### 2 4356-8 #### [facility] CLIA [id number] [address] [place] [address] [place] Ketones Ql (U) Negative Normal Negative [facility] Comment on above: Order Comment: Speci men Type: URINE SPECIMEN [facility] [facility] Address: [address] [place] [address] Performed By: #### 2 4356-8 #### [facility] CLIA [id number] [address] [place] [address] [place] Leukocyte esterase Test strip Ql (U) Negative Normal Negative [facility] Comment on above: Order Comment: Speci men Type: URINE SPECIMEN Ordering Facility: [facility] Address: [address] [place] [address] Performed By: #### 2 4356-8 #### [facility] CLIA [id number] [address] [facility] [place] [address] [place] Nitrite Ql (U) Negative Normal Negative [facility] Comment on above: Order Comment: Speci men Type: URINE SPECIMEN Ordering Facility: [facility] Address: [address] [place] [address] Performed By: #### 2 4356-8 #### [facility] CLIA [id number] [address] [place] [address] [place] [facility] pH (U) 6.0 [pH] Normal 5.0-8.0 [facility] Comment on above: Order Comment: Speci men Type: URINE SPECIMEN Ordering Facility: [facility] Address: [address] [place] [address] Performed By: #### 2 4356-8 #### [facility] CLIA [id number] [address] [place] [id number] [place] Protein (U) [Mass/Vol] Negative Normal Negative [facility] Comment on above: Order Comment: Speci men Type: URINE SPECIMEN Ordering Facility: [facility] Address: [address] [place] [address] Performed By: #### 2 4356-8 #### [facility] CLIA [id number] [address] [place] [address] [place] RBC LM.HPF (Urine sed) [#/Area] 0-3 /HPF Normal 0-3 /HPF [facility] Comment on above: Order Comment: Speci men Type: URINE SPECIMEN Ordering Facility: [facility] Address: [address] [place] [address] Performed By: #### 2 4356-8 #### [facility] CLIA [id number] [address] [place] [id number] [facility] [place] Specific gravity (U) [Rel density] 1.025 Normal 1.005-1.030 [facility] Comment on above: Order Comment: Speci men Type: URINE SPECIMEN Ordering Facility: [facility] Address: [address] [place] [address] Performed By: #### 2 4356-8 #### [facility] CLIA [id number] [address] [place] [address] [facility] [place] Urobilinogen Ql (U) 0.2 EU/dL Normal 0.2-1.0 EU/dL [facility] Comment on above: Order Comment: Speci men Type: URINE SPECIMEN Ordering Facility: [facility] Address: [address] [place] [address] Performed By: #### 2 4356-8 #### [facility] CLIA [id number] [address] WBC LM.HPF (Urine sed) [#/Area] 0-5 /HPF Normal 0-5 /HPF [facility] Comment on above: Order Comment: Speci men Type: URINE SPECIMEN Ordering Facility: [facility] Address: [address] [place] [address] Performed By: #### 2 4356-8 #### [facility] CLIA [id number] [address] Urine blood detectionOrdered By: Barrie Oreilly on 11-15-2023 RBC Ql (U) 10 /ul Negative [facility] Urine clarityOrdered By: Flora Oreilly on 11-15-2023 Clarity (U) Clear Clear [facility] Urine color determinationOrd ered By: Barrie Oreilly on 11-15-2023 Color (U) Yellow Yellow [facility] Urine glucose detectionOrder ed By: Barrie Oreilly on 11-15-2023 Glucose Ql (U) Normal mg/dl Normal [facility] Urine leukocyte esterase det ection by dipstickOrdered By: Barrie Oreilly on 11-15-2023 Leukocyte esterase Test strip Ql (U) Negative Negative [facility] Urine pHOrdered By: Barrie Oreilly on 11-15-2023 pH (U) 8.0 [pH] 5.0 - 8.0 [facility] Urine phencyclidine (PCP) de tectionOrdered By: Kristal Hayward on 11-15-2023 Phencyclidine Ql (U) Negative < 25 ng/mL [facility] Urine sediment bacteria coun t by microscopy (number/high power field)Ordered By: Barrie Oreilly on 11-15-2023 Bacteria LM.HPF (Urine sed) [#/Area] 0 /[HPF] None Seen [facility] Urine specific gravity measu rementOrdered By: Barrie Oreilly on 11-15-2023 Specific gravity (U) [Rel density] 1.010 1.002-1.030 [facility] Urine urobilinogen measureme ntOrdered By: Barrie Oreilly on 11-15-2023 Urobilinogen Ql (U) Normal mg/dl Normal [facility] XR CHEST 1V FRONTALon 2023 XR CHEST 1V FRONTAL * * *Final Report* * * DATE OF EXAM: Nov 15 2023 10:39AM LDX 5290 - XR CHEST 1V FRONTAL / PROCEDURE REASON: Chest pain * * * * Physician Interpretation * * * * EXAMINATION: CHEST RADIOGRAPH (SINGLE VIEW AP OR PA) CLINICAL HISTORY: Chest pain MQ: XC1_5 Comparison: 06/27/2022 RESULT: Lines, tubes, and devices: None. Lungs and pleura: No consolidation. No lung mass. No pleural effusion. Cardiomediastinal silhouette: Normal cardiomediastinal silhouette. Other: There is a skin fold at the left upper abdomen. IMPRESSION: No acute radiographic abnormality. [employer]: [facility] Transcribe Date/Time: Nov 15 2023 10:56A Dictated by : PORTER MANJARREZ MD This examination was interpreted and the report reviewed and electronically signed by: PORTER MANJARREZ MD on Nov 15 2023 10:57AM EST [id number] Normal [facility] XR CHEST 2V FRONTAL/LATon [facility] XR Chest PA and Lateralon IMPRESSION: No acute radiographic abnormality. [employer]: [facility] Transcribe Date/Time: Jun 27 2022 3:42P Dictated by : JASON LEWIS MD This examination was interpreted and the report reviewed and electronically signed by: JASON LEWIS MD on Jun 27 2022 3:43PM EST DIVISION OF RADIOLOGY * * *Final Report* * * DATE OF EXAM: Jun 27 2022 3:40PM WOX 5291 - XR CHEST 2V FRONTAL/LAT / PROCEDURE REASON: Chronic cough * * * * Physician Interpretation * * * * EXAMINATION: CHEST RADIOGRAPH (2 VIEW FRONTAL & LATERAL) CLINICAL HISTORY: Chronic cough MQ: XC2_6 EXAM DATE/TIME: 06/27/2022 3:40 PM COMPARISON: 10/04/2021 RESULT: Lines, tubes, and devices: None. Lungs and pleura: No consolidation. No lung mass. No pleural effusion. No pneumothorax. Cardiomediastinal silhouette: Normal cardiomediastinal silhouette. Bones and soft tissues: Degenerative changes throughout the spine DIVISION OF RADIOLOGY Provider, Krystin Rosario [facility] - 06/27/2022 * * *Final Report* * * DATE OF EXAM: Jun 27 2022 3:40PM WOX 5291 - XR CHEST 2V FRONTAL/LAT / PROCEDURE REASON: Chronic cough * * * * Physician Interpretation * * * * EXAMINATION: CHEST RADIOGRAPH (2 VIEW FRONTAL & LATERAL) CLINICAL HISTORY: Chronic cough MQ: XC2_6 EXAM DATE/TIME: 06/27/2022 3:40 PM COMPARISON: 10/04/2021 RESULT: Lines, tubes, and devices: None. Lungs and pleura: No consolidation. No lung mass. No pleural effusion. No pneumothorax. Cardiomediastinal silhouette: Normal cardiomediastinal silhouette. Bones and soft tissues: Degenerative changes throughout the spine IMPRESSION IMPRESSION: No acute radiographic abnormality. [employer]: [place] Transcribe Date/Time: Jun 27 2022 3:42P Dictated by : JASON LEWIS MD This examination was interpreted and the report reviewed and electronically signed by: JASON LEWIS MD on Jun 27 2022 3:43PM EST [facility] Radiology Study observation (narrative) [facility] XR Chest PA and LateralOrder ed By: Cc Provider on 06-27-2022 [facility] XR Chest PA and Lateralon IMPRESSION: Suspect chronic interstitial lung changes. Mild peribronchial wall thickening especially within the left midlung laterally could indicate acute or chronic airways inflammation. Prominent transverse thoracic aorta with unfolding [employer]: [place] Transcribe Date/Time: Jul 28 2020 1:23P Dictated by : ANN BECKHAM MD This examination was interpreted and the report reviewed and electronically signed by: ANN BECKHAM MD on Jul 28 2020 1:26PM EST DIVISION OF RADIOLOGY * * *Final Report* * * DATE OF EXAM: Jul 28 2020 11:35AM WOX 5291 - XR CHEST 2V FRONTAL/LAT / PROCEDURE REASON: Bacterial pneumonia * * * * Physician Interpretation * * * * EXAMINATION: CHEST RADIOGRAPH (2 VIEW FRONTAL & LATERAL) CLINICAL HISTORY: Bacterial pneumonia MQ: XC2_6 EXAM DATE/TIME: 07/28/2020 11:35 AM COMPARISON: There are no prior chest radiographs for comparison. Comparison is made to CT abdomen pelvis from 05/27/2014 which includes the lung bases. RESULT: Lines, tubes, and devices: None. Lungs and pleura: Mild chronic interstitial lung changes are noted bilaterally. Area of peribronchial thickening in the left mid to upper lung laterally summated with the posterolateral aspects of the left seventh rib suggesting airways inflammation. There is no focal consolidation or acute pleural process. There is no vascular redistribution to suggest pulmonary edema. Cardiomediastinal silhouette: The cardiac silhouette is within normal limits. There is mild unfolding of the thoracic aorta with a mildly prominent transverse component measuring 4.1 cm. Bones and soft tissues: The bony structures are intact. DIVISION OF RADIOLOGY Provider, [facility] - 07/28/2020 * * *Final Report* * * DATE OF EXAM: Jul 28 2020 11:35AM WOX 5291 - XR CHEST 2V FRONTAL/LAT / PROCEDURE REASON: Bacterial pneumonia * * * * Physician Interpretation * * * * EXAMINATION: CHEST RADIOGRAPH (2 VIEW FRONTAL & LATERAL) CLINICAL HISTORY: Bacterial pneumonia MQ: XC2_6 EXAM DATE/TIME: 07/28/2020 11:35 AM COMPARISON: There are no prior chest radiographs for comparison. Comparison is made to CT abdomen pelvis from 05/27/2014 which includes the lung bases. RESULT: Lines, tubes, and devices: None. Lungs and pleura: Mild chronic interstitial lung changes are noted bilaterally. Area of peribronchial thickening in the left mid to upper lung laterally summated with the posterolateral aspects of the left seventh rib suggesting airways inflammation. There is no focal consolidation or acute pleural process. There is no vascular redistribution to suggest pulmonary edema. Cardiomediastinal silhouette: The cardiac silhouette is within normal limits. There is mild unfolding of the thoracic aorta with a mildly prominent transverse component measuring 4.1 cm. Bones and soft tissues: The bony structures are intact. IMPRESSION IMPRESSION: Suspect chronic interstitial lung changes. Mild peribronchial wall thickening especially within the left midlung laterally could indicate acute or chronic airways inflammation. Prominent transverse thoracic aorta with unfolding [employer]: [place] Transcribe Date/Time: Jul 28 2020 1:23P Dictated by : ANN BECKHAM MD This examination was interpreted and the report reviewed and electronically signed by: ANN BECKHAM MD on Jul 28 2020 1:26PM EST [facility] Radiology [facility]narrative) [facility] XR Chest PA and LateralOrder ed By: Ccf Provider on 07-28-2020 [facility] Vital Signs Date Time Vital Sign Value Performing Clinician Facility 12-11-2023 10:29-0400 Body temperature 97.6 [degF] Dr. Thomas Fleming Work Phone: [facility] 12-11-2023 10:29-0400 Diastolic blood pressure 64 mm[Hg] Dr. Thomas Fleming Work Phone: [facility] 12-11-2023 10:29-0400 Heart rate 78 /min Dr. Thomas Fleming Work Phone: [facility] 12-11-2023 10:29-0400 Respiratory rate 16 /min Dr. Thomas Fleming Work Phone: [facility] 12-11-2023 10:29-0400 SaO2% (BldA) [Mass fraction] 99 % Dr. Thomas Flmeing Work Phone: [facility] 12-11-2023 10:29-0400 Systolic blood pressure 106 mm[Hg] Dr. Thomas Fleming Work Phone: [facility] 12-11-2023 09:30-0400 Body height 177.[address] Thomas Fleming Work Phone: [facility] 12-11-2023 09:30-0400 Body mass index (BMI) [Ratio] 25.2 kg/m2 Dr. Thomas Fleming Work Phone: [facility] 12-11-2023 09:30-0400 Body weight 79.[address] Thomas Fleming Work Phone: [facility] 11-27-2023 14:36-0400 Body temperature 97.7 [degF] Dr. Thomas Fleming Work Phone: [facility] 11-27-2023 14:36-0400 Diastolic blood pressure 78 mm[Hg] Dr. Thomas Fleming Work Phone: [facility] 11-27-2023 14:36-0400 Heart rate 64 /min Dr. Thomas Fleming Work Phone: [facility] 11-27-2023 14:36-0400 Respiratory rate 16 /min Dr. Thomas Fleming Work Phone: [facility] 11-27-2023 14:36-0400 SaO2% (BldA) [Mass fraction] 93 % Dr. Thomas Fleming Work Phone: [facility] 11-27-2023 14:36-0400 Systolic blood pressure 131 mm[Hg] Dr. Thomas Fleming Work Phone: [facility] 11-27-2023 04:50-0400 Body mass index (BMI) [Ratio] 25.1 kg/m2 Dr. Thomas Fleming Work Phone: [facility] 11-27-2023 04:50-0400 Body weight 77.[address] Thomas Fleming Work Phone: [facility] 11-26-2023 07:47-0400 Body height 175.[address] Thomas Fleming Work Phone: [facility] 11-23-2023 21:05-0400 Inhaled oxygen flow rate 2 L/min Dr. Thomas Fleming Work Phone: [facility] 10-09-2022 11:26-0500 Body weight 89.81 kg Delores Sommers APRN.DATA INTEGRITY SPECIALIST Work Phone: [facility] 10-09-2022 11:26-0500 Diastolic blood pressure 66 mm[Hg] Delores Sommers APRN.DATA INTEGRITY SPECIALIST Work Phone: [facility] 10-09-2022 11:26-0500 Heart rate 85 /min Delores Tannhof MANAGEMENT REP.DATA INTEGRITY SPECIALIST Work Phone: [facility] 10-09-2022 11:26-0500 Respiratory rate 20 /min Delores Tannhof MANAGEMENT REP.DATA INTEGRITY SPECIALIST Work Phone: [facility] 10-09-2022 11:26-0500 SaO2% (BldA) [Mass fraction] 93 % Delores Tannhof MANAGEMENT REP.DATA INTEGRITY SPECIALIST Work Phone: [facility] 10-09-2022 11:26-0500 Systolic blood pressure 92 mm[Hg] Delores Tannhof MANAGEMENT REP.DATA INTEGRITY SPECIALIST Work Phone: [facility] 09-11-2022 12:33-0500 Body height 172.7 cm Pulm Wstr Work Phone: [facility] 06-27-2022 14:45-0400 Body weight 87.09 kg Delores Tannhof MANAGEMENT REP.DATA INTEGRITY SPECIALIST Work Phone: [facility] 06-27-2022 14:45-0400 Diastolic blood pressure 70 mm[Hg] Delores Tannhof MANAGEMENT REP.DATA INTEGRITY SPECIALIST Work Phone: [facility] 06-27-2022 14:45-0400 Heart rate 84 /min Delores Tannhof MANAGEMENT REP.DATA INTEGRITY SPECIALIST Work Phone: [facility] 06-27-2022 14:45-0400 Respiratory rate 20 /min Delores Tannhof MANAGEMENT REP.DATA INTEGRITY SPECIALIST Work Phone: [facility] 06-27-2022 14:45-0400 SaO2% (BldA) [Mass fraction] 95 % Delores Tannhof MANAGEMENT REP.DATA INTEGRITY SPECIALIST Work Phone: [facility] 06-27-2022 14:45-0400 Systolic blood pressure 116 mm[Hg] Delores Tannhof MANAGEMENT REP.DATA INTEGRITY SPECIALIST Work Phone: [facility] 06-17-2022 12:54-0400 Body temperature 97.59 [degF] Mora Gonzalez PA-C Work Phone: [facility] 06-17-2022 12:54-0400 Body weight 85.73 kg Mora Bogner PA-C Work Phone: [facility] 06-17-2022 12:54-0400 Diastolic blood pressure 68 mm[Hg] Mora Bogner PA-C Work Phone: [facility] 06-17-2022 12:54-0400 Heart rate 80 /min Mora Bogner PA-C Work Phone: [facility] 06-17-2022 12:54-0400 Respiratory rate 16 /min Mora Bogner PA-C Work Phone: [facility] 06-17-2022 12:54-0400 SaO2% (BldA) [Mass fraction] 96 % Mora Bogner PA-C Work Phone: [facility] 06-17-2022 12:54-0400 Systolic blood pressure 122 mm[Hg] Mora Bogner PA-C Work Phone: [facility] 11-27-2021 14:00-0400 Body temperature 98.4 [degF] Abdirahman Whittington APRN.DATA INTEGRITY SPECIALIST, DNP Work Phone: [facility] 11-27-2021 14:00-0400 Body weight 83.01 kg Abdirahman Whittington APRN.DAI, DNP Work Phone: [facility] 11-27-2021 14:00-0400 Diastolic blood pressure 78 mm[Hg] Abdirahman Whittington APRN.DATA INTEGRITY SPECIALIST, DNP Work Phone: [facility] 11-27-2021 14:00-0400 Heart rate 87 /min Abdirahman Whittington APRN.DATA INTEGRITY SPECIALIST, DNP Work Phone: [facility] 11-27-2021 14:00-0400 Respiratory rate 16 /min Abdirahman Whittington APRN.DATA INTEGRITY SPECIALIST, DNP Work Phone: [facility] 11-27-2021 14:00-0400 SaO2% (BldA) [Mass fraction] 95 % Abdirahman Whittington APRN.DATA INTEGRITY SPECIALIST, DNP Work Phone: [facility] 11-27-2021 14:00-0400 Systolic blood pressure 126 mm[Hg] Abdirahman Whittington APRN.DATA INTEGRITY SPECIALIST, DNP Work Phone: [facility] Encounters Encounter Date Encounter Type Care Provider Facility Start: 05-12-2025 End: 05-12-2025 ambulatory Corine Martina OLS Facility:[facility] Start: 05-10-2025 End: 05-10-2025 ambulatory Corine Martina OLS Facility:[facility] Start: 03-03-2025 End: 03-03-2025 ambulatory Rafa Regalado Facility:[facility] Start: 02-01-2025 End: 02-01-2025 Patient encounter procedure Adrienne DURAN -[facility] Work Phone: Start: 02-01-2025 End: 02-01-[address] Rafa Regalado MD Work Phone: [facility] Work Phone: Start: 01-21-2025 End: 01-25-2025 Admission to same day surgery center Rafa Regalado MD Work Phone: Ambulatory Surgery Comment on above: Outpatient [place] py (Patient is overdue for colorectal cancer screening since 12/29/2019 Patient will need consult with Angel Godfrey CNP prior to colorectal cancer screening. ) Start: 01-21-2025 End: 01-25-2025 ambulatory Rafa Regalado MD Work Phone: Ambulatory Surgery Start: 01-18-2025 ambulatory Rafa Regalado Facilit y:[facility] Start: 10-13-2024 ambulatory Rafa Regalado Facilit y:[facility] Start: 10-13-[address] Corine Li MD -[facility] Start: 09-15-2024 End: 09-15-2024 ambulatory Corine Martina OLS Facility:[facility] Start: 09-13-2024 ambulatory Rafa Regalado Facilit y:[facility] Start: 08-11-2024 End: 08-11-2024 ambulatory Rafa Regalado Facility:[facility] Start: 08-03-2024 ambulatory Rafa Desai y:[facility] Start: 06-28-2024 End: 06-28-2024 ambulatory Corine WHEAT Facility:[facility] Start: 02-19-2024 Telephone encounter Rafa marsh MD Work Phone: [facility] [place] Comment on above: Patient Update Start: 12-11-2023 End: 12-11-2023 Emergency department patient visit Dr. Thomas Fleming Work Phone: [facility]-Emergency Department Work Phone: Start: 12-08-[address] Thomas tellez Work Phone: [facility] Start: 11-27-2023 Non-patient / Non-visit Dr. Thomas Fleming Work Phone: [facility] Work Phone: Start: 11-26-2023 Non-patient / Non-visit Dr. Thomas Fleming Work Phone: [facility] Start: 11-25-2023 Non-patient / Non-visit Dr. Thomas Fleming Work Phone: [facility] Start: 11-25-2023 Non-patient / Non-visit Dr. Thomas Fleming Work Phone: [facility] Work Phone: Start: 11-24-2023 Non-patient / Non-visit Dr. Thomas Fleming Work Phone: [facility] Start: 11-24-2023 Non-patient / Non-visit Dr. Thomas Fleming Work Phone: [facility] Work Phone: Start: 11-23-2023 Non-patient / Non-visit Dr. Thomas Fleming Work Phone: [facility] Work Phone: Start: 11-22-2023 Non-patient / Non-visit Dr. Thomas Fleming Work Phone: [facility] Work Phone: Start: 11-21-2023 Non-patient / Non-visit Dr. Thomas Fleming Work Phone: [facility] Work Phone: Start: 11-20-2023 Non-patient / Non-visit Dr. Thomas Fleming Work Phone: [facility] Work Phone: Start: 11-19-2023 Non-patient / Non-visit Dr. Thomas Fleming Work Phone: [facility] Work Phone: Start: 11-18-2023 Non-patient / Non-visit Dr. Thomas Fleming Work Phone: [facility] Work Phone: Start: 11-17-2023 Non-patient / Non-visit Dr. Thomas Fleming Work Phone: [facility] Start: 11-17-2023 Non-patient / Non-visit Dr. Thomas Fleming Work Phone: [facility] Work Phone: Start: 11-16-2023 Non-patient / Non-visit Dr. Thomas Fleming Work Phone: [facility] Start: 11-16-2023 Non-patient / Non-visit Dr. Thomas Fleming Work Phone: [facility] Work Phone: Start: 11-15-2023 End: 11-15-2023 Non-patient / Non-visit Dr. Thomas Fleming Work Phone: [facility] Work Phone: Start: 11-15-2023 Non-patient / Non-visit Dr. Thomas Fleming Work Phone: [facility] Work Phone: Start: 11-15-2023 End: 11-27-2023 Evaluation and management of inpatient Dr. Thomas Fleming Work Phone: [facility]-Progressive Care Unit Work Phone: Start: 11-15-2023 End: 11-15-2023 Emergency department patient visit [facility] Facility:[facility] Start: 10-09-2022 End: 10-09-2022 Patient encounter procedure Delores Sommers APRN.DATA INTEGRITY SPECIALIST Work Phone: [facility] [place] Comment on above: Overgrown toenails ( Primary Dx); Chronic obstructive pulmonary disease, unspecified COPD type (HCC) Start: 09-16-2022 End: 09-16-2022 ambulatory Delores Sommers APRN.DATA INTEGRITY SPECIALIST Work Phone: [facility] Comment on above: Chronic obstructive pulmonary disease, unspecified COPD type (HCC) (Primary Dx); Smoking Start: 09-16-2022 End: 09-16-2022 Telemedicine consultation with patient Delores Sommers APRN.DATA INTEGRITY SPECIALIST Work Phone: [facility] Start: 09-13-2022 Telephone encounter Rafa marsh MD Work Phone: [facility] Comment on above: Results; Patient Upd ate Start: 09-11-2022 End: 09-11-2022 ambulatory Pulm Lab [facility] Work Phone: [facility] Comment on above: Spirometry Refill Request Start: 09-11-2022 End: 09-11-2022 Patient encounter procedure Pulm Lab [facility] Work Phone: [facility] Start: 09-10-2022 Telephone encounter Rafa marsh MD Work Phone: [facility] Comment on above: Cancelled appt Start: 09-04-2022 Telephone encounter Rafa marsh MD Work Phone: [facility] Comment on above: Results Start: 09-02-2022 End: 09-02-2022 ambulatory Pulm Lab [facility] Work Phone: [facility] Comment on above: Spirometry Start: 09-02-2022 End: 09-02-2022 Patient encounter procedure Pulm Lab [facility] Work Phone: [facility] Start: 08-21-2022 Telephone encounter Rafa marsh MD Work Phone: [facility] Comment on above: Appointment Start: 07-24-2022 Telephone encounter Rafa marsh MD Work Phone: [facility] Comment on above: Appointment Patient Update Start: 06-28-2022 Telephone encounter Delores salter MANAGEMENT REP.DATA INTEGRITY SPECIALIST Work Phone: [facility] Comment on above: Results (Chest xray ) Start: 06-27-2022 End: 06-27-2022 Subsequent hospital visit by physician Xr [facility] Work Phone: Radiology Comment on above: Chronic cough [R05.3 ] Start: 06-27-2022 End: 06-27-2022 Patient encounter procedure Delores Sommers MANAGEMENT REP.DATA INTEGRITY SPECIALIST Work Phone: [facility] Comment on above: Post-nasal drip (Veronika tiffanie Dx); Chronic cough; Smoking Start: 06-17-2022 End: 06-17-2022 Office outpatient visit 15 minutes Mora Gonzalez PA-C Work Phone: [facility] Comment on above: Acute cough (Primary Dx) Start: 04-11-2022 Telephone encounter Javier Jauregui MD Work Phone: [facility] Comment on above: Results Start: 12-24-2021 Telephone encounter Rafa marsh MD Work Phone: [facility] Comment on above: Medication Request ( refill on Prednisone) Start: 11-27-2021 End: 11-27-2021 Patient encounter procedure Abdirahman Whittington APRN.DATA INTEGRITY SPECIALIST, DNP Work Phone: [facility] Comment on above: COPD with chronic br onchitis (HCC) (Primary Dx); Cough; Abdominal aortic aneurysm (AAA) without rupture (HCC); Tobacco use disorder Start: 07-28-2020 End: 07-28-2020 Subsequent hospital visit by physician Xr [facility] Work Phone: Radiology Comment on above: Bacterial pneumonia [J15.9] Procedures Date Procedure Procedure Detail Performing Clinician Start: 10-13-2024 Measurement of renal function Dr. Rafa Regalado MD Work Phone: Comment on above: GFR Calc Start: 12-11-2023 Diagnostic radiography of abdomen Dr. Jamal Fleming Work Phone: Start: 11-25-[address] Thomas Fleming Work Phone: Start: 11-24-[address] Thomas Fleming Work Phone: Start: 11-22-2023 Plain chest X-ray Dr. Thomas Fleming Work Phone: Start: 11-21-2023 MRI of brain with contrast Dr. Thomas Fleming Work Phone: Start: 11-15-2023 Bacteria identified in Blood by Culture Dr. Thomas Fleming Work Phone: Start: 11-15-2023 Coronavirus COVID-[address] Thomas Fleming Work Phone: Start: 11-15-[address] Thomas Fleming Work Phone: Start: 11-15-2023 SARS-CoV-2, Influenza & RSV (PCR) Dr. Jamal Fleming Work Phone: Start: 09-11-2022 Brncdilat rspse spmtry pre&post-brncdilat admn Delores Sommers APRN.DAI Work Phone: Start: 09-02-2022 Nitric oxide gas determination Delores Sommers APRN.CNP Work Phone: Start: 09-02-2022 Plethysmography lung volumes w/wo airway resist Delores Sommers MANAGEMENT REP.DATA INTEGRITY SPECIALIST Work Phone: Start: 06-27-2022 Radiologic exam chest 2 views Delores salter MANAGEMENT REP.DAI Work Phone: Start: 07-28-2020 Radiologic exam chest 2 views Edu Rosa fraire MANAGEMENT REP.DATA INTEGRITY SPECIALIST Work Phone: Start: 12-28-2018 Colonoscopy Abdirahman Whittington MANAGEMENT REP.DATA INTEGRITY SPECIALIST, DNP Work Phone: Start: 10-02-2018 Lipid 1996 panel - Serum or Plasma Rafa Regalado MD Work Phone: Start: 09-28-2018 Adult depression screening assessment Abdirahman Whittington APRN.DAI, DNP Work Phone: Plan of Treatment Date Care Activity Detail Author Start: 05-26-2030 Urine microalbumin profile [facility] Start: 11-14-2026 Diabetes Screening Diabetes Screenin g [facility] Start: 2026 RSV Vaccine (1 - 1-d ose 75+ series) RSV Vaccine (1 - 1-dose 75+ series) [facility] Start: 04-25-2025 Influenza vaccination Influenz a Vaccine (Season Ended) [facility] Start: 08-25-2024 Advance Directive Discussion Advance Directive Discussion [facility] Start: 04-25-2024 Covid-19 Vaccine ( season) Covid-19 Vaccine ( season) [facility] Start: 04-25-2024 Influenza vaccination [facility] Start: 12-11-2023 [facility] Start: 12-02-2023 Blood chemistry [facility] Start: 12-01-2023 Blood chemistry [facility] Start: 11-30-2023 Blood chemistry [facility] Start: 11-29-2023 Blood chemistry [facility] Start: 11-28-2023 Blood chemistry [facility] Start: 11-27-2023 Patient discharge [facility] Start: 11-26-2023 Patient referral to dietitian [facility] Start: 11-26-2023 [facility] Start: 11-24-2023 Referral to gastroenterology service [facility] Start: 11-24-2023 Telemedicine consult ation with patient [facility] Start: 11-22-2023 [facility] Start: 11-19-2023 Care planning and pr oblem solving actions [facility] Start: 11-19-2023 [facility] Start: 11-18-2023 [facility] Start: 11-17-2023 Speech therapy assessment [facility] Start: 11-17-2023 Referral to occupati onal therapist [facility] Start: 11-17-2023 Referral to service [facility] Start: 11-16-2023 Inhalation therapy procedure [facility] Start: 11-15-2023 Referral to kier pleater [facility] Start: 11-15-2023 Tobacco use cessatio n education [facility] Start: 11-15-2023 Referral to service [facility] Start: 11-15-2023 Admission procedure [facility] Start: 11-15-2023 Assessment of risk o f venous thromboembolism [facility] Start: 11-15-2023 Insertion of cathete r into peripheral vein [facility] Start: 11-15-2023 Notification of physician [facility] Start: 11-15-2023 Providing care accor ding to standard [facility] Start: 11-15-2023 Vital signs measurements [facility] Start: 11-15-2023 End: 11-15-2023 [facility] Start: 11-15-2023 Following clinical p athway protocol [facility] Start: 10-09-2023 ANNUAL PCP TEAM FOOD TECHNOLOGIST MARIA ELENA DISEASE VISIT ANNUAL PCP TEAM CHRONIC DISEASE VISIT [facility] Start: 10-02-2023 Lipid panel Lipid Screening [facility] Start: 10-02-2023 LIPID SCREEN LIPID SCREEN [facility] Start: 09-16-2023 ANNUAL PCP TEAM FOOD TECHNOLOGIST MARIA ELENA DISEASE VISIT ANNUAL PCP TEAM CHRONIC DISEASE VISIT [facility] Start: 08-25-2023 Advance Directive Discussion Advance Directive Discussion [facility] Start: 08-25-2023 Behavioral Health Screening Behavioral Health Screening [facility] Start: 04-25-2023 Covid-19 Vaccine () Covid-19 Vaccine () [facility] Start: 08-25-2022 ADVANCE DIRECTIVE DISCUSSION ADVANCE DIRECTIVE DISCUSSION [facility] Start: 08-25-2022 [facility] Start: 06-27-2022 End: 07-27-2023 LUNG VOLUMES LUNG VOLUMES PFT Routine Smoking Chronic cough Expected: 06/27/2022, Expires: 07/27/2023 [facility] Work Phone: Comment on above: Expected: 06/27/2022 , Expires: 07/27/2023 Start: 06-27-2022 End: 07-27-2023 NITRIC OXIDE, EXHALED NITRIC OXIDE, EXHALED PFT Routine Smoking Chronic cough Expected: 06/27/2022, Expires: 07/27/2023 [facility] Work Phone: Comment on above: Expected: 06/27/2022 , Expires: 07/27/2023 Start: 04-25-2022 Influenza vaccination [facility] Start: 12-27-2021 End: 12-27-2022 SPIROMETRY - BASELINE AND POST DILATOR SPIROMETRY - BASELINE AND POST DILATOR PFT Routine COPD with chronic bronchitis (HCC) Cough Expected: 12/27/2021, Expires: 12/27/2022 [facility] Work Phone: Comment on above: Expected: 12/27/2021 , Expires: 12/27/2022 Start: 10-02-2021 DIABETES SCREEN DIABETES SCREEN [facility] Start: 08-25-2021 ADVANCE DIRECTIVE DISCUSSION ADVANCE DIRECTIVE DISCUSSION [facility] Start: 08-25-2021 DEPRESSION ASSESSMENT DEPRESSION ASS ESSMENT [facility] Start: 06-30-2021 COVID-19 VACCINE (3 - Booster for Moderna series) COVID-19 VACCINE (3 - Booster for Moderna series) [facility] Start: 06-13-2021 Influenza vaccination LUNG CANCER SC REENING [facility] Start: 06-13-2021 Screening for malign ant neoplasm of lung Lung Cancer Screening [facility] Start: 03-25-2021 COVID-19 VACCINE (3 - Booster for Moderna series) COVID-19 VACCINE (3 - Booster for Moderna series) [facility] Start: 12-29-2019 Colonoscopy COLONOSCOPY [facility] Start: 12-29-2019 COLORECTAL CANCER SCREENING COLORECTAL CANCER SCREENING [facility] Start: 12-29-2019 Screening for malign ant neoplasm of colon [facility] Start: 09-28-2019 Adult depression scr eening assessment DEPRESSION SCREENING [facility] Start: 2011 RSV Vaccine (1 - 1-d ose 60+ series) RSV Vaccine (1 - 1-dose 60+ series) [facility] Start: 2011 RSV Vaccine (1 - Ris k 60-74 years 1-dose series) RSV Vaccine (1 - Risk 60-74 years 1-dose series) [facility] Start: 1996 COLOGUARD (FIT-DNA) COLOGUARD (FIT-D NA) [facility] Start: [address] COLONOGRAPHY [facility] Start: 1996 FECAL OCCULT BLOOD FECAL OCCULT BLOO D [facility] Start: 1996 Screening for malign ant neoplasm of colon [facility] Start: 1996 SIGMOIDOSCOPY SIGMOIDOSCOPY [facility] Start: 1981 Zoledronic acid therapy ALPHA- 1 ANTITRYPSIN DEFICIENCY SCREENING [facility] Start: 1969 Anxiety Screening Anxiety Screening [facility] Start: 1969 Depression Screening Depression Scre ening [facility] End: 09-20-2023 LUNG VOLUMES LUNG VOLUMES PFT Routine Chronic cough Smoking COPD with chronic bronchitis (HCC) 1 Occurrences starting 08/21/2022 until 09/20/2023 [facility] Work Phone: Comment on above: 1 Occurrences starti ng 08/21/2022 until 09/20/2023 LUNG VOLUMES LUNG VOLUMES PFT Routine Chronic cough Smoking COPD with chronic bronchitis (HCC) 09/02/2022 9:30 AM EST [facility] Work Phone: End: 09-20-2023 NITRIC OXIDE, EXHALED NITRIC OXIDE, EXHALED PFT Routine Chronic cough Smoking COPD with chronic bronchitis (HCC) 1 Occurrences starting 08/21/2022 until 09/20/2023 [facility] Work Phone: Comment on above: 1 Occurrences starti ng 08/21/2022 until 09/20/2023 Patient referral [facility] Work Phone: End: 07-27-2023 SPIROMETRY - BASELINE AND POST DILATOR SPIROMETRY - BASELINE AND POST DILATOR PFT Routine Smoking Chronic cough 1 Occurrences starting 06/27/2022 until 07/27/2023 [facility] Work Phone: Comment on above: 1 Occurrences starti ng 06/27/2022 until 07/27/2023 SPIROMETRY - BASELIN E AND POST DILATOR SPIROMETRY - BASELINE AND POST DILATOR PFT Routine Smoking Chronic cough 09/11/2022 12:39 PM EST [facility] Work Phone: [facility] Immunizations Immunization Date Immunization Notes Care Provider April lorenzana 06-20-2022 influenza virus vacc ine, unspecified formulation Rafa Regalado MD Work Phone: [facility] 01-28-2021 COVID-19 vaccine, fu ll dose (MODERNA) bAdirahman Whittington APRN.DAI [facility] Work Phone: [facility] Work Phone: 12-19-2020 COVID-19 vaccine, fu ll dose (MODERNA) Abdirahman Whittington APRN.AUSTIN LALA Work Phone: [facility] 08-02-2020 zoster vaccine recombinant Abdirahman Whittington APRN.DAI [facility] Work Phone: [facility] 07-07-2020 pneumococcal polysaccharide vaccine, 23 valent Javier Booker MD Work Phone: [facility] 05-26-2020 tetanus toxoid, redu elly diphtheria toxoid, and acellular pertussis vaccine, adsorbed Abdirahman Whittington APRN.AUSTIN LALA Work Phone: [facility] 05-26-2020 zoster vaccine recombinant Abdirahman Whittington APRN.AUSTIN LALA Work Phone: [facility] 08-02-2019 influenza, high dose seasonal, preservative-free Abdirahman Whittington APRN.AUSTIN LALA Work Phone: [facility] 06-08-2018 pneumococcal conjuga te vaccine, 13 valent Abdirahman Whittington APRN.DAI, DNP Work Phone: [facility] 04-30-2018 influenza, high dose seasonal, preservative-free Abdirahman Whittington APRN.DAI, DNP Work Phone: [facility] Payers Date Payer Category Payer Medicare [id number] 2024 Self-pay [id number] 2024 Unknown [id number] 2024 Unknown [id number] [address] [facility] ANTHEM BC BS FEP PPO [id number] 2015 Unknown ANTHEM ANTHEM BC BS FEP PPO [id number] 2015-Present [phone] [address] [place] [address] PPO [id number] 2015 Unknown ANTHEM ANTHEM BC BS FEP PPO [id number] 2015-Present [phone] [address] [place] [address] PP [id number] 2015 Unknown [id number] Unknown [id number] Unknown [id number] Unknown [id number] Unknown [id number] Unknown [id number] Unknown [id number] Unknown [id number] Unknown [id number] Unknown [id number] Unknown [id number] Social History Date Type Detail Facility Start: 10-16-2021 End: 04-10-2022 Tobacco smoking status NHIS Occasional tobacco smoker [facility] History of tobacco use Cigarette Smoker [facility] Start: 10-16-2021 End: 04-25-2023 Cigarettes smoked current (pack per day) - Reported 0.5 [facility] Start: 10-16-2021 End: 04-10-2022 Tobacco use and exposure Smokeless tobacco non-user [facility] Start: 11-27-2021 End: 11-15-2023 Alcohol intake Current non-drinker of alcohol (finding) [facility] Start: 10-16-2021 End: 04-10-2022 Tobacco Comment every now and then smoking [facility] Start: 1950 Sex Assigned At Not on file [facility] Start: 06-28-2020 End: 06-27-2022 Exposure to SARS-CoV-2 (event) Not sure [facility] Start: 11-16-2023 End: 12-11-2023 Tobacco smoking status NHIS Unknown if ever smoked [facility] Start: 1950 Sex Assigned At Male [facility] Start: 04-25-2023 End: 11-15-2023 Tobacco use panel [facility] PHQ2 Score 0 [facility] Start: 05-16-2020 End: 04-04-2024 Tobacco smoking status NHIS Smokes tobacco daily [facility] Medical Equipment Procedure Code Equipment Code Equipment Origin al Text Equipment Identifier Dates EGD, with monitored anesthesia care Gastrostomy tube kit, medicated [id number] FDA Start: 11-25-2023 Goals Date Patient Goal Desired Activity /State Functional Status Date Assessment Result Facility 11-27-2023 Functional status Active Range of Motion [facility] Work Phone: Mental Status Date Assessment Result Facility 12-11-2023 Cognitive function Level Of Cons ciousness Awake;Alert;Appropriate [facility] Work Phone: 11-27-2023 Cognitive function Voice/Name [facility] Work Phone: Clinical Notes 07-28-2020 to 01-25-2025 Brenden Cabrera - 01/25/2025 8:11 AM EDTTelephone Encounter - Rafa Regalado MD - 02/19/2024 3:24 PM EDTTelephone Encounter - Rafa Regalado MD - 02/19/2024 3:24 PM EDT Note Date & Type Note Facility 01-25-2025 Note HNO ID: [id number] Author: ?, ?, ? Service: ? Author Type: ? Type: Progress Notes Filed: 01/25/2025 08:12 Note Text: Per previous notes, pt had a stroke in 2023 and dementia-closing encounter. [facility] 01-25-2025 History of Presen t illness Narrative Per previous notes, pt had a stroke in 2023 and dementia-closing encounter. documented in this encounter [facility] 01-21-2025 Note Patient Outreach ( W[facility]) CHAYOREID JR ([id number]) 1950 M [place] Date Time Provider Department 01/21/25 RAFA REGALADO ASTR During your visit today, we recorded the following information about you: Brenden Cabrera 01/25/2025 8:12 AM Signed Per previous notes, pt had a stroke in 2023 and dementia-closing encounter. Allergies As of Date: 01/21/2025 (No Known Allergies) Date Reviewed: 11/15/2023 Reviewed by: Enma Yo, RN - Fully Assessed Reason for Visit: Outpatient Colonoscopy [482] Cmt: Patient is overdue for colorectal cancer screening since 12/29/2019 Patient will need consult with Angel Godfrey CNP prior to colorectal cancer screening. Primary Visit Diagnosis:Screening for colorectal cancer [Z12.11, Z12.12] Prescriptions as of 01/25/2025 - nicotine (NICODERM) 14 mg/24 hr Apply 1 Patch as directed every 24 hours. No smoking with patch. - Nicotine Polacrilex [address] 1 Lozenge between cheek and gum as needed. - fluticasone-salmeterol (ADVAIR DISKUS) 100-50 mcg/dose inhaler Inhale 1 Puff as instructed twice daily. Rinse mouth out after use with water. - albuterol HFA (PROVENTIL HFA, VENTOLIN HFA) 90 mcg/actuation inhaler Inhale 2 Puffs as instructed every 4 hours as needed for wheezing/shortness of breath. - benzonatate (TESSALON PERLES) 100 mg capsule Take 1-2 capsules by mouth three times daily as needed. - fexofenadine (CARLY ALLERGY) 60 mg tablet Take 1 tablet by mouth once daily. - Ascorbic Acid (VITAMIN C) 100 mg tablet Take 100 mg by mouth once daily. - OMEGA 8-XJS-BOD-FISH OIL ORAL Take 1 capsule by mouth once daily. - cholecalciferol, vitamin D3, (VITAMIN D3 ORAL) Take 1,000 Int'l Units by mouth once daily. 1-2 tablets daily - vitamin B complex-folic acid 2,000 mcg cap Take 1 capsule by mouth once daily. - triamcinolone (KENALOG) 0.025 % cream Apply 1 application to affected area twice daily. Meds Comments as of 10/16/2021: Uses Flonase before bed. Mucinex OTC Problem List As Of Date 01/21/2025 Noted Resolved Psoriasis [L40.9] 09/28/2018 Abdominal aortic aneurysm (AAA) without rupture*09/28/2018 Encounter Status:Closed by BRENDEN CABRERA on 01/25/25 [facility] 02-19-2024 Telephone encount er Note Noted Rafa Regalado MD [facility] 02-19-2024 Miscellaneous Notes Formattin g of this note might be different from the original. Noted Rafa Regalado MD seferino Jones, phoned to let pcp know, patient has been in [facility], after having a stroke, for the last 2.5 mths. Reports patient is starting to walk now. Reports patient has dementia now also- forgets things sometimes. Reports patient has a feeding tube, and just started eating some regular food, as they want to wean him of the feeding tube. Karen has no idea when patient will be discharged. documented in this encounter [facility] 02-19-2024 Telephone encount er Note seferino Jones, phoned to let pcp know, patient has been in [facility], after having a stroke, for the last 2.5 mths. Reports patient is starting to walk now. Reports patient has dementia now also- forgets things sometimes. Reports patient has a feeding tube, and just started eating some regular food, as they want to wean him of the feeding tube. Karen has no idea when patient will be discharged. [facility] 11-27-2023 Discharge summary Note Date/Time November 27, 2023 11:50am [facility] Medical Records Department [address] [place] [address] [facility] MR#: [id number] Acct: [id number] Name: REID AVLDIVIA Jr. Rep #:[id number] : 1950 73 From: Evelin Chavarria MD PCP: Dr. Rafa Regalado MD Status:AD M IN Certification of patient admission REQUIRED AT TIME OF ADMISSION. I CERTIFY THAT POST-HOSPITAL ECF SERVICES ARE REQUIRED TO BE GIVEN ON AN IN-PATIENT BASIS BECAUSE OF THE ABOVE NAMED PATIENT'S NEED FOR DETENTION CARE ON A CONTINUING BASIS FOR THE CONDITION(S) FOR WHICH HE/SHE WAS RECEIVING IN-PATIENT HOSPITAL SERVICES PRIOR TO HIS/HER TRANSFER TO THE F. 11/27/23 1150<Electronically signed by Evelin Chavarria MD> Diet Diet Order/Speech Therapy: 11/26/23 00:01 Diet: Nothing Per Oral Is pt able to select menu?: No Routine Orders/Code Status Enema Type: Fleetz Enema Frequency: Daily PRN Suppository Type: Dulcolax 10mg Suppository Frequency: Daily PRN O2 Frequency: PRN Keep PO Greater than or Equal to (%): 90 Wound(s) LT ABD: Wound Type: Surgical Incision Therapies Weight Bearing: Weight bearing as tolerated Physical Therapy: Eval and Treat Occupational Therapy: Eval and Treat Speech Therapy: Eval and Treat Problem/Diagnosis (1) Altered behavior: Status: Acute Code(s): R46.89 - Other symptoms and signs involving appearance and behavior (2) NSTEMI (non-ST elevated myocardial infarction): Status: Acute Code(s): I21.4 - Non-ST elevation (NSTEMI) myocardial infarction Plan #Acute encephalopathy * Patient still remains confused. He apparently has underlying dementia. He now has worsening confusion and is also dysphagia. * Workup for encephalopathy has been negative. TSH and B12 were within normal limits and syphilis test was nonreactive. MRI of the brain showed evidence of old stroke but shows no acute intracranial pathology. Urinalysis also showed no evidence of UTI. * neurology reviewed him and felt his clinical presentation was concerning for delirium in the setting of low cognitive reserve worsening for baseline dementia with low concern for seizures. * will dc IV unasyn as there is no evidence of any infection * . * #Dysphagia * Patient has remained encephalopathic and has had difficulty swallowing. * he had a swallow test today which showed evidence of aspiration * Speech therapy recommended and alternate means of nutrition. * Spoke to patient's brother Jean Valdivia about PEG tube insertion and he is in agreement with this. Gastroenterology consulted for PEG tube insertion. * PICC line inserted yesterday. Nutrition consulted to commence tube feeds. * #Chest pain: resolved. Cardiology on board. Appreciate rec's. 2D echo showed EF of 60% with no diastolic dysfunction. On metoprolol DVT prophylaxis: lovenox Disposition: awaiting placement. Allergies/Procedures Done in Hospital Allergies No Known Allergies Allergy (Verified 11/15/23 18:03) Procedures: 2-D Echocardiogram Type of Care/Length of Stay Estimated LOS: Convalescent Care Less Than 30 days Type of Care Needed: Skilled Rehab Potential: Fair Prognosis: Fair Additional Orders/Day of Discharge Day of Discharge: 11/27/23 Dietary and Speech Recommendations Dietitian Recommendations/Changes: NPO per STEAM FRAME OPERATOR; Via PEG- Jevity 1.5 at goal rateof 60mL/hour w/ 150mL H2O flush every 4 hours to provide 2160 calories, ~92 g protein, and 1994mL total fluid/day. Will start at 20mL/hour and increase by 15mL/hour every 6-8 hours as tolerated until goal rate is achieved. Discharge Plan Admission Admit Date/Time: 11/15/23 18:17 Primary Reason for Your Visit: acute encephalopathy, dementia, dysphagia Attending Provider: Evelin Chavarria Primary Care Provider: Rafa Regalado Consulting Providers: Reagan Greenfield; Ken Colorado; Bharath Fan; Ofelia Cash; Nelly Daniels; Jess Johnson; Diann Vasquez; Amrit Garnett; Candis Juan; Surinder Alfaro; Alden Carmona; Kylah Su; Antoine Lemon; Re Riddle; Lex Horn; Angel Mcdaniel; Delvis Mcnulty; Anna Johnson; Earnest Farley; Mariah Costello; Omar Armenta Instructions Additional Instructions / Restrictions: To be on Jevity Tube feeds at 60cc/hr via PEG tube Discharge Orders/Prescriptions Prescriptions: New atorvastatin 40 mg Tablet 40 mg feeding tube QHS Qty: 30 2RF aspirin 81 mg Tablet,Delayed Release (Dr/Ec) 81 mg feeding tube BREAKFAST Qty: 30 2RF metoprolol tartrate 25 mg Tablet 25 mg feeding tube BID Qty: 60 2RF Continued multivitamin [One Daily Essential] Tablet 1 tab PO DAILY Referrals / Follow Up: Thomas Fleming Chi, MD [Med Staff - Active Staff] - Within 2 Weeks Disposition Disposition (needs filled in before D/C Order can be placed): [facility] Facility 11/27/23 1150 <Electronically signed by Evelin Chavarria MD> Cosigner Signature (if applicable): CC: Jess Johnson; Re Riddle; Delvis Matthews; Diann Vasquez MD; Nelly Daniels MD; Bharath Fan MD; Dr. Ofelia Cash MD; Dr. Amrit Garnett MD; Dr. Reagan Greenfield MD; Dr. Candis Juan MD; Dr. Alden Carmona MD; Dr. Surinder Alfaro MD; Dr. Rafa Regalado MD; Dr. Antoine Lemon DO; Dr. Angel Mcdaniel MD; Dr. Lex Horn MD; Dr. Ken Colorado MD; Dr. Anna Johnson MD; Dr. Earnest Farley MD; Dr. Mariah Costello MD; Kylah Su DO; Omar Armenta MD ~ [facility] [place] Work Phone: 1([phone]) 451-252004-03-2024 Progress note Author Alec Friend [facility] November 26, 2023 5:02pm Note Date/Time November 26, 2023 5:02 pm [facility] Medical Records Department [address] [place] [address] Progress Note - GI 11/26/23 1700 MR#: [id number] Acct: [id number] Name: REID VALDIVIA Jr. Rep #:[id number] : 1950 73 From: Alec Friend DO PCP: Dr. Rafa Regalado MD Status:AD M IN Location: [place] [address] Subjective Subjective Patient underwent EGD with PEG tube placement yesterday. He has been toleratingtube feedings today without any problems. There is no dark stools and his hemoglobin seems to be normal. Objective Data Objective Data Vital Signs: Vital Signs Temp Pulse Resp BP Pulse Ox O2 Del Method O2 Flow Rate 97.2 F L 72 16 118/90 H 94 Room Air 2 11/26/23 10:00 11/26/23 10:08 11/26/23 10:00 11/26/23 10:00 11/26/23 10:00 11/26/23 10:00 11/23/23 21:05 Oxygen Flow Rate (L/min) 2 Oxygen Delivery Method Room Air Weight: 188 lb Body Mass Index (BMI) 27.7 Intake & Output: Intake and Output for Last 24 Hours 11/24/23 11/25/23 11/26/23 23:59 23:59 23:59 Intake Total 2336.0 / 2336.0 2064.75 / 2064.75 522.00 / 522.00 Output Total 750 / 750 900 / 900 475 / 475 Balance 1586.0 / 1586.0 1164.75 / 1164.75 47.00 / 47.00 Lab / Micro Data 11/26/23 05:30 11/26/23 05:30 Labs: Laboratory Results - last 24 hr 11/26/23 05:30: WBC 16.3 H, RBC 5.37, Hgb 16.6 H, Hct 49.3, MCV 91.8, MCH 30.9, MCHC 33.7, RDW Std Deviation 43.0, RDW Coeff of Katerina 12.7, Plt Count 229, MPV 9.9, Immature Gran % (Auto) 0.600, Neut % (Auto) 85.3 H, Lymph % (Auto) 11.0 L, [place] % (Auto) 2.3, Eos % (Auto) 0.4, Baso % (Auto) 0.4, Absolute Neuts (auto) 13.9 H, Absolute Lymphs (auto) 1.80, Nucleated RBC % 0, Sodium 142, Potassium 3.7, Chloride 112 H, Carbon Dioxide 25.0, Anion Gap 5, BUN 16, Creatinine 0.90, Estim Creat Clear Calc 80.31, Est GFR (MDRD) Af Amer 106, Est GFR (MDRD) Non-Af 88, BUN/Creatinine Ratio 17.8, Glucose 116 H, Calcium 8.7 Micro: Microbiology 11/15/23 20:59 Blood Culture (Wb) - Anticubital Left Blood Culture - Final No growth in 5 days. 11/15/23 20:40 Mucosa - Nasopharyngeal Coronavirus COVID-19 PCR - Final 11/15/23 20:40 Mucosa - Nasopharyngeal Respiratory Panel (PCR) - Final Physical Exam Const alert and no apparent distress Orientation / Consciousness: confused and disoriented HEENT normocephalic, head/scalp atraumatic, moist oral mucous membranes and oropharynxnormal Eyes PERRL and EOMs intact bilaterally Neck no lymphadenopathy and supple Lymph Lymphatic: no lymphadenopathy noted and no lymphedema noted Resp normal respiratory effort, normal air movement, no retractions and clear to auscultation bilaterally Resp Narrative: Oxygen 88% on room air Cardio regular rate, regular rhythm, S1 normal heart sound, S2 normal heart sound, no murmurs and no JVD GI normal to inspection, nondistended, normoactive bowel sounds, soft to palpation,non-tender and non-distended GI Narrative: PEG tube in place, with inact dressing over PEG tube insertion site. Extremity normal to inspection, full ROM, normal capillary refill, no clubbing, cyanosis or edema and no calf tenderness General Extremity: no tenderness to palpation of joints or extremities Skin General Skin Exam: no breakdown Neuro CN's II-XII intact bilaterally and no focal motor deficits Neuro Narrative: moves all extremities Motor Exam: general weakness Psych Psych Narrative: confused Assessment & Plan Assessment/Plan (1) Altered behavior: (2) NSTEMI (non-ST elevated myocardial infarction): PLAN: Plan 1. Altered mental status in the setting of chronic dementia now with worsening dysphagia and possible aspiration pneumonia ? Currently still unclear as to the etiology of his worsening mental status ? There is no obvious infectious etiology respiratory panels were obtained at the outside hospital reportedly negative ? Will repeat chest x-ray today given issues with risks of aspiration ? UA here is normal ? Repeat CBC this morning showed a decrease in his white count however given hislung sounds we will proceed with Unasyn ? Continue with risperidone ? TSH, B12 were normal and syphilis was nonreactive ? PT/OT as well as case management for disposition planning ? Apparently their family dynamics as the daughter we have listed is not biologically his so we will attempt to discuss the situation with his siblings who we now have phone number for ? MRI demonstrated gliosis on his right frontal and parietal lobes consistent with a previous stroke ? Patient is doing well with PEG tube without any problems. Recommend to titrate up to goal as per nutrition. 2. Chest pain ? Chest pain is resolved and his troponin returned back to normal very quickly unlikely to have been a non-STEMI ? Echo with an EF of 60 and no diastolic dysfunction, not a candidate for invasive studies ? Appreciate cardiology's assistance, continue with p.o. metoprolol DVT: Lovenox Charges/Coding Visit Charges Inpatient E&M: 95770 Subs Hosp L3 11/26/23 1702 <Electronically signed by Alec Friend DO> Cosigner Signature (if applicable): CC: ~ Signed [facility] [place] Work Phone: 1(304) 434-527004-03-2024 Progress note Author [facility] [place] November 26, 2023 3:33pm Note Date/Time November 26, 2023 10:3 7am [facility] Medical Records Department [address] [place] [address] Progress Note 11/26/23 1036 MR#: [id number] Acct: [id number] Name: REID VALDIVIA JrChrissie Rep #:[id number] : 1950 73 From: Evelin Chavarria MD PCP: Dr. Rafa Regalado MD Status:AD M IN Location: [place] [id number] Subjective Subjective Patient seen and examined. He remains confused. Unable to do review of systems. He had a PEG tube inserted yesterday. neurology also reviewed patient yesterday.He has otherwise remained hemodynamically stable. Objective Data Objective Data Vital Signs: Vital Signs Temp Pulse Resp BP Pulse Ox O2 Del Method O2 Flow Rate 97.2 F L 72 16 118/90 H 94 Room Air 2 11/26/23 10:00 11/26/23 10:08 11/26/23 10:00 11/26/23 10:00 11/26/23 10:00 11/26/23 10:00 11/23/23 21:05 Oxygen Flow Rate (L/min) 2 Oxygen Delivery Method Room Air Weight: 188 lb Body Mass Index (BMI) 27.7 Intake & Output: Intake and Output for Last 24 Hours 11/24/23 11/25/23 11/26/23 23:59 23:59 23:59 Intake Total 2336.0 / 2336.0 2064.75 / 2064.75 522.00 / 522.00 Output Total 750 / 750 900 / 900 325 / 325 Balance 1586.0 / 1586.0 1164.75 / 1164.75 197.00 / 197.00 Lab / Micro Data 11/26/23 05:30 11/26/23 05:30 Labs: Laboratory Results - last 24 hr 11/26/23 05:30: WBC 16.3 H, RBC 5.37, Hgb 16.6 H, Hct 49.3, MCV 91.8, MCH 30.9, MCHC 33.7, RDW Std Deviation 43.0, RDW Coeff of Katerina 12.7, Plt Count 229, MPV 9.9, Immature Gran % (Auto) 0.600, Neut % (Auto) 85.3 H, Lymph % (Auto) 11.0 L, [place] % (Auto) 2.3, Eos % (Auto) 0.4, Baso % (Auto) 0.4, Absolute Neuts (auto) 13.9 H, Absolute Lymphs (auto) 1.80, Nucleated RBC % 0, Sodium 142, Potassium 3.7, Chloride 112 H, Carbon Dioxide 25.0, Anion Gap 5, BUN 16, Creatinine 0.90, Estim Creat Clear Calc 80.31, Est GFR (MDRD) Af Amer 106, Est GFR (MDRD) Non-Af 88, BUN/Creatinine Ratio 17.8, Glucose 116 H, Calcium 8.7 Micro: Microbiology 11/15/23 20:59 Blood Culture (Wb) - Anticubital Left Blood Culture - Final No growth in 5 days. 11/15/23 20:40 Mucosa - Nasopharyngeal Coronavirus COVID-19 PCR - Final 11/15/23 20:40 Mucosa - Nasopharyngeal Respiratory Panel (PCR) - Final Physical Exam Const alert and no apparent distress Orientation / Consciousness: confused and disoriented HEENT normocephalic, head/scalp atraumatic, moist oral mucous membranes and oropharynxnormal Eyes PERRL and EOMs intact bilaterally Neck no lymphadenopathy and supple Lymph Lymphatic: no lymphadenopathy noted and no lymphedema noted Resp normal respiratory effort, normal air movement, no retractions and clear to auscultation bilaterally Resp Narrative: Oxygen 88% on room air Cardio regular rate, regular rhythm, S1 normal heart sound, S2 normal heart sound, no murmurs and no JVD GI normal to inspection, nondistended, normoactive bowel sounds, soft to palpation,non-tender and non-distended GI Narrative: PEG tube in place, with inact dressing over PEG tube insertion site. Extremity normal to inspection, full ROM, normal capillary refill, no clubbing, cyanosis or edema and no calf tenderness General Extremity: no tenderness to palpation of joints or extremities Skin General Skin Exam: no breakdown Neuro CN's II-XII intact bilaterally and no focal motor deficits Neuro Narrative: moves all extremities Motor Exam: general weakness Psych Psych Narrative: confused Assessment & Plan Assessment/Plan (1) Altered behavior: (2) Encephalopathy: PLAN: Plan #Acute encephalopathy * Patient still remains confused. He apparently has underlying dementia. He now has worsening confusion and is also dysphagia. * Workup for encephalopathy has been negative. TSH and B12 were within normal limits and syphilis test was nonreactive. MRI of the brain showed evidence of old stroke but shows no acute intracranial pathology. Urinalysis also showed no evidence of UTI. * neurology reviewed him and felt his clinical presentation was concerning for delirium in the setting of low cognitive reserve worsening for baseline dementia with low concern for seizures. * will dc IV unasyn as there is no evidence of any infection * . * #Dysphagia * Patient has remained encephalopathic and has had difficulty swallowing. * he had a swallow test today which showed evidence of aspiration * Speech therapy recommended and alternate means of nutrition. * Spoke to patient's brother Jean Valdivia about PEG tube insertion and he is in agreement with this. Gastroenterology consulted for PEG tube insertion. * PICC line inserted yesterday. Nutrition consulted to commence tube feeds. * #Chest pain: resolved. Cardiology on board. Appreciate rec's. 2D echo showed EF of 60% with no diastolic dysfunction. On metoprolol DVT prophylaxis: lovenox Disposition: awaiting placement. Charges/Coding Visit Charges Inpatient E&M: 76151 Subs Hosp L2 11/26/23 1533 <Electronically signed by Evelin Chavarria MD> Evelin Chavarria MD Cosigner Signature (if applicable): CC: ~ Signed [facility] Work Phone: 1(186) 923-768704-03-2024 Progress note Author Re Riddle [facility] November 26, 2023 11:40am Note Date/Time November 26, 2023 11:3 4am [facility] Medical Records Department [address] [facility] [place] [address] Progress Note - Neurology 11/26/23 1134 MR#: [id number] Acct: [id number] Name: REID VALDIVIA JrChrissie Rep #:[id number] : 1950 73 From: eR Riddle MD PCP: Dr. Rafa Regalado MD Status:AD M IN Location: [place] [address] Assessment and Plan: Neuro Assessment/Plan REID VALDIVIA Jr. is a 73 M with a past medical history of smoking, being evaluated by Teleneurology for encephalopathy. Initially presented with altered sensorium and chest pain found to have NSTEMI. Toxic metabolic work up negative,no source of infection however concern for aspiration pneumonia,also c/o dysphagia ,new onset?. On exam appears somnolent,doesn't follow commands, language unable to check,appears to have leftupper extremity weakness, move both legs spontaneously, also c/o waxing and waning mentation (able to answer nurse appropriately earlier during the day) concerning for hospital acquired delirium. 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 Overall picture is concerning for delirium in the setting of low cognitive reserve, worsening for baseline dementia, low concern for seizures. Plan: awaiting routine EEG Repeat MRI brain in 4-6 weeks Neuropsyc assessment to be done as an outpatient f/p in neurology clinic in 4 weeks Please complete stroke works if not done that include CT angio , ECHO ,HBA1C , LDL Start aspirin 81 mg and stain if LDL greater than 70. I personally attended this patient and spent a total time of 30 minutes evaluating this patient including clinical assessment, review of chart, medical history imaging, and determining appropriate treatment and workup. Re Riddle MD [facility] Teleneurology Department Subject: Neurology Subjective REID VALDIVIA Jr. is a 73 year old M, who we are seeing in consultation today for advice on the management of encephalopathy and related patient care. EEG Results Procedure Details EEG Procedure Details: pending Objective Data Objective Data Vital Signs: Vital Signs Temp Pulse Resp BP Pulse Ox O2 Del Method O2 Flow Rate 97.2 F L 72 16 118/90 H 94 Room Air 2 11/26/23 10:00 11/26/23 10:08 11/26/23 10:00 11/26/23 10:00 11/26/23 10:00 11/26/23 10:00 11/23/23 21:05 Oxygen Flow Rate (L/min) 2 Oxygen Delivery Method Room Air Weight: 85.275 kg Body Mass Index (BMI) 27.7 Intake & Output: Intake and Output for Last 24 Hours 11/24/23 11/25/23 11/26/23 23:59 23:59 23:59 Intake Total 2336.0 / 2336.0 2064.75 / 2064.75 522.00 / 522.00 Output Total 750 / 750 900 / 900 325 / 325 Balance 1586.0 / 1586.0 1164.75 / 1164.75 197.00 / 197.00 Lab / Micro Data 11/26/23 05:30 11/26/23 05:30 Labs: Laboratory Results - last 24 hr 11/26/23 05:30: WBC 16.3 H, RBC 5.37, Hgb 16.6 H, Hct 49.3, MCV 91.8, MCH 30.9, MCHC 33.7, RDW Std Deviation 43.0, RDW Coeff of Katerina 12.7, Plt Count 229, MPV 9.9, Immature Gran % (Auto) 0.600, Neut % (Auto) 85.3 H, Lymph % (Auto) 11.0 L, [place] % (Auto) 2.3, Eos % (Auto) 0.4, Baso % (Auto) 0.4, Absolute Neuts (auto) 13.9 H, Absolute Lymphs (auto) 1.80, Nucleated RBC % 0, Sodium 142, Potassium 3.7, Chloride 112 H, Carbon Dioxide 25.0, Anion Gap 5, BUN 16, Creatinine 0.90, Estim Creat Clear Calc 80.31, Est GFR (MDRD) Af Amer 106, Est GFR (MDRD) Non-Af 88, BUN/Creatinine Ratio 17.8, Glucose 116 H, Calcium 8.7 Micro: Microbiology 11/15/23 20:59 Blood Culture (Wb) - Anticubital Left Blood Culture - Final No growth in 5 days. 11/15/23 20:40 Mucosa - Nasopharyngeal Coronavirus COVID-19 PCR - Final 11/15/23 20:40 Mucosa - Nasopharyngeal Respiratory Panel (PCR) - Final Physical Exam Neuro Neuro Narrative: -? General: Laying comfortably in bed; in no acute distress. -? HENT: Normal oropharynx and mucosa. Normal external appearance of ears and nose. Exophthalmos. -? Neck: Supple, no pain or tenderness -? CV:? No peripheral edema. -? Pulmonary:? Normal respiratory effort. -? Ext: No cyanosis, edema, or deformity -? Skin: No rash. Normal palpation of skin.? -? Musculoskeletal: full range of motion; no joint tenderness. Normal digits and nails by inspection. No clubbing. -? NEURO: -? Mental Status: Somnolent,unable to follow commands.. -? Language: didn't say a single word -? Cranial Nerves: PERRL 3mm/brisk. EOMI, visual boyd full, no facial asymmetry, facial sensation intact, hearing intact, tongue midline, no evidence of atrophy or fibrillations. As performed by the nurse. -? Motor: normal bulk, tone, left upper extremity weakness R L R L -? Tone: is normal and bulk is normal -? Sensation- Intact to light touch bilaterally -? Coordination:unable to be perform -? Gait- deferred 11/26/23 1140 <Electronically signed by Re Riddle MD> Cosigner Signature (if applicable): CC: ~ Signed [facility] Work Phone: 1(717) 168-633904-02-2024 Consult note Author Alec Friend [facility] November 25, 2023 6:33pm Note Date/Time November 25, 2023 6:30 pm [facility] Medical Records Department [address] [place] [address] Consultation - GI 11/24/23 1829 MR#: [id number] Acct: [id number] Name: REID VALDIVIA Jr. Rep #:[id number] : 1950 73 From: Alec Grigsby DO PCP: Dr. Rafa Regalado MD Status:AD M IN Location: [facility] [id number] HPI Consult Data Date of Consult: 11/24/23 HPI Narrative Reason for Consultation: Dysphagia and aspiration pneumonia along with failed swallowing study HPI Narrative: REID VALDIVIA, is a 73 M who presented from [facility] ED with concerns regarding chestpain with gradually rising troponin, elevated D-dimer levels and suspected pulmonary embolism. He presented to the ED today with concerns regarding chest pain and back pain for the last few hours and associated altered mental status. He was accompaniedby his girlfriend who notes that his sensorium has been worsening over the last 1 to 2 weeks, increased sleepiness during the day and insomnia during the night. She is also concerned that his dementia is developing dementia and that is worsening. Been discussed with the ED physician, there were concerns regarding pulmonary embolism as the D-dimer was 2000 and age-related cutoff 720, CT scan done there showed no large pulm embolism in the main pulmonary arteries nondiagnostic evaluation of the smaller pulmonary arteries. His troponin was rising from 6 to12-[address] head normal, chest x-ray normal. On lab evaluation his venous bicarbonate was 26 potassium 4.3 lactate 1.9, hemoglobin 17.2 WBC 13.6. He was seen by cardiology, neurology and pulmonary planning specialist. Herecyndi was diagnosed with non-ST segment elevation MN but his echo was normal so that diagnosis was in question. I was called to see him due to a failed swallow study today for PEG tube placement. [facility] Medical History COPD (chronic obstructive pulmonary disease) Smoker Medical History unable to obtain Home Medications multivitamin (One Daily Essential tablet) 1 tab PO DAILY vitamin 11/15/23 [History Last Taken Unknown] Allergy/AdvReac Type Severity Reaction Status Date / Time No Known Allergies Allergy Verified 11/15/23 18:03 Social History Smoking Status: Current every day smoker tobacco type: cigarettes ROS Review of Systems ROS Unobtainable: due to mental status and other Constitutional Constitutional: Reports anorexia and change in weight; Denies chills, fatigue, fever(s), malaise, night sweats, weakness or other Physical Exam Const alert and no apparent distress Orientation / Consciousness: confused, disoriented and lethargic HEENT normocephalic, head/scalp atraumatic, moist oral mucous membranes and oropharynxnormal Eyes PERRL and EOMs intact bilaterally Neck no lymphadenopathy and supple Lymph Lymphatic: no lymphadenopathy noted and no lymphedema noted Resp normal respiratory effort, normal air movement, no retractions and clear to auscultation bilaterally Resp Narrative: Oxygen 88% on room air Cardio regular rate, regular rhythm, S1 normal heart sound, S2 normal heart sound, no murmurs and no JVD GI normal to inspection, nondistended, normoactive bowel sounds, soft to palpation,non-tender and non-distended Extremity normal to inspection, full ROM, normal capillary refill, no clubbing, cyanosis or edema and no calf tenderness General Extremity: no tenderness to palpation of joints or extremities Skin General Skin Exam: no breakdown Neuro CN's II-XII intact bilaterally and no focal motor deficits Neuro Narrative: moves all extremities Motor Exam: general weakness Psych affect normal Psych Narrative: confused Lab / Micro Data 11/25/23 05:44 11/25/23 05:44 Labs: Laboratory Results - last 24 hr 11/25/23 05:44: WBC 8.3, RBC 5.14, Hgb 16.0, Hct 48.8, MCV 94.9 H, MCH 31.1, MCHC 32.8, RDW Std Deviation 46.2 H, RDW Coeff of Katerina 13.0, Plt Count 259, MPV 9.6, Immature Gran % (Auto) 0.600, Neut % (Auto) 60.8, Lymph % (Auto) 31.8, [place]% (Auto) 3.9, Eos % (Auto) 2.3, Baso % (Auto) 0.6, Absolute Neuts (auto) 5.0, Absolute Lymphs (auto) 2.63, Nucleated RBC % 0, Sodium 145, Potassium 3.3 L, Chloride 112 H, Carbon Dioxide 29.0, Anion Gap 4 L, BUN 24 H, Creatinine 1.13, Estim Creat Clear Calc 63.96, Est GFR (MDRD) Af Amer 82, Est GFR (MDRD) Non-Af 68, BUN/Creatinine Ratio 21.2 H, Glucose 123 H, Calcium 9.0 Assessment & Plan Assessment/Plan (1) Altered behavior: (2) NSTEMI (non-ST elevated myocardial infarction): PLAN: Plan 1. Altered mental status in the setting of chronic dementia now with worsening dysphagia and possible aspiration pneumonia ? Currently still unclear as to the etiology of his worsening mental status ? There is no obvious infectious etiology respiratory panels were obtained at the outside hospital reportedly negative 2. Chest pain ? Chest pain is resolved and his troponin returned back to normal very quickly unlikely to have been a non-STEMI ? Echo with an EF of 60 and no diastolic dysfunction ? Appreciate cardiology's assistance, continue with p.o. metoprolol 3. Failed swallow study -Patient will undergo PEG tube placement. Patient patient brother were explained alternatives, risk and benefits including outstanding bleeding, infection, sepsis, perforation, need for return to . Have an ASA of 3. Charges/Coding Visit Charges Inpatient E&M: 26979 Init Hosp 11/25/23 8855 <Electronically signed by Alec Friend DO> Cosigner Signature (if applicable): CC: Jess Johnson; Re Riddle; Delvis Matthews; Diann Vasquez MD; Nelly Daniels MD; Bharath Fan MD; Dr. Ofelia Cash MD; Dr. Amrit Garnett MD; Dr. Reagan Greenfield MD; Dr. Candis Juan MD; Dr. Alden Carmona MD; Dr. Surinder Alfaro MD; Dr. Rafa Regalado MD; Dr. Antoine Lemon DO; Dr. Angel Mcdaniel MD; Dr. Lex Horn MD; Dr. Ken Colorado MD; Dr. Anna Johnson MD; Dr. Earnest Farley MD; Dr. Mariah Costello MD; Kylah Su DO; Omar Armenta MD~ Signed [facility] Work Phone: 1(937) 781-516304-02-2024 Procedure [facility] 11-25-2023 Procedure [facility]04-02-2024 Progress note Author [facility] November 25, 2023 4:07pm Note Date/Time November 25, 2023 11:5 2am [facility] Medical Records Department [address] [place] [id number] Progress Note 11/25/23 1151 MR#: [id number] Acct: [id number] Name: CHAYOREID Brandon Holguin Rep #:[id number] : 1950 73 From: Evelin Chavarria MD PCP: Dr. Rafa Regalado MD Status:AD M IN Location: [place] [id number]- Subjective Subjective Patient seen and examined. He had no other complaints today. He was alert and more communicative. Patient failed a swallow test yesterday. Will likely need a PEG tube to start nutrition via tube feeding Objective Data Objective Data Vital Signs: Vital Signs Temp Pulse Resp BP Pulse Ox O2 Del Method O2 Flow Rate 98.2 F 65 18 135/90 H 94 Room Air 2 11/25/23 08:46 11/25/23 10:37 11/25/23 08:46 11/25/23 08:46 11/25/23 08:46 11/25/23 08:49 11/23/23 21:05 Oxygen Flow Rate (L/min) 2 Oxygen Delivery Method Room Air Weight: 188 lb Body Mass Index (BMI) 27.7 Intake & Output: Intake and Output for Last 24 Hours 11/23/23 11/24/23 11/25/23 23:59 23:59 23:59 Intake Total 761 / 761 2336.0 / 2336.0 1212 / 1212 Output Total 1200 / 1200 750 / 750 200 / 200 Balance -439 / -439 1586.0 / 1586.0 1012 / 1012 Lab / Micro Data 11/25/23 05:44 11/25/23 05:44 Labs: Laboratory Results - last 24 hr 11/25/23 05:44: WBC 8.3, RBC 5.14, Hgb 16.0, Hct 48.8, MCV 94.9 H, MCH 31.1, MCHC 32.8, RDW Std Deviation 46.2 H, RDW Coeff of Katerina 13.0, Plt Count 259, MPV 9.6, Immature Gran % (Auto) 0.600, Neut % (Auto) 60.8, Lymph % (Auto) 31.8, [place]% (Auto) 3.9, Eos % (Auto) 2.3, Baso % (Auto) 0.6, Absolute Neuts (auto) 5.0, Absolute Lymphs (auto) 2.63, Nucleated RBC % 0, Sodium 145, Potassium 3.3 L, Chloride 112 H, Carbon Dioxide 29.0, Anion Gap 4 L, BUN 24 H, Creatinine 1.13, Estim Creat Clear Calc 63.96, Est GFR (MDRD) Af Amer 82, Est GFR (MDRD) Non-Af 68, BUN/Creatinine Ratio 21.2 H, Glucose 123 H, Calcium 9.0 Micro: Microbiology 11/15/23 20:59 Blood Culture (Wb) - Anticubital Left Blood Culture - Final No growth in 5 days. 11/15/23 20:40 Mucosa - Nasopharyngeal Coronavirus COVID-19 PCR - Final 11/15/23 20:40 Mucosa - Nasopharyngeal Respiratory Panel (PCR) - Final Physical Exam Const alert and no apparent distress Orientation / Consciousness: confused, disoriented and lethargic HEENT normocephalic, head/scalp atraumatic, moist oral mucous membranes and oropharynxnormal Eyes PERRL and EOMs intact bilaterally Neck no lymphadenopathy and supple Lymph Lymphatic: no lymphadenopathy noted and no lymphedema noted Resp normal respiratory effort, normal air movement, no retractions and clear to auscultation bilaterally Resp Narrative: Oxygen 88% on room air Cardio regular rate, regular rhythm, S1 normal heart sound, S2 normal heart sound, no murmurs and no JVD GI normal to inspection, nondistended, normoactive bowel sounds, soft to palpation,non-tender and non-distended Extremity normal to inspection, full ROM, normal capillary refill, no clubbing, cyanosis or edema and no calf tenderness General Extremity: no tenderness to palpation of joints or extremities Skin General Skin Exam: no breakdown Neuro CN's II-XII intact bilaterally and no focal motor deficits Neuro Narrative: moves all extremities Motor Exam: general weakness Psych affect normal Psych Narrative: confused Assessment & Plan Assessment/Plan (1) Altered behavior: (2) Encephalopathy: PLAN: Plan #Acute encephalopathy * Patient still remains confused. He apparently has underlying dementia. He now has worsening confusion and is also dysphagia. * Workup for encephalopathy has been negative. TSH and B12 were within normal limits and syphilis test was nonreactive. MRI of the brain showed evidence of old stroke but shows no acute intracranial pathology. Urinalysis also showed no evidence of UTI. * neurology consulted to get their input about patient's persistent encephalopathy. * Was started on IV Unasyn empirically because WBC had trended upwards. * #Dysphagia * Patient has remained encephalopathic and has had difficulty swallowing. * he had a swallow test today which showed evidence of aspiration * Speech therapy recommended and alternate means of nutrition. * Spoke to patient's brother Jean Valdivia about PEG tube insertion and he is in agreement with this. Gastroenterology consulted for PEG tube insertion. * #Chest pain: resolved. Cardiology on board. Appreciate rec's. 2D echo showed EF of 60% with no diastolic dysfunction. On metoprolol DVT prophylaxis: lovenox Disposition: Will benefit from placement. Charges/Coding Visit Charges Inpatient E&M: 88131 Subs Hosp L2 11/25/23 1607 <Electronically signed by Evelin Chavarria MD> Evelin Chavarria MD Cosigner Signature (if applicable): CC: ~ Signed [facility] Work Phone: 1(693) 927-504704-02-2024 Consult note Author Re Riddle [facility] November 25, 2023 2:33pm Note Date/Time November 25, 2023 2:07 pm [facility] Medical Records Department [address] [place] [address] Consultation - Neurology 11/25/23 1407 MR#: [id number] Acct: [id number] Name: REID VALDIVIA Jr. Rep #:[id number] : 1950 73 From: Re Riddle MD PCP: Dr. Rafa Regalado MD Status:AD M IN [facility] Assessment and Plan: Neuro Assessment/Plan REID VALDIVIA Jr. is a 73 M with a past medical history of smoking, being evaluated by Teleneurology for encephalopathy. Initially presented with altered sensorium and chest pain found to have NSTEMI. Toxic metabolic work up negative,no source of infection however concern for aspiration pneumonia,also c/o dysphagia ,new onset?. On exam appears somnolent,doesn't follow commands, language unable to check,appears to have leftupper extremity weakness, move both legs spontaneously, also c/o waxing and waning mentation (able to answer nurse appropriately earlier during the day) concerning for hospital acquired delirium. 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 Overall picture is concerning for delirium in the setting of low cognitive reserve, worsening for baseline dementia, low concern for seizures. Unclear reason for dysphagia.Awaiting official swallow evaluation. Plan: Routine EEG Repeat MRI brain in 4-6 weeks Neuropsyc assessment to be done as an outpatient f/o in cognitive clinic in 4 -6 weeks Please complete stroke works if not done that include CT angio , ECHO ,HBA1C , LDL Start aspirin 81 mg and stain if LDL greater than 70. Unclear reason for dysphagia.Awaiting official swallow evaluation. Transfer to [facility] for the following reasons: none I personally attended this patient and spent a total time of 50 minutes evaluating this patient including clinical assessment, review of chart, medical history imaging, and determining appropriate treatment and workup. Re Riddle MD [facility] Tele Neurology department HPI Consult Data Date of Consult: 11/25/23 HPI Narrative HPI Narrative: REID VALDIVIA, is a 73 M who presents with encephalopathy. He is been in hospitalfor long time.Initially presented with altered sensorium and chest pain,found tohave NSTEMI ,resolved. Continue to be altered .Also with difficulty swallowing food. Infectious work up has been negative so far however there is concern for aspiration peumonia . Toxic metabolic work up normal.MRI brain with old right fronto parietal stroke and global volume loss. PFSH Medical History COPD (chronic obstructive pulmonary disease) Smoker Medical History unable to obtain Home Medications multivitamin (One Daily Essential tablet) 1 tab PO DAILY vitamin 11/15/23 [History Last Taken Unknown] Allergy/AdvReac Type Severity Reaction Status Date / Time No Known Allergies Allergy Verified 11/15/23 18:03 Social History Smoking Status: Current every day smoker tobacco type: cigarettes Vital Signs Vital Signs Vital Signs: 11/24/23 15:00 11/24/23 15:43 11/24/23 19:45 Temperature 98.3 F Temperature Source Oral Pulse Rate 78 80 Pulse Strength Respiratory Rate 18 18 Respiratory Effort Normal Non-Labored Respiratory Depth Normal Respiratory Pattern Normal Blood Pressure 134/81 H Blood Pressure Mean 98 Blood Pressure Source Monitor Blood Pressure Position Semi-Fowlers Blood Pressure Location Right Arm Pulse Ox 92 Oxygen Delivery Method Room Air Room Air 11/24/23 19:45 11/24/23 21:10 11/24/23 21:21 Temperature 97.6 F L Temperature Source Temporal Pulse Rate 72 Pulse Strength Normal (2+) Respiratory Rate 16 Respiratory Effort Respiratory Depth Respiratory Pattern Blood Pressure 126/70 H Blood Pressure Mean 88 Blood Pressure Source Monitor Blood Pressure Position Left Lateral Blood Pressure Location Right Arm Pulse Ox 93 93 Oxygen Delivery Method Room Air Room Air 11/24/23 21:00 11/25/23 03:15 11/25/23 03:00 Temperature 98 F Temperature Source Oral Pulse Rate 60 Pulse Strength Respiratory Rate 16 Respiratory Effort Normal Non-Labored Normal Non-Labored Respiratory Depth Normal Normal Respiratory Pattern Normal Normal Blood Pressure 120/68 Blood Pressure Mean 85 Blood Pressure Source Monitor Blood Pressure Position Semi-Fowlers Blood Pressure Location Right Arm Pulse Ox 94 Oxygen Delivery Method Room Air Room Air Room Air 11/25/23 08:46 11/25/23 08:49 11/25/23 07:50 Temperature 98.2 F Temperature Source Oral Pulse Rate 65 79 Pulse Strength Respiratory Rate 18 20 H Respiratory Effort Normal Respiratory Depth Respiratory Pattern Normal Blood Pressure 135/90 H Blood Pressure Mean 105 Blood Pressure Source Monitor Blood Pressure Position Semi-Fowlers Blood Pressure Location Left Arm Pulse Ox 94 Oxygen Delivery Method Room Air Room Air 11/25/23 07:50 11/25/23 10:37 Temperature Temperature Source Pulse Rate 65 Pulse Strength Respiratory Rate Respiratory Effort Respiratory Depth Respiratory Pattern Blood Pressure Blood Pressure Mean Blood Pressure Source Blood Pressure Position Blood Pressure Location Pulse Ox 94 Oxygen Delivery Method Room Air Weight Weight: 85.275 kg Body Mass Index (BMI) 27.7 EEG Results Procedure Details EEG Procedure Details: REID VALDIVIA Jr. is a 73 year old M with a past medical history of , who presents for evaluation of Electroencephalogram on DATE at TIME Physical Exam Neuro Neuro Narrative: -? General: Laying comfortably in bed; in no acute distress. -? HENT: Normal oropharynx and mucosa. Normal external appearance of ears and nose. Exophthalmos. -? Neck: Supple, no pain or tenderness -? CV:? No peripheral edema. -? Pulmonary:? Normal respiratory effort. -? Ext: No cyanosis, edema, or deformity -? Skin: No rash. Normal palpation of skin.? -? Musculoskeletal: full range of motion; no joint tenderness. Normal digits and nails by inspection. No clubbing. -? NEURO: -? Mental Status: The patient was somnolent,did not followed commands however was able to answer questions to the nurse earlier in the day -? Language:unable to access. -? Cranial Nerves: PERRL mm/brisk. EOMI, visual boyd full, no facial asymmetry, facial sensation intact, hearing intact, tongue midline, no evidence of atrophy or fibrillations. As performed by the nurse -? Motor: normal bulk, tone, left upper extremity weakness,appears to moving both legs symmetrically and spontaneously, however not on command -? Tone: is normal and bulk is normal -? Sensation- Intact to light touch bilaterally -? Coordination: unable to access -? Gait- unable to be performed Lab / Micro Data 11/25/23 05:44 11/25/23 05:44 Labs: Laboratory Results - last 24 hr 11/25/23 05:44: WBC 8.3, RBC 5.14, Hgb 16.0, Hct 48.8, MCV 94.9 H, MCH 31.1, MCHC 32.8, RDW Std Deviation 46.2 H, RDW Coeff of Katerina 13.0, Plt Count 259, MPV 9.6, Immature Gran % (Auto) 0.600, Neut % (Auto) 60.8, Lymph % (Auto) 31.8, [place]% (Auto) 3.9, Eos % (Auto) 2.3, Baso % (Auto) 0.6, Absolute Neuts (auto) 5.0, Absolute Lymphs (auto) 2.63, Nucleated RBC % 0, Sodium 145, Potassium 3.3 L, Chloride 112 H, Carbon Dioxide 29.0, Anion Gap 4 L, BUN 24 H, Creatinine 1.13, Estim Creat Clear Calc 63.96, Est GFR (MDRD) Af Amer 82, Est GFR (MDRD) Non-Af 68, BUN/Creatinine Ratio 21.2 H, Glucose 123 H, Calcium 9.0 Active Medications Active Medications Active Medications: Current Medications Generic Name Dose Route Start Last Admin Trade Name Freq PRN Reason Stop Dose Admin Acetaminophen 650 mg 11/15/23 19:56 Acetaminophen 325 Mg Tablet PO Q4H PRN PRN Fever, pain 1-06/03 Albuterol Sulfate 2.5 mg 11/15/23 19:56 11/24/23 19:44 Albuterol 2.5 Mg/3 Ml Vial.Neb. INHALATION 2.5 mg Q2H PRN PRN Administration Dyspnea, wheezing Aspirin 81 mg 11/16/23 08:00 11/25/23 07:27 Aspirin E.C. 81 Mg Tablet PO Not Given BREAKFAST KATHRIN Atorvastatin Calcium 40 mg 11/15/23 22:00 11/24/23 21:20 Atorvastatin Calcium 40 Mg Tablet PO Not Given QHS KATHRIN Budesonide 0.5 mg 11/15/23 20:00 11/25/23 07:50 Budesonide Respules 0.5 Mg/2 Ml Ampul.Neb. INHALATION 0.5 mg BID.RT KATHRIN Administration Calamine/Phenol 1 applic 11/22/23 23:55 11/25/23 08:43 Menthol/Lanolin/Calamine/Znox 113 Gm Tube TOPICAL 1 applic BID KATHRIN Administration Protocol Enoxaparin Sodium 40 mg 11/17/23 14:00 11/25/23 11:37 Enoxaparin 40 Mg/0.4 Ml Syringe SC Not Given DAILY [facility] Heparin Sodium (Porcine) 0 unit 11/16/23 23:50 Heparin Injection (Vial) 5,000 Unit/Ml Vial IV UD PRN dose adjustment Protocol Hydralazine HCl 10 mg 11/15/23 19:56 Hydralazine 20 Mg/Ml Vial IV Q4H PRN PRN SBP > 160 Protocol Sodium Chloride 250 mls @ 15 mls/hr 11/15/23 18:04 IV .[id number] PRN Additional IVPB Infusion Sodium Chloride 250 mls @ 15 mls/hr 11/15/23 18:04 IV .[id number] PRN Saline Flush Ampicillin Sodium/Sulbactam 112 mls @ 150 mls/hr 11/22/23 16:00 11/25/23 07:30 Sodium 3 gm/ Sodium Chloride IV Infused Q8 KATHRIN Infusion Sodium Chloride 1,000 mls @ 50 mls/hr 11/25/23 10:25 11/25/23 10:25 IV 50 mls/hr .Q20H KATHRIN Administration Metoprolol Tartrate 25 mg 11/17/23 06:30 11/25/23 10:37 Metoprolol Tartrate 25 Mg Tablet PO Not Given BID [facility] Protocol Metoprolol Tartrate 5 mg 11/17/23 12:29 Metoprolol Tartrate 5 Mg/5 Ml Vial IV Q4H PRN PRN HR greater than 100 Protocol Nicotine 21 mg 11/15/23 20:45 11/25/23 12:02 Nicotine 21 Mg Patch TD 21 mg DAILY KATHRIN Administration Nitroglycerin 0.4 mg 11/15/23 18:41 Nitroglycerin (Inpatient Use) 0.4 Mg Tab.Subl SL Q5M PRN CHEST PAIN Nystatin 500,000 unit 11/21/23 18:00 11/25/23 13:04 Nystatin 500,000 Unit/5 Ml Udc PO Not Given 4X/DAY KATHRIN Risperidone 0.5 mg 11/19/23 13:00 11/25/23 07:27 Risperidone 0.5 Mg Tablet PO Not Given BID [facility] Protocol Sodium Chloride 10 - 40 ml 11/15/23 18:04 11/22/23 16:25 0.9% Saline Lock 10 Ml Syringe IV 10 ml UD PRN Administration SALINE FLUSH 11/25/23 1433 <Electronically signed by Re Riddle MD> Cosigner Signature (if applicable): CC: Jess Johnson; Re Riddle; Delvis Matthews; Diann Vasquez MD; Nelly Daniels MD; Bharath Fan MD; Dr. Ofelia Cash MD; Dr. Amrit Garnett MD; Dr. Reagan Greenfield MD; Dr. Candis Juan MD; Dr. Alden Carmona MD; Dr. Surinder Alfaro MD; Dr. Rafa Regalado MD; Dr. Antoine Lemon DO; Dr. Angel Mcdaniel MD; Dr. Lex Horn MD; Dr. Ken Colorado MD; Dr. Anna Johnson MD; Dr. Earnest Farley MD; Dr. Mariah Costello MD; Kylah Su DO; Omar Armenta MD~ Signed [facility] Work Phone: 1([phone]) 180-866204-01-2024 Progress note Author [facility] November 24, 2023 4:49pm Note Date/Time November 24, 2023 12:0 8pm [facility] Medical Records Department [address] [place] [address] Progress Note 11/24/23 1205 MR#: [id number] Acct: [id number] Name: CHAYOREID Brandon Holguin Rep #:[id number] : 1950 73 From: Evelin Chavarria MD PCP: Dr. Rafa Regalado MD Status:AD M IN Location: [place] [address] Subjective Subjective Patient seen and examined. He was lying in bed. Patient is confused and is unable to do review of systems as he just gives random answers to questions. He is hemodynamically stable. He did have the swallow study today which he failed. Objective Data Objective Data Vital Signs: Vital Signs Temp Pulse Resp BP Pulse Ox O2 Del Method O2 Flow Rate 98.2 F 71 16 128/86 H 95 Room Air 2 11/24/23 09:00 11/24/23 09:00 11/24/23 09:00 11/24/23 09:00 11/24/23 09:00 11/24/23 09:00 11/23/23 21:05 Oxygen Flow Rate (L/min) 2 Oxygen Delivery Method Room Air Weight: 188 lb Body Mass Index (BMI) 27.7 Intake & Output: Intake and Output for Last 24 Hours 11/22/23 11/23/23 11/24/23 23:59 23:59 23:59 Intake Total 224 / 224 761 / 761 1112.0 / 1112.0 Output Total 50 / 350 1200 / 1200 200 / 200 Balance 174 / -126 -439 / -439 912.0 / 912.0 Lab / Micro Data 11/24/23 06:50 11/24/23 06:50 Labs: Laboratory Results - last 24 hr 11/24/23 06:50: WBC 7.8, RBC 5.56, Hgb 17.1 H, Hct 53.9, MCV 96.9 H, MCH 30.8, MCHC 31.7 L, RDW Std Deviation 47.6 H, RDW Coeff of Katerina 13.2, Plt Count 263, MPV9.8, Immature Gran % (Auto) 0.800, Neut % (Auto) 63.7, Lymph % (Auto) 28.6, [place]% (Auto) 4.4, Eos % (Auto) 1.7, Baso % (Auto) 0.8, Absolute Neuts (auto) 5.0, Absolute Lymphs (auto) 2.23, Nucleated RBC % 0, Sodium 150 H, Potassium 4.8, Chloride 119 H, Carbon Dioxide 28.0, Anion Gap 3 L, BUN 32 H, Creatinine 1.32 H,Estim Creat Clear Calc 54.76, Est GFR (MDRD) Af Amer 68, Est GFR (MDRD) Non-Af 57 L, BUN/Creatinine Ratio 24.2 H, Glucose 118 H, Calcium 9.9 Micro: Microbiology 11/15/23 20:59 Blood Culture (Wb) - Anticubital Left Blood Culture - Final No growth in 5 days. 11/15/23 20:40 Mucosa - Nasopharyngeal Coronavirus COVID-19 PCR - Final 11/15/23 20:40 Mucosa - Nasopharyngeal Respiratory Panel (PCR) - Final Physical Exam Const alert and no apparent distress Orientation / Consciousness: confused HEENT normocephalic, head/scalp atraumatic, moist oral mucous membranes and oropharynxnormal Eyes PERRL and EOMs intact bilaterally Neck no lymphadenopathy and supple Lymph Lymphatic: no lymphadenopathy noted and no lymphedema noted Resp normal respiratory effort, normal air movement and clear to auscultation bilaterally Cardio regular rate, regular rhythm, S1 normal heart sound, S2 normal heart sound and no murmurs GI normal to inspection, nondistended, normoactive bowel sounds, soft to palpation,non-tender and non-distended Extremity normal capillary refill, no clubbing, cyanosis or edema and no calf tenderness General Extremity: no tenderness to palpation of joints or extremities Skin General Skin Exam: no breakdown Neuro CN's II-XII intact bilaterally and no focal motor deficits Neuro Narrative: moves all extremities Motor Exam: general weakness Psych Psych Narrative: confused Assessment & Plan Assessment/Plan (1) Altered behavior: (2) Encephalopathy: PLAN: Plan #Acute encephalopathy * Patient still remains confused. He apparently has underlying dementia. He now has worsening confusion and is also dysphagia. * Workup for encephalopathy has been negative. TSH and B12 were within normal limits and syphilis test was nonreactive. MRI of the brain showed evidence of old stroke but shows no acute intracranial pathology. Urinalysis also showed no evidence of UTI. * Will consult neurology to get their input about patient's persistent encephalopathy. * Was started on IV Unasyn empirically because WBC had trended upwards. * #Dysphagia * Patient has remained encephalopathic and has had difficulty swallowing. * he had a swallow test today which showed evidence of aspiration * Speech therapy recommended and alternate means of nutrition. Will consult general surgery about a PEG tube insertion. * Will speak to family about PEG tube insertion. * #Chest pain: resolved. Cardiology on board. Appreciate rec's. 2D echo showed EF of 60% with no diastolic dysfunction. On metoprolol DVT prophylaxis: lovenox Charges/Coding Visit Charges Inpatient E&M: 22218 Subs Hosp L2 11/24/23 6456 <Electronically signed by Evelin Chavarria MD> Evelin Chavarria MD Cosigner Signature (if applicable): CC: ~ Signed [facility] Work Phone: 1(102) 580-125204-01-2024 Procedure [facility] 11-23-2023 Progress note Author Ken [place] [facility] November 23, 2023 12:45pm Note Date/Time November 23, 2023 12: 45pm [facility] Medical Records Department [address] [place] [address] Progress Note - Hospitalist 11/23/23 1243 MR#: [id number] Acct: [id number] Name: REID VALDIVIA Jr. Rep #:[id number] : 1950 73 From: Ken garg MD PCP: Dr. Rafa Regalado MD Status:AD M IN Location: [place] [address] Subjective Subjective More alert today than he was yesterday, still confused and disoriented. Speech was able to pass him for pur?es though he does not do well with thin liquids Objective Data Objective Data Vital Signs: Vital Signs Temp Pulse Resp BP Pulse Ox O2 Del Method O2 Flow Rate 98.0 F 91 16 133/75 H 93 Room Air 2 11/23/23 09:45 11/23/23 12:29 11/23/23 09:45 11/23/23 12:29 11/23/23 09:45 11/23/23 09:45 11/17/23 16:30 Oxygen Flow Rate (L/min) 2 Oxygen Delivery Method Room Air Weight: 188 lb Body Mass Index (BMI) 27.7 Intake & Output: Intake and Output for Last 24 Hours 11/22/23 11/23/23 11/24/23 03:59 03:59 03:59 Intake Total 0 / 0 224 / 224 112 / 112 Output Total 1000 / 1000 350 / 350 Balance -1000 / -1000 -126 / -126 112 / 112 Lab / Micro Data 11/23/23 06:04 11/23/23 06:04 Labs: Laboratory Results - last 24 hr 11/23/23 06:04: WBC 8.0, RBC 5.56, Hgb 17.1 H, Hct 52.1, MCV 93.7, MCH 30.8, MCHC 32.8, RDW Std Deviation 46.0 H, RDW Coeff of Katerina 13.2, Plt Count 272, MPV 9.8, Immature Gran % (Auto) 0.500, Neut % (Auto) 69.4, Lymph % (Auto) 23.1, [place]% (Auto) 4.9, Eos % (Auto) 1.2, Baso % (Auto) 0.9, Absolute Neuts (auto) 5.6, Absolute Lymphs (auto) 1.85, Nucleated RBC % 0, Sodium 145, Potassium 3.8, Chloride 114 H, Carbon Dioxide 23.0, Anion Gap 8, BUN 36 H, Creatinine 1.10, Estim Creat Clear Calc 65.71, Est GFR (MDRD) Af Amer 85, Est GFR (MDRD) Non-Af 70, BUN/Creatinine Ratio 32.7 H, Glucose 111 H, Calcium 9.5 Micro: Microbiology 11/15/23 20:59 Blood Culture (Wb) - Anticubital Left Blood Culture - Final No growth in 5 days. 11/15/23 20:40 Mucosa - Nasopharyngeal Coronavirus COVID-19 PCR - Final 11/15/23 20:40 Mucosa - Nasopharyngeal Respiratory Panel (PCR) - Final Radiography Diagnostic Testing: Radiology Impression Chest X-Ray 11/22/23 15:53 IMPRESSION: No radiographic evidence of acute cardiopulmonary disease. Electronically Signed: Chacorta Nina DO at 16:58 EDT Reading Location ID and State: [facility] / [place] Tel [phone], Service support , Physical Exam Narrative General: Confused HEENT: Atraumatic, PERRLA, EOMI, Normocephalic Oral: Moist Mucosa, thrush Neck: Supple, No JVD Lungs: Diminished, Normal air movement, No rhonchi, No wheeze, No rales Cardiovascular: Regular rate, Regular Rhythm, Normal S1, Normal S2, No murmurs Abdomen: Soft, Non Tender, Non-Distended, No Hepato-splenomegaly Extremities: No edema, Capillary Refill Less than 3 Seconds Skin: No rashes, No breakdown Musculoskeletal: No Tenderness to Palpation of Joints or Extremities Neurological: Does not follow commands, does move all extremities Psych/Mental Status: Flat Assessment & Plan Assessment/Plan (1) Altered behavior: (2) NSTEMI (non-ST elevated myocardial infarction): PLAN: Plan 1. Altered mental status in the setting of chronic dementia now with worsening dysphagia and possible aspiration pneumonia ? Currently still unclear as to the etiology of his worsening mental status ? There is no obvious infectious etiology respiratory panels were obtained at the outside hospital reportedly negative ? Will repeat chest x-ray today given issues with risks of aspiration ? UA here is normal ? Repeat CBC this morning showed a decrease in his white count however given hislung sounds we will proceed with Unasyn ? Continue with risperidone ? TSH, B12 were normal and syphilis was nonreactive ? PT/OT as well as case management for disposition planning ? Apparently their family dynamics as the daughter we have listed is not biologically his so we will attempt to discuss the situation with his siblings who we now have phone number for ? MRI demonstrated gliosis on his right frontal and parietal lobes consistent with a previous stroke ? Given the improvement with the nystatin and the Unasyn on his mental status and the fact that he is now able to take pur?es again, will hold off on feeding tube placement and transfer. Will update the sister as to his changes 2. Chest pain ? Chest pain is resolved and his troponin returned back to normal very quickly unlikely to have been a non-STEMI ? Echo with an EF of 60 and no diastolic dysfunction, not a candidate for invasive studies ? Appreciate cardiology's assistance, continue with p.o. metoprolol DVT: Lovenox Charges/Coding Visit Charges Inpatient E&M: 95255 Subs Hosp L2 11/23/23 1245 <Electronically signed by Ken Colorado MD> Cosigner Signature (if applicable): CC: ~ Signed [facility] Work Phone: [phone] 940-157803-30-2024 Progress note Author Ken Colorado [facility] November 22, 2023 3:53pm Note Date/Time November 22, 2023 3:3 8pm [facility] Medical Records Department [address] [place] [address] Progress Note - Hospitalist 11/22/23 1532 MR#: [id number] Acct: [id number] Name: CHAYOREID Brandon Holguin Rep #:[id number] : 1950 73 From: Ken garg MD PCP: Dr. Rafa Regalado MD Status:AD M IN Location: [place] [address] Subjective Subjective Awake but not really responsive today which is more of a decline from yesterday Objective Data Objective Data Vital Signs: Vital Signs Temp Pulse Resp BP Pulse Ox O2 Del Method O2 Flow Rate 98.1 F 85 16 119/80 94 Room Air 2 11/22/23 14:30 11/22/23 14:30 11/22/23 14:30 11/22/23 14:30 11/22/23 14:30 11/22/23 14:30 11/17/23 16:30 Oxygen Flow Rate (L/min) 2 Oxygen Delivery Method Room Air Weight: 188 lb Body Mass Index (BMI) 27.7 Intake & Output: Intake and Output for Last 24 Hours 11/21/23 11/22/23 11/23/23 03:59 03:59 03:59 Intake Total 0 / 0 Output Total 500 / 500 1000 / 1000 50 / 50 Balance -500 / -500 -1000 / -1000 -50 / -50 Lab / Micro Data 11/22/23 10:23 11/21/23 06:20 Labs: Laboratory Results - last 24 hr 11/22/23 10:23: WBC 8.3, RBC 5.53, Hgb 17.6 H, Hct 51.8, MCV 93.7, MCH 31.8, MCHC 34.0, RDW Std Deviation 46.4 H, RDW Coeff of Katerina 13.3, Plt Count 250, MPV 9.5, Immature Gran % (Auto) 0.500, Neut % (Auto) 76.8 H, Lymph % (Auto) 17.3 L, [place] % (Auto) 4.2, Eos % (Auto) 0.8, Baso % (Auto) 0.4, Absolute Neuts (auto) 6.3, Absolute Lymphs (auto) 1.43, Nucleated RBC % 0 Micro: Microbiology 11/15/23 20:59 Blood Culture (Wb) - Anticubital Left Blood Culture - Final No growth in 5 days. 11/15/23 20:40 Mucosa - Nasopharyngeal Coronavirus COVID-19 PCR - Final 11/15/23 20:40 Mucosa - Nasopharyngeal Respiratory Panel (PCR) - Final Physical Exam Narrative General: Confused HEENT: Atraumatic, PERRLA, EOMI, Normocephalic Oral: Moist Mucosa, thrush Neck: Supple, No JVD Lungs: Diminished, Normal air movement, No rhonchi, No wheeze, No rales Cardiovascular: Regular rate, Regular Rhythm, Normal S1, Normal S2, No murmurs Abdomen: Soft, Non Tender, Non-Distended, No Hepato-splenomegaly Extremities: No edema, Capillary Refill Less than 3 Seconds Skin: No rashes, No breakdown Musculoskeletal: No Tenderness to Palpation of Joints or Extremities Neurological: Does not follow commands, does move all extremities Psych/Mental Status: Flat Assessment & Plan Assessment/Plan (1) Altered behavior: (2) NSTEMI (non-ST elevated myocardial infarction): PLAN: Plan 1. Altered mental status in the setting of chronic dementia now with worsening dysphagia ? Currently still unclear as to the etiology of his worsening mental status ? There is no obvious infectious etiology respiratory panels were obtained at the outside hospital reportedly negative ? Will repeat chest x-ray today given issues with risks of aspiration ? UA here is normal ? Repeat CBC this morning showed a decrease in his white count however given hislung sounds we will proceed with Unasyn ? Continue with risperidone ? TSH, B12 were normal and syphilis was nonreactive ? PT/OT as well as case management for disposition planning ? Apparently their family dynamics as the daughter we have listed is not biologically his so we will attempt to discuss the situation with his siblings who we now have phone number for ? MRI demonstrated gliosis on his right frontal and parietal lobes consistent with a previous stroke ? Extensive conversation with his sister and will attempt to feed him again tomorrow to see if part of his dysfunction is due to pain and and issues from thrush now that he has been treated for 48 hours if there is no improvement thenwe will proceed with an NG tube for tube feeds though I did discuss with her that given his confusion if he pulls this out or has difficulty and allowing us to place it then we will need to place a PICC line for TPN. Given the risks with his confusion I do not think that a PEG tube is an option at this time 2. Chest pain ? Chest pain is resolved and his troponin returned back to normal very quickly unlikely to have been a non-STEMI ? Echo with an EF of 60 and no diastolic dysfunction, not a candidate for invasive studies ? Appreciate cardiology's assistance, continue with p.o. metoprolol DVT: Lovenox Charges/Coding Visit Charges Inpatient E&M: 06284 Subs Hosp L2 11/22/23 3195 <Electronically signed by Ken Colorado MD> Cosigner Signature (if applicable): CC: ~ Signed [facility] Work Phone: [phone]) 200-452803-29-2024 Progress note Author Ken Colorado [facility] November 21, 2023 6:05pm Note Date/Time November 21, 2023 6:0 5pm [facility] Medical Records Department [address] [place] [address] Progress Note - Hospitalist 11/21/23 1800 MR#: [id number] Acct: [id number] Name: REID VALDIVIA Jr. Rep #:[id number] : 1950 73 From: Ken garg MD PCP: Dr. Rafa Regalado MD Status:AD M IN Location: [place] [address] Subjective Subjective Still confused and etiology remains elusive. Remains a strict n.p.o. Objective Data Objective Data Vital Signs: Vital Signs Temp Pulse Resp BP Pulse Ox O2 Del Method O2 Flow Rate 96.4 F L 72 18 106/85 H 92 Room Air 2 11/21/23 14:01 11/21/23 14:01 11/21/23 14:01 11/21/23 14:01 11/21/23 14:01 11/21/23 15:30 11/17/23 16:30 Oxygen Flow Rate (L/min) 2 Oxygen Delivery Method Room Air Weight: 188 lb Body Mass Index (BMI) 27.7 Intake & Output: Intake and Output for Last 24 Hours 11/20/23 11/21/23 11/22/23 03:59 03:59 03:59 Intake Total 300 / 300 Output Total 500 / 500 150 / 150 Balance 300 / 300 -500 / -500 -150 / -150 Lab / Micro Data 11/21/23 06:20 11/21/23 06:20 Labs: Laboratory Results - last 24 hr 11/21/23 06:20: WBC 12.0 H, RBC 5.45, Hgb 16.9 H, Hct 50.6, MCV 92.8, MCH 31.0, MCHC 33.4, RDW Std Deviation 45.1 H, RDW Coeff of Katerina 13.2, Plt Count 228, MPV 9.7, Immature Gran % (Auto) 0.500, Neut % (Auto) 84.0 H, Lymph % (Auto) 10.6 L, [place] % (Auto) 4.1, Eos % (Auto) 0.3, Baso % (Auto) 0.5, Absolute Neuts (auto) 10.1 H, Absolute Lymphs (auto) 1.28, Nucleated RBC % 0, Sodium 139, Potassium 4.2, Chloride 110 H, Carbon Dioxide 22.0, Anion Gap 7, BUN 28 H, Creatinine 1.07, Estim Creat Clear Calc 67.55, Est GFR (MDRD) Af Amer 87, Est GFR (MDRD) Non-Af 72, BUN/Creatinine Ratio 26.2 H, Glucose 123 H, Calcium 9.3 Micro: Microbiology 11/15/23 20:59 Blood Culture (Wb) - Anticubital Left Blood Culture - Final No growth in 5 days. 11/15/23 20:40 Mucosa - Nasopharyngeal Coronavirus COVID-19 PCR - Final 11/15/23 20:40 Mucosa - Nasopharyngeal Respiratory Panel (PCR) - Final Radiography Diagnostic Testing: Radiology Impression Brain MRI 11/21/23 08:05 IMPRESSION: 1. Involutional changes of the brain, as described above. 2. Asymmetric mild to moderate parenchymal loss with gliosis in the right frontal and parietal lobes is consistent with sequela from previous infarction. 3. There are no visualized abnormal enhancing lesions of the brain parenchyma. There is no abnormal thickening or enhancement meninges or dura or skull. Electronically Signed: Tanner Mccain MD at 12:30 EDT Reading Location ID and State: [address] [place] [address] , Service support , Physical Exam Narrative General: Confused HEENT: Atraumatic, PERRLA, EOMI, Normocephalic Oral: Moist Mucosa, thrush Neck: Supple, No JVD Lungs: Diminished, Normal air movement, No rhonchi, No wheeze, No rales Cardiovascular: Regular rate, Regular Rhythm, Normal S1, Normal S2, No murmurs Abdomen: Soft, Non Tender, Non-Distended, No Hepato-splenomegaly Extremities: No edema, Capillary Refill Less than 3 Seconds Skin: No rashes, No breakdown Musculoskeletal: No Tenderness to Palpation of Joints or Extremities Neurological: Does not follow commands, does move all extremities Psych/Mental Status: Flat Assessment & Plan Assessment/Plan (1) Altered behavior: (2) NSTEMI (non-ST elevated myocardial infarction): PLAN: Plan 1. Altered mental status in the setting of chronic dementia ? Currently still unclear as to the etiology of his worsening mental status ? There is no obvious infectious etiology respiratory panels were obtained at the outside hospital reportedly negative ? Chest x-ray is unremarkable ? UA here is normal ? Blood cultures have been negative and his white count had been normal however today it did rise to 12,000, will repeat in the morning if continues to rise will start on empiric antibiotics and reculture ? Continue with risperidone ? TSH, B12 were normal and syphilis was nonreactive ? PT/OT as well as case management for disposition planning ? Apparently their family dynamics as the daughter we have listed is not biologically his so we will attempt to discuss the situation with his siblings who we now have phone number for ? MRI today with and without contrast was unremarkable, it does show signs of a previous stroke in his frontal and parietal lobes. ? Given normal MRI may need to consult neurology versus advance care planning discussions with family. 2. Chest pain ? Chest pain is resolved and his troponin returned back to normal very quickly unlikely to have been a non-STEMI ? Echo with an EF of 60 and no diastolic dysfunction, not a candidate for invasive studies ? Appreciate cardiology's assistance, continue with p.o. metoprolol 3. Dysphagia ? He was made strict n.p.o. by speech as he had a significant choking episode ? Continue with further intervention ? Will discussed with the family prior to proceeding with feeding tube either NGversus PEG tube DVT: Lovenox Charges/Coding Visit Charges Inpatient E&M: 95044 Subs Hosp L2 11/21/23 1805 <Electronically signed by Ken Colorado MD> Cosigner Signature (if applicable): CC: ~ Signed [facility] Work Phone: [phone]) [phone] Progress note Author Ken Colorado [facility] November 20, 2023 4:25pm Note Date/Time November 20, 2023 4:2 5pm [facility] Medical Records Department [address] [place] [address] Progress Note - Hospitalist 11/20/23 1619 MR#: [id number] Acct: [id number] Name: REID VALDIVIA Jr. Rep #:[id number] : 1950 73 From: Ken garg MD PCP: Dr. Rafa Regalado MD Status:AD M IN Location: [place] [address] 1 Subjective Subjective Remained confused, he is able to tolerate his p.o. medications periodically. Objective Data Objective Data Vital Signs: Vital Signs Temp Pulse Resp BP Pulse Ox O2 Del Method O2 Flow Rate 98.2 F 82 18 131/81 H 93 Room Air 2 11/20/23 15:00 11/20/23 15:00 11/20/23 15:00 11/20/23 15:00 11/20/23 15:00 11/20/23 15:00 11/17/23 16:30 Oxygen Flow Rate (L/min) 2 Oxygen Delivery Method Room Air Weight: 188 lb Body Mass Index (BMI) 27.7 Intake & Output: Intake and Output for Last 24 Hours 11/19/23 11/20/23 11/21/23 03:59 03:59 03:59 Intake Total 320 / 320 300 / 300 Balance 320 / 320 300 / 300 Lab / Micro Data 11/19/23 06:44 11/19/23 06:44 Micro: Microbiology 11/15/23 20:59 Blood Culture (Wb) - Anticubital Left Blood Culture - Preliminary No growth in 48 hours. 11/15/23 20:40 Mucosa - Nasopharyngeal Coronavirus COVID-19 PCR - Final 11/15/23 20:40 Mucosa - Nasopharyngeal Respiratory Panel (PCR) - Final Physical Exam Narrative General: Confused HEENT: Atraumatic, PERRLA, EOMI, Normocephalic Oral: Moist Mucosa Neck: Supple, No JVD Lungs: Diminished, Normal air movement, No rhonchi, No wheeze, No rales Cardiovascular: Regular rate, Regular Rhythm, Normal S1, Normal S2, No murmurs Abdomen: Soft, Non Tender, Non-Distended, No Hepato-splenomegaly Extremities: No edema, Capillary Refill Less than 3 Seconds Skin: No rashes, No breakdown Musculoskeletal: No Tenderness to Palpation of Joints or Extremities Neurological: Does not follow commands, does move all extremities Psych/Mental Status: Flat Assessment & Plan Assessment/Plan (1) Altered behavior: (2) NSTEMI (non-ST elevated myocardial infarction): PLAN: Plan 1. Altered mental status in the setting of chronic dementia ? Currently still unclear as to the etiology of his worsening mental status ? There is no obvious infectious etiology respiratory panels were obtained at the outside hospital reportedly negative ? Chest x-ray is unremarkable ? UA here is normal ? Leukocytosis resolved on its own without any antibiotics, blood cultures are negative ? Continue with risperidone ? TSH, B12 were normal and syphilis was nonreactive ? PT/OT as well as case management for disposition planning ? Attempted to get a hold of his daughter however the number we have does not connect ?Will likely need to proceed with an MRI tomorrow of his brain if that is completely normal that I am not sure as to what further workup can be done 2. Chest pain ? Chest pain is resolved and his troponin returned back to normal very quickly unlikely to have been a non-STEMI ? Echo with an EF of 60 and no diastolic dysfunction, not a candidate for invasive studies ? Appreciate cardiology's assistance, continue with p.o. metoprolol 3. Dysphagia ? He was made strict n.p.o. by speech as he had a significant choking episode ? Continue with further intervention DVT: Lovenox Charges/Coding Visit Charges Inpatient E&M: 83373 Subs Hosp L2 11/20/23 2368 <Electronically signed by Ken Colorado MD> Cosigner Signature (if applicable): CC: ~ Signed [facility] Work Phone: [phone]) [phone] Progress note Author Ken Colorado [facility] November 19, 2023 12:10pm Note Date/Time November 19, 2023 12: 10pm [facility] Medical Records Department [address] [place] [address] Progress Note - Hospitalist 11/19/23 1208 MR#: [id number] Acct: [id number] Name: REID VALDIVIA Rep #:[id number] : 1950 73 From: Ken garg MD PCP: Dr. Rafa Regalado MD Status:AD M IN [facility] Subjective Subjective Appears to be at baseline, TSH, B12, syphilis were all normal and nonreactive Objective Data Objective Data Vital Signs: Vital Signs Temp Pulse Resp BP Pulse Ox O2 Del Method O2 Flow Rate 97.8 F 87 18 135/91 H 94 Room Air 2 11/19/23 09:05 11/19/23 10:19 11/19/23 09:05 11/19/23 10:19 11/19/23 09:05 11/19/23 09:05 11/17/23 16:30 Oxygen Flow Rate (L/min) 2 Oxygen Delivery Method Room Air Weight: 188 lb Body Mass Index (BMI) 27.7 Intake & Output: Intake and Output for Last 24 Hours 11/18/23 11/19/23 11/20/23 03:59 03:59 03:59 Intake Total 440.27 / 440.27 320 / 320 240 / 240 Output Total 950 / 950 Balance -509.73 / -509.73 320 / 320 240 / 240 Lab / Micro Data 11/19/23 06:44 11/19/23 06:44 Labs: Laboratory Results - last 24 hr 11/18/23 05:39: Vitamin B12 347, TSH 2.43, Syphilis Total Ab Non-reactive 11/19/23 06:44: WBC 9.7, RBC 5.43, Hgb 16.9 H, Hct 49.9, MCV 91.9, MCH 31.1, MCHC 33.9, RDW Std Deviation 44.3 H, RDW Coeff of Katerina 13.1, Plt Count 220, MPV 10.0, Immature Gran % (Auto) 0.400, Neut % (Auto) 73.2 H, Lymph % (Auto) 19.1, [place] % (Auto) 4.7, Eos % (Auto) 2.0, Baso % (Auto) 0.6, Absolute Neuts (auto) 7.1, Absolute Lymphs (auto) 1.86, Nucleated RBC % 0, Sodium 138, Potassium 3.9, Chloride 108 H, Carbon Dioxide 21.0, Anion Gap 9, BUN 24 H, Creatinine 1.06, Estim Creat Clear Calc 68.19, Est GFR (MDRD) Af Amer 88, Est GFR (MDRD) Non-Af 73, BUN/Creatinine Ratio 22.6 H, Glucose 101, Calcium 9.1, Total Bilirubin 1.10 H, AST 15, ALT 12 L, Alkaline Phosphatase 92, Total Protein 7.2, Albumin 3.2, Globulin 4.0, Albumin/Globulin Ratio 0.8 L Micro: Microbiology 11/15/23 20:59 Blood Culture (Wb) - Anticubital Left Blood Culture - Preliminary No growth in 48 hours. 11/15/23 20:40 Mucosa - Nasopharyngeal Coronavirus COVID-19 PCR - Final 11/15/23 20:40 Mucosa - Nasopharyngeal Respiratory Panel (PCR) - Final Physical Exam Narrative General: Confused HEENT: Atraumatic, PERRLA, EOMI, Normocephalic Oral: Moist Mucosa Neck: Supple, No JVD Lungs: Diminished, Normal air movement, No rhonchi, No wheeze, No rales Cardiovascular: Regular rate, Regular Rhythm, Normal S1, Normal S2, No murmurs Abdomen: Soft, Non Tender, Non-Distended, No Hepato-splenomegaly Extremities: No edema, Capillary Refill Less than 3 Seconds Skin: No rashes, No breakdown Musculoskeletal: No Tenderness to Palpation of Joints or Extremities Neurological: Does not follow commands, does move all extremities Psych/Mental Status: Flat Assessment & Plan Assessment/Plan (1) Altered behavior: (2) NSTEMI (non-ST elevated myocardial infarction): PLAN: Plan 1. Altered mental status in the setting of chronic dementia ? Currently still unclear as to the etiology of his worsening mental status ? There is no obvious infectious etiology respiratory panels were obtained at the outside hospital reportedly negative ? Chest x-ray is unremarkable ? UA here is normal ? Leukocytosis resolved on its own without any antibiotics ? Will transition to risperidone with first dose now to help with any behaviors but also hopefully preventing any sedation ? TSH, B12 were normal and syphilis was nonreactive ? PT/OT as well as case management for disposition planning 2. Chest pain ? Chest pain is resolved and his troponin returned back to normal very quickly unlikely to have been a non-STEMI ? Echo with an EF of 60 and no diastolic dysfunction, not a candidate for invasive studies ? Appreciate cardiology's assistance, continue with p.o. metoprolol DVT: Lovenox Charges/Coding Visit Charges Inpatient E&M: 58453 Subs Hosp L2 11/19/23 1210 <Electronically signed by Ken Colorado MD> Cosigner Signature (if applicable): CC: ~ Signed [facility] Work Phone: [phone] Progress note Author Ken Colorado [facility] November 18, 2023 4:35pm Note Date/Time November 18, 2023 4:2 6pm [facility] Medical Records Department [address] [place] [address] Progress Note - Hospitalist 11/18/23 1622 MR#: [id number] Acct: [id number] Name: REID VALDIVIA Jr. Rep #:[id number] : 1950 73 From: Ken garg MD PCP: Dr. Rafa Regalado MD Status:AD M IN Location: [place] [address] Subjective Subjective More tired today than he was yesterday he still woke up and when awake tried to be interactive Objective Data Objective Data Vital Signs: Vital Signs Temp Pulse Resp BP Pulse Ox O2 Del Method O2 Flow Rate 97.4 F L 77 18 111/65 96 Room Air 2 11/18/23 15:09 11/18/23 15:09 11/18/23 15:09 11/18/23 15:11/18/23 15:11/18/23 15:09 11/17/23 16:30 Oxygen Flow Rate (L/min) 2 Oxygen Delivery Method Room Air Weight: 188 lb Body Mass Index (BMI) 27.7 Intake & Output: Intake and Output for Last 24 Hours 11/17/23 11/18/23 11/19/23 03:59 03:59 03:59 Intake Total 89.25 / 89.25 440.27 / 440.27 Output Total 2100 / 2100 950 / 950 Balance -2009.75 / -2010.75 -509.73 / -509.73 Lab / Micro Data 11/18/23 05:39 11/18/23 05:39 Labs: Laboratory Results - last 24 hr 11/18/23 05:39: WBC 10.0, RBC 5.26, Hgb 16.4, Hct 48.2, MCV 91.6, MCH 31.2, MCHC34.0, RDW Std Deviation 43.7, RDW Coeff of Katerina 13.1, Plt Count 208, MPV 10.0, Immature Gran % (Auto) 0.300, Neut % (Auto) 76.7 H, Lymph % (Auto) 17.9 L, [place] % (Auto) 3.9, Eos % (Auto) 0.8, Baso % (Auto) 0.4, Absolute Neuts (auto) 7.7, Absolute Lymphs (auto) 1.80, Nucleated RBC % 0, Sodium 137, Potassium 4.0, Chloride 107, Carbon Dioxide 21.0, Anion Gap 9, BUN 25 H, Creatinine 1.10, EstimCreat Clear Calc 65.71, Est GFR (MDRD) Af Amer 85, Est GFR (MDRD) Non-Af 70, BUN/Creatinine Ratio 22.7 H, Glucose 105, Calcium 9.1 Micro: Microbiology 11/15/23 20:59 Blood Culture (Wb) - Anticubital Left Blood Culture - Preliminary No growth in 48 hours. 11/15/23 20:40 Mucosa - Nasopharyngeal Coronavirus COVID-19 PCR - Final 11/15/23 20:40 Mucosa - Nasopharyngeal Respiratory Panel (PCR) - Final Physical Exam Narrative General: Confused and restless HEENT: Atraumatic, PERRLA, EOMI, Normocephalic Oral: Moist Mucosa Neck: Supple, No JVD Lungs: Diminished, Normal air movement, No rhonchi, No wheeze, No rales Cardiovascular: Regular rate, Regular Rhythm, Normal S1, Normal S2, No murmurs Abdomen: Soft, Non Tender, Non-Distended, No Hepato-splenomegaly Extremities: No edema, Capillary Refill Less than 3 Seconds Skin: No rashes, No breakdown Musculoskeletal: No Tenderness to Palpation of Joints or Extremities Neurological: Does not follow commands, does move all extremities Psych/Mental Status: Flat Assessment & Plan Assessment/Plan (1) Altered behavior: (2) NSTEMI (non-ST elevated myocardial infarction): PLAN: Plan 1. Altered mental status in the setting of chronic dementia ? Currently still unclear as to the etiology of his worsening mental status ? There is no obvious infectious etiology respiratory panels were obtained at the outside hospital reportedly negative ? Chest x-ray is unremarkable ? UA here is normal ? Leukocytosis resolved on its own without any antibiotics ? Given his sedation may transition Haldol to risperidone 2. Chest pain possible non-STEMI ? Unclear if he is having a non-STEMI or not as troponins are borderline on admission and currently normal today ? Echo with an EF of 60 and no diastolic dysfunction, not a candidate for invasive studies ? Was transition to oral metoprolol however he is inconsistent in taking it he has IV metoprolol as needed available DVT: Lovenox Charges/Coding Visit Charges Inpatient E&M: 39065 Subs Hosp L2 11/18/23 1635 <Electronically signed by Ken Colorado MD> Cosigner Signature (if applicable): CC: ~ Signed [facility] [place] Work Phone: [phone] 640-245903-25-2024 Progress note Author Reagan Greenfield [facility] November 17, 2023 1:38pm Note Date/Time November 17, 2023 12: 17pm [facility] Medical Records Department [address] [place] [address] Progress Note - Cardiology 11/17/23 1216 MR#: [id number] Acct: [id number] Name: CHAYOREID Brandon Holguin Rep #:[id number] : 1950 73 From: Reagan Greenfield MD PCP: Dr. Thomas Fleming MD Status:ADM I N Location: [place] [address] <Statement entered by Reagan Greenfield MD - 11/17/23 13:37> Pt seen & evaluated w/NILSON. I personally interviewed & exam the pt. I was involved in all aspects of pt's orders, interpretation of results & treatment Subjective Subjective Pt having episodes of SVT. Objective Data Vital Signs: Vital Signs Temp Pulse Resp BP Pulse Ox O2 Del Method O2 Flow Rate 97.6 F L 96 18 126/94 H 96 Room Air 2 11/17/23 10:00 11/17/23 11:04 11/17/23 10:00 11/17/23 11:04 11/17/23 10:00 11/17/23 10:00 11/17/23 07:52 Oxygen Flow Rate (L/min) 2 Oxygen Delivery Method Room Air Weight: 188 lb Body Mass Index (BMI) 27.7 Intake & Output: Intake and Output for Last 24 Hours 11/15/23 11/16/23 11/17/23 23:59 23:59 23:59 Intake Total 154.25 / 154.25 Output Total 1999 / 2299 500 / 500 Balance -1845.75 / -2145.75 -500 / -500 Lab / Micro Data 11/17/23 07:51 11/17/23 07:51 Labs: Laboratory Results - last 24 hr 11/16/23 14:45: APTT 60.3 H 11/16/23 23:43: APTT 49.1 H 11/17/23 07:51: WBC 9.7, RBC 5.30, Hgb 16.5, Hct 48.6, MCV 91.7, MCH 31.1, MCHC 34.0, RDW Std Deviation 44.6 H, RDW Coeff of Katerina 13.1, Plt Count 186, MPV 10.0, Immature Gran % (Auto) 0.500, Neut % (Auto) 76.1 H, Lymph % (Auto) 18.4 L, [place] % (Auto) 3.8, Eos % (Auto) 0.8, Baso % (Auto) 0.4, Absolute Neuts (auto) 7.4, Absolute Lymphs (auto) 1.79, Nucleated RBC % 0, APTT 54.2 H, Sodium 136, Potassium 4.1, Chloride 105, Carbon Dioxide 21.0, Anion Gap 10, BUN 19 H, Creatinine 1.09, Estim Creat Clear Calc 66.31, Est GFR (MDRD) Af Amer 85, Est GFR (MDRD) Non-Af 71, BUN/Creatinine Ratio 17.4, Glucose 103, Calcium 8.8, Troponin I High Sens 18 Cardiology Labs/Tests 11/16/23 14:45: APTT 60.3 H 11/16/23 23:43: APTT 49.1 H 11/17/23 07:51: WBC 9.7, RBC 5.30, Hgb 16.5, Hct 48.6, MCV 91.7, MCH 31.1, MCHC 34.0, Plt Count 186, MPV 10.0, Immature Gran % (Auto) 0.500, Neut % (Auto) 76.1 H, Lymph % (Auto) 18.4 L, [place] % (Auto) 3.8, Eos % (Auto) 0.8, Baso % (Auto) 0.4, Absolute Neuts (auto) 7.4, Nucleated RBC % 0, APTT 54.2 H, Sodium 136, Potassium 4.1, Chloride 105, Carbon Dioxide 21.0, Anion Gap 10, BUN 19 H, Creatinine 1.09, Est GFR (MDRD) Af Amer 85, Est GFR (MDRD) Non-Af 71, BUN/Creatinine Ratio 17.4, Glucose 103, Calcium 8.8 Radiography Diagnostic Testing: Radiology Impression Echocardiogram 11/15/23 18:41 Interpretation Summary The estimated ejection fraction is 60 %. No evidence for diastolic dysfunction. Structually normal valves. There is no comparison study available. Ordering Physician: Barrie Oreilly Referring Physician: Thomas Fleming Chi Performed By: Tash Donato RDCS Physical Exam Narrative General: Confused and restless HEENT: Atraumatic, PERRLA, EOMI, Normocephalic Oral: Moist Mucosa Neck: Supple, No JVD Lungs: Diminished, Normal air movement, No rhonchi, No wheeze, No rales Cardiovascular: Tachycardic, Regular Rhythm, Normal S1, Normal S2, No murmurs Abdomen: Soft, Non Tender, Non-Distended, No Hepato-splenomegaly Extremities: No edema, Capillary Refill Less than 3 Seconds Skin: No rashes, No breakdown Musculoskeletal: No Tenderness to Palpation of Joints or Extremities Neurological: Does not follow commands, does move all extremities Psych/Mental Status: Flat Assessment & Plan Assessment/Plan (1) NSTEMI (non-ST elevated myocardial infarction): (2) SVT (supraventricular tachycardia): PLAN: Plan * Pt is having runs of SVT, Will start him on oral metoprolol. With his NSTEMI that is a type II would like aggressive medical management. Will continue with is ASA and atorvastatin. 73-year-old patient Seen and evaluated at bedside along with the nursing staff And significant other at bedside. 73-year-old patient who was admitted through the ER transfer from [facility] ED with concern regarding symptoms of chest pain and increasing troponin level. And elevated D-dimer level On review of the record there is concern that patient had history of dementia which was worsening. Evaluation by CT chest showed no evidence of pulm embolism. EKG showed normal sinus with early repolarization. No significant ST?T abnormalities noted. Patient has a history of smoking basedon the record he smokes 3 packs/day. Cardiac care plan recommendations; Patient was not responsive he was very confused and has been on sedation with Haldol. The maximal troponin level where 96 with a B-natriuretic peptide of 277. The EKG showed normal sinus with signs of early repolarization. Urine drug screen was negative. From cardiac standpoint not a candidate for invasive evaluation at this point would recommend echocardiogram will review the echo as well will check a series of cardiac markers in the morning. Discontinue heparin restarted on prophylactic Lovenox and SCDs for DVT Will defer to the medical team for evaluation of altered mental status. Reagan Greenfield MD,[facility] 11/17/23 1338 <Electronically signed by Reagan Greenfield MD> Cosigner Signature (if applicable): 11/17/23 1314 <Electronically signed by Brenden ARIAS PA> CC: ~ Signed [facility] [place] Work Phone: [phone]) 754-141903-25-2024 Progress note Author Ken Colorado [facility] November 17, 2023 10:45am Note Date/Time November 17, 2023 10: 46am [facility] Medical Records Department [address] [place] [address] Progress Note - Hospitalist 11/17/23 1043 MR#: [id number] Acct: [id number] Name: REID VALDIVIA JrChrissie Rep #:[id number] : 1950 73 From: Ken garg MD PCP: Dr. Thomas Fleming MD Status:ADM I N Location: [place] [address] Subjective Subjective Has tachycardia overnight as well as behavioral issues. Not a candidate for invasive cardiac evaluation, echo is pending Objective Data Objective Data Vital Signs: Vital Signs Temp Pulse Resp BP Pulse Ox O2 Del Method O2 Flow Rate 99 F 76 18 118/70 96 Nasal Cannula 2 11/17/23 07:52 11/17/23 07:52 11/17/23 07:52 11/17/23 07:52 11/17/23 07:52 11/17/23 07:52 11/17/23 07:52 Oxygen Flow Rate (L/min) 2 Oxygen Delivery Method Nasal Cannula Weight: 188 lb Body Mass Index (BMI) 27.7 Intake & Output: Intake and Output for Last 24 Hours 11/16/23 11/17/23 11/18/23 03:59 03:59 03:59 Intake Total 65 / 65 89.25 / 89.25 Output Total 200 / 200 2100 / 2100 200 / 200 Balance -135 / -135 -2010.75 / -2010.75 -200 / -200 Lab / Micro Data 11/17/23 07:51 11/17/23 07:51 Labs: Laboratory Results - last 24 hr 11/16/23 14:45: APTT 60.3 H 11/16/23 23:43: APTT 49.1 H 11/17/23 07:51: WBC 9.7, RBC 5.30, Hgb 16.5, Hct 48.6, MCV 91.7, MCH 31.1, MCHC 34.0, RDW Std Deviation 44.6 H, RDW Coeff of Katerina 13.1, Plt Count 186, MPV 10.0, Immature Gran % (Auto) 0.500, Neut % (Auto) 76.1 H, Lymph % (Auto) 18.4 L, [place] % (Auto) 3.8, Eos % (Auto) 0.8, Baso % (Auto) 0.4, Absolute Neuts (auto) 7.4, Absolute Lymphs (auto) 1.79, Nucleated RBC % 0, APTT 54.2 H, Sodium 136, Potassium 4.1, Chloride 105, Carbon Dioxide 21.0, Anion Gap 10, BUN 19 H, Creatinine 1.09, Estim Creat Clear Calc 66.31, Est GFR (MDRD) Af Amer 85, Est GFR (MDRD) Non-Af 71, BUN/Creatinine Ratio 17.4, Glucose 103, Calcium 8.8, Troponin I High Sens 18 Micro: Microbiology 11/15/23 20:40 Mucosa - Nasopharyngeal Coronavirus COVID-19 PCR - Final 11/15/23 20:40 Mucosa - Nasopharyngeal Respiratory Panel (PCR) - Final Physical Exam Narrative General: Confused and restless HEENT: Atraumatic, PERRLA, EOMI, Normocephalic Oral: Moist Mucosa Neck: Supple, No JVD Lungs: Diminished, Normal air movement, No rhonchi, No wheeze, No rales Cardiovascular: Tachycardic, Regular Rhythm, Normal S1, Normal S2, No murmurs Abdomen: Soft, Non Tender, Non-Distended, No Hepato-splenomegaly Extremities: No edema, Capillary Refill Less than 3 Seconds Skin: No rashes, No breakdown Musculoskeletal: No Tenderness to Palpation of Joints or Extremities Neurological: Does not follow commands, does move all extremities Psych/Mental Status: Flat Assessment & Plan Assessment/Plan (1) Altered behavior: (2) NSTEMI (non-ST elevated myocardial infarction): PLAN: Plan 1. Altered mental status in the setting of chronic dementia ? Currently still unclear as to the etiology of his worsening mental status ? There is no obvious infectious etiology respiratory panels were obtained at the outside hospital reportedly negative ? Chest x-ray is unremarkable ? UA here is normal ? Leukocytosis resolved on its own without any antibiotics ? Overnight physician started him on Haldol to help control behaviors of possible 2. Chest pain possible non-STEMI ? Unclear if he is having a non-STEMI or not as troponins are borderline on admission and currently normal today ? Continue with echo, not a candidate for invasive studies ? Given elevated heart rates, will place on IV metoprolol as he is n.p.o. for speech therapy evaluation DVT: Heparin drip Charges/Coding Visit Charges Inpatient E&M: 83371 Subs Hosp L2 11/17/23 1045 <Electronically signed by Ken Colorado MD> Cosigner Signature (if applicable): CC: ~ Signed [facility] Work Phone: [phone] Progress note Author Kristal Hayward [facility] November 17, 2023 6:31am Note Date/Time November 17, 2023 6:3 1am [facility] Medical Records Department [address] [place] [address] Progress Note - Hospitalist 11/17/23 0631 MR#: [id number] Acct: [id number] Name: REID VALDIVIA Jr. Rep #:[id number] : 1950 73 From: Kristal Hayward MD PCP: Dr. Thomas Fleming MD Status:ADM I N Location: [place] [address] Hospitalist Note Patient with still intermittent tachycardia, will suddenly jump up to 170-180s, unable to catch on EKG. Will add metoprolol but will defer alteration to Cardiology discretion. 11/17/23 0631 <Electronically signed by Kristal Hayward MD> Cosigner Signature (if applicable): CC: ~ Signed [facility] Work Phone: [phone] Consult note Author Reagan Greenfield [facility] November 16, 2023 4:54pm Note Date/Time November 16, 2023 4:3 5pm [facility] Medical Records Department [address] [place] [address] Consultation - Cardiology 11/16/23 1625 MR#: [id number] Acct: [id number] Name: REID VALDIVIA JrChrissie Rep #:[id number] : 1950 73 From: Reagan Greenfield MD PCP: Dr. Thomas Fleming MD Status:ADM I N Location: [place] [address] Assessment & Plan Assessment/Plan (1) Altered behavior: (2) NSTEMI (non-ST elevated myocardial infarction): PLAN: Plan 73-year-old patient Seen and evaluated at bedside along with the nursing staff And significant other at bedside. 73-year-old patient who was admitted through the ER transfer from [facility] ED with concern regarding symptoms of chest pain and increasing troponin level. And elevated D-dimer level On review of the record there is concern that patient had history of dementia which was worsening. Evaluation by CT chest showed no evidence of pulm embolism. EKG showed normal sinus with early repolarization. No significant ST?T abnormalities noted. Patient has a history of smoking basedon the record he smokes 3 packs/day. Cardiac care plan recommendations; Patient was not responsive he was very confused and has been on sedation with Haldol. The maximal troponin level where 96 with a B-natriuretic peptide of 277. The EKG showed normal sinus with signs of early repolarization. Urine drug screen was negative. From cardiac standpoint not a candidate for invasive evaluation at this point would recommend echocardiogram will review the echo as well will check a series of cardiac markers in the morning. Discontinue heparin restarted on prophylactic Lovenox and SCDs for DVT Will defer to the medical team for evaluation of altered mental status. Reagan Greenfield MD,[facility] HPI Consult Data Date of Consult: 11/16/23 HPI Narrative Reason for Consultation: Elevated troponins HPI Narrative: REID VALDIVIA, is a 73 M who presents [facility] Medical History COPD (chronic obstructive pulmonary disease) Smoker Medical History unable to obtain Home Medications multivitamin (One Daily Essential tablet) 1 tab PO DAILY vitamin 11/15/23 [History Last Taken Unknown] Allergy/AdvReac Type Severity Reaction Status Date / Time No Known Allergies Allergy Verified 11/15/23 18:03 Social History Smoking Status: Current every day smoker tobacco type: cigarettes Physical Exam Cardio Cardio Narrative: Seen and evaluated at bedside along with the nursing staff Significant other at bedside Patient agitated Not responsive with altered mental status. Patient had no focal neurological deficit on neurological exam however he was not responsive with altered mental status. youth nutritional monitor showed normal sinus rhythm Cardiac exam S1-S2 regular Chest exam clear to auscultation bilateral. Risk Stratification Risk Stratification Applicable: No Objective Data Vital Signs: Vital Signs Temp Pulse Resp BP Pulse Ox O2 Del Method O2 Flow Rate 97.4 F L 77 18 124/76 H 96 Room Air 2 11/16/23 12:18 11/16/23 12:18 11/16/23 12:18 11/16/23 12:18 11/16/23 12:18 11/16/23 14:24 11/16/23 09:34 Oxygen Flow Rate (L/min) 2 Oxygen Delivery Method Room Air Weight: 188 lb Body Mass Index (BMI) 27.7 Intake & Output: Intake and Output for Last 24 Hours 11/14/23 11/15/23 11/16/23 23:59 23:59 23:59 Intake Total 154.25 / 154.25 Output Total 1650 / 1650 Balance -1495.75 / -1495.75 Lab / Micro Data 11/15/23 18:55 11/15/23 18:55 Labs: Laboratory Results - last 24 hr 11/15/23 18:55: WBC 15.7 H, RBC 4.81, Hgb 14.9, Hct 45.3, MCV 94.2 H, MCH 31.0, MCHC 32.9, RDW Std Deviation 46.8 H, RDW Coeff of Katerina 13.4, Plt Count 151, MPV 9.7, Immature Gran % (Auto) 0.600, Neut % (Auto) 87.4 H, Lymph % (Auto) 7.8 L, [place] % (Auto) 3.9, Eos % (Auto) 0.0, Baso % (Auto) 0.3, Absolute Neuts (auto) 13.7 H, Absolute Lymphs (auto) 1.23, Nucleated RBC % 0, APTT 39.1 H, Sodium 135 L, Potassium 4.8, Chloride 104, Carbon Dioxide 26.0, Anion Gap 5, BUN 16, Creatinine 1.15, Estim Creat Clear Calc 62.85, Est GFR (MDRD) Af Amer 80, Est GFR (MDRD) Non-Af 66, BUN/Creatinine Ratio 13.9, Glucose 120 H, Calcium 8.6, Magnesium 2.1, Total Bilirubin 0.90, AST 14 L, ALT 10 L, Alkaline Phosphatase 90, Troponin I High Sens 123 H*, Total Protein 6.4, Albumin 3.1 L, Globulin 3.3,Albumin/Globulin Ratio 0.9, Procalcitonin 0.46 H 11/15/23 20:59: Troponin I High Sens 131 H* 11/15/23 23:05: Urine Color Yellow, Urine Clarity Clear, Urine pH 8.0, Ur Specific [place] 1.010, Urine Protein 15 H, Urine Glucose (UA) Normal, Urine Ketones Negative, Urine Occult Blood 10 H, Urine Nitrite Negative, Urine Bilirubin Negative, Urine Urobilinogen Normal, Ur Leukocyte Esterase Negative, Urine RBC 0 SEEN, Urine WBC 0 SEEN, Ur Squamous Epith Cells 0 SEEN, Urine Bacteria 0 SEEN, Urine Mucus 0 SEEN, Urine Opiates Screen POSITIVE H, Urine Methadone Screen NEGATIVE, Ur Barbiturates Screen NEGATIVE, Ur Phencyclidine Scrn NEGATIVE, Ur Amphetamines Screen NEGATIVE, MDMA (Ecstasy) Screen NEGATIVE, U Benzodiazepines Scrn NEGATIVE, Urine Cocaine Screen NEGATIVE, U Cannabinoids Screen NEGATIVE, Ur Drug Screen Comment 11/16/23 01:45: APTT > 200.0 H*, Ammonia 13.0, Troponin I High Sens 96 H, B-Natriuretic Peptide 277.4 H, Triglycerides 60, Cholesterol 118, LDL Cholesterol 51, VLDL Cholesterol 12, HDL Cholesterol 55 11/16/23 08:49: APTT 66.7 H 11/16/23 14:45: APTT 60.3 H Micro: Microbiology 11/15/23 20:40 Mucosa - Nasopharyngeal Coronavirus COVID-19 PCR - Final 11/15/23 20:40 Mucosa - Nasopharyngeal Respiratory Panel (PCR) - Final Cardiology Labs/Tests 11/15/23 18:55: WBC 15.7 H, RBC 4.81, Hgb 14.9, Hct 45.3, MCV 94.2 H, MCH 31.0, MCHC 32.9, Plt Count 151, MPV 9.7, Immature Gran % (Auto) 0.600, Neut % (Auto) 87.4 H, Lymph % (Auto) 7.8 L, [place] % (Auto) 3.9, Eos % (Auto) 0.0, Baso % (Auto)0.3, Absolute Neuts (auto) 13.7 H, Nucleated RBC % 0, APTT 39.1 H, Sodium 135 L,Potassium 4.8, Chloride 104, Carbon Dioxide 26.0, Anion Gap 5, BUN 16, Creatinine 1.15, Est GFR (MDRD) Af Amer 80, Est GFR (MDRD) Non-Af 66, BUN/Creatinine Ratio 13.9, Glucose 120 H, Calcium 8.6, Magnesium 2.1, Total Bilirubin 0.90 11/15/23 23:05: Urine Color Yellow, Urine Clarity Clear, Urine pH 8.0, Ur Specific [place] 1.010, Urine Protein 15 H, Urine Glucose (UA) Normal, Urine KetonesNegative, Urine Occult Blood 10 H, Urine Nitrite Negative, Urine Bilirubin Negative, Urine Urobilinogen Normal, Ur Leukocyte Esterase Negative, Urine RBC 0SEEN, Urine WBC 0 SEEN 11/16/23 01:45: APTT > 200.0 H*, B-Natriuretic Peptide 277.4 H, Triglycerides 60, Cholesterol 118, LDL Cholesterol 51, VLDL Cholesterol 12, HDL Cholesterol 55 11/16/23 08:49: APTT 66.7 H 11/16/23 14:45: APTT 60.3 H Rhythm: EKG: ECHO: Stress Test: Cardiac Cath: PCI: CT Surgery: Holter monitor: EPS: PPM: CXR: Chest CT Scan: 11/16/23 2429 <Electronically signed by Reagan Greenfield MD> Cosigner Signature (if applicable): CC: Dr. Reagan Greenfield MD; Dr. Thomas Fleming MD~ Signed [facility] Work Phone: [phone] Progress note Author Ken Colorado [facility] November 16, 2023 2:30pm Note Date/Time November 16, 2023 2:2 4pm [facility] Medical Records Department [address] [place] [address] Progress Note - Hospitalist 11/16/23 1423 MR#: [id number] Acct: [id number] Name: REID VALDIVIA Jr. Rep #:[id number] : 1950 73 From: Ken garg MD PCP: Dr. Thomas Fleming MD Status:ADM I N Location: [place] [address] Subjective Subjective No issues overnight, appears to be remaining at the baseline as described Objective Data Objective Data Vital Signs: Vital Signs Temp Pulse Resp BP Pulse Ox O2 Del Method O2 Flow Rate 97.4 F L 77 18 124/76 H 96 Room Air 2 11/16/23 12:18 11/16/23 12:18 11/16/23 12:18 11/16/23 12:18 11/16/23 12:18 11/16/23 12:18 11/16/23 09:34 Oxygen Flow Rate (L/min) 2 Oxygen Delivery Method Room Air Weight: 188 lb Body Mass Index (BMI) 27.7 Intake & Output: Intake and Output for Last 24 Hours 11/15/23 11/16/23 11/17/23 03:59 03:59 03:59 Intake Total 65 / 65 0 / 0 Output Total 200 / 200 700 / 700 Balance -135 / -135 -700 / -700 Lab / Micro Data 11/15/23 18:55 11/15/23 18:55 Labs: Laboratory Results - last 24 hr 11/15/23 18:55: WBC 15.7 H, RBC 4.81, Hgb 14.9, Hct 45.3, MCV 94.2 H, MCH 31.0, MCHC 32.9, RDW Std Deviation 46.8 H, RDW Coeff of Katerina 13.4, Plt Count 151, MPV 9.7, Immature Gran % (Auto) 0.600, Neut % (Auto) 87.4 H, Lymph % (Auto) 7.8 L, [place] % (Auto) 3.9, Eos % (Auto) 0.0, Baso % (Auto) 0.3, Absolute Neuts (auto) 13.7 H, Absolute Lymphs (auto) 1.23, Nucleated RBC % 0, APTT 39.1 H, Sodium 135 L, Potassium 4.8, Chloride 104, Carbon Dioxide 26.0, Anion Gap 5, BUN 16, Creatinine 1.15, Estim Creat Clear Calc 62.85, Est GFR (MDRD) Af Amer 80, Est GFR (MDRD) Non-Af 66, BUN/Creatinine Ratio 13.9, Glucose 120 H, Calcium 8.6, Magnesium 2.1, Total Bilirubin 0.90, AST 14 L, ALT 10 L, Alkaline Phosphatase 90, Troponin I High Sens 123 H*, Total Protein 6.4, Albumin 3.1 L, Globulin 3.3,Albumin/Globulin Ratio 0.9, Procalcitonin 0.46 H 11/15/23 20:59: Troponin I High Sens 131 H* 11/15/23 23:05: Urine Color Yellow, Urine Clarity Clear, Urine pH 8.0, Ur Specific [place] 1.010, Urine Protein 15 H, Urine Glucose (UA) Normal, Urine Ketones Negative, Urine Occult Blood 10 H, Urine Nitrite Negative, Urine Bilirubin Negative, Urine Urobilinogen Normal, Ur Leukocyte Esterase Negative, Urine RBC 0 SEEN, Urine WBC 0 SEEN, Ur Squamous Epith Cells 0 SEEN, Urine Bacteria 0 SEEN, Urine Mucus 0 SEEN, Urine Opiates Screen POSITIVE H, Urine Methadone Screen NEGATIVE, Ur Barbiturates Screen NEGATIVE, Ur Phencyclidine Scrn NEGATIVE, Ur Amphetamines Screen NEGATIVE, MDMA (Ecstasy) Screen NEGATIVE, U Benzodiazepines Scrn NEGATIVE, Urine Cocaine Screen NEGATIVE, U Cannabinoids Screen NEGATIVE, Ur Drug Screen Comment 11/16/23 01:45: APTT > 200.0 H*, Ammonia 13.0, Troponin I High Sens 96 H, B-Natriuretic Peptide 277.4 H, Triglycerides 60, Cholesterol 118, LDL Cholesterol 51, VLDL Cholesterol 12, HDL Cholesterol 55 11/16/23 08:49: APTT 66.7 H Micro: Microbiology 11/15/23 20:40 Mucosa - Nasopharyngeal Coronavirus COVID-19 PCR - Final 11/15/23 20:40 Mucosa - Nasopharyngeal Respiratory Panel (PCR) - Final Physical Exam Narrative General: Drowsy and disoriented, restless and was combative overnight HEENT: Atraumatic, PERRLA, EOMI, Normocephalic Oral: Moist Mucosa Neck: Supple, No JVD Lungs: Diminished, Normal air movement, No rhonchi, No wheeze, No rales Cardiovascular: Regular rate, Regular Rhythm, Normal S1, Normal S2, No murmurs Abdomen: Soft, Non Tender, Non-Distended, No Hepato-splenomegaly Extremities: No edema, Capillary Refill Less than 3 Seconds Skin: No rashes, No breakdown Musculoskeletal: No Tenderness to Palpation of Joints or Extremities Neurological: Does not follow commands, does move all extremities Psych/Mental Status: Flat Assessment & Plan Assessment/Plan (1) Altered behavior: (2) NSTEMI (non-ST elevated myocardial infarction): PLAN: Plan 1. Altered mental status in the setting of chronic dementia ? Currently still unclear as to the etiology of his worsening mental status ? There is no obvious infectious etiology respiratory panels were obtained at the outside hospital reportedly negative ? Chest x-ray is unremarkable ? UA here is normal ? Overnight physician started him on Haldol to help control behaviors of possible 2. Chest pain possible non-STEMI ? Unclear if he is having a non-STEMI or not as troponins are borderline ? Cardiology was consulted and they recommended a heparin drip with possible cath and echo on Friday DVT: Heparin drip Charges/Coding Visit Charges Inpatient E&M: 23590 Subs Hosp L2 11/16/23 1430 <Electronically signed by Ken Colorado MD> Cosigner Signature (if applicable): CC: ~ Signed [facility] [place] Work Phone: 1(249) 740-842403-24-2024 Progress note Author Kristal Hayward [facility] [place] November 15, 2023 11:03pm Note Date/Time November 15, 2023 11: 03pm [facility] Medical Records Department [address] [place] [address] Progress Note - Hospitalist 11/15/23 2300 MR#: [id number] Acct: [id number] Name: REID VALDIVIA Jr. Rep #:[id number] : 1950 73 From: Kristal Hayward MD PCP: Dr. Thomas Fleming MD Status:ADM I N Location: [place] [address] Hospitalist Note Patient since presentation from OSH with agitation, unclear etiology. Family denies EtOH abuse. Resp panel pending, negative COVID. Outside imaging includingCT imaging head/chest per hospitalist sign out unremarkable. Patient does have mild WBC elevation 15.7, labs aside mild trop elevation otherwise no marked. Haldol started given concern for self accidental injury while evaluating. Will attempt to obtain NH level. Family does endorse history of dementia and had noted concerns that is has been worsening. 11/15/23 2303 <Electronically signed by Kristal Hayward MD> Cosigner Signature (if applicable): CC: ~ Signed [facility] [place] Work Phone: 1(293) 149-212303-23-2024 History and physical note Author Barrie Oreilly [facility] [place] November 15, 2023 7:13pm Note Date/Time November 15, 2023 6:3 6pm [facility] Medical Records Department [address] [place] [address] H&P Exam - Hospitalist 11/15/23 1824 MR#: [id number] Acct: [id number] Name: REID VALDIVIA Jr. Rep #:[id number] : 1950 73 From: Barrie Oreilly MD PCP: Dr. Thomas Fleming MD Status:ADM I N Location: [place] [address] HPI - General General Date of Admission: 11/15/23 Date of Service: 11/15/23 Chief Complaint: Chest pain suspicion of acute coronary syndrome HPI Narrative REID VALDIVIA, is a 73 M who presents from [facility] with concerns regarding chest pain with gradually rising troponin, elevated D-dimer levels and suspected pulmonary embolism. He presented to the ED today with concerns regarding chest pain and back pain for the last few hours and associated altered mental status. He was accompaniedby his girlfriend who notes that his sensorium has been worsening over the last 1 to 2 weeks, increased sleepiness during the day and insomnia during the night. She is also concerned that his dementia is developing dementia and that is worsening. Been discussed with the ED physician, there were concerns regarding pulmonary embolism as the D-dimer was 2000 and age-related cutoff 720, CT scan done there showed no large pulm embolism in the main pulmonary arteries nondiagnostic evaluation of the smaller pulmonary arteries. His troponin was rising from 6 to12-[address] was [address]. CT head normal, chest x-ray normal. On lab evaluation his venous bicarbonate was 26 potassium 4.3 lactate 1.9, hemoglobin 17.2 WBC 13.6. At present is not concerned regarding any chest pain but is drowsy and confused [facility] Medical History COPD (chronic obstructive pulmonary disease) Smoker Medical History unable to obtain unable to obtain Home Medications NK 11/15/23 [History Last Taken Unknown] Allergy/AdvReac Type Severity Reaction Status Date / Time No Known Allergies Allergy Verified 11/15/23 18:03 Social History Smoking Status: Current every day smoker tobacco type: cigarettes ROS Review of Systems ROS Unobtainable: due to mental status and other Constitutional Constitutional: Reports anorexia and change in weight; Denies chills, fatigue, fever(s), malaise, night sweats, weakness or other Vital Signs Vital Signs Vital Signs: Weight Weight: 188 lb Body Mass Index (BMI) 27.7 Physical Exam Const Orientation / Consciousness: confused, disoriented and lethargic HEENT normocephalic Eyes PERRL Neck no lymphadenopathy Resp normal respiratory effort and no retractions Resp Narrative: Oxygen 88% on room air Cardio regular rate, regular rhythm and no JVD GI normal to inspection, nondistended, normoactive bowel sounds Extremity normal to inspection and full ROM Psych affect normal Results Medical Records Data Attestation: I reviewed the patient's medical records Lab / Micro Data Lab results narrative: Based on his labs from outpatient he has leukocytosis, hemoglobin is 15, platelet count 184, urine analysis was normal, 11/15/23 18:55 11/15/23 18:55 Assessment & Plan Assessment/Plan (1) Altered behavior: (2) NSTEMI (non-ST elevated myocardial infarction): PLAN: Plan 73-year-old male with history of smoking 3 packs of cigarettes per day, no priorhistory not on any medical therapy presents from [facility] with concerns regardingaltered mentation and chest pain since today. His preliminary evaluation at the ED showed rising troponin levels, leukocytosis, elevated D-dimer levels but no other concerning findings. There are no features of COPD exacerbation at this time though he is desaturating on room air. Per the girlfriend, he is having signs of progressive dementia over the last few weeks. 1. Altered mentation: His CT head was normal no concerns regarding acute stroke, no focal neurological deficit. Given his leukocytosis concerned that this could be sepsis though urinalysis is normal, CT scan not suggestive of pneumonia. -Blood cultures -IV ceftriaxone -Urine analysis, repeat CBC BMP -COVID, nasal swab 2. Acute chest pain, rising troponin levels: Suspected NSTEMI -Cardiology opinion regarding the rising troponin levels: It was recommended to start him on heparin, aspirin and atorvastatin for now -Possible cath on Friday -Echocardiogram on Friday 3. Possible COPD: -Oxygen 2 L to maintain saturation 88 to 92% -Respiratory therapy consult -Bronchopulmonary hygiene 4. DVT prophylaxis: Will be started on therapeutic anticoagulation 11/15/231911 <Electronically signed by Barrie Oreilly MD> Cosigner Signature (if applicable): CC: Dr. Barrie Oreilly MD; Dr. Thomas Fleming MD~ Signed ADDENDUM by Dr. Barrie Oreilly MD on 11/15/23 at 1912 Addendum Will hold the ceftriaxone for now and will follow up on the blood cultures. 11/15/231912<Electronically signed by Barrie Oreilly MD> Cosigner Signature (if applicable): cc: Dr. Barrie Oreilly MD; Dr. Thomas Fleming MD ~* Signed [facility] [place] Work Phone: 1(304) 291-997202-15-2023 History of Present illness Narrative* Delores Sommers APRN.DATA INTEGRITY SPECIALIST - 10/09/2022 11:40 AM EST This is a 72 year old male who presents today with: Patient presents with: Acute Visit: Not feeling well HISTORY OF PRESENT ILLNESS: Reid Valdivia is a 72 year old male. Patient presents with: Acute Visit: Not feeling well Here in the office for left small toe pain. Was concerned that it was getting infected or needs nails trimmed. Refers its feeling better, no fever or chills.. Newly diagnosed with COPD, smoking. Using advair, mucinex, and albuterol. Has consult for pulmonology, has yet to schedule appointment. Refers breathing has improved with medication. Smoking about 3 cigarettes per day. PAST MEDICAL HISTORY: PAST MEDICAL HISTORY Diagnosis Date Snoring PAST SURGICAL HISTORY Procedure Laterality Date COLONOSCOPY FLX DX W/COLLJ SPEC WHEN PFRMD 12/28/2018 Colonoscopy HERNIA REPAIR W/MESH 1995 NECK SURGERY HX 2000 herniated disc ORTHOPEDICS SURGERY HX ALLERGIES Patient has no known allergies. MEDICATIONS Current Outpatient Medications Medication Sig nicotine (NICODERM) 14 mg/24 hr Apply 1 Patch as directed every 24 hours. No smoking with patch. Nicotine Polacrilex [address] 1 Lozenge between cheek and gum as needed. guaiFENesin (MUCINEX) 600 mg 12 hr tablet Take 2 tablets by mouth twice daily. fluticasone-salmeterol (ADVAIR DISKUS) 100-50 mcg/dose inhaler Inhale 1 Puff as instructed twice daily. Rinse mouth out after use with water. albuterol HFA (PROVENTIL HFA, VENTOLIN HFA) 90 mcg/actuation inhaler Inhale 2 Puffs as instructed every 4 hours as needed for wheezing/shortness of breath. benzonatate (TESSALON PERLES) 100 mg capsule Take 1-2 capsules by mouth three times daily as needed. fexofenadine (CARLY ALLERGY) 60 mg tablet Take 1 tablet by mouth once daily. (Patient not taking:Reported on 06/17/2022) Ascorbic Acid (VITAMIN C) 100 mg tablet Take 100 mg by mouth once daily. OMEGA 4-JCL-BIT-FISH OIL ORAL Take 1 capsule by mouth once daily. cholecalciferol, vitamin D3, (VITAMIN D3 ORAL) Take 1,000 Int'l Units by mouth once daily. 1-2 tablets daily vitamin B complex-folic acid 2,000 mcg cap Take 1 capsule by mouth once daily. triamcinolone (KENALOG) 0.025 % cream Apply 1 application to affected area twice daily. No current facility-administered medications for this visit. FAMILY HISTORY Problem Relation Age of Onset Heart disease Mother Hyperlipidemia Mother Colon Cancer Father Heart disease Sister Heart disease Brother Colon Cancer Maternal Uncle Social History Tobacco Use Smoking status: Some Days Packs/day: 0.50 Years: 40.00 Pack years: 20.00 Types: Cigarettes Smokeless tobacco: Never Tobacco comments: every now and then smoking Vaping Use Vaping Use: Never used Substance Use Topics Alcohol use: No Drug use: No REVIEW OF SYSTEMS GENERAL: No weight loss, malaise or fevers/chills HEENT: Negative for frequent or significant headaches, No changes in hearing or vision. NECK: Negative for lumps, goiter, pain and significant neck swelling RESPIRATORY: Negative for cough, hemoptysis, wheezing, dyspnea or shortness of breath CARDIOVASCULAR: Negative for chest pain, leg swelling, orthopnea, or palpitations GI: No nausea, vomiting, or diarrhea/constipation. No hematochezia/melena. No heartburn or reflux symptoms. : No history of dysuria, frequency or incontinence MUSCULOSKELETAL: Negative for joint pain or swelling. SKIN: + Left small toe tenderness ENDOCRINE: Negative for cold or heat intolerance, polyuria, polydipsia and goiter NEURO: No history of headaches, syncope, paralysis, seizures or tremors MOOD: Negative for depression, anxiety, or suicidal ideation. EXAM: BP 92/66 Pulse 85 Resp 20 Wt 89.8 kg (198 lb) SpO2 93% BMI 30.11 kg/m PHYSICAL EXAM: General Appearance: Well appearing, alert, in no acute distress, well-hydrated, well nourished. Skin: + Toenails are severely out grown, thick/yellow. No erythema noted around small toe or signs of infection. Head: Normocephalic, no masses, lesions, tenderness or abnormalities. Eyes: Anicteric sclera. Extraocular movements are intact. Lungs: + Mild bilateral lower lobe expiratory wheezing noted. Heart: RRR without murmur, gallop, or rubs. No ectopy. Extremities: No deformities, edema, skin discoloration, clubbing or cyanosis. Good capillary refill. Peripheral Pulses: Normal, Capillary refill <2secs, strong peripheral pulses, Pulses palpable. Neurologic: Gait normal. Sensation grossly intact. ASSESSMENT/PLAN: 1. Overgrown toenails - ICD9: 703.8, ICD10: L60.2 (primary diagnosis) - Recommend consult with podiatry to have toenails trimmed - Instructed to keep feet clean and dry. Change socks daily. - CONSULT TO PODIATRY 2. Chronic obstructive pulmonary disease, unspecified COPD type (HCC) - ICD9: 496, ICD10: J44.9 - Continue current medications. - Recommend smoking cessation. - Schedule appointment for pulmonology. Follow up as needed or sooner if symptoms get worse. Discussed treatment plan and patient voices understanding. Patient's questions answered appropriately. Medications and potential side effects were discussed and patient voices understanding. Delores Sommers APRN.DATA INTEGRITY SPECIALIST This note was partially generated using Khush recognition system. Note was reviewed for accuracy. There may be minor misspellings or grammar miscues with Vital Vio voice recognition. documented in this encounterSelect [facility] Instructions* Patient Instructions* Delores Sommers APRN.CNP - 10/09/2022 11:34 AM EST Make appointment with podiatry Make appointment with pulmonology Continue to take medications as prescribed. Follow up as needed. documented in this encounterSelect [facility]-23-2023 Instructions* Patient Instructions* Delores Sommers APRN.CNP - 09/16/2022 1:09 PM EST Start Advair twice daily. Rinse mouth after use. May use Mucinex twice daily for chest congestion. Start nicotine patch, switch out every 24 hours. May use nicotine lozenge as needed for nicotine cravings. May schedule appointment with pulmonology for further evaluation. Follow up in 1 month or sooner as needed. documented in this encounterSelect [facility]-2023 History of Present illness Narrative* Delores Sommers APRN.CNP - 09/16/2022 11:00 AM EST Chief Complaint Patient presents with: Follow Up: spirometry results This Team Access Model encounter involved medical decision making outside of a scheduled office visit. Patient was offered a virtual/telemedicine appointment in lieu of an office visit due to recommendations to reduce patient exposure to COVID-19. Telephone was used for evaluation of this patient. Patient agrees to the visit: Yes Patient Location: [facility] Reid Valdivia is a 72 year old male who is contacted today for a phone visit This is an established patient of Dr. Rafa Regalado MD Reports: Follow-up after pulmonary testing. Has been having ongoing chronic cough for several years. Smoking about 1/2 PPD. Cough is productive, worse at night time. Using albuterol as needed. Was prescribed symbicort at last visit and refers it was too expensive. No SOB. Has been taking qywy-akr-xryrszw cold and cough medication as needed. Has not noticed much improvement with medicine. Spirometry: IMPRESSION: Spirometry reveals obstruction; reduced FVC indicates concurrent restriction. Together, a moderate impairment is revealed. There was not a significant bronchodilator response. Exhaled nitric oxide was within normal limits Lung volumes: IMPRESSION: The RV and RV/TLC are elevated indicating air trapping. Past medical history, appointments, medications, allergies reviewed 09/16/2022 Previous Medical History PAST MEDICAL HISTORY Diagnosis Date Snoring Previous Surgical History PAST SURGICAL HISTORY Procedure Laterality Date COLONOSCOPY FLX DX W/COLLJ SPEC WHEN PFRMD 12/28/2018 Colonoscopy HERNIA REPAIR W/MESH 1996 NECK SURGERY HX 2001 herniated disc ORTHOPEDICS SURGERY HX Family History FAMILY HISTORY Problem Relation Age of Onset Heart disease Mother Hyperlipidemia Mother Colon Cancer Father Heart disease Sister Heart disease Brother Colon Cancer Maternal Uncle Patient Allergies ALLERGIES No Known Allergies Current Medications Current Outpatient Medications on File Prior to Visit Medication Sig albuterol HFA (PROVENTIL HFA, VENTOLIN HFA) 90 mcg/actuation inhaler Inhale 2 Puffs as instructed every 4 hours as needed for wheezing/shortness of breath. benzonatate (TESSALON PERLES) 100 mg capsule Take 1-2 capsules by mouth three times daily as needed. budesonide-formoterol (SYMBICORT) 80-4.5 mcg/actuation inhaler Inhale 2 Puffs as instructed twice daily. fexofenadine (CARLY ALLERGY) 60 mg tablet Take 1 tablet by mouth once daily. (Patient not taking:Reported on 06/17/2022) Ascorbic Acid (VITAMIN C) 100 mg tablet Take 100 mg by mouth once daily. OMEGA 0-NNS-BKQ-FISH OIL ORAL Take 1 capsule by mouth once daily. cholecalciferol, vitamin D3, (VITAMIN D3 ORAL) Take 1,000 Int'l Units by mouth once daily. 1-2 tablets daily vitamin B complex-folic acid 2,000 mcg cap Take 1 capsule by mouth once daily. triamcinolone (KENALOG) 0.025 % cream Apply 1 application to affected area twice daily. No current facility-administered medications on file prior to visit. Social History Social History Tobacco Use Smoking status: Some Days Packs/day: 0.50 Years: 40.00 Pack years: 20.00 Types: Cigarettes Smokeless tobacco: Never Tobacco comments: every now and then smoking Vaping Use Vaping Use: Never used Substance Use Topics Alcohol use: No Drug use: No Review of Symptoms GENERAL: No malaise or fatigue. No fevers. HEENT: Negative for headaches No eye discharge or redness No earaches No sore throat Nose POS/NEG for congestion and nasal discharge NECK: Negative for pain or swelling. No lumps RESPIRATORY: + Cough CARDIOVASCULAR: Negative for chest pain GI: No nausea, vomiting, or diarrhea MUSCULOSKELETAL: Negative for bodyaches SKIN: Negative for rash or itching Neuro: No lightheadedness or dizziness EXAM: There were no vitals taken for this visit. Limited exam as visit was completed over the phone platform. Virtual visit completed using video, limited exam completed. Patient sounds or appears ill: No General Appearance: Well appearing, alert, in no acute distress, well-hydrated, well nourished. Skin: Skin color normal Head: Normocephalic. No facial swelling or redness. EENT: Eyes nonreddened. No discharge. External ears nonreddened and no swelling. Neck: No mass or lesions. No swelling. FROM Patient is not able to speak in complete sentences: N/A Patient has labored breathing: No. Patient is audibly coughing: No Psych: Attitude - cooperative, easily engaged in conversation Affect - Euthymic, normal mood Mental status: Alert. Speech is clear and fluent with good repetition, comprehension Appearance - Normal hygiene and grooming appropriate Coordination: No abnormal or extraneous movements. Gait/Stance: Posture is normal. Health Maintenance List COLORECTAL CANCER SCREENING due on 12/29/2019 COVID-19 VACCINE(3 - Booster for Moderna series) due on 03/25/2021 LUNG CANCER SCREENING due on 06/13/2021 DIABETES SCREEN due on 10/02/2021 ADVANCE DIRECTIVE DISCUSSION Never done DEPRESSION ASSESSMENT Never done LIPID SCREEN due on 10/02/2023 DTAP,TDAP,TD(2 - Td or Tdap) due on 05/26/2030 ABDOMINAL AORTIC ANEURYSM SCREENING Completed INFLUENZA Completed HEPATITIS C SCREENING Completed SHINGRIX VACCINE Completed PNEUMOCOCCAL: 65+ Completed Data reviewed Last 5 Encounter BP Readings: Date: BP: 06/27/2022 116/70 06/17/2022 122/68 04/10/2022 118/74 11/27/2021 126/78 11/13/2021 128/82 BMI Readings from Last 5 Encounters: 09/11/22 : 29.50 kg/m 09/02/22 : 29.50 kg/m 06/27/22 : 26.78 kg/m 06/17/22 : 26.36 kg/m 04/10/22 : 26.08 kg/m Last 5 Encounter Wt Readings: Date: Wt: 09/02/2022 88 kg (194 lb) 06/27/2022 87.1 kg (192 lb) 06/17/2022 85.7 kg (189 lb) 04/10/2022 84.8 kg (187 lb) 11/27/2021 83 kg (183 lb) Medication and allergy list reviewed, reconciled and updated 09/16/2022 ASSESSMENT/PLAN: 1. Chronic obstructive pulmonary disease, unspecified COPD type (HCC) - ICD9: 496, ICD10: J44.9 (primary diagnosis) - Symptoms consistent with COPD. - Start Advair, twice daily - May use mucinex BID. - Follow up in 1 month. - CONSULT TO PULMONARY MEDICINE - GUAIFENESIN ER 600 MG TABLET, EXTENDED RELEASE 12 HR - FLUTICASONE 100 MCG-SALMETEROL 50 MCG/DOSE BLISTR POWDR FOR INHALATION 2. Smoking - ICD9: 305.1, ICD10: F17.200 - Cessation encouraged. - Physiologic and physical aspects of tobacco addiction as well as strategies for quitting were discussed. - Counseling was given focusing on the harmful effects of this addiction especially given the patient's medical condition(s) which will be worsened because of the chemicals in tobacco. - Counseling was given 3-4 minutes. - NICOTINE 14 MG/24 HR DAILY TRANSDERMAL PATCH - NICOTINE (POLACRILEX) 2 MG BUCCAL LOZENGE Follow-up in 1 month or sooner as needed. Discussed treatment plan and patient voices understanding. Patient's questions answered appropriately. Medications and potential side effects were discussed and patient voices understanding. Delores Sommers APRN.CNP Total appointment time on phone with patient = 21-30 minutes This note was partially generated using Vital Vio voice recognition system. Note was reviewed for accuracy. There may be minor misspellings or grammar miscues with Monitoring Divisionon voice recognition. documented in this encounterSelect [facility]01-21-2023 Miscellaneous Notes* Telephone Encounter - Em Knott RN - 09/14/2022 9:22 AM EST Significant other calls in and provider message reviewed. Follow up appointment scheduled for Friday with Delores Roberts CNP per request. mE Knott RN * Telephone Encounter - Brandi Steel LPN - 09/13/2022 2:04 PM EST TC to pt. LM to call office, ask for triage nurse to get results. Brandi Steel LPN * Telephone Encounter - Delores Sommers APRN.CNP - 09/13/2022 1:45 PM EST Can you please call the patient and let him know that we had to wait for final results to be provided for the spirometry. Testing does show moderate obstruction. I would recommend he schedule a follow up appointment with PCP or team. Thank you. Delores Sommers APRN.DAI * Telephone Encounter - Cesilia Crowley RN - 09/13/2022 1:27 PM EST Pts significant other called in and was asking if provider would look at Pts latest lung tests and call them back with results. She states his cough is still the same and especially horrible at night. He is coughing phlegm up and it wakes him up several times through the night. She was asking if she should make another appointment to bring him back in to be seen. documented in this encounterSelect [facility]01-19-2023 Miscellaneous Notes* Telephone Encounter - Delores Sommers APRN.CNP - 09/12/2022 6:49 AM EST The following approved medication requests have been transmitted electronically. Requested Prescriptions Pending Prescriptions Disp Refills albuterol HFA (PROVENTIL HFA, VENTOLIN HFA) 90 mcg/actuation inhaler 1 Each 3 Sig: Inhale 2 Puffs as instructed every 4 hours as needed for wheezing/shortness of breath. Delores Sommers APRN.DAI * Telephone Encounter - Em Knott RN - 09/11/2022 3:32 PM EST Patient has been identified by name and date of : Yes, Em Knott RN Date 09/11/2022 Time 3:32 pm Significant other phones for refill(s): Requested Prescriptions Pending Prescriptions Disp Refills albuterol HFA (PROVENTIL HFA, VENTOLIN HFA) 90 mcg/actuation inhaler Sig: Inhale 2 Puffs as instructed every 4 hours as needed for wheezing/shortness of breath. Significant other called to request albuterol. She reports that patient was given a spacer today atSpirometry testing and was told to contact provider for Albuterol medication. Spirometry results are in process. Date of last office visit with pcp: 06/27/2022 Future appt: none Last 2 Encounter Wt Readings: Date: Wt: 09/02/2022 88 kg (194 lb) 06/27/2022 87.1 kg (192 lb) Previous labs/tests for medication: Blood Pressure: BUN (mg/dL) Date Value 10/02/2018 13 Sodium (mmol/L) Date Value 10/02/2018 138 Last 1 Encounter BP Readings: Date: BP: 06/27/2022 116/70 Liver Function: ALT (U/L) Date Value 10/02/2018 9 AST (U/L) Date Value 10/02/2018 11 Please advise. Thank you. Em Knott RN documented in this encounterSelect [facility]01-18-2023 History of Present illness Narrative* EVELYN Bishop - 09/11/2022 1:02 PM EST PULM FUNCTION SMARTBLOCK: Provider: Delores Sommers APRN.CNP Assisting Tech: EVELYN Bishop Spirometry w/BD: 1 documented in this encounterSelect Medical [facility]01-17-2023 Miscellaneous Notes* Telephone Encounter - Pantera Daniels RN - 09/10/2022 4:37 PM EST Cancelled appt Karen (significant other) scheduled with pcp to discuss patient's forgetfulness. Karen had not planned on patient being at this appt, and patient would need to be present at appt in order for it to be scheduled. Did try to call Karen's number but it was not a working number. Left vm on home phone letting Karen know the appt was cancelled to to call back to nurse with any questions. Reid did call back, and let him know appt was cancelled for 2-11-14, and he will let Karen know. Reid states he's not sure if he knew about this appt or not, but will discuss with Karen. documented in this encounterSelect Medical [facility]01-12-2023 Miscellaneous Notes* Telephone Encounter - Delores Sommers APRN.CNP - 09/05/2022 12:51 PM EST Noted, thank you. Delores Sommers APRN.DAI * Telephone Encounter - Shahana Jackson RN - 09/05/2022 11:55 AM EST Pt returned call and provider's message below was reviewed. Pt states his inhaler has helped his breathing and cough. Pt transferred to patient scheduler to schedule spirometry test as ordered. Shahana Jackson RN * Telephone Encounter - Brandi Steel LPN - 09/04/2022 12:53 PM EST TC to ptChrissie LM to call office, ask for triage nurse to get results. Brandi Steel LPN * Telephone Encounter - Delores Sommers APRN.CNP - 09/04/2022 12:49 PM EST Can you please call the patient and let him know that I reviewed his recent respiratory test results. Nitric oxide was within normal limits. Lung volume did indicate some lung trapping which can indicate obstructive lung disease. However spirometry was not completed. I would recommend to have this test completed for further evaluation. Can you please ask the patient if his breathing/cough has improved with inhaler use? Delores Sommers APRN.DAI * Telephone Encounter - Evelyn Leiva RN - 09/04/2022 12:27 PM EST Patient's significant other Karen calls and is asking about the results from lung testing that was done. Please review and advise, Evelyn Leiva RN documented in this encounterSelect Medical [facility]01-09-2023 Procedure note* EVELYN Bishop - 09/02/2022 9:53 AM ESTAssociated Order(s): NITRIC OXIDE, EXHALED RESPIRATORY THERAPY ORAL EXHALED NITRIC OXIDE SERVICE DATE: 09/02/2022 SERVICE TIME: 9:53 AM Oral Exhaled Nitric Oxide measurement: 11.0 (ppb) Normal: Adult 5-20 ppb, pediatric (<12 years) 5-15 ppb High Normal / Increased: Adult 20-35 ppb, pediatric (<12 years) 15-25 ppb Moderately raised exhaled Nitric Oxide may indicate underlying inflammation, but note that: Cold and influenza can raise exhaled Nitric Oxide and some patients have higher baseline exhaled Nitric Oxide levels than others. High: Adult >35 ppb, pediatric (<12 years) >25 ppb Indicative of ongoing eosinophilic inflammation. Symptomatic patient likely to respond to steroids. Possible causes (if already on steroids): Poor compliance, recent allergen exposure, steroid dose inadequate, and steroid resistance. Note that not all patients with high exhaled nitric oxide levels display symptoms. Oral Exhaled Nitric Oxide measurement (Previous Encounters) Test Date Oral Exhaled Nitric Oxide (ppb) 09/02/2022 11.0 NAME: EVELYN Bishop PATIENT NAME: Reid Valdivia DATE: September 02, 2022 TIME: 9:53 AM documented in this encounterSelect Medical [facility]01-09-2023 History of Present illness Narrative* EVELYN Bishop - 09/02/2022 9:48 AM EST PULM FUNCTION SMARTBLOCK: Provider: Delores Sommers APRN.CNP Assisting Tech: EVELYN Bishop LV - Box: 1 Exhaled Nitric Oxide: 1 documented in this encounterSelect Medical [facility]12-28-2022 Miscellaneous Notes* Telephone Encounter - Delores Sommers APRN.CNP - 08/21/2022 9:55 AM EST Orders have been signed. Can you please assist patient with getting scheduled for PFT's. Thank you. Delores Sommers APRN.CNP * Telephone Encounter - Yi Anderson Ma - 08/21/2022 9:20 AM EST Delores can you place new orders and route back to scheduling to assist pt in getting an appt. Yi Anderson Ma * Telephone Encounter - Ariana Chowdhury - 08/21/2022 9:15 AM EST Please enter new order for Lung Volume. Unable to enter referral without order. Thank you. * Telephone Encounter - Ariana Chowdhury - 08/21/2022 9:10 AM EST Karen called requesting to schedule PFT's and r/s follow up with Delores. Lung volume would not schedule due to referral date. Entered new referral. Please call patient to schedule appointments oncereferral authorized. documented in this encounterSelect Medical [facility] Hospital12-02-2022 Miscellaneous Notes* Telephone Encounter - Brandi Steel LPN - 07/26/2022 1:37 PM EST TC to Pt. To make sure he is using inhalers, tessalon perles. Brandi Steel LPN * Telephone Encounter - Brandi Steel LPN - 07/24/2022 3:29 PM EST TC to pt. LM to call office, ask for triage nurse to schedule PFTs. Pt has appt 07/26/22 for Cough. This is what the test are for. He needs to get these done first. Brandi Steel LPN documented in this encounterSelect Medical [facility]11-30-2022 Miscellaneous Notes* Telephone Encounter - Patricia Lagos RN - 07/24/2022 1:31 PM EST Patient's significant other calling for follow up appointment for patient's persistent cough. She states his cough is getting worse. He was seen on 06/27/22 by Delores. Testing was recommended and patient has not yet followed through with Pulmonary Testing. Scheduled appointment per request. Patricia Lagos RN documented in this encounterSelect Medical [facility] Hospital11-04-2022 Miscellaneous Notes* Telephone Encounter - Brandi Steel LPN - 06/28/2022 2:40 PM EDT Patient notified of results, verbalizes understanding of instructions. Brandi Steel LPN * Telephone Encounter - Delores Sommers APRN.CNP - 06/28/2022 2:27 PM EDT Can you please call the patient and let him know that his chest x-ray was normal. No abnormalities were noted. Please let me know if he has any questions. Delores Sommers APRN.CNP documented in this encounterSelect Medical [facility] Hospital11-03-2022 Instructions* Patient Instructions* Delores Sommers APRN.CNP - 06/27/2022 3:07 PM EDT Schedule appointments for lung testing Start Mucinex may take twice daily. May use Flonase 1-2 times per day. Rinse mouth afterwards. Try to cut back on cigarettes. Follow up pending test results or sooner as needed. documented in this encounterSelect Medical [facility]11-03-2022 History of Present illness Narrative* Delores Sommers APRN.CNP - 06/27/2022 2:40 PM EDT This is a 72 year old male who presents today with: Patient presents with: Acute Visit: Sore throat, sinus issues HISTORY OF PRESENT ILLNESS: Reid Valdivia is a 72 year old male. Patient presents with: Acute Visit: Sore throat, sinus issues Here in the office for urgent care follow up for URI symptoms. [facility] to [facility] on 06/17/[facility]22. Was placed on doxycycline and prednisone. Patient is a current every day smoker. Smoking 4-6 cigarettes per day. Coughing up leon mucus. Having on going post nasal drip and sinus congestion. Cough is worse at night. Has been using Nyquil at night. No fever, chills, SOB, or wheezing. PAST MEDICAL HISTORY: PAST MEDICAL HISTORY Diagnosis Date Snoring PAST SURGICAL HISTORY Procedure Laterality Date COLONOSCOPY FLX DX W/COLLJ SPEC WHEN PFRMD 12/28/2018 Colonoscopy HERNIA REPAIR W/MESH 1996 NECK SURGERY HX 2000 herniated disc ORTHOPEDICS SURGERY HX ALLERGIES Patient has no known allergies. MEDICATIONS Current Outpatient Medications Medication Sig benzonatate (TESSALON PERLES) 100 mg capsule Take 1-2 capsules by mouth three times daily as needed. albuterol HFA (PROVENTIL HFA, VENTOLIN HFA) 90 mcg/actuation inhaler Inhale 2 Puffs as instructed every 4 hours as needed for wheezing/shortness of breath. (Patient not taking: Reported on 06/17/2022) budesonide-formoterol (SYMBICORT) 80-4.5 mcg/actuation inhaler Inhale 2 Puffs as instructed twice daily. fexofenadine (CARLY ALLERGY) 60 mg tablet Take 1 tablet by mouth once daily. (Patient not taking:Reported on 06/17/2022) Ascorbic Acid (VITAMIN C) 100 mg tablet Take 100 mg by mouth once daily. OMEGA 7-DRP-PTT-FISH OIL ORAL Take 1 capsule by mouth once daily. cholecalciferol, vitamin D3, (VITAMIN D3 ORAL) Take 1,000 Int'l Units by mouth once daily. 1-2 tablets daily vitamin B complex-folic acid 2,000 mcg cap Take 1 capsule by mouth once daily. triamcinolone (KENALOG) 0.025 % cream Apply 1 application to affected area twice daily. No current facility-administered medications for this visit. FAMILY HISTORY Problem Relation Age of Onset Heart disease Mother Hyperlipidemia Mother Colon Cancer Father Heart disease Sister Heart disease Brother Colon Cancer Maternal Uncle Social History Tobacco Use Smoking status: Some Days Packs/day: 0.50 Years: 40.00 Pack years: 20.00 Types: Cigarettes Smokeless tobacco: Never Tobacco comments: every now and then smoking Vaping Use Vaping Use: Never used Substance Use Topics Alcohol use: No Drug use: No REVIEW OF SYSTEMS GENERAL: No weight loss, malaise or fevers/chills HEENT: + Post Nasal Drip and Sinus Congestion NECK: Negative for lumps, goiter, pain and significant neck swelling RESPIRATORY: + Cough CARDIOVASCULAR: Negative for chest pain, leg swelling, orthopnea, or palpitations GI: No nausea, vomiting, or diarrhea/constipation. No hematochezia/melena. No heartburn or reflux symptoms. : No history of dysuria, frequency or incontinence MUSCULOSKELETAL: Negative for joint pain or swelling. SKIN: Negative for lesions, rash, and itching ENDOCRINE: Negative for cold or heat intolerance, polyuria, polydipsia and goiter NEURO: No history of headaches, syncope, paralysis, seizures or tremors MOOD: Negative for depression, anxiety, or suicidal ideation. EXAM: BP 116/70 Pulse 84 Resp 20 Wt 87.1 kg (192 lb) SpO2 95% BMI 26.78 kg/m PHYSICAL EXAM: General Appearance: Well appearing, alert, in no acute distress, well-hydrated, well nourished. Skin: Skin color, texture, turgor normal, no suspicious rashes or lesions. Head: Normocephalic, no masses, lesions, tenderness or abnormalities. Eyes: Anicteric sclera. Pupils are equally round and reactive to light. Extraocular movements are intact. Ears: External ears normal, canals clear. TM's pearly harper. Nose/Sinuses: Nares normal, septum midline, mucosa normal, no drainage or sinus tenderness. Oropharynx: Lips, mucosa, and tongue normal, teeth and gums normal, oropharynx normal. Neck: Supple, no adenopathy; thyroid symmetric, normal size, no bruits. Lungs: Lungs clear to auscultation. No wheezing, rhonchi, rales. Cough. Heart: RRR without murmur, gallop, or rubs. No ectopy. Extremities: No deformities, edema, skin discoloration, clubbing or cyanosis. Good capillary refill. Peripheral Pulses: Normal, Capillary refill <2secs, strong peripheral pulses, Pulses palpable. Neurologic: Gait normal. Reflexes normal and symmetric. Sensation grossly intact. ASSESSMENT/PLAN: 1. Post-nasal drip - ICD9: 784.91, ICD10: R09.82 (primary diagnosis) - May use Flonase 1-2 times per day. - May use Mucinex 2 tablets every 12 hours. - FLUTICASONE PROPIONATE 50 MCG/ACTUATION NASAL SPRAY,SUSPENSION - GUAIFENESIN ER 600 MG TABLET, EXTENDED RELEASE 12 HR 2. Chronic cough - ICD9: 786.2, ICD10: R05.3 - Concerns for possible COPD due to smoking history. - Complete PFT's. - Per patient request, complete chest xray. - SPIROMETRY - BASELINE AND POST DILATOR - LUNG VOLUMES - NITRIC OXIDE, EXHALED - XR CHEST 2V FRONTAL/LAT 3. Smoking - ICD9: 305.1, ICD10: F17.200 - Cessation encouraged. - Physiologic and physical aspects of tobacco addiction as well as strategies for quitting were discussed. - Counseling was given focusing on the harmful effects of this addiction especially given the patient's medical condition(s) which will be worsened because of the chemicals in tobacco. Follow-up pending test results or sooner as needed. Discussed treatment plan and patient voices understanding. Patient's questions answered appropriately. Medications and potential side effects were discussed and patient voices understanding. Delores Sommers APRN.DAI This note was partially generated using [employer] voice recognition system. Note was reviewed for accuracy. There may be minor misspellings or grammar miscues with [employer] voice recognition. documented in this encounterSelect Medical [facility]10-24-2022 History of Present illness Narrative* Mora Gonzalez PA-C - 06/17/2022 12:56 PM EDT 06/17/2022 Patient presents with: Cough: nausea, abdominal upset and congestion x 10 days SUBJECTIVE: This is a 72 year old that is here today for Complaint(s) of cough and congestion x 10 days. He did have some vomiting/diarrhea a few days ago, but that has completely resolved. Cough keeping him awake at night. Denies fever/chills, SOB, chest pain, ear pain, sore throat. + everyday smoker. No known history of asthma/COPD. PAST MEDICAL HISTORY Diagnosis Date Snoring ALLERGIES Patient has no known allergies. MEDICATIONS Current Outpatient Medications Medication Sig albuterol HFA (PROVENTIL HFA, VENTOLIN HFA) 90 mcg/actuation inhaler Inhale 2 Puffs as instructed every 4 hours as needed for wheezing/shortness of breath. (Patient not taking: Reported on 06/17/2022) budesonide-formoterol (SYMBICORT) 80-4.5 mcg/actuation inhaler Inhale 2 Puffs as instructed twice daily. fexofenadine (CARLY ALLERGY) 60 mg tablet Take 1 tablet by mouth once daily. (Patient not taking:Reported on 06/17/2022) Ascorbic Acid (VITAMIN C) 100 mg tablet Take 100 mg by mouth once daily. OMEGA 2-AVW-PGR-FISH OIL ORAL Take 1 capsule by mouth once daily. cholecalciferol, vitamin D3, (VITAMIN D3 ORAL) Take 1,000 Int'l Units by mouth once daily. 1-2 tablets daily vitamin B complex-folic acid 2,000 mcg cap Take 1 capsule by mouth once daily. triamcinolone (KENALOG) 0.025 % cream Apply 1 application to affected area twice daily. No current facility-administered medications for this visit. SOCIAL HISTORY Social History Tobacco Use Smoking status: Some Days Packs/day: 0.50 Years: 40.00 Pack years: 20.00 Types: Cigarettes Smokeless tobacco: Never Tobacco comments: every now and then smoking Vaping Use Vaping Use: Never used Substance Use Topics Alcohol use: No Drug use: No REVIEW OF SYSTEMS See HPI OBJECTIVE: BP 122/68 Pulse 80 Temp 36.4 C (97.6 F) Resp 16 Wt 85.7 kg (189 lb) SpO2 96% BMI 26.36 kg/m APPEARANCE Well appearing, alert, in no acute distress, well-hydrated, well nourished. EYES PERRLA, conjunctiva and sclera normal. EARS External ears normal, canals clear. TMs normal LD NOSE/SINUS Nares normal. Septum midline. Mucosa normal. No drainage or sinus tenderness. THROAT normal, no erythema, uvula midline NECK Supple, no adenopathy; HEART RRR with normal S1 and S2, LUNG clear to auscultation, No wheezing, rhonchi, rales. ASSESSMENT/PLAN: 1. Acute cough - ICD9: 786.2, ICD10: R05.1 Supportive care with fluids and rest Discussed possible viral etiology. + smoker, if not improving in 5-7 days-start doxycycline, sooner if worsening - PREDNISONE 20 MG TABLET - DOXYCYCLINE HYCLATE 100 MG TABLET - BENZONATATE 100 MG CAPSULE The patient indicates understanding of these issues and agrees with the plan. Reviewed red flags and when to seek care sooner. Mora Gonzalez PA-C documented in this encounterSelect Medical [facility] Hospital08-18-2022 Miscellaneous Notes* Telephone Encounter - Lor Jiménez LPN - 04/11/2022 8:02 AM EDT Left message for patient with negative results.Lor Jiménez LPN * Telephone Encounter - Lor Jiménez LPN - 04/11/2022 8:02 AM EDT ----- Message from Javier Booker MD sent at 04/11/2022 7:17 AM EDT ----- COVID test negative. documented in this encounterSelect Medical [facility] Hospital05-02-2022 Miscellaneous Notes* Telephone Encounter - Sofi Conroy - 12/24/2021 10:30 AM EDT Patient notified. The following approved medication requests have been transmitted electronically. Signed Prescriptions Disp Refills predniSONE (DELTASONE) 10 mg tablet 30 tablet 0 Sig: Take 4 tabs daily x 3 days, then 3 tabs x 3 days, 2 tabs x 3 days, then 1 tab x3 days with food. ESTEBAN: No Authorizing Provider: RAFA REGALADO Tech * Telephone Encounter - Rafa Regalado MD - 12/24/2021 10:24 AM EDT OK for another 12 day prednisone taper Rafa Regalado MD * Telephone Encounter - Zandra Terry [facility] - 12/24/2021 9:39 AM EDT Reid Valdivia is a patient of Rafa Regalado MD today friend Karen Tavera is calling and requesting a refill of the Prednisone medication; she stated that is the only thing that really helped the patient. Please call patient back. Patient has been identified by name and birthdate. Duration of symptoms: N/A Person calling: friend Call patient at: at home [phone] (home) Was an appointment scheduled: No Closing statement: Results or non-symptom based questions: Thank you for calling [facility], your call will be returned within the next business day. Zandra Terry Pss documented in this encounterSelect Medical Ohio[facility] Hospital04-05-2022 Instructions* Patient Instructions* Abdirahman Whittington APRN.DATA INTEGRITY SPECIALIST, DNP - 11/27/2021 2:34 PM EDT Follow up if symptoms worsen with express care or return to the clinic. Recommend to stop smoking. Trial of prednisone for 12 days Albuterol inhaler for shortnes,s of breath, cough and wheezing Schedule pulmonary function testing for 1 month from now Self Care instructions: Frequently wash hands and use hand sanitizers Limit touching eyes, nose or mouth Avoid irritants in the air. Avoid chemicals, fumes, and dust. Gargle with mouthwash or warm salt water as directed. Suck on throat lozenges or hard candy. Use a cold or warm vaporizer or humidifier to ease your breathing. Rest for at least 2 days and then as needed to decrease tiredness and weakness. Use petroleum based jelly around your nostrils to decrease irritation from blowing your nose. Decongestants help decrease nasal stuffiness. Antihistamines help decrease sneezing and a runny nose. Cough suppressants help decrease how much you cough. Expectorants help loosen mucus so you can cough it up. Informed to expect progressive improvement over the next 3-5 days. Seek care at your primary care clinic/urgent care clinic or seek care in the emergency room for the following: Fever over 100.5 but does not reduce with antipyretics, inability to tolerate oral fluids, persistent nausea vomiting and/or diarrhea, shaking chills or rigors, lightheadedness or dizziness, inability to maintain fluid hydration, or any other concerns of worsening condition. Healthy Habits: Recommend regular physical activity, nutrition and healthy eating habits. Consume a variety of foods every day focusing on fruits, vegetables and lean meats). Eat foods low in fat, saturated fat and cholesterol. Eat a limited amount of salt and sodium. Drink adequate amounts of water and limit sugary drinks. Exercise portion control in meal selection. Establish a mindset of a wellness approach to health. Thank you for allowing me to provide your care today. I look forward to seeing you again and maintaining your health. Abdirahman Whittington DNP.DAI documented in this encounterSelect Medical Ohio[facility] Hospital04-05-2022 History of Present illness Narrative* Abdirahman Whittington APRN.AUSTIN LALA - 11/27/2021 2:00 PM EDT Chief Complaint Patient presents with: Cough: X 2 months HPI Reid Valdivia is a 71 year old male who presents here today for a several month history of chest congestion and cough. This is an established patient of Dr. Rafa Regalado MD. Denies any recentER visits or hospitalizations. Reports: 3-month history of wheezing, cough and chest congestion. Cough is intermittent and semiproductive. Loose at times. Also complains of nasal congestion. Originally seen in September by [place] emergency department for the symptoms and prescribed doxycycline, fexofenadine and Flonase. Symptoms improved only mildly. Continue to have lingering symptoms over the next 1 month. Was seen by primary care provider on October 16 for some still continued symptoms. Was given Symbicort inhaler to use. Patient used intermittently. Mild improvement with Symbicort use. States does not have any additionalinhaler dosing left. Continue to have symptoms. Was seen on November 13 by urgent care was prescribed A ugmentin and Flonase. Augmentin was taken for 10 days. Did not relieve symptoms. Continues to complain of wheezing, chest congestion and cough. Denies fever or chills. Denies difficulty breathing. Symptoms wax and wane. 20+ year half to 1 pack/day smoker. Occasional nausea. No vomiting or diarrhea. Past medical history, appointments, medications, allergies reviewed 11/27/2021 Previous Medical History PAST MEDICAL HISTORY Diagnosis Date Snoring Previous Surgical History PAST SURGICAL HISTORY Procedure Laterality Date COLONOSCOPY FLX DX W/COLLJ SPEC WHEN PFRMD 12/28/2018 Colonoscopy HERNIA REPAIR W/MESH 1996 NECK SURGERY HX 2000 herniated disc ORTHOPEDICS SURGERY HX Family History FAMILY HISTORY Problem Relation Age of Onset Heart disease Mother Hyperlipidemia Mother Colon Cancer Father Heart disease Sister Heart disease Brother Colon Cancer Maternal Uncle Patient Allergies ALLERGIES No Known Allergies Current Medications Current Outpatient Medications on File Prior to Visit Medication Sig budesonide-formoterol (SYMBICORT) 80-4.5 mcg/actuation inhaler Inhale 2 Puffs as instructed twice daily. fexofenadine (CARLY ALLERGY) 60 mg tablet Take 1 tablet by mouth once daily. predniSONE (DELTASONE) 20 mg tablet Take 2 tablets by mouth once daily. Ascorbic Acid (VITAMIN C) 100 mg tablet Take 100 mg by mouth once daily. OMEGA 4-AMX-KFQ-FISH OIL ORAL Take 1 capsule by mouth once daily. cholecalciferol, vitamin D3, (VITAMIN D3 ORAL) Take 1,000 Int'l Units by mouth once daily. 1-2 tablets daily vitamin B complex-folic acid 2,000 mcg cap Take 1 capsule by mouth once daily. triamcinolone (KENALOG) 0.025 % cream Apply 1 application to affected area twice daily. No current facility-administered medications on file prior to visit. Social History Social History Tobacco Use Smoking status: Current Some Day Smoker Packs/day: 0.50 Years: 40.00 Pack years: 20.00 Types: Cigarettes Smokeless tobacco: Never Used Tobacco comment: every now and then smoking Vaping Use Vaping Use: Never used Substance Use Topics Alcohol use: No Drug use: No Review of Symptoms GENERAL: No weight loss, malaise or fevers. No fatigue or night sweats. HEENT: Negative for headaches No nasal discharge No sore throat, difficulty swallowing No earaches NECK: Negative for lumps, pain, neck swelling, or swollen nodes RESPIRATORY: see HPI CARDIOVASCULAR: Negative for chest pain GI: Occasional nausea EXAM: BP 126/78 Pulse 87 Temp 36.9 C (98.4 F) Resp 16 Wt 83 kg (183 lb) SpO2 95% BMI 25.52 kg/m General Appearance: Chronically ill and disheveled appearance. Alert, in no acute distress, well-hydrated, well nourished. Overweight Skin: Skin color, texture, turgor normal Head: Normocephalic, no masses, lesions Eyes: Anicteric sclera. No redness or drainage. Ears: External ears normal, TM's clear bilaterally, adequate light reflex Nose/Sinuses: Nares normal, septum midline, mucosa normal, or sinus tenderness. Clear nasal drainage Oropharynx: Lips, mucosa, and tongue normal, teeth and gums normal, oropharynx normal. Neck: Supple, no mass or lumps. Lymph Nodes: No cervical, supraclavicular, pre/post-auricular, or submandibular lymphadenopathy Lungs: Lungs clear. Faint expiratory wheeze. No rhonchi or rails Heart: RRR without murmur, gallop, or rubs. No ectopy. GI: Soft and round. Nontender in epigastric region. No upper or lower quadrant abdominal tenderness. No rebound tenderness. Extremities: No deformities, edema, skin discoloration. Pulses: 2+ at radial. Psych: Attitude - cooperative, easily engaged in conversation Appearance - normal, hygiene and grooming appropriate Affect - euthymic, normal mood Mental status: Alert, attentive. Speech is clear and fluent with good repetition, comprehension Coordination: There are no abnormal or extraneous movements. Gait/Stance: Posture is normal. Gait is steady with normal steps Health Maintenance List DEPRESSION SCREENING due on 09/28/2019 COLORECTAL CANCER SCREENING due on 12/29/2019 COVID-19 VACCINE(3 - Booster for Moderna series) due on 06/30/2021 ADVANCE DIRECTIVE DISCUSSION Never done DIABETES SCREEN due on 10/02/2021 INFLUENZA(Season Ended) due on 04/25/2022 LIPID SCREEN due on 10/02/2023 DTAP,TDAP,TD(2 - Td or Tdap) due on 05/26/2030 ABDOMINAL AORTIC ANEURYSM SCREENING Completed HEPATITIS C SCREENING Completed PNEUMOVAX AGE 65 AND OVER WITH 5YR LOOKBACK Completed SHINGRIX VACCINE Completed MENINGOCOCCAL CONJUGATE Aged Out Data reviewed Last 5 Encounter BP Readings: Date: BP: 11/13/2021 128/82 10/16/2021 122/84 10/04/2021 115/79 07/28/2020 126/80 05/16/2020 125/79 BMI Readings from Last 5 Encounters: 11/27/21 : 25.52 kg/m 11/13/21 : 25.52 kg/m 10/16/21 : 25.47 kg/m 10/04/21 : 24.41 kg/m 07/28/20 : 25.10 kg/m Last 5 Encounter Wt Readings: Date: Wt: 11/13/2021 83 kg (183 lb) 10/16/2021 82.8 kg (182 lb 9.6 oz) 10/04/2021 79.4 kg (175 lb) 07/28/2020 81.6 kg (180 lb) 05/16/2020 81.6 kg (180 lb) Medication and allergy list reviewed, reconciled and updated 11/27/2021 ASSESSMENT/PLAN: 1. COPD with chronic bronchitis (HCC) - ICD9: 491.20, ICD10: J44.9 (primary diagnosis) MDM: COPD with chronic bronchitis pending pulmonary function testing confirmation. Clinically stable now. Afebrile. No respiratory distress. Has been treated with 2 rounds of antibiotics over the past 2 months. Mild improvement with inhaled corticosteroid. Plan: Recommend to stop smoking. Trial of prednisone for 12 days Albuterol inhaler for shortnes,s of breath, cough and wheezing Schedule pulmonary function testing for 1 month from now Pending testing results recommend consultation with pulmonology. Self Care instructions: Frequently wash hands and use hand sanitizers Limit touching eyes, nose or mouth Avoid irritants in the air. Avoid chemicals, fumes, and dust. Gargle with mouthwash or warm salt water as directed. Suck on throat lozenges or hard candy. Use a cold or warm vaporizer or humidifier to ease your breathing. Rest for at least 2 days and then as needed to decrease tiredness and weakness. Use petroleum based jelly around your nostrils to decrease irritation from blowing your nose. Decongestants help decrease nasal stuffiness. Antihistamines help decrease sneezing and a runny nose. Cough suppressants help decrease how much you cough. Expectorants help loosen mucus so you can cough it up. Informed to expect progressive improvement over the next 3-5 days. Go to ER for any worsening symptoms. - PREDNISONE 10 MG TABLET - ALBUTEROL SULFATE HFA 90 MCG/ACTUATION AEROSOL INHALER - INHALATIONAL SPACING DEVICE - SPIROMETRY - BASELINE AND POST DILATOR 2. Cough - ICD9: 786.2, ICD10: R05.9 Plan as above - PREDNISONE 10 MG TABLET - ALBUTEROL SULFATE HFA 90 MCG/ACTUATION AEROSOL INHALER - INHALATIONAL SPACING DEVICE - SPIROMETRY - BASELINE AND POST DILATOR 3. Abdominal aortic aneurysm (AAA) without rupture (HCC) - ICD9: 441.4, ICD10: I71.4 Clinically stable. Continue follow-up with Dr. REGALADO 4. Tobacco use disorder - ICD9: 305.1, ICD10: F17.200 - Cessation encouraged. - Physiologic and physical aspects of tobacco addiction as well as strategies for quitting were discussed. - Counseling was given focusing on the harmful effects of this addiction especially given the patient's medical condition(s) which will be worsened because of the chemicals in tobacco. - Counseling was given 3-4 minutes. Abdirahman Whittington APRN.AUSTIN LALA This note was completed with [employer] dictation software. Note was reviewed for accuracy. There may be minor misspellings or grammar miscues with [employer] Dictation. I spent a total of 22 minutes on the date of the service which included preparing to see the patient, [id number] patient care, completing clinical documentation, performing a medically appropriate examination, counseling and educating the patient/family/caregiver and ordering medications, tests, or procedures. [place] [address] [facility] of Present illness Narrative* Yue Matson (Rt)Sofi - 07/28/2020 11:10 AM EST Radiology Service Progress Note PATIENT NAME: Reid Valdivia DATE OF SERVICE: July 28, 2020 TIME: 11:28 AM PATIENT IDENTITY VERIFICATION COMPLETED USING TWO (2) IDENTIFIERS: Name and Date of confirmedby patient verbally. FALL SCREENING: Has the patient had 2 falls in the last year or 1 fall with injury or currently using an Ambulatory Assistive Device (Walker, Cane, Wheelchair, Crutches, etc.)? No PATIENT GENDER DATA: Male PATIENT RELEVANT IMPLANT DATA REVIEWED: Yes RADIOLOGY DEPARTMENT: General X-ray: Exam(s) Completed: Chest X-Ray PERIPHERAL IV DATA: Not applicable SIGNED BY: RT Mica July 28, 2020 11:28 AM [facility] Diagnosis COPD with chronic bronchitis (HCC)- Primary Obstructive chronic bronchitis without exacerbation Cough Abdominal aortic aneurysm (AAA) without rupture (HCC) Tobacco use disorder [facility]* Diagnosis COPD with chronic bronchitis (HCC) Obstructive chronic bronchitis without exacerbation Cough documented [facility]* Diagnosis Acute cough- Primary documented [facility]* Diagnosis Post-nasal drip- Primary Postnasal drip Chronic cough Cough Smoking Tobacco use disorder [facility]* Diagnosis Chronic cough- Primary Cough Smoking Tobacco use disorder COPD with chronic bronchitis (HCC) Obstructive chronic bronchitis without exacerbation [facility]* Diagnosis Chronic cough Cough Smoking Tobacco use disorder COPD with chronic bronchitis (HCC) Obstructive chronic bronchitis without exacerbation [facility]* Diagnosis Smoking Tobacco use disorder Chronic cough Cough documented [facility]* Diagnosis COPD with chronic bronchitis (HCC) Obstructive chronic bronchitis without exacerbation Cough documented [facility]* Diagnosis Chronic obstructive pulmonary disease, unspecified COPD type (HCC)- Primary Smoking Tobacco use disorder documented [facility]* Diagnosis Overgrown toenails- Primary Other specified disease of nail Chronic obstructive pulmonary disease, unspecified COPD type (HCC) documented [facility]* Diagnosis Onset Date Resolution Status Altered behavior acute Encephalopathy acute NSTEMI (non-ST elevated myocardial infarction) acute SVT (supraventricular tachycardia) acute [facility] [place] Work Phone: Evaluation noteNo assessment information available [facility] [place] Work Phone: evaluation note* Diagnosis Chronic cough Cough documented [facility]* Diagnosis Bacterial pneumonia Bacterial pneumonia, unspecified [facility]* Diagnosis Screening for colorectal cancer- Primary Special screening for malignant neoplasms, colon [facility] Outpatient Procedure (Routine) - Pending Review Specialty Diagnoses / Procedures Referred By Contac t [facility] Diagnoses COPD with chronic bronchitis (HCC) Cough Procedures SPIROMETRY - BASELINE AND POST DILATOR BRNCDILAT RSPSE SPMTRY PRE&POST-BRNCDILAT Abdirahman Alejandre APRN.CNP, DNP [address] [place] [address] [facility] [address] [place] [address] Referral ID Status Reason Start Date Expiration Date Visits Requested Visits Authorized [id number] Pending Review Auto-Generat ed Referral 12/27/2021 12/27/2022 1 1 [facility] for referral (narrative)* Outpatient Procedure (Routine) - Authorized Specialty Diagnoses / Procedures Referred By Contac t Referred [facility] Diagnoses Smoking Chronic cough Procedures NITRIC OXIDE, EXHALED NITRIC OXIDE GAS DETERMINATION Delores Sommers APRN.CNP [address] [place] [address] [facility] [address] [place] [address] Referral ID Status Reason Start Date Expiration Date Visits Requested Visits Authorized [id number] Authorized Auto-Generat ed Referral 06/27/2022 07/27/2023 1 1 * Outpatient Procedure (Routine) - Pending Review Specialty Diagnoses / Procedures Referred By Contac t Referred [facility] Diagnoses Smoking Chronic cough Procedures LUNG VOLUMES Delores Sommers APRN.CNP [address] [place] [address] [facility] [place] [address] [place] [address] Referral ID Status Reason Start Date Expiration Date Visits Requested Visits Authorized [id number] Pending Review Auto-Generat ed Referral 06/27/2022 07/27/2023 1 1 * Outpatient Procedure (Routine) - Authorized Specialty Diagnoses / Procedures Referred By Contac t Referred [facility] Diagnoses Smoking Chronic cough Procedures SPIROMETRY - BASELINE AND POST DILATOR BRNCDILAT RSPSE SPMTRY PRE&POST-BRNCDILAT ADMN Delores Sommers APRN.CNP [address] [place] [address] [address] Referral ID Status Reason Start Date Expiration Date Visits Requested Visits Authorized [id number] Authorized Auto-Generat ed Referral 06/27/2022 07/27/2023 1 1 [facility] for referral (narrative)* Outpatient Procedure (Routine) - Authorized Specialty Diagnoses / Procedures Referred By Contac t Referred [facility] Diagnoses Chronic cough Smoking COPD with chronic bronchitis (HCC) Procedures NITRIC OXIDE, EXHALED NITRIC OXIDE GAS DETERMINATION Delores Sommers APRN.CNP [address] [place] [address] [address] [place] [address] [place] [address] Referral ID Status Reason Start Date Expiration Date Visits Requested Visits Authorized [id number] Authorized Auto-Generat ed Referral 2 09/20/2023 1 1 * Outpatient Procedure (Routine) - Authorized Specialty Diagnoses / Procedures Referred By Contac t Referred [facility] Diagnoses Chronic cough Smoking COPD with chronic bronchitis (HCC) Procedures LUNG VOLUMES Delores Sommers APRN.CNP [address] [place] [address] [address] Referral ID Status Reason Start Date Expiration Date Visits Requested Visits Authorized [id number] Authorized Auto-Generat ed Referral 2 08/24/2023 [facility] for [facility] Work Phone: Advance Directives No Advanced Directives Records FoundDocuments on File Type Date Recorded Patient Trashman Expl anation Advance Directive(s) 10/04/2021 12:17 PM Advance Directive(s) 05/16/2020 12:27 PM Advance Directive(s) 06/28/2019 3:57 PM Advance Directive(s) 12/28/2018 12:58 PM Documents on File Type Date Recorded Patient Trashman Expl anation Advance Directive(s) 10/04/2021 12:17 PM Advance Directive(s) 05/16/2020 12:27 PM Advance Directive(s) 06/28/2019 3:57 PM Advance Directive(s) 12/28/2018 12:58 PM Advance Directive Response Recorded Date/ Time Living Will No November 15, 2023 5:56pm Power of Transportation Modeler No November 14 5:56pm Advance Directive Response Recorded Date/ Time Living Will No December 11, 2023 9:34am Power of Transportation Modeler No December 10 9:34am Health Concerns Infection Onset Date Last Indicated Resolved Time COVID-19 Rule-Out 04/10/2022 04/10/2022 04/11/2022 3:04 AM EDT Reason for Referral Specialty Diagnoses / Procedures Referred By Wale montero Referred To Contact Podiatry Diagnoses Overgrown toenails Procedures CONSULT TO PODIATRY OFFICE/OUTPATIENT NEW HIGH MDM 60-74 MINUTES Delores Sommers APRN.CNP [address] [place] [address] Referral ID Status Reason Start Date Expiration Date Visits Requested Visits Authorized [id number] Pending Review PCP Requested Referral 10/09/2022 10/09/2023 1 1 Summary Purpose Family History No Family History Records FoundNo Family History Records FoundNo Family History Records Found Chief Complaint and Reason for Visit Chief Complaint ALTERED MENTAL STATU S ALTERED MENTAL STATUS EKG ALTERED MENTAL STATUS ALTERED MENTAL STATUS ALTERED MENTAL STATUS ALTERED MENTAL STATUS ALTERED MENTAL STATUS ALTERED MENTAL STATUS ALTERED MENTAL STATUS ALTERED MENTAL STATUS ALTERED MENTAL STATUS ALTERED MENTAL STATUS ALTERED MENTAL STATUS ALTERED MENTAL STATUS ALTERED MENTAL STATUS ALTERED MENTAL STATUS ALTERED MENTAL STATUS Reason for Visit Altered behavior Encephalopathy NSTEMI (non-ST elevated myocardial infarction) SVT (supraventricular tachycardia) Chief Complaint ALTERED MENTAL STATU S ALTERED MENTAL STATUS EKG ALTERED MENTAL STATUS ALTERED MENTAL STATUS ALTERED MENTAL STATUS ALTERED MENTAL STATUS ALTERED MENTAL STATUS ALTERED MENTAL STATUS ALTERED MENTAL STATUS ALTERED MENTAL STATUS ALTERED MENTAL STATUS ALTERED MENTAL STATUS ALTERED MENTAL STATUS ALTERED MENTAL STATUS ALTERED MENTAL STATUS ALTERED MENTAL STATUS ALTERED MENTAL STATUS PEG TUBE REPLACE Chief Complaint Admit Date LABWORK October 13, 2024 5:00am CONSULT PRIOR TO SCHEDULING PEG TUBE REM OVAL February 01, 2025 1:32pm Additional Source Comments Source Comments (unrecognize d section and content) In the event this informatio n is protected by the Federal Confidentiality of Alcohol and Drug Abuse Patient Records regulations: The Federal rules restrict any use of the information to criminally investigate or prosecute any alcohol or drug abuse patient.[facility] the event this information is protected by the Federal Confidentiality of Alcohol and Drug Abuse Patient Records regulations: The Federal rules restrict any use of the information to criminally investigate or prosecute any alcohol or drug abuse patient.[facility] Hospital[facility] the event this information is protected by the Federal Confidentiality of Alcohol and Drug Abuse Patient Records regulations: The Federal rules restrict any use of the information to criminally investigate or prosecute any alcohol or drug abuse patient.[facility] Hospital[facility] the event this information is protected by the Federal Confidentiality of Alcohol and Drug Abuse Patient Records regulations: The Federal rules restrict any use of the information to criminally investigate or prosecute any alcohol or drug abuse patient.[facility] Hospital[facility] the event this information is protected by the Federal Confidentiality of Alcohol and Drug Abuse Patient Records regulations: The Federal rules restrict any use of the information to criminally investigate or prosecute any alcohol or drug abuse patient.[facility] HospitalIn the event this information is protected by the Federal Confidentiality of Alcohol and Drug Abuse Patient Records regulations: The Federal rules restrict any use of the information to criminally investigate or prosecute any alcohol or drug abuse patient.[facility] Hospital[facility] the event this information is protected by the Federal Confidentiality of Alcohol and Drug Abuse Patient Records regulations: The Federal rules restrict any use of the information to criminally investigate or prosecute any alcohol or drug abuse patient.[facility] Hospital[facility] the event this information is protected by the Federal Confidentiality of Alcohol and Drug Abuse Patient Records regulations: The Federal rules restrict any use of the information to criminally investigate or prosecute any alcohol or drug abuse patient.[facility] Hospital[facility] the event this information is protected by the Federal Confidentiality of Alcohol and Drug Abuse Patient Records regulations: The Federal rules restrict any use of the information to criminally investigate or prosecute any alcohol or drug abuse patient.[facility] HospitalIn the event this information is protected by the Federal Confidentiality of Alcohol and Drug Abuse Patient Records regulations: The Federal rules restrict any use of the information to criminally investigate or prosecute any alcohol or drug abuse patient.[facility] HospitalIn the event this information is protected by the Federal Confidentiality of Alcohol and Drug Abuse Patient Records regulations: The Federal rules restrict any use of the information to criminally investigate or prosecute any alcohol or drug abuse patient.[facility] HospitalIn the event this information is protected by the Federal Confidentiality of Alcohol and Drug Abuse Patient Records regulations: The Federal rules restrict any use of the information to criminally investigate or prosecute any alcohol or drug abuse patient.[facility] HospitalIn the event this information is protected by the Federal Confidentiality of Alcohol and Drug Abuse Patient Records regulations: The Federal rules restrict any use of the information to criminally investigate or prosecute any alcohol or drug abuse patient.[facility] HospitalIn the event this information is protected by the Federal Confidentiality of Alcohol and Drug Abuse Patient Records regulations: The Federal rules restrict any use of the information to criminally investigate or prosecute any alcohol or drug abuse patient.[facility] HospitalIn the event this information is protected by the Federal Confidentiality of Alcohol and Drug Abuse Patient Records regulations: The Federal rules restrict any use of the information to criminally investigate or prosecute any alcohol or drug abuse patient.[facility] HospitalIn the event this information is protected by the Federal Confidentiality of Alcohol and Drug Abuse Patient Records regulations: The Federal rules restrict any use of the information to criminally investigate or prosecute any alcohol or drug abuse patient.[facility] HospitalIn the event this information is protected by the Federal Confidentiality of Alcohol and Drug Abuse Patient Records regulations: The Federal rules restrict any use of the information to criminally investigate or prosecute any alcohol or drug abuse patient.[facility] HospitalIn the event this information is protected by the Federal Confidentiality of Alcohol and Drug Abuse Patient Records regulations: The Federal rules restrict any use of the information to criminally investigate or prosecute any alcohol or drug abuse patient.[facility] HospitalIn the event this information is protected by the Federal Confidentiality of Alcohol and Drug Abuse Patient Records regulations: The Federal rules restrict any use of the information to criminally investigate or prosecute any alcohol or drug abuse patient.[facility] HospitalIn the event this information is protected by the Federal Confidentiality of Alcohol and Drug Abuse Patient Records regulations: The Federal rules restrict any use of the information to criminally investigate or prosecute any alcohol or drug abuse patient.[facility] HospitalIn the event this information is protected by the Federal Confidentiality of Alcohol and Drug Abuse Patient Records regulations: The Federal rules restrict any use of the information to criminally investigate or prosecute any alcohol or drug abuse patient.[facility] Reason for Visit (unrecogniz ed section and content) Reason Comments Cough X 2 months Reason Comments Medication Request refill on Prednisone Reason Comments Results Reason Comments Cough nausea, abdominal up set and congestion x 10 days Reason Comments Acute Visit Sore throat, sinus i ssues Reason Comments Results Chest xray Reason Comments Appointment Reason Comments Appointment Reason Comments Spirometry Specialty Diagnoses / Procedures Referred By Contac t Referred [facility] Diagnoses Chronic cough Smoking COPD with chronic bronchitis (HCC) Procedures LUNG VOLUMES Delores Sommers, MANAGEMENT REP.DATA INTEGRITY SPECIALIST [address] [place] [address] [facility] [address] [place] [address] Referral ID Status Reason Start Date Expiration Date V isits Requested Visits Authorized [id number] Closed Auto-Generate d Referral 08/21/2022 08/24/2023 1 1 Reason Comments Cancelled appt Specialty Diagnoses / Procedures Referred By Contac t Referred [facility] Diagnoses Smoking Chronic cough Procedures SPIROMETRY - BASELINE AND POST DILATOR BRNCDILAT RSPSE SPMTRY PRE&POST-BRNCDILAT ADMN Delores Sommers, [place].DATA INTEGRITY SPECIALIST [address] [place] [address] [facility] [address] [place] [address] Referral ID Status Reason Start Date Expiration Date V isits Requested Visits Authorized [id number] Closed Auto-Generate d Referral 06/27/2022 07/27/2023 1 1 Reason Onset Date Comments Refill Request 09/11/2022 Reason Comments Results Patient Update Reason Comments Follow Up spirometry results Reason Comments Acute Visit Not feeling well Reason Comments Patient Update Reason Onset Date Comments Outpatient Colonoscopy 01/21/2025 Patient i s overdue for colorectal cancer screening since 12/29/2019 Patient will need consult with Angel Godfrey CNP prior to colorectal cancer screening. Care Teams (unrecognized sec tion and content) Inlayer Silver Relationship Specialty Start Date End Date Rafa Regalado MD [address] [place], [place] [id number] PCP - General Family Practice 09/28/18 Inlayer Silver Relationship Specialty Start Date End Date Rafa Regalado MD [address] [place] [address] PCP - General Family Practice 09/28/18 Inlayer Silver Relationship Specialty Start Date End Date Rafa Regalado MD [address] [place] [address] PCP - General Family Practice 09/28/18 Inlayer Silver Relationship Specialty Start Date End Date Rafa Regalado MD [address] [place], [place] [id number] PCP - General Family Medicine 09/28/18 Inlayer Silver Relationship Specialty Start Date End Date Rafa Regalado MD [address] [facility] [place] [address] PCP - General Family Medicine 09/28/18 Inlayer Silver Relationship Specialty Start Date End Date Rafa Regalado MD [address] [facility] [place] [address] PCP - General Family Medicine 09/28/18 Inlayer Silver Relationship Specialty Start Date End Date Rafa Regalado MD [address] [facility] [place] [address] PCP - General Family Medicine 09/28/18 Inlayer Silver Relationship Specialty Start Date End Date Rafa Regalado MD [address] [facility] [place] [address] PCP - General Family Medicine 09/28/18 Inlayer Silver Relationship Specialty Start Date End Date Rafa Regalado MD [address] [facility] [place] [address] PCP - General Family Medicine 09/28/18 Inlayer Silver Relationship Specialty Start Date End Date Rafa Regalado MD [address] [facility] [place] [address] PCP - General Family Medicine 09/28/18 Inlayer Silver Relationship Specialty Start Date End Date Rafa Regalado MD [address] [facility] [place] [address] PCP - General Family Medicine 09/28/18 Inlayer Silver Relationship Specialty Start Date End Date Rafa Regalado MD [address] [facility] [place] [address] PCP - General Family Medicine 09/28/18 Inlayer Silver Relationship Specialty Start Date End Date Rafa Regalado MD [address] [facility] [place] [address] PCP - General Family Medicine 09/28/18 Team Status: Active Member Role Status Dates Dr. Rafa Regalado MD Primary Care Provider Active Team Status: Active Member Role Status Dates Dr. Thomas Fleming MD Primary Care Provider Active Dr. Barrie Oreilly MD Admit Provider, Attending Provider, Other Provider Active Team Status: Active Member Role Status Dates Dr. Thomas Fleming MD Primary Care Provider Active Dr. Barrie Oreilly MD Admit Provider, Other Provider Active Dr. Ken Colorado MD Attending Provider, Other Provider Active Team Status: Active Member Role Status Dates Dr. Thomas Fleming MD Primary Care Provider Active Dr. Barrie Oreilly MD Admit Provider Active Dr. Ken Colorado MD Other Provider Active Dr. Reagan Greenfield MD Attending Provider, Other Provid er Active Team Status: Active Member Role Status Dates Dr. Thomas Fleming MD Primary Care Provider Active Dr. Barrie Oreilly MD Admit Provider Active Dr. Ken Colorado MD Attending Provider, Other Provider Active Dr. Reagan Greenfield MD Other Provider Active Dr. Kristal Hayward MD Active Team Status: Active Member Role Status Dates Dr. Thomas Fleming MD Primary Care Provider Active Dr. Reagan Greenfield MD Attending Provider Active Team Status: Active Member Role Status Dates Dr. Barrie Oreilly MD Admit Provider Active Dr. Ken Colorado MD Attending Provider, Other Provider Active Dr. Reagan Greenfield MD Other Provider Active Dr. Rafa Regalado MD Primary Care Provider Active Team Status: Active Member Role Status Dates Dr. Barrie Oreilly MD Admit Provider Active Dr. Reagan Greenfield MD Other Provider Active Dr. Rafa Regalado MD Primary Care Provider Active Dr. Evelin Chavarria MD Attending Provider, Other Prov ider Active Dr. Ken Colorado MD Other Provider Active Bharath Fan MD Other Provider Active Dr. Ofelia Cash MD Other Provider Active Nelly Daniels MD Other Provider Active Dr. Jess Johnson DO Other Provider Active Dr. Diann Vasquez MD Other Provider Active Dr. Amrit Garnett MD Other Provider Active Dr. Candis Juan MD Other Provider Active Dr. Surinder Alfaro MD Other Provider Active Dr. Alden Carmona MD Other Provider Active Kylah Su MD Other Provider Active Dr. Antoine Lemon MD Other Provider Active Dr. Re Riddle MD Other Provider Active Dr. Lex Horn MD Other Provider Active Dr. Angel Mcdaniel MD Other Provider Active Dr. Delvis Mcnulty MD Other Provider Active Dr. Anna Johnson MD Other Provider Active Dr. Earnest Farley MD Other Provider Active Dr. Mariah Costello MD Other Provider Active Omar Armenta MD Other Provider Active Team Status: Active Member Role Status Dates Dr. Thomas Fleming MD Primary Care Provider Active Dr. Wally Hook MD Attending Provider, Referring Pro vider Active Team Status: Active Member Role Status Dates Dr. Barrie Oreilly MD Admit Provider Active Dr. Reagan Greenfield MD Other Provider Active Dr. Rafa Regalado MD Primary Care Provider Active Dr. Evelin Chavarria MD Other Provider Active Dr. Ken Colorado MD Other Provider Active Bharath Fan MD Other Provider Active Dr. Ofelia Cash MD Other Provider Active Nelly Daniels MD Other Provider Active Dr. Jess Johnson DO Other Provider Active Dr. Diann Vasquez MD Other Provider Active Dr. Amrit Garnett MD Other Provider Active Dr. Candis Juan MD Other Provider Active Dr. Surinder Alfaro MD Other Provider Active Dr. Alden Carmona MD Other Provider Active Kylah Su MD Other Provider Active Dr. Antoine Lemon MD Other Provider Active Dr. Re Riddle MD Other Provider Active Dr. Lex Horn MD Other Provider Active Dr. Angel Mcdaniel MD Other Provider Active Dr. Delvis Mcnulty MD Other Provider Active Dr. Anna Johnson MD Other Provider Active Dr. Earnest Farley MD Other Provider Active Dr. Mariah Costello MD Other Provider Active Omar Armenta MD Other Provider Active Dr. Alec Grigsby , Attending Provider Active Team Status: Active Member Role Status Dates Dr. Rafa Regalado MD Primary Care Provider Active Dr. Alec Grigsby , Attending Provider Active Team Status: Inactive Member Role Status Dates Dr. Barrie Oreilly MD Admit Provider Active Dr. Reagan Greenfield MD Other Provider Active Dr. Rafa Regalado MD Primary Care Provider Active Dr. Evelin Chavarria MD Attending Provider Active Dr. Ken Colorado MD Other Provider Active Bharath Fan MD Other Provider Active Dr. Ofelia Cash MD Other Provider Active Nelly Daniels MD Other Provider Active Dr. Jess Johnson DO Other Provider Active Dr. Diann Vasquez MD Other Provider Active Dr. Amrit Garnett MD Other Provider Active Dr. Candis Juan MD Other Provider Active Dr. Surinder Alfaro MD Other Provider Active Dr. Alden Carmona MD Other Provider Active Kylah Su MD Other Provider Active Dr. Antoine Lemon MD Other Provider Active Dr. Re Riddle MD Other Provider Active Dr. Lex Horn MD Other Provider Active Dr. Angel Mcdaniel MD Other Provider Active Dr. Delvis Mcnulty MD Other Provider Active Dr. Anna Johnson MD Other Provider Active Dr. Earnest Farley MD Other Provider Active Dr. Mariah Costello MD Other Provider Active Omar Armenta MD Other Provider Active Team Status: Active Member Role Status Dates Dr. Barrie Oreilly MD Admit Provider Active Dr. Reagan Greenfield MD Other Provider Active Dr. Rafa Regalado MD Primary Care Provider Active Dr. Evelin Chavarria MD Referring Provider, Other Prov ider Active Dr. Ken Colorado MD Other Provider Active Bharath Fan MD Other Provider Active Dr. Ofelia Cash MD Other Provider Active Nelly Daniels MD Other Provider Active Dr. Jess Johnson , Other Provider Active Dr. Diann Vasquez MD Other Provider Active Dr. Amrit Garnett MD Other Provider Active Dr. Candis Juan MD Other Provider Active Dr. Surinder Alfaro MD Other Provider Active Dr. Alden Carmona MD Other Provider Active Kylah Su MD Other Provider Active Dr. Antoine Lemon MD Other Provider Active Dr. Re Riddle MD Other Provider Active Dr. Lex Horn MD Other Provider Active Dr. Angel Mcdaniel MD Other Provider Active Dr. Delvis Mcnulty MD Other Provider Active Dr. Anna Johnson MD Other Provider Active Dr. Earnest aFrley MD Other Provider Active Dr. Mariah Costello MD Other Provider Active Oamr Armenta MD Other Provider Active Dr. Alec Grigsby , Attending Provider Active Team Status: Active Member Role Status Dates Dr. Rafa Regalado MD Primary Care Provider Active Dr. Alec Grigsby DO Attending Provider Active Dr. Evelin Chavarria MD Referring Provider Active Team Status: Active Member Role Status Dates Dr. Rafa Regalado MD Primary Care Provider Active Dr. Corine WHEAT MD Attending Provider Active Team Status: Inactive Member Role Status Dates Dr. Rafa Regalado MD Primary Care Provider Active Dr. Abdirahman Howell DO Emergency Provider Active Inlayer Silver Relationship Specialty Start Date End Date Rafa Regalado MD [address] [place] [address] PCP - General Family Medicine 09/28/18 In[employer] Silver Relationship Specialty Start Date End Date Rafa Regalado MD [address] [place] [address] PCP - General Family Medicine 09/28/18 In[employer] Silver Relationship Specialty Start Date End Date Rafa Regalado MD [address] [place] [address] PCP - General Family Medicine 09/28/18 Team Status: Active Member Role Status Dates Dr. Rafa Regalado MD Primary Care Provider Active Start: October 13, 2024 Dr. Corine WHEAT MD Attending Provider Active Start: October 13, 2024 Team Status: Inactive Member Role Status Dates Dr. Rafa Regalado MD Primary Care Provider Active Start: February 01, 2025 End: February 01, 2025 Dr. Rafa Regalado MD Referring Provider Active Start: February 01, 2025 End: February 01, 2025 ROGER Serrano Attending Provider Active S tart: February 01, 2025 End: February 01, 2025 Inlayer Silver Relationship Specialty Start Date End Date Rafa Regalado MD [address] [place], [place] [id number] PCP - General Family Medicine 09/28/18 Edu Song APRN.DATA INTEGR[employer] SPECIALIST [address] [place], [place] [id number] [employer] Family Medicine 08/10/24 (unrecognized sect ion and content) No Status Records FoundNo Status Records FoundNo Status Records Found INFORMATION SOURCE (unrecogn ized section and content) DATE CREATED AUTHOR 11/17/2023 [facility] DATE CREATED AUTHOR AUTHOR'S ORGANIZ ATION 01/26/2025 [facility] DATE CREATED AUTHOR AUTHOR'S ORGANIZ ATION 06/25/2025 [facility] Goals (unrecognized section and content) Goals may be documented in a n alternate section FOR RECORDS PERTAINING TO PATIENTS WHO ARE OR HAVE BEEN ENROLLED IN A CHEMICAL DEPENDENCY/SUBSTANCEABUSE PROGRAM, SOME INFORMATION MAY BE OMITTED. This clinical summary was aggregated from multiple sources. Caution should be exercised in using it in the provision of clinical care. This summary normalizes information from multiple sources, and as a consequence, information in this document may materially change the coding, format and clinical context of patient data. In addition, data may be omitted in some cases. CLINICAL DECISIONS SHOULD BE BASED ON THE PRIMARY CLINICAL RECORDS. [facility] [email or web address] [facility] provides no warranty or guarantee of the accuracy or completeness of information in this document.
== END ==
LOC: OLS.SW 04:00
PROVIDERS: PCP Family Medicine; Referring Provider Internal Medicine; Visit Provider Internal Medicine
DX: E78.5 Hyperlipidemia, unspecified (principal); Z93.1 Gastrostomy status; J44.9 Chronic obstructive pulmonary disease, unspecified
CPT/HCPCS: 36415; 83036